=== PATIENT | female | born 1945 | race American Indian/Alaskan Native ===

== ENCOUNTER 2017-01-13 08:23 | Day surgery (SDC) | payer MEDICARE ==
[2017-01-05 13:49] VITALS: BMI 22.6
[2017-01-13] MEDS ORDERED: Propofol 10 mg/ml Inj (20 ML) ONE (10:46)
[2017-01-13] MEDS ORDERED: Lactated Ringer's 1,000 ML IV SCH (11:09)
[2017-01-13 14:12] VITALS: BP 129/57; PULSE 62; RESP 16; TEMP 98; O2SAT 98
== END 2017-01-13 11:55 | disposition home or self-care (01) ==
LOC: ENDO 08:23
PROVIDERS: ATTEND Specialist
DX: K31.819 Angiodysplasia of stomach and duodenum without bleeding (principal); K29.70 Gastritis, unspecified, without bleeding; K21.0 Gastro-esophageal reflux disease with esophagitis; R63.0 Anorexia; Z68.22 Body mass index [BMI] 22.0-22.9, adult; R63.4 Abnormal weight loss
CPT/HCPCS: 43239; 82948; 88305; 88342; J2704; J7040; J7120

== ENCOUNTER 2018-02-18 10:07 | Day surgery (SDC) | payer MEDICARE ==
[2018-02-15 07:33] VITALS: BMI 23.4
[2018-02-18 10:43] LABS: BASO # 0.03 K/mm3 (0.0-2.0); BASO % 0.5 % (0.0-3.0); EOS # 0.2 (0.0-0.7); EOS % 3.5 % (1.5-5.0); GRAN % 63.4 % (50.0-68.0); HEMOGLOBIN 10.8 g/dL (12.0-16.0); LYMPH # 1.7 (1.2-3.4); LYMPH % 26.3 % (22.0-35.0); MEAN CELL VOLUME 85.7 fl (80.0-105.0); MEAN CORPUSCULAR HEMOGLOBIN 28.1 pg (25.0-35.0); MEAN CORPUSCULAR HGB CONC 32.8 g/dl (31.0-37.0); MEAN PLATELET VOLUME 10.4 fl (7.0-11.0); MONO # 0.4 (0.1-0.6); MONO % 6.3 % (1.0-6.0); RBC 3.84 10^6/uL (3.5-6.1); RED CELL DISTRIBUTION WIDTH 15.6 % (11.5-14.5); WHITE BLOOD COUNT 6.3 10^3/ul (4.5-11.0)
[2018-02-18 10:56] LABS: BLOOD UREA NITROGEN 15 mg/dL (7-21); CALCIUM 9.8 mg/dL (8.4-10.5); GFR AFRICAN-AMERICAN > 60; GFR NON-AFRICAN AMERICAN > 60
[2018-02-18 11:14] LABS: PROTHROMBIN TIME 9.6 SECONDS (9.4-12.5)
[2018-02-18 11:15] LABS: INR 0.84 (0.93-1.08); PARTIAL THROMBOPLASTIN TIME 29.9 Seconds (25.1-36.5)
[2018-02-18] MEDS ORDERED: Lidocaine 1% Inj (20ml) ONE (14:21)
[2018-02-18] MEDS ORDERED: Midazolam 2 MG/2 ML VIAL ONE (14:22)
[2018-02-18] MEDS ORDERED: Oxycodone/Acetaminophen 5/325 mg Tab PO PRN (15:23)
[2018-02-18] MEDS ORDERED: Sodium Chloride 0.45% 1,000 ML IV SCH (15:30)
[2018-02-18 16:12] VITALS: RESP 18; TEMP 98.1
[2018-02-18 17:37] VITALS: BP 156/76; PULSE 68; O2SAT 96
--- NOTE | 2018-02-18 18:40 | US ---
PROCEDURE: Ultrasound-guided left thyroid fine needle aspiration biopsy. CLINICAL HISTORY: Multiple bilateral nodules and cysts. Dominant 2.7 cm heterogeneous left nodule. Evaluate for malignancy. PHYSICIAN(S): Abdullahi Laura M.D. TECHNIQUE: The relative risks and indications for the procedure were explained to the patient and consent obtained. The patient was placed supine on the stretcher with the neck extended and preliminary sonography of the thyroid performed. This reveal dominant 2.7 cm left thyroid nodule.. Numerous smaller cysts and nodules are noted bilaterally The neck was prepped and draped in the usual sterile fashion. Conscious sedation and monitoring were provided throughout the procedure by a nurse. 1% Xylocaine was used to anesthetize the skin and soft tissues at the access site. Three passes with a 22-gauge needle were performed under ultrasound guidance for fine needle aspiration of the 2.7 cm heterogeneous nodule in the left thyroid. The slides were reviewed by pathology and deemed adequate. The patient tolerated the procedure well. IMPRESSION: 1. Ultrasound guided fine needle aspiration of a 2.7 cm dominant heterogeneous nodule in the left thyroid
== END 2018-02-18 17:50 | disposition home or self-care (01) ==
LOC: SDS 10:07
PROVIDERS: ATTEND Radiology Vascular & Interventional Radiology
DX: E04.1 Nontoxic single thyroid nodule (principal); I10 Essential (primary) hypertension; I25.10 Atherosclerotic heart disease of native coronary artery without angina pectoris; E11.9 Type 2 diabetes mellitus without complications
CPT/HCPCS: 10022; 36415; 76942; 80048; 85025; 85610; 85730; 88173; 88305; 99152; 99153; J2250; J2405; J3010; J7030

== ENCOUNTER 2018-09-22 05:34 | Inpatient (IN) | payer MEDICARE, OTHER ==
[2018-09-22] MEDS ORDERED: Sodium Chloride 0.9% 1,000 ML IV STA (05:52)
--- NOTE | 2018-09-22 06:17 | ED PDOC ---
Arrival/HPI - General Chief Complaint: Chest Pain Historian: Patient - History of Present Illness Narrative History of Present Illness (Text): 09/22/18 06:03 72 year old female, whose past medical history includes anemia, diabetes and Hypertension, presents to the emergency department with chest pain. Patient states the pain has been worsening all night, and has kept her from sleeping. Patient states pain radiated to her throat. Patient states she was given two sprays of nitroglycerin to help with the chest pain. Patient denies any dizziness, shortness of breath, headache, abdominal pain, nausea, vomiting, or any other complaints. Time/Duration: Prior to Arrival Symptom Course: Unchanged Quality: Tightness Context: Home Past Medical History - Provider Review Nursing Documentation Reviewed: Yes - Cardiac Hx Pacemaker: No - Pulmonary Hx Respiratory Disorders: No - Neurological Hx Neurological Disorder: Yes HX Cerebrovascular Accident: Yes (2010 left side weakness) - HEENT Hx HEENT Disorder: No - Renal Hx Renal Disorder: No Other/Comment: family history of renal disorder - Endocrine/Metabolic Hx Endocrine Disorders: Yes Hx Diabetes Mellitus Type 2: Yes - Hematological/Oncological Hx Blood Transfusions: Yes Hx Blood Transfusion Reaction: No - Integumentary Hx Dermatological Disorder: Yes Other/Comment: Fungus on the nails - Musculoskeletal/Rheumatological Hx Musculoskeletal Disorders: No - Gastrointestinal Hx Gastrointestinal Disorders: No - Genitourinary/Gynecological Hx Genitourinary Disorders: No - Psychiatric Hx Emotional Abuse: No Hx Physical Abuse: No Hx Substance Use: No - Surgical History Hx Cardiac Catheterization: Yes (11/2013 / left heart cath) Hx Hysterectomy: Yes - Anesthesia Hx Anesthesia: Yes Hx Anesthesia Reactions: No Hx Malignant Hyperthermia: No - Suicidal Assessment Feels Threatened In Home Enviroment: No Family/Social History - Physician Review Nursing Documentation Reviewed: Yes Family/Social History: No Known Family HX Smoking Status: Light Smoker < 10 Cigarettes Daily Hx Alcohol Use: No Hx Substance Use: No Hx Substance Use Treatment: No Allergies/Home Meds Allergies/Adverse Reactions: Allergies No Known Allergies Allergy (Verified 01/05/17 13:49) Home Medications: Home Meds Medication Instructions Recorded Confirmed Metformin HCl 1,000 mg PO ACBD 12/04/13 09/22/18 Cholecalciferol [Vitamin D] 1,000 iu PO BID 01/05/17 09/22/18 Folic Acid 1 mg PO DAILY 11/23/17 09/22/18 Gabapentin [Neurontin] 300 mg PO BID 11/23/17 09/22/18 Rosuvastatin Calcium [Crestor] 40 mg PO DAILY 11/23/17 09/22/18 hydrALAZINE [Apresoline] 10 mg PO BID 11/23/17 09/22/18 metFORMIN [glucOPHAGE] 500 mg PO ACL 11/23/17 09/22/18 Colesevelam HCl [Welchol] 3 tab PO BID 02/15/18 09/22/18 Carvedilol [Coreg] 3.125 mg PO BID 09/22/18 09/22/18 Ezetimibe [Zetia] 10 mg PO DAILY 09/22/18 09/22/18 Insulin Glargine,Hum.rec.anlog 50 unit SQ ACB 09/22/18 09/22/18 [Basaglar Kwikpen U-100] Lisinopril [Zestril] 20 mg PO DAILY 09/22/18 09/22/18 Review of Systems - Physician Review All systems were reviewed & negative as marked: Yes - Review of Systems Respiratory: absent: SOB Cardiovascular: Chest Pain Gastrointestinal: absent: Abdominal Pain, Nausea, Vomiting Neurological: absent: Headache, Dizziness Physical Exam - Systems Exam Head: Present: Atraumatic, Normocephalic Pupils: Present: PERRL Extroacular Muscles: Present: EOMI Conjunctiva: Present: Normal Mouth: Present: Moist Mucous Membranes Neck: Present: Normal Range of Motion Respiratory/Chest: Present: Clear to Auscultation, Good Air Exchange. No: Respiratory Distress, Accessory Muscle Use Cardiovascular: Present: Regular Rate and Rhythm, Normal S1, S2. No: Murmurs Abdomen: No: Tenderness, Distention, Peritoneal Signs Back: Present: Normal Inspection Upper Extremity: Present: Normal Inspection. No: Cyanosis, Edema Lower Extremity: Present: Normal Inspection. No: Edema Neurological: Present: GCS=15, CN II-XII Intact, Speech Normal Skin: Present: Warm, Dry, Normal Color. No: Rashes Psychiatric: Present: Alert, Oriented x 3, Normal Insight, Normal Concentration Medical Decision Making ED Course and Treatment: 09/22/18 06:20 Impression: 72 year old female presents with chest pain. Differential Diagnoses Include But Are Not Limited to: --ACS --PE --PNA Plan: -- EKG -- CMP, Mg, BNP, Trop -- CBC -- Chest x-ray -- Urinalysis -- Reassess and disposition Prior Visits: Notes and results from previous visits were reviewed. Progress Notes: Spoke to Dr. Reddy(PCP) who accepts patient onto his service. Patient updated on plan for admission and is in agreement. - Lab Interpretations Lab Results: 09/23/18 16:17 09/23/18 16:17 09/23/18 16:17 09/23/18 16:17 Lab Results 09/23/18 16:17: Sodium 135, Potassium 4.6, Chloride 114 H, Carbon Dioxide 21, Anion Gap 5 L, BUN 21, Creatinine 0.8, Est GFR ( Amer) > 60, Est GFR (Non-Af Amer) > 60, Random Glucose 217 H, Calcium 7.6 L, Phosphorus 3.0, Magnesium 1.5 L, Total Bilirubin 0.3, AST 11 L D, ALT 25, Alkaline Phosphatase 37 L D, Total Protein 4.2 L, Albumin 2.2 L, Globulin 1.9, Albumin/Globulin Ratio 1.1 09/23/18 16:17: PT 13.2 H, INR 1.15, APTT 27.7 09/23/18 16:17: WBC 12.4 H D, RBC 2.30 L, Hgb 6.4 L* D, Hct 20.0 L*, MCV 87.0, MCH 27.8, MCHC 32.0, RDW 14.9 H, Plt Count 169, MPV 10.5 09/23/18 15:58: POC Glucose (mg/dL) 245 H 09/23/18 14:34: POC Glucose (mg/dL) 203 H 09/23/18 12:39: POC Glucose (mg/dL) 184 H 09/23/18 11:59: POC Glucose (mg/dL) 168 H 09/23/18 07:27: POC Glucose (mg/dL) 214 H 09/23/18 06:00: Sodium 136, Potassium 4.5, Chloride 109 H, Carbon Dioxide 22, Anion Gap 9 L, BUN 15, Creatinine 0.8, Est GFR ( Amer) > 60, Est GFR (Non-Af Amer) > 60, Random Glucose 198 H, Calcium 9.0, Phosphorus 2.8, Magnesium 1.8, Total Bilirubin 0.5, AST 19, ALT 23, Alkaline Phosphatase 54, Total Protein 6.1, Albumin 3.5, Globulin 2.6, Albumin/Globulin Ratio 1.3 09/23/18 06:00: WBC 6.7 D, RBC 3.56, Hgb 9.7 L, Hct 30.3 L, MCV 85.1, MCH 27.2, MCHC 32.0, RDW 14.5, Plt Count 213, MPV 11.0, Gran % 61.0, Lymph % (Auto) 28.4, [place] % (Auto) 6.6 H, Eos % (Auto) 3.7, Baso % (Auto) 0.3, Gran # 4.07, Lymph # (Auto) 1.9, [place] # (Auto) 0.4, Eos # (Auto) 0.3, Baso # (Auto) 0.02 09/22/18 21:05: POC Glucose (mg/dL) 224 H 09/22/18 18:10: Blood Type O POSITIVE, Antibody Screen Negative, Crossmatch See Detail, BBK History Checked Patient has bt 09/22/18 18:10: Troponin I 0.13 H* D 09/22/18 17:23: POC Glucose (mg/dL) 225 H 09/22/18 15:04: POC Glucose (mg/dL) 229 H 09/22/18 14:00: Troponin I 0.09 D 09/22/18 13:10: Free T4 1.20, Total T3 1.16 09/22/18 12:30: Fructosamine 319 H 09/22/18 11:25: WBC 9.9 D, RBC 3.19 L, Hgb 8.7 L, Hct 27.1 L, MCV 85.0, MCH 27.3, MCHC 32.1, RDW 14.5, Plt Count 206, MPV 11.2 H, Gran % 76.3 H, Lymph % (Auto) 19.0 L, [place] % (Auto) 3.9, Eos % (Auto) 0.6 L, Baso % (Auto) 0.2, Gran # 7.56 H, Lymph # (Auto) 1.9, [place] # (Auto) 0.4, Eos # (Auto) 0.1, Baso # (Auto) 0.02 09/22/18 11:25: Troponin I 0.07 D, Triglycerides 40, Cholesterol 127 L, LDL Cholesterol Direct 60, HDL Cholesterol 65 H 09/22/18 11:25: C-React Prot High Sens 0.36 L, TSH 3rd Generation 0.16 L 09/22/18 11:25: Hemoglobin A1c 8.4 H D 09/22/18 10:26: POC Glucose (mg/dL) 183 H 09/22/18 09:50: Urine Color Yellow, Urine Appearance Sl cloudy, Urine pH 6.0, Ur Specific [place] 1.010, Urine Protein Negative, Urine Glucose (UA) 250 H, Urine Ketones Negative, Urine Blood Trace-intact H, Urine Nitrate Negative, Urine Bilirubin Negative, Urine Urobilinogen 0.2, Ur Leukocyte Esterase Trace H, Urine RBC Negative, Urine WBC Negative 09/22/18 05:55: Sodium 137, Potassium 4.8, Chloride 106, Carbon Dioxide 24, Anion Gap 12, BUN 16, Creatinine 0.8, Est GFR ( Amer) > 60, Est GFR (Non- Af Amer) > 60, Random Glucose 253 H, Calcium 9.3, Magnesium 1.7, Total Bilirubin 0.3, AST 16, ALT 20, Alkaline Phosphatase 76, Troponin I < 0.01 D, NT-Pro-B Natriuret Pep 246, Total Protein 6.9, Albumin 4.2, Globulin 2.8, Albumin/Globulin Ratio 1.5 09/22/18 05:55: PT 9.7, INR 0.85, APTT 27.6 09/22/18 05:55: WBC 13.2 H, RBC 3.56, Hgb 9.7 L, Hct 30.8 L, MCV 86.5, MCH 27.2, MCHC 31.5, RDW 14.3, Plt Count 264, MPV 11.1 H, Gran % 81.7 H, Lymph % (Auto) 11.3 L, [place] % (Auto) 5.2, Eos % (Auto) 1.6, Baso % (Auto) 0.2, Gran # 10.78 H, Lymph # (Auto) 1.5, [place] # (Auto) 0.7 H, Eos # (Auto) 0.2, Baso # (Auto) 0.03 - RAD Interpretation Radiology Orders: 09/22/18 05:50 CHEST PORTABLE [RAD] Stat - Medication Orders Current Medication Orders: Sodium Chloride (Sodium Chloride 0.9%) 1,000 mls @ 999 mls/hr IV .Q1H1M STA Stop: 09/22/18 06:52 Last Admin: 09/22/18 06:01 Dose: 999 mls/hr eMAR Start Stop Document 09/22/18 06:01 AD (Rec: 09/22/18 06:01 AD [id number]) Intravenous Solution Start Date 09/22/18 Start Time 06:01 - Scribe Statement The provider has reviewed the documentation as recorded by the Scot Tanner Provider Scribe Attestation: All medical record entries made by the Scribe were at my direction and personally dictated by me. I have reviewed the chart and agree that the record accurately reflects my personal performance of the history, physical exam, medical decision making, and the department course for this patient. I have also personally directed, reviewed, and agree with the discharge instructions and disposition. Disposition/Present on Arrival - Present on Arrival Any Indicators Present on Arrival: No History of DVT/PE: No History of Uncontrolled Diabetes: No Urinary Catheter: No History of Decub. Ulcer: No History Surgical Site Infection Following: None - Disposition Have Diagnosis and Disposition been Completed?: Yes Diagnosis: Chest pain Disposition: HOSPITALIZED Disposition Time: 07:00 Patient Plan: Admission Condition: GUARDED
[2018-09-22 06:21] LABS: BASO # 0.03 K/mm3 (0.0-2.0); BASO % 0.2 % (0.0-3.0); EOS # 0.2 (0.0-0.7); EOS % 1.6 % (1.5-5.0); GRAN # 10.78 (1.4-6.5); GRAN % 81.7 % (50.0-68.0); HEMOGLOBIN 9.7 g/dL (12.0-16.0); LYMPH # 1.5 (1.2-3.4); LYMPH % 11.3 % (22.0-35.0); MEAN CELL VOLUME 86.5 fl (80.0-105.0); MEAN CORPUSCULAR HEMOGLOBIN 27.2 pg (25.0-35.0); MEAN CORPUSCULAR HGB CONC 31.5 g/dl (31.0-37.0); MEAN PLATELET VOLUME 11.1 fl (7.0-11.0); MONO # 0.7 (0.1-0.6); MONO % 5.2 % (1.0-6.0); RBC 3.56 10^6/uL (3.5-6.1); RED CELL DISTRIBUTION WIDTH 14.3 % (11.5-14.5); WHITE BLOOD COUNT 13.2 10^3/uL (4.5-11.0)
[2018-09-22 06:29] LABS: ALB/GLOB RATIO 1.5 (1.1-1.8); ALBUMIN 4.2 g/dL (3.0-4.8); ALT/SGPT 20 U/L (7-56); AST/SGOT 16 U/L (14-36); BLOOD UREA NITROGEN 16 mg/dL (7-21); CALCIUM 9.3 mg/dL (8.4-10.5); GFR NON-AFRICAN AMERICAN > 60
[2018-09-22 06:31] LABS: INR 0.85; PARTIAL THROMBOPLASTIN TIME 27.6 Seconds (25.1-36.5)
[2018-09-22 06:40] LABS: B-TYPE NATRIURETIC PEPTIDE 246 pg/mL (0-450); TROPONIN I < 0.01 ng/mL
[2018-09-22 06:50] LABS: PROTHROMBIN TIME 9.7 SECONDS (9.4-12.5)
--- NOTE | 2018-09-22 08:54 | RAD ---
Date of service: 09/22/2018 HISTORY: Chest pain COMPARISON: 09/25/2016 6. FINDINGS: LUNGS: The lungs are well inflated and clear. PLEURA: No pleural effusions or pneumothorax. CARDIOVASCULAR: The heart is normal in size. No aortic atherosclerotic calcification present. OSSEOUS STRUCTURES: Within normal limits for the patient's age. VISUALIZED UPPER ABDOMEN: Normal. OTHER FINDINGS: None. IMPRESSION: No active pulmonary disease.
--- NOTE | 2018-09-22 09:14 | CARD ---
APPROVED REPORT Date of service: 09/22/2018 EKG Measurement Heart [id number] <Conclusion> Normal sinus rhythm Left bundle branch block Abnormal ECG
[2018-09-22] MEDS ORDERED: Dextrose 50% SYRINGE Inj (50 ml) IV PRN (09:23)
--- NOTE | 2018-09-22 09:49 | CP.PCM.HP ---
History of Present Illness - History of Present Illness History of Present Illness: CC: Chest Pain HPI: Patient is a 72 yo F with PMH of HTN, HLD, DM, and CVA (5 yrs ago) presents to [facility] due to chest pain. Patient states that she was sleeping last night when she was awoken with diffuse chest pain that was worst midsternal around 1:30 am. Patient states that the pain 10 out of 10, constant, and that it felt like the pain started in the lower part of her chest and radiated upwards to her neck. Patient states that the pain worsened with exertion. Patient denied any dyspnea, cough, n/v/d, abdominal pain, fever, chills, DEL REAL, dizziness, dysuria, hematuria, recent sick contacts, or travel. In the ED, patient was given sublingual Nitroglycerin, which resulted in cessation of her chest pain. Patient has been asymptomatic since. PMH: as above Surg: Hysterectomy All: NKDA SH: 10 cigarettes/day for 50 yrs, social EtOH use, no illicit drug use FHx: Mother- DM, Father- Alzeimher's Meds: As per MAR Present on Admission - Present on Admission Any Indicators Present on Admission: No Review of Systems - Review of Systems All systems: reviewed and no additional remarkable complaints except (12 point ROS reviewed and is negative other than what is stated in HPI) Past Patient History - Past Social History Smoking Status: Light Smoker < 10 Cigarettes Daily - CARDIAC Hx Pacemaker: No - PULMONARY Hx Respiratory Disorders: No - NEUROLOGICAL Hx Neurological Disorder: Yes HX Cerebrovascular Accident: Yes (2010 left side weakness) - HEENT Hx HEENT Problems: No - RENAL Hx Chronic Kidney Disease: No Other/Comment: family history of renal disorder - ENDOCRINE/METABOLIC Hx Endocrine Disorders: Yes Hx Diabetes Mellitus Type 2: Yes - HEMATOLOGICAL/ONCOLOGICAL Hx Blood Transfusions: Yes Hx Blood Transfusion Reaction: No - INTEGUMENTARY Hx Dermatological Problems: Yes Other/Comment: Fungus on the nails - MUSCULOSKELETAL/RHEUMATOLOGICAL Hx Musculoskeletal Disorders: No - GASTROINTESTINAL Hx Gastrointestinal Disorders: No - GENITOURINARY/GYNECOLOGICAL Hx Genitourinary Disorders: No - PSYCHIATRIC Hx Emotional Abuse: No Hx Physical Abuse: No Hx Substance Use: No - SURGICAL HISTORY Hx Cardiac Catheterization: Yes (11/2013 / left heart cath) Hx Hysterectomy: Yes - ANESTHESIA Hx Anesthesia: Yes Hx Anesthesia Reactions: No Hx Malignant Hyperthermia: No Meds Allergies/Adverse Reactions: Allergies Allergy/AdvReac Type Severity Reaction Status Date / Time No Known Allergies Allergy Verified 01/05/17 13:49 Physical Exam - Constitutional Appears: No Acute Distress - Head Exam Head Exam: NORMAL INSPECTION - Eye Exam Eye Exam: EOMI, Normal appearance, PERRL - ENT Exam ENT Exam: Mucous Membranes Moist, Normal Exam - Neck Exam Neck exam: Positive for: Normal Inspection - Respiratory Exam Respiratory Exam: Clear to Auscultation Bilateral. absent: Rales, Rhonchi, Wheezes - Cardiovascular Exam Cardiovascular Exam: RRR, +S1, +S2. absent: Diastolic murmur, Gallop, Rubs, Sy stolic Murmur - GI/Abdominal Exam GI & Abdominal Exam: Soft. absent: Distended, Guarding, Rebound, Tenderness - Extremities Exam Extremities exam: Positive for: normal inspection. Negative for: pedal edema - Back Exam Back exam: NORMAL INSPECTION - Neurological Exam Neurological exam: Alert, CN II-XII Intact, Oriented x3 - Psychiatric Exam Psychiatric exam: Normal Affect, Normal Mood - Skin Skin Exam: Dry, Intact, Normal Color, Warm Results - Vital Signs Recent Vital Signs: Last Vital Signs Temp 98.2 F 09/22/18 05:51 Pulse 65 09/22/18 05:51 Resp 18 09/22/18 05:51 BP 123/72 09/22/18 05:51 Pulse Ox 98 09/22/18 05:51 - Labs Result Diagrams: 09/22/18 05:55 09/22/18 05:55 Labs: Laboratory Results - last 24 hr 09/22/18 09/22/18 09/22/18 05:55 05:55 05:55 WBC 13.2 H RBC 3.56 Hgb 9.7 L Hct 30.8 L MCV 86.5 MCH 27.2 MCHC 31.5 RDW 14.3 Plt Count 264 MPV 11.1 H Gran % 81.7 H Lymph % (Auto) 11.3 L [place] % (Auto) 5.2 Eos % (Auto) 1.6 Baso % (Auto) 0.2 Gran # 10.78 H Lymph # (Auto) 1.5 [place] # (Auto) 0.7 H Eos # (Auto) 0.2 Baso # (Auto) 0.03 PT 9.7 INR 0.85 APTT 27.6 Sodium 137 Potassium 4.8 Chloride 106 Carbon Dioxide 24 Anion Gap 12 BUN 16 Creatinine 0.8 Est GFR ( Amer) > 60 Est GFR (Non-Af Amer) > 60 Random Glucose 253 H Calcium 9.3 Magnesium 1.7 Total Bilirubin 0.3 AST 16 ALT 20 Alkaline Phosphatase 76 Troponin I < 0.01 D NT-Pro-B Natriuret Pep 246 Total Protein 6.9 Albumin 4.2 Globulin 2.8 Albumin/Globulin Ratio 1.5 Assessment & Plan - Assessment and Plan (Free Text) Assessment: 72 yo F with PMH of DM, HTN, HLD, and CVA presents to [facility] for chest pain. Patient to be placed on observation to rule out acute coronary syndrome. Plan: 1. Chest pain r/o ACS - EKG showed NSR, LBBB (chronic, seen on EKG in 2013) at rate 65 - F/u daily EKG x2 - CXR negative - Troponin negative x1, f/u trend x3 - HgbA1c, TSH, lipid panel, and hsCRP ordered - Echo ordered - Cardiology consulted 2. Leukocytosis - WBC 13.2, will recheck cbc - CXR negative - UA ordered - Blood cultures ordered 3. DM - ISS - Accuchecks ACHS - Home metformin held 4. HTN - Hydralazine 5. HLD - Cont home statin and welchol 6. H/o Anemia - Hgb 9.7 appears to be at baseline - Cont folic acid GI/DVT PPx - Protonix - SCDs Patient seen and discussed in detail with Dr. Reddy. Boby Blackburn, DO PGY2
[2018-09-22 09:57] LABS: URINE BILIRUBIN NEGATIVE (NEGATIVE); URINE BLOOD TRACE-INTACT (NEGATIVE); URINE GLUCOSE (UA) 250 mg/dL (NEGATIVE); URINE LEUKOCYTE ESTERASE TRACE Leu/uL (NEGATIVE); URINE PROTEIN NEGATIVE mg/dL (<30 mg/dL); URINE UROBILINOGEN 0.2 E.U./dL (<1 E.U./dL)
[2018-09-22 10:05] LABS: URINE APPEARANCE SL CLOUDY (CLEAR); URINE COLOR YELLOW (YELLOW)
[2018-09-22 10:11] LABS: URINE RBC NEGATIVE /hpf (0-2); URINE WBC NEGATIVE /hpf (0-6)
[2018-09-22] MEDS ORDERED: Enoxaparin 40 mg Syringe SC SCH (11:00)
[2018-09-22 11:51] LABS: BASO # 0.02 K/mm3 (0.0-2.0); BASO % 0.2 % (0.0-3.0); EOS # 0.1 (0.0-0.7); EOS % 0.6 % (1.5-5.0); GRAN # 7.56 (1.4-6.5); GRAN % 76.3 % (50.0-68.0); HEMOGLOBIN 8.7 g/dL (12.0-16.0); LYMPH # 1.9 (1.2-3.4); MEAN CORPUSCULAR HEMOGLOBIN 27.3 pg (25.0-35.0); MEAN CORPUSCULAR HGB CONC 32.1 g/dl (31.0-37.0); MEAN PLATELET VOLUME 11.2 fl (7.0-11.0); MONO # 0.4 (0.1-0.6); MONO % 3.9 % (1.0-6.0); RBC 3.19 10^6/uL (3.5-6.1); RED CELL DISTRIBUTION WIDTH 14.5 % (11.5-14.5); WHITE BLOOD COUNT 9.9 10^3/uL (4.5-11.0)
[2018-09-22 12:03] LABS: TROPONIN I 0.07 ng/mL
--- NOTE | 2018-09-22 12:27 | HP ---
DATE OF EXAM: 09/22/2018 HISTORY OF PRESENT ILLNESS: The patient is a 72-year-old female who was an active smoker and very noncompliant with diabetes, very noncompliant with medication and diet was brought into the [facility] emergency room by ambulance complaining of precordial retrosternal chest pain radiating to neck and jaw. The patient was given nitroglycerin and aspirin in the field which resolved and relieved the chest pain. REVIEW OF SYSTEMS: A 14-system review was done, pertinent positive negative dictated above. CODE STATUS: Full code. LIVING WILL ADVANCE DIRECTIVE: None. ALLERGIES: NONE. Height is 5 feet. Weight is 119. BMI is 23. HOME MEDICATIONS: Which are listed may not be correct which are Glucophage 500 mg with lunch and Glucophage 1000 mg twice a day and hydralazine 10 mg daily, Crestor 20 mg daily, metformin 1000 mg twice a day breakfast, dinner, Neurontin 300 mg twice a day, folic acid 1 mg daily, WelChol 3 tablets daily, vitamin D 1000 units twice a day. The patient is also on insulin, Basaglar. Patient is also on Zestril which is not listed. SOCIAL HISTORY: Positive for smoking half a pack per day. OCCUPATIONAL HISTORY: Disabled. Denies communicable transmissible disease. MENSTRUAL HISTORY: Postmenopausal. PAST MEDICAL AND SURGICAL HISTORY: History of cerebrovascular accident, history of hypertension, history of hyperlipidemia, history of iron-deficiency anemia, history of vitamin B12 deficiency, history of hypertension, diabetic neuropathy, cervical and lumbar spine degenerative disc disease, history of hypovitaminosis D, history of poor compliance, history of uncontrolled diabetes mellitus, history of severe dietary noncompliance, history of glycosuria, microscopic hematuria, history of proteinuria, history of packed red blood cell transfusion, history of thyroid nodule biopsy, history of endoscopy, colonoscopy, history of benign adenomatoid left thyroid nodule, history of nicotine dependence, history of emphysema, history of chronic obstructive pulmonary disease, history of active nicotine addiction, history of multiple thyroid nodules status post biopsy, history of questionable rectal thickening, history of osteoporosis, history of degenerative joint disease of the cervical and lumbar spine, history of basal ganglia thalamic lacunar infarct in the left side, history of chronic gastritis, history of cardiac catheterization done in 2013, history of 50% stenosis of the left anterior descending artery, history of 40-50% stenosis of the ramus intermedius and history of hypertensive cardiovascular disease, history of type 2 diabetes, history of left bundle branch block, history of cervical spine disc disease, history of [place] grade A esophagitis, history of gastric antral gastritis, history of gastric fundus angioectasia and duodenal bulb angioectasia. PHYSICAL EXAMINATION: GENERAL: The patient is seen in stretcher #20 in the emergency room. The patient is pain free after receiving nitroglycerin and aspirin. VITAL SIGNS: T-max 98.2, heart rate 65, blood pressure 123/72, respirations 18, O2 sat 98%. HEENT: Head: Normocephalic, atraumatic. HEENT examination shows pinkish pale conjunctivae. Anicteric sclerae, dry oral mucosa. No neck rigidity. CHEST: Kyphosis. LUNGS: Shows very occasional rhonchi noted in the upper lung renee. CARDIOVASCULAR: S1, S2, regular rhythm. Questionable soft systolic murmur left sternal border, left second intercostal space, right second intercostal space. ABDOMEN: Soft. Positive bowel sounds. No palpable hepatosplenomegaly. GENITALIA: Female. RECTAL: Deferred. EXTREMITIES: Shows no pitting edema, no calf tenderness, no Homans' sign. NEUROLOGIC: The patient is alert, awake, oriented. No gross deficit. Motor strength is 5/5 in upper and lower extremity. VASCULAR: Palpable pulses. Plantars are downward. DTRs are 2+. Gait examination is not tested. PSYCHIATRIC: Negative. MUSCULOSKELETAL: Shows a body mass index of 23. DIAGNOSTICS: WBC 13.2, hemoglobin/hematocrit 9.7, 31, platelet 264. Granulocytes 82. PT/PTT 9.7, 27.6. Chemistry is significant for glucose of 253. Troponin is negative. BNP is 246. Urinalysis 250 glucose, trace intact blood, trace leukocyte esterase. EKG shows sinus rhythm, left anterior hemiblock, left bundle branch block. Chest x-ray negative. IMPRESSION AND PLAN: 1. Precordial chest pain with radiation to neck and jaw 2. Questionable unstable angina. 3. History of coronary artery disease with a cardiac catheterization done in 2013. 4. Leukocytosis with granulocytosis. 5. Normocytic iron-deficiency anemia. 6. Hyperglycemia. 7 Insulin-requiring diabetes mellitus. 8. Glycosuria. 9. Microscopic hematuria and pyuria. 10. Left anterior hemiblock and left bundle-branch block. 11. Hypertension. 12. History of hypertensive cardiovascular disease. 13. Nicotine addiction and dependence. 14. Chronic obstructive pulmonary disease. PLAN: At this time, the patient will be placed on telemetry observation. Repeat labs ordered for the morning. Serial cardiac enzymes, lipid panel, hemoglobin A1c, TSH ordered. Repeat CBC ordered for the morning. Blood and urine cultures ordered. Cardiology consultation ordered. Diabetic education ordered. TCU evaluation ordered. CURRENT MEDICATIONS: Hydralazine 10 mg daily, aspirin 81 mg daily, WelChol 3 tablets daily, folic acid 1 mg daily Humalog medium dose sliding scale coverage, Lipitor 80 mg daily Lovenox 40 mg subcu daily, Neurontin 300 mg twice a day, Protonix 40 mg daily, Tylenol p.r.n., vitamin D 1000 units twice a day, Xopenex nebulizer 0.63 mg every 6 hours, Zofran 4 mg IV every four hours. The patient is also on Coreg at home, I believe, which will be resumed 3.125 every 12 hours. At present, the patient was seen and evaluated in the emergency room. Patient is awaiting for a telemetry bed. Repeat EKG has been ordered. Echo with Doppler ordered. Heart healthy diabetic diet ordered. LONG schofield, DENNISs, physical therapy, occupational therapy ordered. Cardiology consultation ordered. Dictated and electronically signed, not read. Edilson Reddy MD
[2018-09-22 13:48] LABS: FREE T4 1.2 ng/dL (0.78-2.19)
[2018-09-22 14:03] LABS: T3 1.16 ng/mL (0.97-1.69)
--- NOTE | 2018-09-22 14:34 | CON ---
DATE: 09/22/2018 CARDIOLOGY CONSULTATION HISTORY OF PRESENT ILLNESS: The patient is a 72-year-old woman, who presents with classic substernal angina. The symptoms occurred as of last night. Her symptoms are much improved. PAST MEDICAL HISTORY: The patient's past medical history includes a history of a catheterization several years ago where she had multiple 50% lesions in the RCA as well as in the LAD. She suffers from diabetes mellitus, hypertension and hypercholesterolemia. SOCIAL HISTORY: She denies smoking. REVIEW OF SYSTEMS: Fourteen-point review of systems is reviewed in detail. No history of peptic ulcer disease. No bleeding history. No previous myocardial infarction. No edema. No dyspnea noted. ALLERGIES: NO ALLERGIES NOTED. PHYSICAL EXAMINATION: VITAL SIGNS: Blood pressure 123/72, the heart rate is in the 60s. NECK: Negative JVD. LUNGS: Without rales. CARDIAC: Heart rate S1, S2. EXTREMITIES: Without edema. LABORATORY DATA: Laboratories include an EKG that shows a left bundle-branch block. Hemoglobin is 9.7. Chemistries, BUN and creatinine, unremarkable. The glucose is 253. First troponin is negative. IMPRESSION: 1. Unstable angina. 2. Documented coronary artery disease. 3. Diabetes mellitus. 4. Hypercholesterolemia. 5. Abnormal electrocardiogram. 6. Hypertension. 7. Anemia. PLAN: Given these findings, we will add Plavix to the patient's regimen. Aspirin and statin therapy has been ordered. We have discussed cardiac catheterization with the patient in detail. The patient is agreeable. We will arrange for catheterization in the morning. Abdullahi Vanessa MD
[2018-09-22] MEDS: Insulin Lispro (humaLOG) MEDIUM Coverage SC SCH ×2 (15:16→17:32)
[2018-09-22] MEDS: Levalbuterol 0.63 MG/3 ML Inhal Soln UD IH SCH ×2 (15:29→19:58)
[2018-09-22] MEDS: Cholecalciferol 1,000 INTLU TAB PO SCH ×2 (15:44→17:32)
[2018-09-22] MEDS: COLESEVELAM HCL PO SCH (17:32)
[2018-09-22 18:38] VITALS: BMI 23.0
[2018-09-22] MEDS ORDERED: Influenza Vaccine 60 mcg/0.5 mL SYR (4YR UP) IM ONE (18:38)
[2018-09-22] MEDS ORDERED: Pneumococcal 23-Valent Vaccine IM ONE (18:38)
[2018-09-22] MEDS ORDERED: Enoxaparin 60 mg Syringe SC STA (19:06)
[2018-09-23] MEDS: Insulin Lispro (humaLOG) MEDIUM Coverage SC SCH ×4 (00:30→22:20)
[2018-09-23] MEDS: Levalbuterol 0.63 MG/3 ML Inhal Soln UD IH SCH ×3 (01:34→19:48)
[2018-09-23] MEDS ORDERED: Pantoprazole 40 mg EC Tab PO SCH ×2 (06:00)
[2018-09-23 06:33] LABS: BASO # 0.02 K/mm3 (0.0-2.0); BASO % 0.3 % (0.0-3.0); EOS # 0.3 (0.0-0.7); EOS % 3.7 % (1.5-5.0); GRAN # 4.07 (1.4-6.5); HEMOGLOBIN 9.7 g/dL (12.0-16.0); LYMPH # 1.9 (1.2-3.4); LYMPH % 28.4 % (22.0-35.0); MEAN CELL VOLUME 85.1 fl (80.0-105.0); MEAN CORPUSCULAR HEMOGLOBIN 27.2 pg (25.0-35.0); MONO # 0.4 (0.1-0.6); MONO % 6.6 % (1.0-6.0); RBC 3.56 10^6/uL (3.5-6.1); RED CELL DISTRIBUTION WIDTH 14.5 % (11.5-14.5); WHITE BLOOD COUNT 6.7 10^3/uL (4.5-11.0)
[2018-09-23 07:18] LABS: ALB/GLOB RATIO 1.3 (1.1-1.8); ALBUMIN 3.5 g/dL (3.0-4.8); ALT/SGPT 23 U/L (7-56); AST/SGOT 19 U/L (14-36); BLOOD UREA NITROGEN 15 mg/dL (7-21); GFR NON-AFRICAN AMERICAN > 60
[2018-09-23] MEDS ORDERED: Lidocaine 2% Inj (20ml) ONE (08:36)
[2018-09-23] MEDS ORDERED: Iohexol 350 MG/100 ML VIAL ONE (08:37)
[2018-09-23] MEDS ORDERED: Iohexol 350mgl/ml 50 ML ONE (08:37)
[2018-09-23] MEDS ORDERED: Midazolam 2 MG/2 ML VIAL ONE ×2 (09:06→09:09)
[2018-09-23] MEDS ORDERED: Eptifibatide 20 mg/10mL Inj IVP ONE (09:12)
[2018-09-23] MEDS ORDERED: Eptifibatide 0.75 mg/ml 0 MG/0 ML BOTTLE IV ONE (09:12)
[2018-09-23] MEDS ORDERED: Iodixanol 320 MG/ML 100 ML BOTTLE IV ONE (09:35)
--- NOTE | 2018-09-23 09:49 | CARD ---
APPROVED REPORT Date of service: 09/23/2018 EKG Measurement Heart [id number] 130P73 [id number] <Conclusion> Sinus bradycardia Left axis deviation Left bundle branch block Abnormal ECG
[2018-09-23] MEDS ORDERED: Sodium Chloride 0.9% 1,000 ML IV SCH (10:00)
[2018-09-23] MEDS: Cholecalciferol 1,000 INTLU TAB PO SCH (11:00)
[2018-09-23] MEDS: COLESEVELAM HCL PO SCH (11:00)
--- NOTE | 2018-09-23 13:09 | PN ---
DATE: 09/23/2018 SUBJECTIVE: The patient is seen in room 264, bed 2 and also the patient was seen on her way to the cardiac labeling strategist. The patient was examined. The patient's chest pain has resolved since the treatment started. OBJECTIVE: VITAL SIGNS: Telemetry monitoring shows sinus rhythm, heart rate 60, 64, 58, 57, T-max 98.9, blood pressure 147/72, respirations 20, O2 sat 99%. HEENT: Head: Normocephalic, atraumatic. HEENT examination shows pinkish pale conjunctivae. Anicteric sclerae. No oropharyngeal lesion. NECK: No neck rigidity. CHEST: Kyphosis. LUNGS: Shows occasional rhonchi upper lung field anteriorly. CARDIOVASCULAR: S1, S2, regular rhythm. Questionable soft systolic murmur left sternal border, right second intercostal space, left second intercostal space. ABDOMEN: Soft. Positive bowel sounds. No palpable hepatosplenomegaly. GENITALIA: Female. RECTAL: Deferred. EXTREMITIES: No pitting edema, no calf tenderness. No Homans' sign. NEUROLOGIC: The patient is alert, awake, oriented x3, is able to move upper and lower extremity without assistance. Gait examination is not tested. MUSCULOSKELETAL: Shows a body mass index of 23. DIAGNOSTICS: 09/23, WBC 6.7, hemoglobin/hematocrit 9.7, 30.3, platelets 213. Sodium 136, potassium 4.5, chloride 109, CO2 22, anion gap 9, BUN 15, creatinine 0.8, GFR greater than 60, glucose 198, hemoglobin A1c 8.4, fructosamine 319. Troponin peaked up to 0.13, calcium 9.0, phosphorus 2.8, magnesium 1.8. LFTs are normal. Cholesterol 127, LDL 60, HDL 65, TSH 0.16. The patient received 1 unit of PRBC yesterday. IMPRESSION AND PLAN: 1. Acute non-ST elevation myocardial infarction with elevated troponin. 2. Multivessel coronary artery disease. 3. Status post cardiac catheterization and angioplasty and stent placement of the left circumflex artery. 4. Left bundle-branch block with left anterior hemiblock and sinus bradycardia. 5. History of 50% stenosis of the mid left anterior descending artery that after the takeoff of the first diagonal branch and first septal bone crusher. 6. History of 40-50% stenosis of the mid ramus intermedius. 7. History of diffuse disease of the left circumflex. 8. History of complex 60% eccentric plaque stenosis of the proximal right coronary artery. 9. History of 30% stenosis of the mid right posterior descending artery. 10. Unstable angina. 11. History of iron-deficiency anemia and vitamin B12 deficiency. 12. Status post leukocytosis, granulocytosis. 13. Uncontrolled insulin-requiring diabetes mellitus with hyperglycemia and hemoglobin A1c of 8.4 and fructosamine of 319. 14. Acute non-ST elevation myocardial infarction with elevated troponin. 15. Glycosuria, microscopic hematuria, pyuria. 16. Status post packed red blood cell transfusion x1. 17. Active nicotine addiction and dependence. 18. Unstable angina. 19. Normocytic iron-deficiency anemia. 20. Hypertensive cardiovascular disease. PLAN: At this time, the patient will be transferred back to telemetry today after angioplasty and cardiac catheterization. The patient has been ordered repeat labs for the morning including CMP, magnesium, phosphorus, CBC and LFTs. The patient has been ordered current consultation Cardiology. Patient's current medication hydralazine 10 mg daily, WelChol three times daily, Coreg 3.125 twice a day, aspirin 81 mg daily, folic acid 1 mg daily, Humalog medium dose sliding scale coverage a.c. and at bedtime, Lipitor 40 mg daily, Neurontin 300 mg twice a day, Plavix 75 mg daily. The patient is on post angioplasty, post cardiac catheterization, IV fluid hydration, Tylenol p.r.n., vitamin D 2000 units daily, Xopenex nebulizer 0.63 every 6 hours, Xopenex nebulizer, Zofran 4 IV every 4 hours. The patient has been ordered repeat EKGs. The patient is on heart-healthy diet. The patient is also placed on nicotine patch. The patient is on GI and DVT prophylaxis. The patient will be ordered arterial Doppler lower extremity bilaterally for evaluation of peripheral vascular disease as during the cardiac catheterization, the patient was noted by Dr. Abdullahi Vanessa about significant peripheral arterial disease. The patient will be ordered arterial Doppler. In addition, ankle-brachial indices also. The patient has been also consulted with Interventional Radiology, Dr. Abdullahi Laura. At present, the patient will be placed back on telemetry with bedrest post angioplasty, post cardiac catheterization. At present, the patient has been updated about her condition, diagnosis, treatment plan, treatment option in detail. All questions concerned answered to the patient's satisfaction. Dictated and electronically signed, not read. Edilson Reddy MD
--- NOTE | 2018-09-23 13:17 | CARDCATH ---
PROCEDURE DATE: 09/23/2018 HISTORY: The patient is a 72-year-old woman who presents with a non-STEMI. Her cardiac risk factors include heavy smoking, documented coronary artery disease as well as diabetes mellitus. Because of her non-STEMI, she was brought to the clinical laboratory aides teacher. PROCEDURE: Left heart catheterization with coronary aortography, left ventriculogram, PTCA and stent of the circumflex artery, and peripheral angiogram. The left femoral artery was cannulated with a 6-Maltese sheath. There were no complications. The findings on catheterization revealed a left ventricle that contracted normally. Estimated ejection fraction of 60%. The RCA which was a dominant vessel was occluded in its proximal portion. Collaterals were seen going to the distal RCA. The left main artery was calcified but without critical lesions. The LAD revealed a 80% stenoses after the bifurcation of a high diagonal and at the septal restaurant manager. The circumflex artery revealed a heavy calcification with an 99% stenoses in the proximal portion of the obtuse marginal branch. The patient was started on intravenous Angiomax and given 2 boluses of Integrilin. The guiding catheter was placed in the ostium of the of the left main artery and 0.014 ATW wire was used to cross the critical lesion in the obtuse marginal branch of the circumflex artery. A 2.5 balloon was utilized to predilate the lesion. A 12 x 3.0 drug-eluting stent was placed and deployed at 14 atmospheres of pressure in the circumflex lesion. Repeat coronary aortography revealed an excellent result. However, proximal to the stent, there was a edge dissection noted. A second 9-mm 3.0 stent was placed just proximal to the first stent. Repeat coronary aortography revealed an excellent result with no residual stenosis and TAWANNA III flow. This was then followed by digital subtraction angiogram of the distal aorta with a angiographic run past the popliteal arteries. The patient had an occlusion, the separate report will be dictated for the peripheral angiogram. Manual compression was used to close the femoral artery site. The patient tolerated the procedure well. In summary, the procedure revealed triple-vessel CAD, normal LV function, successful PTCA and stent of the circumflex artery, and peripheral angiogram revealed severe peripheral vascular disease of the lower extremities. Given these findings, the patient will remain on aspirin and definitely on Plavix. We will aggressively hydrate the patient. In one week, we will bring the patient back for PTCA and stent of the LAD which will be then followed by referral to the interventional radiologist for possible YARD CONDUCTOR of the lower extremity vessels. Abdullahi Vanessa MD
--- NOTE | 2018-09-23 15:43 | PCM.RRT ---
<Mono Erazo - Last Filed: 09/23/18 16:43> SUBWAY TRAIN OPERATOR Nurse Assessment - Situation Date: 09/23/18 Time SUBWAY TRAIN OPERATOR was called: 15:12 SUBWAY TRAIN OPERATOR Responder Arrival Time: 15:13 SUBWAY TRAIN OPERATOR Location:: [address] [place] [address] Room Number: 273-2 SUBWAY TRAIN OPERATOR Reason for Call: Hypotension SUBWAY TRAIN OPERATOR Called By: RN - IV IV Inserted during SUBWAY TRAIN OPERATOR?: No - Respiratory Oxygen Delivery Method: Nasal Cannula @L/min Oxygen Flow Rate: 2 Received Nebulizer Treatments:: No Was the Patient Ventilated with Bag/Mask 100% O2?: No Secretions Suctioned?: No Was the Patient Intubated?: No Was the Patient Placed on a Ventilator?: No - Medication Medications Administered During SUBWAY TRAIN OPERATOR: 0.9 NS fluid bolus 1000cc - Diagnostic Test Ordered EKG: Yes CPR started during SUBWAY TRAIN OPERATOR?: No - Vital Signs Vital Sign: Rapid Response Vital Sign Blood Pressure 90/46 Pulse Rate 63 Respiratory Rate 20 Temperature 97.8 F Oxygen Saturation 97 - Finger Stick Blood Glucose Finger Stick Blood Glucose: 235 - Sepsis Screen Part 1 Sepsis Screen Part 1: Hypotensive - Time SUBWAY TRAIN OPERATOR Ended Time SUBWAY TRAIN OPERATOR Ended: 15:27 - Vital Signs at end of SUBWAY TRAIN OPERATOR Vital Signs at end of SUBWAY TRAIN OPERATOR: Rapid Response End Vital Sign Blood Pressure 98/47 Pulse Rate 63 Respiratory Rate 18 - Recommendations Notifications: Attending Physician I.Reason for SUBWAY TRAIN OPERATOR - A) Acute Change in Patient: Subjective: Reason: hypotension Pt is a 72yo female with a PMH of CVA who received a cardiac stent earlier today. Pt was found to be hypotensive by a nurse. Pt was placed in trendelenburg and given a 750ml NS bolus. An EKG was obtained. - Respiratory Oxygen Delivery Method: Nasal Cannula @L/min Oxygen Flow Rate: 2 - Head Head Exam: ATRAUMATIC, NORMOCEPHALIC - Eyes Eye Exam: EOMI - Respiratory Exam Respiratory Exam: Clear to Ausculation Bilateral, NORMAL BREATHING PATTERN - Cardiovascular Exam Cardiovascular Exam: RRR, +S1, +S2 - GI/Abdominal Exam GI & Abdominal Exam: Soft, Normal Bowel Sounds. absent: Tenderness - Neurological Exam Neurological Exam: Alert, Normal Gait, Oriented x3 - Extremities Exam Extremities Exam: Full ROM Plan - Assessment of Findings&Treatment Plan Pt was given a 750cc bolus of NS, blood pressure corrected to 111/58. Pt has no signs of bleeding at this time. Left femoral catheter site does not show signs of bleeding. EKG was obtained and does not show signs of arrhythmia. Will continue to monitor at this time. <Milli Browning R - Last Filed: 09/26/18 17:07> SUBWAY TRAIN OPERATOR Nurse Assessment - Vital Signs Vital Sign: Rapid Response Vital Sign Blood Pressure 74/40 Pulse Rate 68 Respiratory Rate 18 Temperature 97.4 F Oxygen Saturation 94 - Vital Signs at end of SUBWAY TRAIN OPERATOR Vital Signs at end of SUBWAY TRAIN OPERATOR: Rapid Response End Vital Sign Blood Pressure 133/63 Pulse Rate 71 Respiratory Rate 18 Temperature 97.8 F O2 Sat by Pulse Oximetry 96 Attending/Attestation - Attestation I have personally seen and examined this patient.: Yes I have fully participated in the care of the patient.: Yes I have reviewed all pertinent clinical information, including history, physical exam and plan: Yes Notes (Text): Patient seen and examined by me with resident at 3:13PM on 09/23/18. Case discussed with resident. Agree with above with following additions/corrections. Rapid response called for hypotension. Patient s/p cardiac catheterization. Patient states she is feeling ok. Denies any dizziness or lightheadedness. States that her back is hurting from lying flat. Denies any nausea or vomiting. Patient is afebrile. No abdominal pain. No pain at cardiac cath site. Vitals reviewed. Blood pressure in 80s. Given fluid bolus, BP improved into the 90s and then was 111/58. Patient continued on IV fluids. EKG reviewed. Certified Orthotic Fitter and primary care doctor notified. Physical exam: General: Awake and alert lying in bed in no acute distress HEENT: Normocephalic, atraumatic. Extraocular muscles intact, pupils equal and reactive, no scleral icterus. Oropharynx is pink and moist. Neck is supple. Cardiovascular: Regular rhythm. Normal S1 and S2. No murmurs, rubs, or gallops appreciated Pulmonary: Normal respiratory effort. No rhonchi, rales, or wheezing appreciated. Gastrointestinal: Soft, nondistended. Nontender. Positive bowel sounds all 4 quadrants. No guarding. Central nervous system: AAOx 3.CN 2-12 grossly intact Dermatologic: Skin warm and dry.Dressing at cardiac site clean, dry, and intact.
[2018-09-23] MEDS ORDERED: DOPamine 400mg/250ml D5W 400 MG/250 ML BAG IV PRN ×2 (16:04→16:27)
[2018-09-23 16:20] LABS: MEAN CORPUSCULAR HEMOGLOBIN 27.8 pg (25.0-35.0); MEAN PLATELET VOLUME 10.5 fl (7.0-11.0); RBC 2.3 10^6/uL (3.5-6.1); RED CELL DISTRIBUTION WIDTH 14.9 % (11.5-14.5); WHITE BLOOD COUNT 12.4 10^3/uL (4.5-11.0)
[2018-09-23 16:27] LABS: HEMOGLOBIN 6.4 g/dL (12.0-16.0)
[2018-09-23 16:31] LABS: INR 1.15; PARTIAL THROMBOPLASTIN TIME 27.7 Seconds (25.1-36.5); PROTHROMBIN TIME 13.2 SECONDS (9.4-12.5)
[2018-09-23 16:48] LABS: ALB/GLOB RATIO 1.1 (1.1-1.8); ALBUMIN 2.2 g/dL (3.0-4.8); ALT/SGPT 25 U/L (7-56); AST/SGOT 11 U/L (14-36); BLOOD UREA NITROGEN 21 mg/dL (7-21); CALCIUM 7.6 mg/dL (8.4-10.5); GFR NON-AFRICAN AMERICAN > 60
--- NOTE | 2018-09-23 16:49 | CARD ---
APPROVED REPORT Date of service: 09/23/2018 EKG Measurement Heart [id number] 120P80 [id number] <Conclusion> Normal sinus rhythm Left axis deviation Left bundle branch block Abnormal ECG
--- NOTE | 2018-09-23 16:49 | CARD ---
APPROVED REPORT Date of service: 09/23/2018 EKG Measurement Heart [id number] [id number] <Conclusion> Normal sinus rhythm Left axis deviation Anterior infarct, age undetermined Abnormal ECG
[2018-09-23] MEDS: Sodium Chloride 0.9% 1,000 ML IV SCH ×2 (16:53→17:10)
[2018-09-23] MEDS ORDERED: Sodium Chloride 0.9% 1,000 ML IV STA (17:03)
--- NOTE | 2018-09-23 18:12 | CT ---
Date of service: 09/23/2018 PROCEDURE: CT Abdomen and Pelvis without intravenous contrast HISTORY: dropped hemoglobin, retroperitoneal bleed COMPARISON: None. TECHNIQUE: Unenhanced. Neither IV nor oral contrast administered Radiation dose: Total exam DLP = 513.54 mGy-cm. This CT exam was performed using one or more of the following dose reduction techniques: Automated exposure control, adjustment of the mA and/or kV according to patient size, and/or use of iterative reconstruction technique. FINDINGS: LOWER THORAX: Unremarkable. LIVER: Unremarkable. No gross lesion or ductal dilatation. GALLBLADDER AND BILE DUCTS: Vicarious excretion of contrast identified in the gallbladder. PANCREAS: Atrophic pancreas without focal or diffuse or acute abnormality. SPLEEN: Unremarkable. ADRENALS: Unremarkable. No mass. KIDNEYS AND URETERS: Retained contrast in the kidneys. Contrast in the collecting systems. At least 2 simple cysts left kidney. VASCULATURE: No evidence of dissection. No aortic aneurysm. Atherosclerotic calcification and mural plaque present. Findings are seen throughout the aorta and iliac arteries. BOWEL: Fecal impaction. Constipation. No mechanical obstructing lesions. Marked distention of the stomach without outflow/obstructing lesion. APPENDIX: Unremarkable. Normal appendix. PERITONEUM: Unremarkable. No free fluid. No free air. LYMPH NODES: Unremarkable. No enlarged lymph nodes. BLADDER: Unremarkable. REPRODUCTIVE: Unremarkable. BONES: No acute fracture. OTHER FINDINGS: Postprocedural changes in the left inguinal region with small, contained hematoma. No visible retroperitoneal hematoma. IMPRESSION: No evidence of intraperitoneal, retroperitoneal or pelvic hemorrhage or hematoma. Findings in left inguinal region related to recent cardiac catheter is L neri with self limited hematoma at the site. Additional benign and/or incidental findings described above.
[2018-09-23 18:59] LABS: VENOUS BLOOD GAS BASE EXCESS -4.4 mmol/L (0.0-2.0); VENOUS BLOOD GAS PO2 50 mm/Hg (30-55); VENOUS BLOOD PH 7.34 (7.32-7.43)
--- NOTE | 2018-09-23 19:39 | PCM.RRT ---
<Serafin Kent - Last Filed: 09/23/18 19:10> PERCUSSION TEACHER Nurse Assessment - Situation Date: 09/23/18 Time PERCUSSION TEACHER was called: 15:12 PERCUSSION TEACHER Responder Arrival Time: 15:13 PERCUSSION TEACHER Location:: [address] [place] [address] Room Number: 273-2 PERCUSSION TEACHER Reason for Call: Hypotension PERCUSSION TEACHER Called By: RN - IV IV Inserted during PERCUSSION TEACHER?: No - Respiratory Oxygen Delivery Method: Nasal Cannula @L/min Oxygen Flow Rate: 2 Received Nebulizer Treatments:: No Was the Patient Ventilated with Bag/Mask 100% O2?: No Secretions Suctioned?: No Was the Patient Intubated?: No Was the Patient Placed on a Ventilator?: No - Medication Medications Administered During PERCUSSION TEACHER: 0.9 NS fluid bolus 1000cc - Diagnostic Test Ordered EKG: Yes - Stat Labs Ordered PERCUSSION TEACHER Stat Labs Ordered: CBC, BMP, PT/PTT CPR started during PERCUSSION TEACHER?: No - Vital Signs Vital Sign: Rapid Response Vital Sign Blood Pressure 74/40 Pulse Rate 68 Respiratory Rate 18 Temperature 97.4 F Oxygen Saturation 94 - Finger Stick Blood Glucose Finger Stick Blood Glucose: 235 - Sepsis Screen Part 1 Sepsis Screen Part 1: Hypotensive - Time PERCUSSION TEACHER Ended Time PERCUSSION TEACHER Ended: 15:27 - Vital Signs at end of PERCUSSION TEACHER Vital Signs at end of PERCUSSION TEACHER: Rapid Response End Vital Sign Blood Pressure 133/63 Pulse Rate 71 Respiratory Rate 18 Temperature 97.8 F O2 Sat by Pulse Oximetry 96 - Recommendations Notifications: Attending Physician I.Reason for PERCUSSION TEACHER - A) Acute Change in Patient: Subjective: PERCUSSION TEACHER was called for patient with hypotension. RN reported that patient was dizzy and diaphoretic. Patient had stent placement earlier today, and was doing fine, but then her blood pressure dropped significantly and she began having symptoms. Patient also had an PERCUSSION TEACHER called on her earlier for hypotension as well, and she was given a 750 bolus, an EKG was obtained which was unchanged from previous, and PERCUSSION TEACHER was ended at that time. - Respiratory Oxygen Delivery Method: Nasal Cannula @L/min Oxygen Flow Rate: 2 - Constitutional Appears: Non-toxic, Chronically Ill - Head Head Exam: ATRAUMATIC, NORMAL INSPECTION, NORMOCEPHALIC - Eyes Eye Exam: EOMI, Normal appearance, PERRL - Respiratory Exam Respiratory Exam: Clear to Ausculation Bilateral, NORMAL BREATHING PATTERN - Cardiovascular Exam Cardiovascular Exam: REGULAR RHYTHM, RRR. absent: Diastolic murmur, Murmur - GI/Abdominal Exam GI & Abdominal Exam: Normal Bowel Sounds - Neurological Exam Neurological Exam: Alert, Awake, CN II-XII Intact, Oriented x3 - Extremities Exam Extremities Exam: Full ROM, Normal Capillary Refill, Normal Inspection Plan - Assessment of Findings&Treatment Plan 72 year old female with hypotension s/p stent placement. - Give 2 L boluses - Start dopamine at 2mics/kg; hold parameters of SBP > 140 - Pain management - EKG obtained - unchanged from admission and from previous PERCUSSION TEACHER It should be noted that after the conclusion of the PERCUSSION TEACHER, patient was found to have had hgb of 6.4, down from previous of 9.2. ICU consultation was obtained, 3 U Type/Crossmatch was ordered, fluids were restarted at 100/hr, and CT Abdomen/Pelvis was obtained. <Milli Browning - Last Filed: 09/26/18 17:14> PERCUSSION TEACHER Nurse Assessment - Vital Signs Vital Sign: Rapid Response Vital Sign Blood Pressure 74/40 Pulse Rate 68 Respiratory Rate 18 Temperature 97.4 F Oxygen Saturation 94 - Vital Signs at end of PERCUSSION TEACHER Vital Signs at end of PERCUSSION TEACHER: Rapid Response End Vital Sign Blood Pressure 133/63 Pulse Rate 71 Respiratory Rate 18 Temperature 97.8 F O2 Sat by Pulse Oximetry 96 Attending/Attestation - Attestation I have personally seen and examined this patient.: Yes I have fully participated in the care of the patient.: Yes I have reviewed all pertinent clinical information, including history, physical exam and plan: Yes Notes (Text): Patient seen and examined by me with resident at 4:29 PM on 09/23/18. Case discussed with resident. Agree with above with following additions/corrections. Rapid response called for hypotension. Patient s/p cardiac catheterization. Patient now feeling nauseous. Complains of intermittent diaphoresis. Also with back pain. Denies any dizziness or lightheadedness. Patient is afebrile. No abdominal pain. No pain at cardiac cath site. Vitals reviewed. Blood pressure in the 70s. Patient with symptomatic hypotension, anemia, s/p cardiac cath and CAD. Given fluid bolus. BP fluctuating. Discussed with vice president process Dr. Vanessa, Patient placed on dobutamine per cardiology. EKG reviewed and sent to vice president process. Blood work orders and patient found to have Hgb 6.4. ICU consulted. Blood transfusion ordered. STAT CT abd/pelvis ordered. Patient transferred to ICU. BP improved to 133/63 post dobutamine. Case discussed with patients family at bedside, Dr. Vanessa, and primary care doctor. Physical exam: General: Awake and alert lying in bed in no acute distress HEENT: Normocephalic, atraumatic. Extraocular muscles intact, pupils equal and reactive, no scleral icterus. Oropharynx is pink and moist. Neck is supple. Cardiovascular: Regular rhythm. Normal S1 and S2. No murmurs, rubs, or gallops appreciated Pulmonary: Normal respiratory effort. No rhonchi, rales, or wheezing appreciated. Gastrointestinal: Soft, nondistended. Nontender. Positive bowel sounds all 4 quadrants. No guarding. Central nervous system: AAOx 3.CN 2-12 grossly intact Dermatologic: Skin warm and diaphoretic.Dressing at cardiac site clean, dry, and intact.
[2018-09-23] MEDS: POLYETHYLENE GLYCOL 3350 17 GM/Dose PACKET PO SCH (20:25)
--- NOTE | 2018-09-23 20:43 | CON ---
DATE OF CONSULTATION: 09/23/2018 HISTORY OF PRESENT ILLNESS: This is a 72-year-old lady with past medical history of hypertension, hyperlipidemia, diabetes and CVA 5 years ago, who presented to [facility] with chest pain. Pain was found to be cardiac in origin and coincidentally was found to have elevated troponin. The patient was treated for non-ST elevated DE and was taken to cardiac cath today. One stent in circumflex was placed. The patient received Angiomax and was transferred to telemetry for further management and monitoring. In telemetry, the patient was found to have transient episode of hypotension and subsequent labs showed substantial drop in hemoglobin from 9.7 to 6.4. The patient was given a liter of normal saline wide open and was started on dopamine for a short period of time while type and cross in preparation for blood transfusion, was ordered and initiated. Rapid Response was called as well and ICU was consulted for further management and monitoring. PAST MEDICAL HISTORY: Diabetes, CVA 5 years ago, hyperlipidemia, hypertension. FAMILY HISTORY: Noncontributory. SOCIAL HISTORY: No alcohol or illicit drug abuse. No tobacco smoking. CURRENT MEDICATIONS: Tylenol p.r.n. and every 6 hours, aspirin, Lipitor, Coreg, vitamin D, Plavix, Welchol, folic acid, Neurontin, regular insulin sliding scale medium protocol, Xopenex every 6 hours, nicotine patch, Zofran p.r.n., normal saline 100 mL/h. ALLERGIES: NKDA. REVIEW OF SYSTEMS: Review of 12-organ systems other than mentioned in the history of present illness is negative. PHYSICAL EXAMINATION: VITAL SIGNS: Heart rate 69, oxygen saturation 100% on 2 liters nasal cannula, respiratory rate 19, blood pressure 127/54. ENT: Head and neck atraumatic. LUNGS: Clear to auscultation bilaterally. HEART: Regular rate and rhythm. S1 and S2 normal. ABDOMEN: Soft, nontender, nondistended. MUSCULOSKELETAL: Trace bilateral pedal and ankle edema. There is no expanding hematoma in either groin area. NEURO: The patient moves all extremities spontaneously. SKIN: Moist. PSYCH: The patient is alert, awake and oriented x3. LABORATORY DATA: WBC 12.4, hemoglobin 6.4, platelet count 169,000. Sodium 135, potassium 4.6, chloride 114, carbon dioxide 21, BUN 21, creatinine 0.8, glucose 217. AST 11, ALT 25, total bilirubin 0.3. INR 1.15. Urine is negative for nitrites and leukocyte esterase (trace leukocyte esterase). CAT scan of the abdomen and pelvis was done on the way to ICU and discussed with Dr. Abdullahi Laura while official report is pending. There is a very small left groin hematoma, which however would not be able to explain/account for drop in hemoglobin of 3 g. ASSESSMENT/PLAN: This is a 72-year-old lady who presented with non-ST elevated myocardial infarction to [facility] and treated accordingly including PCI with one stent at circumflex coronary artery. It is unclear the potential origin for transient hypotension--> bleeding appears to be reasonable to suspect after the invasive procedure even though retroperitoneal hematoma based on CAT scan of the abdomen and pelvis could not account for such a significant drop in hemoglobin. Of note, the patient did not have any melena, hematemesis or hematochezia. We will proceed with n.p.o., IV fluids, transfuse 3 units of blood to maintain hemoglobin level between 9 and 10. I will not reverse any antiplatelet or anticoagulant effect at present time as the patient has fresh stent and reversing that would pose more risk than benefits in present situation, especially provided that the patient currently is hemodynamically and respiratory swann stable. We will continue with CBC every 4 hours and I will trend lactic acid as well. I will get a surgical consult as well to be on a standby. Will continue with GI prophylaxis. Will continue with DVT prophylaxis. Will continue to maintain euvolemia, euglycemia, normothermia and oxygen saturation more than 90%. We will continue with DVT/GI prophylaxis. Addendum: patient was re-evaluated in ICU: alert, awake oriented x 3, not in respiratory or otherwise distress, BP 120/50, HR 70, RR 18, no expanding hematoma in the groin ccm time 40 min Shaun Arredondo MD JAUN
[2018-09-24] MEDS: Levalbuterol 0.63 MG/3 ML Inhal Soln UD IH SCH ×4 (01:51→21:45)
[2018-09-24 04:37] LABS: BASO # 0.01 K/mm3 (0.0-2.0); BASO % 0.1 % (0.0-3.0); EOS # 0.1 (0.0-0.7); EOS % 0.5 % (1.5-5.0); GRAN # 6.7 (1.4-6.5); GRAN % 73.4 % (50.0-68.0); HEMOGLOBIN 10.1 g/dL (12.0-16.0); LYMPH # 1.6 (1.2-3.4); LYMPH % 17.9 % (22.0-35.0); MEAN CELL VOLUME 85.7 fl (80.0-105.0); MEAN CORPUSCULAR HEMOGLOBIN 28.3 pg (25.0-35.0); MEAN PLATELET VOLUME 10.8 fl (7.0-11.0); MONO # 0.7 (0.1-0.6); MONO % 8.1 % (1.0-6.0); RBC 3.57 10^6/uL (3.5-6.1); RED CELL DISTRIBUTION WIDTH 14.3 % (11.5-14.5); WHITE BLOOD COUNT 9.1 10^3/uL (4.5-11.0)
[2018-09-24 04:54] LABS: ALB/GLOB RATIO 1.2 (1.1-1.8); ALBUMIN 2.8 g/dL (3.0-4.8); ALT/SGPT 21 U/L (7-56); AST/SGOT 18 U/L (14-36); BILIRUBIN,DIRECT 0.1 mg/dL (0.0-0.4); BLOOD UREA NITROGEN 45 mg/dL (7-21); GFR NON-AFRICAN AMERICAN > 60
[2018-09-24] MEDS ORDERED: Magnesium Sulfate 2 gm/50 ml 2 GM/50 ML BAG IVPB ONE (06:54)
[2018-09-24] MEDS ORDERED: Sodium Chloride 0.9% 1,000 ML IV SCH (07:00)
--- NOTE | 2018-09-24 07:15 | CP.PCM.CON ---
History of Present Illness - History of Present Illness History of Present Illness: Surgery Consult Note- Dr. Ro Reason for Consult: Retroperitoneal Hematoma 72 yo F with PMH of HTN, HLD, DM, and CVA (5 yrs ago) [place] [facility] pain. During her work up patient underwent Cardiac catherization. Post operatively patient developed chest pain, tachycardia and hypotension. Hgb was < 7. Subsequently patient was transferred to the unit and was transfused 4uPRBC. Surgery was consulted for evaluation of bleed. During encounter patient is AAOx3 moves all 4 extremities, and hemodynamically normal. Patient admits to feeling signficinatly better than yesterday after blood and fluids. PMH: as above PSH: Hysterectomy ALL: NKDA SocialHx: 10 cigarettes/day for 50 yrs, social EtOH use, no illicit drug use FHx: Mother- DM, Father- Alzeianitha's Review of Systems - Review of Systems All systems: reviewed and no additional remarkable complaints except - Constitutional Constitutional: As Per HPI Past Patient History - Past Social History Smoking Status: Light Smoker < 10 Cigarettes Daily - CARDIAC Hx Cardiac Disorders: Yes Hx Angina: Yes Hx Hypercholesterolemia: Yes Hx Hypertension: Yes Hx Pacemaker: No - PULMONARY Hx Respiratory Disorders: No - NEUROLOGICAL Hx Neurological Disorder: Yes HX Cerebrovascular Accident: Yes (2010 left side weakness) - HEENT Hx HEENT Problems: No - RENAL Hx Chronic Kidney Disease: No Other/Comment: family history of renal disorder - ENDOCRINE/METABOLIC Hx Endocrine Disorders: Yes Hx Diabetes Mellitus Type 2: Yes - HEMATOLOGICAL/ONCOLOGICAL Hx Blood Transfusions: Yes Hx Blood Transfusion Reaction: No - INTEGUMENTARY Hx Dermatological Problems: Yes Other/Comment: Fungus on the nails,, bunyons both feet, dry discolored skin ble, thick toenails - MUSCULOSKELETAL/RHEUMATOLOGICAL Hx Falls: Yes (past) - GASTROINTESTINAL Hx Gastrointestinal Disorders: No Other/Comment: endoscopy 01/13/17 dx gastritix w/bx, reflux esophagitis, one non bleeding angioctasis in stomach and a few in duodenum - GENITOURINARY/GYNECOLOGICAL Hx Genitourinary Disorders: No Other/Comment: mammo 12/17/17 - PSYCHIATRIC Hx Emotional Abuse: No Hx Physical Abuse: No - SURGICAL HISTORY Hx Surgeries: Yes - ANESTHESIA Hx Anesthesia Reactions: No Hx Malignant Hyperthermia: No Meds Allergies/Adverse Reactions: Allergies Allergy/AdvReac Type Severity Reaction Status Date / Time No Known Allergies Allergy Verified 01/05/17 13:49 - Medications Medications: Current Medications Acetaminophen (Tylenol 325mg Tab) 650 mg PO Q6 PRN PRN Reason: TEMP>=99.5F Acetaminophen (Tylenol 650 Mg Supp) 650 mg RC Q6H PRN PRN Reason: TEMP>=99.5F Aspirin (Ecotrin) 81 mg PO DAILY [facility] Last Admin: 09/23/18 11:00 Dose: Not Given Atorvastatin Calcium (Lipitor) 40 mg PO DAILY [facility] Last Admin: 09/23/18 16:57 Dose: Not Given Carvedilol (Coreg) 3.125 mg PO Q12H [facility] Last Admin: 09/23/18 22:00 Dose: Not Given Cholecalciferol (Vitamin D) 1,000 intlu PO BID [facility] Last Admin: 09/23/18 11:00 Dose: Not Given Clopidogrel Bisulfate (Plavix) 75 mg PO DAILY [facility] Last Admin: 09/23/18 11:00 Dose: Not Given Dextrose (Dextrose 50% Inj) 0 ml IV STAT PRN; Protocol PRN Reason: Hypoglycemia Protocol Folic Acid (Folic Acid) 1 mg PO DAILY [facility] Last Admin: 09/23/18 10:10 Dose: Not Given Gabapentin (Neurontin) 300 mg PO BID PRN; Protocol PRN Reason: Pain, moderate (4-7) Magnesium Sulfate (Magnesium Sulfate 2 Gm/50 Ml Water) 2 gm in 50 mls @ 50 mls/hr IVPB ONCE ONE Stop: 09/24/18 07:53 Sodium Chloride (Sodium Chloride 0.9%) 1,000 mls @ 80 mls/hr IV .[id number] [facility] Stop: 09/26/18 21:29 Insulin Human Lispro (Humalog Med) 0 units SC ACHS [facility]; Protocol Last Admin: 09/23/18 22:20 Dose: Not Given Levalbuterol HCl (Xopenex) 0.63 mg IH [id number] [facility] Last Admin: 09/24/18 01:51 Dose: 0.63 mg Nicotine (Nicoderm Cq) 1 patch TD DAILY [facility] Last Admin: 09/23/18 10:00 Dose: Not Given Ondansetron HCl (Zofran Inj) 4 mg IVP Q4H PRN PRN Reason: Nausea/Vomiting Pantoprazole Sodium (Protonix Inj) 40 mg IVP Q12 [facility] Last Admin: 09/23/18 22:25 Dose: 40 mg Polyethylene Glycol (Miralax) 17 gm PO BID [facility] Last Admin: 09/23/18 20:25 Dose: Not Given Physical Exam - Constitutional Appears: Non-toxic, No Acute Distress - Head Exam Head Exam: ATRAUMATIC - Eye Exam Eye Exam: EOMI. absent: Scleral icterus - ENT Exam ENT Exam: Mucous Membranes Moist - Respiratory Exam Respiratory Exam: NORMAL BREATHING PATTERN. absent: Accessory Muscle Use, Respiratory Distress - Cardiovascular Exam Cardiovascular Exam: REGULAR RHYTHM, +S1, +S2. absent: Bradycardia, Tachycardia - GI/Abdominal Exam GI & Abdominal Exam: Soft. absent: Distended, Firm, Guarding, Hernia, Tenderness - Extremities Exam Extremities exam: Negative for: calf tenderness Additional comments: Left groin site, no obvious sign of hematoma. Palpable femoral and popliteal pulses. No ecchymosis - Neurological Exam Neurological exam: Alert, Oriented x3 - Skin Skin Exam: Intact, Warm Results - Vital Signs Recent Vital Signs: Last Vital Signs Temp 97.6 F 09/24/18 02:23 Pulse 66 09/24/18 02:23 Resp 21 09/24/18 02:23 BP 163/66 H 09/24/18 02:23 Pulse Ox 100 09/24/18 00:00 - Labs Result Diagrams: 09/24/18 13:53 09/24/18 04:20 Labs: Laboratory Results - last 24 hr 09/22/18 09/23/18 09/23/18 18:10 06:00 07:27 WBC RBC Hgb Hct MCV MCH MCHC RDW Plt Count MPV Gran % Lymph % (Auto) Dukes % (Auto) Eos % (Auto) Baso % (Auto) Gran # Lymph # (Auto) Dukes # (Auto) Eos # (Auto) Baso # (Auto) PT INR APTT pO2 VBG pH VBG pCO2 VBG HCO3 VBG Total CO2 VBG O2 Sat (Calc) VBG Base Excess VBG Potassium Glucose Lactate FiO2 Sodium 136 Potassium 4.5 Chloride 109 H Carbon Dioxide 22 Anion Gap 9 L BUN 15 Creatinine 0.8 Est GFR ( Amer) > 60 Est GFR (Non-Af Amer) > 60 POC Glucose (mg/dL) 214 H Random Glucose 198 H Calcium 9.0 Phosphorus 2.8 Magnesium 1.8 Total Bilirubin 0.5 Direct Bilirubin AST 19 ALT 23 Alkaline Phosphatase 54 Troponin I Total Protein 6.1 Albumin 3.5 Globulin 2.6 Albumin/Globulin Ratio 1.3 Venous Blood Potassium Blood Type O POSITIVE Antibody Screen Negative Crossmatch See Detail BBK History Checked Patient has bt 09/23/18 09/23/18 09/23/18 11:59 12:39 14:34 WBC RBC Hgb Hct MCV MCH MCHC RDW Plt Count MPV Gran % Lymph % (Auto) Dukes % (Auto) Eos % (Auto) Baso % (Auto) Gran # Lymph # (Auto) Dukes # (Auto) Eos # (Auto) Baso # (Auto) PT INR APTT pO2 VBG pH VBG pCO2 VBG HCO3 VBG Total CO2 VBG O2 Sat (Calc) VBG Base Excess VBG Potassium Glucose Lactate FiO2 Sodium Potassium Chloride Carbon Dioxide Anion Gap BUN Creatinine Est GFR ( Amer) Est GFR (Non-Af Amer) POC Glucose (mg/dL) 168 H 184 H 203 H Random Glucose Calcium Phosphorus Magnesium Total Bilirubin Direct Bilirubin AST ALT Alkaline Phosphatase Troponin I Total Protein Albumin Globulin Albumin/Globulin Ratio Venous Blood Potassium Blood Type Antibody Screen Crossmatch BBK History Checked 09/23/18 09/23/18 09/23/18 15:58 16:17 16:17 WBC 12.4 H D RBC 2.30 L Hgb 6.4 L* D Hct 20.0 L* MCV 87.0 MCH 27.8 MCHC 32.0 RDW 14.9 H Plt Count 169 MPV 10.5 Gran % Lymph % (Auto) Dukes % (Auto) Eos % (Auto) Baso % (Auto) Gran # Lymph # (Auto) Dukes # (Auto) Eos # (Auto) Baso # (Auto) PT 13.2 H INR 1.15 APTT 27.7 pO2 VBG pH VBG pCO2 VBG HCO3 VBG Total CO2 VBG O2 Sat (Calc) VBG Base Excess VBG Potassium Glucose Lactate FiO2 Sodium Potassium Chloride Carbon Dioxide Anion Gap BUN Creatinine Est GFR ( Amer) Est GFR (Non-Af Amer) POC Glucose (mg/dL) 245 H Random Glucose Calcium Phosphorus Magnesium Total Bilirubin Direct Bilirubin AST ALT Alkaline Phosphatase Troponin I Total Protein Albumin Globulin Albumin/Globulin Ratio Venous Blood Potassium Blood Type Antibody Screen Crossmatch BBK History Checked 09/23/18 09/23/18 09/23/18 16:17 18:46 18:46 WBC RBC Hgb Hct MCV MCH MCHC RDW Plt Count MPV Gran % Lymph % (Auto) Dukes % (Auto) Eos % (Auto) Baso % (Auto) Gran # Lymph # (Auto) Dukes # (Auto) Eos # (Auto) Baso # (Auto) PT INR APTT pO2 50 VBG pH 7.34 VBG pCO2 39.0 L VBG HCO3 21.0 VBG Total CO2 22.2 VBG O2 Sat (Calc) 90.8 H VBG Base Excess -4.4 L VBG Potassium 5.0 Glucose 248 H Lactate 1.5 FiO2 21.0 Sodium 135 138.0 Potassium 4.6 Chloride 114 H 112.0 H Carbon Dioxide 21 Anion Gap 5 L BUN 21 Creatinine 0.8 Est GFR ( Amer) > 60 Est GFR (Non-Af Amer) > 60 POC Glucose (mg/dL) Random Glucose 217 H Calcium 7.6 L Phosphorus 3.0 Magnesium 1.5 L Total Bilirubin 0.3 Direct Bilirubin AST 11 L D ALT 25 Alkaline Phosphatase 37 L D Troponin I 0.10 D Total Protein 4.2 L Albumin 2.2 L Globulin 1.9 Albumin/Globulin Ratio 1.1 Venous Blood Potassium 5.0 Blood Type Antibody Screen Crossmatch BBK History Checked 09/23/18 09/24/18 09/24/18 22:02 04:20 04:20 WBC 9.1 D RBC 3.57 Hgb 10.1 L D Hct 30.6 L MCV 85.7 MCH 28.3 MCHC 33.0 RDW 14.3 Plt Count 130 MPV 10.8 Gran % 73.4 H Lymph % (Auto) 17.9 L Dukes % (Auto) 8.1 H Eos % (Auto) 0.5 L Baso % (Auto) 0.1 Gran # 6.70 H Lymph # (Auto) 1.6 Dukes # (Auto) 0.7 H Eos # (Auto) 0.1 Baso # (Auto) 0.01 PT INR APTT pO2 VBG pH VBG pCO2 VBG HCO3 VBG Total CO2 VBG O2 Sat (Calc) VBG Base Excess VBG Potassium Glucose Lactate FiO2 Sodium 140 Potassium 4.6 Chloride 115 H Carbon Dioxide 21 Anion Gap 8 L BUN 45 H Creatinine 0.8 Est GFR ( Amer) > 60 Est GFR (Non-Af Amer) > 60 POC Glucose (mg/dL) 240 H Random Glucose 196 H Calcium 8.0 L Phosphorus 2.9 Magnesium 1.7 Total Bilirubin 0.8 Direct Bilirubin 0.1 AST 18 ALT 21 Alkaline Phosphatase 39 Troponin I Total Protein 5.1 L Albumin 2.8 L Globulin 2.3 Albumin/Globulin Ratio 1.2 Venous Blood Potassium Blood Type Antibody Screen Crossmatch BBK History Checked Assessment & Plan - Assessment and Plan (Free Text) Assessment: 72F w/ Acute bleed s/p Cardiac stent placement access via L groin Plan: - f/u H/H - transfuse PRN - apply pressure dressing - continued management per critical care team - no acute surgical intervention at this time - discussed w/ Dr. Ro surgical attending PGY2
[2018-09-24] MEDS: Sodium Chloride 0.9% 1,000 ML IV SCH (08:15)
[2018-09-24] MEDS: Insulin Lispro (humaLOG) MEDIUM Coverage SC SCH ×4 (08:24→21:47)
[2018-09-24 08:36] LABS: BASO # 0.01 K/mm3 (0.0-2.0); BASO % 0.1 % (0.0-3.0); EOS # 0.1 (0.0-0.7); EOS % 1.1 % (1.5-5.0); GRAN # 7.3 (1.4-6.5); GRAN % 73.4 % (50.0-68.0); HEMOGLOBIN 10.2 g/dL (12.0-16.0); LYMPH # 1.9 (1.2-3.4); LYMPH % 19.2 % (22.0-35.0); MEAN CELL VOLUME 85.2 fl (80.0-105.0); MEAN PLATELET VOLUME 10.4 fl (7.0-11.0); MONO # 0.6 (0.1-0.6); MONO % 6.2 % (1.0-6.0); RBC 3.52 10^6/uL (3.5-6.1); RED CELL DISTRIBUTION WIDTH 14.5 % (11.5-14.5)
--- NOTE | 2018-09-24 09:58 | CARD ---
APPROVED REPORT Date of service: 09/24/2018 EKG Measurement Heart [id number] <Conclusion> Normal sinus rhythm Left axis deviation Left bundle branch block Abnormal ECG
[2018-09-24] MEDS: POLYETHYLENE GLYCOL 3350 17 GM/Dose PACKET PO SCH ×2 (10:00→17:30)
[2018-09-24] MEDS: Cholecalciferol 1,000 INTLU TAB PO SCH ×2 (10:01→17:29)
--- NOTE | 2018-09-24 10:29 | PN ---
DATE: 09/24/2018 MICRO PHOTOGRAPHER NOTE SUBJECTIVE: The patient is resting in bed, awake and alert with O2 via nasal cannula. No complaints of shortness of breath, cough, wheezing, chest congestion. No chest pain. No fever, chills, nausea, or vomiting. No abdominal pain. The patient's last hemoglobin was 10.1, and is hemodynamically stable. PHYSICAL EXAMINATION: VITALS: Her temperature is 97.6, her pulse is 69, respirations are 21, and BP is 163/66. SKIN: Warm and dry. HEENT: Head, atraumatic and normocephalic. Eyes, reactive to light. Ear, nose, and throat seemed to be within normal limits. NECK: Supple. No JVD. No thyroid enlargement or lymph nodes. HEART: Has a regular rate and rhythm. Normal S1, S2. LUNGS: Reveal good breath sounds bilaterally. ABDOMEN: Soft. Decreased bowel sounds. No organomegaly noted. GENITALIA: Deferred. RECTAL: Deferred. MUSCULOSKELETAL: No joint deformities. EXTREMITIES: Reveal no edema. NEUROLOGIC: She seemed to be grossly intact. LABORATORY DATA: As far as her laboratories are concerned, her white count is 10, hemoglobin is 10.2, her hematocrit is 30 with the platelets of 125,000. Her sodium is 140, potassium 4.6, chloride 115, CO2 of 21, BUN of 45, creatinine of 0.8, and a glucose of 196. IMPRESSION: This patient initially presented with chest pain, found to have acute myocardial infarction at that time. Code heart was called, and catheterization was performed. The patient had a stent placed in her circumflex. Post catheterization is noted that she had a drop in hemoglobin. Anemia was assessed. CT scan of the abdomen and pelvis revealed no retroperitoneal hematoma. The patient has been transfused, and hemoglobin is 10.1. Has a history of coronary artery disease with stent, hypertension, hyperlipidemia, and diabetes, history of cerebrovascular in the past. The patient is noted to have anemia. PLAN: We will continue to monitor her hemoglobin closely and follow recommendations from Cardiology, and surgical consult and evaluation has been done. The patient is on Coreg as well as Ecotrin, Lipitor, Neurontin, nicotine patch, Plavix, Xopenex, and Zofran p.r.n. We will continue to treat aggressively and follow closely along with the other consultants and the primary care doctor. Linwood Chao MD [facility] # [id number]
[2018-09-24] MEDS ORDERED: POLYETHYLENE GLYCOL 3350 17 GM/Dose PACKET PO SCH (11:30)
--- NOTE | 2018-09-24 12:03 | PN ---
DATE: 09/24/2018 SUBJECTIVE: The patient is awake, alert. PHYSICAL EXAMINATION: VITAL SIGNS: Blood pressure varies from 143 to 163 systolic off pressors. NECK: Negative JVD. LUNGS: Without rales. HEART: S1, S2. EXTREMITIES: Without edema. LABORATORY DATA: Hemoglobin is 10.2 after blood transfusions. Chemistries 45 and 0.8, glucose is 196. CT scan of the left groin shows no retroperitoneal bleed. IMPRESSION: 1. Non-ST elevation myocardial infarction. 2. Triple-vessel coronary artery disease. 3. Severe peripheral vascular disease. 4. Recurrent anemia. 5. Status post percutaneous transluminal coronary angioplasty and stent of 99% circumflex artery with a drug-eluting stent. 6. Severe chronic obstructive pulmonary disease. 7. Hypertension. 8. Hypercholesterolemia. PLAN: Given these findings, GI consult was called to rule out a GI bleed as a cause of her lower hemoglobin. I had an extensive discussion with the patient and family and family from [place] as well as from the [place] area about the patient's condition including her multiple vascular issues in her lower extremities and her heart. The patient is hemodynamically stable, can be transferred to telemetry. Abdullahi Vanessa MD
[2018-09-24 13:56] LABS: BASO # 0.01 K/mm3 (0.0-2.0); BASO % 0.1 % (0.0-3.0); EOS # 0.2 (0.0-0.7); EOS % 1.9 % (1.5-5.0); GRAN # 6.32 (1.4-6.5); HEMOGLOBIN 9.5 g/dL (12.0-16.0); LYMPH # 2.1 (1.2-3.4); MEAN CORPUSCULAR HEMOGLOBIN 28.4 pg (25.0-35.0); MEAN CORPUSCULAR HGB CONC 33.5 g/dl (31.0-37.0); MEAN PLATELET VOLUME 10.4 fl (7.0-11.0); MONO # 0.7 (0.1-0.6); RBC 3.34 10^6/uL (3.5-6.1); RED CELL DISTRIBUTION WIDTH 14.7 % (11.5-14.5); WHITE BLOOD COUNT 9.3 10^3/uL (4.5-11.0)
--- NOTE | 2018-09-24 19:24 | CON ---
DATE: 09/24/2018 GASTROENTEROLOGY CONSULTATION REQUESTING PHYSICIAN: Edilson Reddy MD REASON FOR CONSULTATION: I have been asked to see this 72-year-old female with history of coronary artery disease, CVA five years ago, diabetes mellitus, hypertension, hyperlipidemia, chronic recurrent anemia, gastric and duodenal AVMs, who comes to the hospital after being awakened in the middle of the night with severe chest pain. The patient was brought to the hospital and underwent a cardiac catheterization yesterday. Cardiac catheterization revealed triple-vessel coronary artery disease. She underwent stent placement with a drug-eluting stent in her left circumflex artery. Shortly after the cardiac catheterization, the patient became hypotensive. Routine blood work revealed the patient to have a 3 g drop in her hemoglobin from 9.[address] scan of the abdomen and pelvis showed a small hematoma in the left inguinal area at the site of her cardiac catheterization. There is no large abdominal or retroperitoneal hematoma. The patient denies any overt GI bleeding such as melena, hematemesis, or rectal bleeding. The patient apparently had a colonoscopy several years ago. She also had an upper endoscopy in 12/2016, which revealed esophagitis, gastritis, a medium-sized gastric AVM and duodenal AVMs in the bulb, which were not apparently bleeding. She is currently sitting up in a chair in ICU, comfortable and without any complaints. PAST MEDICAL HISTORY: As above. Again, she has a history of coronary artery disease, CVA, diabetes mellitus, hypertension, chronic anemia, GERD, duodenal and gastric AVMs, history of CVA in the past. She is currently on aspirin and Plavix after her drug-eluting stent placement. PAST SURGICAL HISTORY: Notable for hysterectomy. SOCIAL HISTORY: The patient has smoked between half a pack and a pack of cigarettes for over 30 years. She consumes alcohol on a social basis. FAMILY HISTORY: Noncontributory. REVIEW OF SYSTEM: A 14-point review of systems is notable for severe chest pain. HOME MEDICATIONS: Include metformin, hydralazine, Crestor, lisinopril, insulin, gabapentin, folic acid, Zetia, Welchol, and vitamin D. PHYSICAL EXAMINATION: GENERAL: Well-developed female, awake, alert, sitting in a chair, in no acute distress. VITAL SIGNS: Reveal blood pressure 148/55, heart rate of 60. She is afebrile. HEENT: Reveals sclerae to be white, conjunctivae pink. NECK: Supple. CHEST: Lungs are clear. HEART: Exam reveals regular rate and rhythm. ABDOMEN: Soft, nontender. EXTREMITIES: Show no edema. LABORATORY DATA: Reveal white blood cell count of 6, hemoglobin of 10. Chemistries reveal BUN 45, creatinine 0.8. AST, ALT, alk phos were all normal. The patient did receive 3 units of packed red blood cells. IMPRESSION: A 72-year-old female admitted with acute [id number] myocardial infarction, status post cardiac catheterization showing triple-vessel coronary artery disease, status post drug-eluting stent placement in her left circumflex artery with a sudden drop in her blood count. There is no evidence of an active gastrointestinal hemorrhage at this time. CT scan of the abdomen and pelvis was negative for a retroperitoneal bleed. She does have a history of chronic anemia with known duodenal and gastric arteriovenous malformations. She will need to be on aspirin and Plavix. She will need to have a second catheterization with stenting of her left anterior descending in one more week. In view of her recent [id number] myocardial infarction and current triple-vessel coronary artery disease and high risk for any endoscopic intervention at this time in the setting of no evidence of active gastrointestinal hemorrhage, we will defer endoscopy at this time. RECOMMENDATIONS: 1. Continue to follow serial hematocrits. 2. Continue high dose IV PPI. 3. Start MiraLax 17 g b.i.d. for constipation seen on CAT scan. Max Beltrán MD
--- NOTE | 2018-09-24 20:04 | PN ---
DATE: 09/24/2018 SUBJECTIVE: The patient is seen in CCU, bed 1. The patient is in the process of being transferred because the patient was cleared by Cardiology for transfer out of the CCU. Overnight last 12 hours, nurse's notes and events were reviewed. Rapid response was called twice yesterday in the late afternoon and evening after the patient became hypotensive x2. The patient needed IV fluid boluses and dopamine drip to be started on the telemetry. The patient developed the symptoms after post cardiac catheterization and angioplasty. The patient's lab work done yesterday after the rapid response shows a hemoglobin dropping to 6.4. The patient at that point was transferred to ICU for further management. At present, the patient is seen lying in the bed. The patient is alert, awake, and the patient is responsive. The patient does not offer any complaint of chest pain or shortness of breath. Denies nausea, vomiting, diarrhea, or constipation. Denies hemoptysis, hematemesis, or melena. OBJECTIVE: VITAL SIGNS: T-max 98.4. Telemetry shows sinus rhythm, heart rate 64, 75, 76, 66, 65, and 68, blood pressure in the last 12 hours has gone up from systolic, but has been in the systolic 140s, 150s, and 130s and diastolic has been in 60s, 70s, and 80s, yesterday blood pressure dropped to 79/49, 84/32 in the late evening and afternoon hours for which the patient required IV fluid boluses, dopamine drip was initiated with stabilization and improvement of the blood pressure, blood pressure today in the morning is averaging 150 systolic, 140 systolic, diastolic in 60s, 70s and 50s. Respirations 15 and O2 sat 98-99%. HEENT: Head; normocephalic and atraumatic. HEENT examination shows pinkish pale conjunctivae. Anicteric sclerae. No oropharyngeal lesion. NECK: No neck rigidity. CHEST: Kyphosis. LUNGS: Shows no audible crackle, rales or wheezing. CARDIOVASCULAR: S1 and S2, regular rhythm. Questionable soft systolic murmur left sternal border, right second intercostal space, left second intercostal space. ABDOMEN: Soft. Positive bowel sounds. No palpable hepatosplenomegaly. Positive left groin swelling noted which is tender to touch. Positive ecchymosis and discoloration of the left groin noted. GENITALIA: Female. RECTAL: Deferred. EXTREMITIES: Shows no pitting edema. No calf tenderness. No Homans' sign. Both feet and legs extremities are warm to touch. MUSCULOSKELETAL: Shows a body mass index of 23. NEUROLOGIC: The patient is alert, awake, and responsive. DIAGNOSTIC DATA: From this morning two CBCs from this morning; WBC 9.1 and 10, hemoglobin and hematocrit 10.1 and 30.6 and 10.2 and 30 and platelets 130, 159, and 125. PT/PTT was done yesterday which was within normal limit. Sodium 140, potassium 4.6, chloride 115, CO2 of 21, anion gap 8, BUN is up to 45, creatinine 0.8, GFR greater than 60, glucose 196, calcium 8, phosphorus 2.9, magnesium 1.7, total protein 5.1, and albumin 2.8. The patient's cholesterol was 127, HDL 65, and LDL 60. Blood cultures, urine cultures negative. The patient received 4 units of PRBC . IMPRESSION AND PLAN: 1. Status post rapid response and severe symptomatic hypotension. requiring IV fluid boluses and IV dopamine treatment. 2. Acute blood loss anemia, etiology undetermined. 3. Non-ST elevation myocardial infarction with elevated troponin. 4. Triple-vessel coronary artery disease. 5. Severe bilateral peripheral vascular disease. 6. Status post packed red blood cell transfusion x4. 7. Status post angioplasty and stent placement of the 99% stenosis of the left circumflex. 8. Status post hypotension. 9. History of hypertension. 10. Questionable left inguinal and left groin hematoma. 11. Left axis deviation, left anterior hemiblock and left bundle-branch block. 12. Leukocytosis. 13. Relative thrombocytopenia. 14. Granulocytosis. 15. Uncontrolled insulin-requiring diabetes mellitus with hemoglobin A1c of 8.4 and hyperglycemia and elevated fructosamine of 319. 16. History of hyperlipidemia. 17. History of multinodular thyroid nodule. 18. Acute non-ST elevation myocardial infarction with elevated troponin. 19. Prerenal kidney injury. 20. Hypomagnesemia. 21. Protein malnutrition and mild hypoalbuminemia. 22. Glycosuria, microscopic hematuria, and pyuria. 23. Pancreatic atrophy. 24. Left renal cyst. 25. Aortic and iliac arteries atherosclerotic calcification and mural plaques. 26. Constipation and fecal impaction. 27. Gastric distention, etiology undetermined. 28. Left inguinal groin area hematoma. 29. Status post cardiac catheterization and angioplasty and stent placement of the circumflex artery and peripheral angiogram. 30. Left ventricular ejection fraction of 60%. 31. Proximal occlusion of the right coronary artery with distal right coronary artery collateral. 32. An 80% stenosis of the left anterior descending artery after the bifurcation of the high diagonal at the septal dry yard worker. 33. A 99% stenosis of the heavily calcified left circumflex artery in the portion of the obtuse marginal branch. 34. Triple-vessel coronary artery disease with normal left ventricular ejection fraction. 35. Status post successful angioplasty and stent placement of the left circumflex artery. 36. Severe peripheral vascular disease of the lower extremity. Plan at this time, the patient has been evaluated by Cardiology, [facility], and Surgery. The patient has been ordered transfer out of the ICU by Dr. Abdullahi Vanessa. The patient has been ordered repeat daily labs.. The patient has been ordered repeat CBC. Repeat morning labs. Current consultation; Cardiology, Gastroenterology, Surgery, and Interventional Radiology. The patient's case referred to inclusion special educatorSAIMA. CURRENT MEDICATIONS: Coreg 3.125 twice a day, aspirin 81 mg daily, folic acid 1 mg daily, Humalog medium dose sliding scale coverage a.c. and at bedtime, Lipitor 40 mg daily, magnesium sulfate rider ordered, MiraLax 17 g twice a day, Neurontin 300 mg twice a day p.r.n., nicotine patch 21 mg daily, Plavix 75 mg daily, Protonix 40 mg IV every 12 hours, IV fluid 0.9 normal saline at 50 mL an hour, Tylenol 650 mg p.o. suppository every 6 hours p.r.n., vitamin D3 1000 units twice a day, Xopenex nebulizer 0.63 mg every 6 hours, and Zofran 4 mg IV every 4 hours p.r.n. EKG ordered. Heart-healthy diet. The patient will be ordered out of bed, physical therapy, occupational therapy, ambulation therapy, SCDs, and LONG stocking. The patient's physical therapy, ambulation therapy, and gait training will be ordered once the patient is on telemetry. Dictated and electronically signed, not read. Edilson MD [facility] # [id number]
[2018-09-25] MEDS: Levalbuterol 0.63 MG/3 ML Inhal Soln UD IH SCH ×4 (02:40→21:55)
[2018-09-25] MEDS: Sodium Chloride 0.9% 1,000 ML IV SCH (05:22)
--- NOTE | 2018-09-25 05:59 | CP.PCM.PN ---
Subjective - Date & Time of Evaluation Date of Evaluation: 09/25/18 Time of Evaluation: 05:55 - Subjective Subjective: Surgery Progress note- Dr. Ro Patient seen and examined at bedside. Transferred from ICU to the floor. Patient continues to remain in good spirits. repeat Hgb is stable x2. No signs of active bleeding. Objective - Vital Signs/Intake and Output Vital Signs (last 24 hours): Temp Pulse Resp BP Pulse Ox 98.2 F 49 L 18 130/55 L 99 09/25/18 00:00 09/25/18 05:49 09/25/18 00:00 09/25/18 00:00 09/24/18 12:00 Intake and Output: 09/24/18 09/25/18 18:59 06:59 Intake Total 910 Output Total 200 Balance 710 - Medications Medications: Current Medications Acetaminophen (Tylenol 325mg Tab) 650 mg PO Q6 PRN PRN Reason: TEMP>=99.5F Acetaminophen (Tylenol 650 Mg Supp) 650 mg RC Q6H PRN PRN Reason: TEMP>=99.5F Aspirin (Ecotrin) 81 mg PO DAILY [facility] Last Admin: 09/24/18 10:01 Dose: 81 mg Atorvastatin Calcium (Lipitor) 40 mg PO DIN [facility] Last Admin: 09/24/18 17:29 Dose: 40 mg Carvedilol (Coreg) 3.125 mg PO Q12H [facility] Last Admin: 09/24/18 22:22 Dose: 3.125 mg Cholecalciferol (Vitamin D) 1,000 intlu PO BID [facility] Last Admin: 09/24/18 17:29 Dose: 1,000 intlu Clopidogrel Bisulfate (Plavix) 75 mg PO DAILY [facility] Last Admin: 09/24/18 10:00 Dose: 75 mg Dextrose (Dextrose 50% Inj) 0 ml IV STAT PRN; Protocol PRN Reason: Hypoglycemia Protocol Folic Acid (Folic Acid) 1 mg PO DAILY [facility] Last Admin: 09/24/18 10:01 Dose: 1 mg Gabapentin (Neurontin) 300 mg PO BID PRN; Protocol PRN Reason: Pain, moderate (4-7) Last Admin: 09/24/18 10:00 Dose: 300 mg Sodium Chloride (Sodium Chloride 0.9%) 1,000 mls @ 50 mls/hr IV .Q20H [facility] Stop: 09/28/18 10:59 Last Admin: 09/25/18 05:22 Dose: 50 mls/hr Insulin Human Lispro (Humalog Med) 0 units SC ACHS [facility]; Protocol Last Admin: 09/24/18 21:47 Dose: Not Given Levalbuterol HCl (Xopenex) 0.63 mg IH [id number] [facility] Last Admin: 09/25/18 02:40 Dose: 0.63 mg Nicotine (Nicoderm Cq) 1 patch TD DAILY [facility] Last Admin: 09/24/18 10:01 Dose: 1 patch Ondansetron HCl (Zofran Inj) 4 mg IVP Q4H PRN PRN Reason: Nausea/Vomiting Pantoprazole Sodium (Protonix Inj) 40 mg IVP Q12 [facility] Last Admin: 09/24/18 22:05 Dose: 40 mg Polyethylene Glycol (Miralax) 17 gm PO BID [facility] Last Admin: 09/24/18 17:30 Dose: Not Given - Labs Labs: 09/24/18 13:53 09/24/18 04:20 PT 13.2 SECONDS (9.4-12.5) H 09/23/18 16:17 INR 1.15 09/23/18 16:17 APTT 27.7 Seconds (25.1-36.5) 09/23/18 16:17 - Constitutional Appears: Non-toxic, No Acute Distress - Head Exam Head Exam: ATRAUMATIC - Eye Exam Eye Exam: EOMI. absent: Scleral icterus - ENT Exam ENT Exam: Mucous Membranes Moist - Respiratory Exam Respiratory Exam: NORMAL BREATHING PATTERN. absent: Accessory Muscle Use, Respiratory Distress - GI/Abdominal Exam GI & Abdominal Exam: Soft. absent: Distended, Firm, Guarding, Rigid, Tenderness - Extremities Exam Extremities Exam: absent: Calf Tenderness - Neurological Exam Neurological Exam: Alert, Awake - Psychiatric Exam Psychiatric exam: Normal Affect - Skin Skin Exam: Intact, Warm Assessment and Plan - Assessment and Plan (Free Text) Assessment: 72F s/p Cardiac Cath, and blood transfusion responded appropriately Plan: - continues to remained HD normal - Hgb stable - no acute surgical intervention - reconsult as needed - PGY2
[2018-09-25 06:25] LABS: BASO # 0.02 K/mm3 (0.0-2.0); BASO % 0.2 % (0.0-3.0); EOS # 0.4 (0.0-0.7); EOS % 4.4 % (1.5-5.0); GRAN # 5.53 (1.4-6.5); GRAN % 68.5 % (50.0-68.0); HEMOGLOBIN 9.7 g/dL (12.0-16.0); LYMPH # 1.6 (1.2-3.4); LYMPH % 20.1 % (22.0-35.0); MEAN CELL VOLUME 85.7 fl (80.0-105.0); MEAN CORPUSCULAR HEMOGLOBIN 28.4 pg (25.0-35.0); MEAN CORPUSCULAR HGB CONC 33.1 g/dl (31.0-37.0); MEAN PLATELET VOLUME 11.1 fl (7.0-11.0); MONO # 0.6 (0.1-0.6); MONO % 6.8 % (1.0-6.0); RBC 3.42 10^6/uL (3.5-6.1); RED CELL DISTRIBUTION WIDTH 14.8 % (11.5-14.5); WHITE BLOOD COUNT 8.1 10^3/uL (4.5-11.0)
[2018-09-25 06:39] LABS: ALB/GLOB RATIO 1.2 (1.1-1.8); ALBUMIN 2.8 g/dL (3.0-4.8); ALT/SGPT 25 U/L (7-56); AST/SGOT 19 U/L (14-36); BILIRUBIN,DIRECT 0.1 mg/dL (0.0-0.4); BLOOD UREA NITROGEN 25 mg/dL (7-21); CALCIUM 8.3 mg/dL (8.4-10.5); GFR NON-AFRICAN AMERICAN > 60
[2018-09-25] MEDS: Insulin Lispro (humaLOG) MEDIUM Coverage SC SCH ×5 (08:30→22:42)
[2018-09-25] MEDS: POLYETHYLENE GLYCOL 3350 17 GM/Dose PACKET PO SCH ×2 (10:11→17:42)
[2018-09-25] MEDS: Cholecalciferol 1,000 INTLU TAB PO SCH ×2 (12:28→17:41)
--- NOTE | 2018-09-25 15:10 | US ---
PROCEDURE: Duplex arterial ultrasound of the left groin. HISTORY: Recent cardiac catheterization. Pain and pulsatile mass in the left groin. Evaluate for pseudoaneurysm or fistula. PHYSICIAN(S): Abdullahi Laura MD. FINDINGS: There is moderate atherosclerotic change involving the left common femoral artery. No evidence of pseudoaneurysm or AV fistula is seen There is a 3 cm hypoechoic area in the left groin, presumably hematoma IMPRESSION: 1. No sonographic evidence for pseudoaneurysm or AV fistula in the left groin.
[2018-09-25] MEDS: Potassium & Sodium Phosphate PO SCH ×3 (15:46→21:53)
--- NOTE | 2018-09-25 16:08 | PN ---
DATE: 09/25/2018 SUBJECTIVE: The patient is comfortable. No shortness of breath. No chest pain. PHYSICAL EXAMINATION: VITAL SIGNS: Blood pressure 142/58, heart rate in the 50s. NECK: Negative JVD. LUNGS: Without rales. HEART: S1, S2. EXTREMITIES: Without edema. LABORATORY: BUN and creatinine unremarkable. Glucose is 180, magnesium is 2.1, hemoglobin is 9.7 after transfusions. IMPRESSION: 1. Status post percutaneous transluminal coronary angioplasty and stent of a 99% circumflex artery. 2. Triple vessel coronary artery disease. 3. Anemia. 4. Transient hypotension. 5. Chronic obstructive pulmonary disease. 6. Hypercholesterolemia. PLAN: Given these findings, the patient's hemoglobin is stable at this time, we will begin ambulation today. The patient can be either sent to TCU, she cannot walk or can be discharged to home. The patient is scheduled for PTCA and stent on next Wednesday if her hemoglobin remains stable. Abdullahi Vanessa MD
--- NOTE | 2018-09-25 16:15 | PN ---
DATE: 09/25/2018 SUBJECTIVE: The patient is sitting in a chair, comfortable. She had several bowel movements yesterday. There was no melena or rectal bleeding. She denies any chest pain, abdominal pain, nausea, or vomiting. PHYSICAL EXAMINATION: VITAL SIGNS: Reveal temperature of 98.1, blood pressure 142/58, heart rate of 57. HEENT: Reveal sclerae to be white. Conjunctivae pale. NECK: Supple. CHEST: Lungs are clear. HEART: Regular rate and rhythm. ABDOMEN: Soft, nontender. EXTREMITIES: Show no edema. LABORATORY DATA: Reveals hemoglobin of 9.7; this has remained stable over the last 24 hours. Chemistries reveal BUN 25 and creatinine 0.7. AST, ALT, and alkaline phosphatase are all normal. IMPRESSION: A 72-year-old female admitted to the hospital with an acute non-ST elevation myocardial infarction with a drop in her blood count of approximately 4 g after cardiac catheterization. 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 CT scan of the abdomen and pelvis did not show a retroperitoneal bleed. RECOMMENDATIONS: 1. Continue aspirin and Plavix in view of recent MACIEL placement. 2. Follow serial hematocrits. 3. Continue PPI. 4. No plans for endoscopy or colonoscopy given her recent NSTEMI at this time. 5. The patient is to have a second cardiac catheterization to stent the LAD in the next week. Max Beltrán MD
--- NOTE | 2018-09-25 17:16 | PN ---
DATE: 09/25/2018 The patient is seen in room 277, bed 2. SUBJECTIVE: The patient is out of bed to chair, having lunch. The patient denies any rectal bleeding. Denies any nausea, denies any vomiting. Denies any chest pain. Denies any hemoptysis, hematemesis, melena. PHYSICAL EXAMINATION: VITAL SIGNS: T-max 98.1-98.2. Telemetry shows sinus rhythm, sinus bradycardia and heart rate in 50s. Blood pressure 146/58, respirations 17, O2 sat 99%. HEENT: Head examination, normocephalic, atraumatic. HEENT examination shows pinkish pale conjunctivae. Anicteric sclerae. No oropharyngeal lesion. NECK: No neck rigidity. CHEST: Kyphosis. LUNGS: Examination shows no audible crackle, rales or wheezing. CARDIOVASCULAR: Shows S1, S2, regular rhythm. Questionable soft systolic murmur left sternal border, right second intercostal space, left second intercostal space. ABDOMEN: Soft. Positive bowel sounds. GENITALIA: Female. RECTAL: Examination is deferred. Positive left groin swelling and lump noted. EXTREMITIES: Shows no pitting edema, no Mahesh's signs. NEUROLOGIC: The patient is alert, awake, responsive, is able to move upper and lower extremity without assistance. DIAGNOSTICS: 09/25/2018, WBC 8.1, hemoglobin/hematocrit 9.7/29.3, platelet 137 and 150. Granulocytes 68. Sodium 137, potassium 4, chloride 117, CO2 20, anion gap 4, BUN 25, creatinine 0.7, GFR greater than 60, glucose 329, 164, 182, 52, calcium 8.3, phosphorus 2.1. LFTs shows total protein 5.2, albumin 2.8. MRSA undetected. Urine and blood cultures negative. The patient received 4 units of PRBC. IMPRESSION AND PLAN: 1. Status post rapid response, severe symptomatic hypotension requiring intravenous fluid bolus and intravenous dopamine drip with treatment. 2. Acute blood loss anemia, etiology undetermined. 3. Non-ST elevation myocardial infarction with elevated troponin. 4. Triple-vessel coronary artery disease. 5. Unstable angina. 6. Sinus bradycardia. 7. History of hypertension. 8. Granulocytosis. 9. Severe symptomatic anemia with decreasing hemoglobin to 6.4. 10. Relative thrombocytopenia. 11. Prerenal kidney injury. 12. Uncontrolled diabetes, insulin-requiring diabetes mellitus with hemoglobin A1c of 8.4 and fructosamine of 319. 13. Hypocalcemia. 14. Hypomagnesemia. 15. Hypophosphatemia. 16. Mild protein malnutrition and mild hypoalbuminemia. 17. History of hyperlipidemia. 18. Glycosuria, microscopic hematuria, pyuria. 19. Status post packed red blood cell transfusion x4. 20. Pancreatic atrophy. 21. Left renal cyst. 22. Aortic calcification and mural plaque. 23. Fecal impaction, constipation. 24. Gastric distention, etiology undetermined. 25. Left axis deviation and left bundle-branch block. 26. Left ventricle ejection fraction of 60%. 27. Status post cardiac catheterization and successful percutaneous transluminal coronary angioplasty and stent placement of the left circumflex artery. 28. Proximal occluded right coronary artery with collaterals to the distal right coronary artery. 29. 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 30. 99% stenosis of the proximal portion of the obtuse marginal branch of the left circumflex artery. 31. Bilateral lower extremity peripheral vascular disease, 32. Deconditioning. 33. Gait dysfunction. PLAN: At this time, the patient has been ordered repeat labs. Current consultation, Cardiology, Gastroenterology, Interventional Radiology, Surgery. The patient is referred for diabetic education, TCU eval. CURRENT MEDICATIONS: The patient's Coreg was decreased to 3.125 mg once a day due to bradycardia, Ecotrin 81 mg daily, folic acid 1 mg daily, Humalog medium dose sliding scale coverage a.c. and h.s., Lipitor 40 mg daily, MiraLax 17 g twice a day, Neurontin 300 mg twice a day. The patient is started on Neutra-Phos 1 packet four times a day for four doses, nicotine patch 21 mg daily, Plavix 75 mg daily, Protonix 40 mg, Tylenol 650 mg p.o. suppository every 6 hours p.r.n., vitamin D3 2000 international unit once a day, Xopenex nebulizer 0.63 mg every 6 hours, Zofran 4 mg IV every 4 hours p.r.n., heart-healthy diet, out of bed LONG stockings, SCDs, physical therapy, occupational therapy ordered. At present, we are waiting for the patient's acceptance to TCU and physical therapy evaluation. The patient updated about her condition, diagnosis, treatment plan, treatment options. All details discussed and explained to the patient at length and all questions concerned answered. Edilson Reddy MD
[2018-09-25 19:16] LABS: GLYCOMARK(R) 4.6 mcg/mL (7.5-28.4)
[2018-09-26] MEDS: Levalbuterol 0.63 MG/3 ML Inhal Soln UD IH SCH ×4 (04:02→20:45)
[2018-09-26 06:30] LABS: BASO # 0.02 K/mm3 (0.0-2.0); BASO % 0.3 % (0.0-3.0); EOS # 0.4 (0.0-0.7); EOS % 5.2 % (1.5-5.0); GRAN # 4.53 (1.4-6.5); GRAN % 65.6 % (50.0-68.0); HEMOGLOBIN 9.4 g/dL (12.0-16.0); LYMPH # 1.5 (1.2-3.4); LYMPH % 21.2 % (22.0-35.0); MEAN CELL VOLUME 86.5 fl (80.0-105.0); MEAN CORPUSCULAR HEMOGLOBIN 28.7 pg (25.0-35.0); MEAN CORPUSCULAR HGB CONC 33.2 g/dl (31.0-37.0); MEAN PLATELET VOLUME 10.9 fl (7.0-11.0); MONO # 0.5 (0.1-0.6); MONO % 7.7 % (1.0-6.0); RBC 3.27 10^6/uL (3.5-6.1); RED CELL DISTRIBUTION WIDTH 14.7 % (11.5-14.5); WHITE BLOOD COUNT 6.9 10^3/uL (4.5-11.0)
[2018-09-26] MEDS: Insulin Lispro (humaLOG) MEDIUM Coverage SC SCH ×4 (08:04→22:22)
[2018-09-26 08:10] LABS: ALB/GLOB RATIO 1.1 (1.1-1.8); ALBUMIN 2.8 g/dL (3.0-4.8); ALT/SGPT 33 U/L (7-56); AST/SGOT 23 U/L (14-36); BILIRUBIN,DIRECT 0.2 mg/dL (0.0-0.4); BLOOD UREA NITROGEN 17 mg/dL (7-21); CALCIUM 8.3 mg/dL (8.4-10.5); GFR NON-AFRICAN AMERICAN > 60
--- NOTE | 2018-09-26 08:59 | CARD ---
APPROVED REPORT Date of service: 09/23/2018 EKG Measurement Heart [id number] <Conclusion> Sinus bradycardia Left bundle branch block Abnormal ECG
[2018-09-26] MEDS: Cholecalciferol 1,000 INTLU TAB PO SCH ×2 (09:20→17:33)
[2018-09-26] MEDS: Potassium & Sodium Phosphate PO SCH (09:20)
[2018-09-26] MEDS: POLYETHYLENE GLYCOL 3350 17 GM/Dose PACKET PO SCH ×2 (09:20→17:33)
--- NOTE | 2018-09-26 12:25 | CP.PCM.PN ---
Subjective - Date & Time of Evaluation Date of Evaluation: 09/26/18 Time of Evaluation: 12:21 - Subjective Subjective: Medicine Progress Note for Dr. Reddy Patient seen and examined at bedside. No acute overnight events. Patient denies CP, SOB, n/v/d, abdominal pain, fever, chills, DEL REAL, or dizziness. Objective - Vital Signs/Intake and Output Vital Signs (last 24 hours): Temp Pulse Resp BP Pulse Ox 98.2 F 52 L 20 134/59 L 98 09/26/18 05:57 09/26/18 09:21 09/26/18 05:57 09/26/18 09:21 09/26/18 05:57 Intake and Output: 09/26/18 09/26/18 06:59 18:59 Intake Total 1320 Balance 1320 - Medications Medications: Current Medications Acetaminophen (Tylenol 325mg Tab) 650 mg PO Q6 PRN PRN Reason: TEMP>=99.5F Acetaminophen (Tylenol 650 Mg Supp) 650 mg RC Q6H PRN PRN Reason: TEMP>=99.5F Aspirin (Ecotrin) 81 mg PO DAILY [facility] Last Admin: 09/26/18 09:20 Dose: 81 mg Atorvastatin Calcium (Lipitor) 40 mg PO DIN [facility] Last Admin: 09/25/18 17:41 Dose: 40 mg Carvedilol (Coreg) 3.125 mg PO DAILY [facility] Last Admin: 09/26/18 09:21 Dose: 3.125 mg Cholecalciferol (Vitamin D) 1,000 intlu PO BID [facility] Last Admin: 09/26/18 09:20 Dose: 1,000 intlu Clopidogrel Bisulfate (Plavix) 75 mg PO DAILY [facility] Last Admin: 09/26/18 09:20 Dose: 75 mg Ferrous Sulfate (Feosol) 324 mg PO TID [facility] Folic Acid (Folic Acid) 1 mg PO DAILY [facility] Last Admin: 09/26/18 09:20 Dose: 1 mg Gabapentin (Neurontin) 300 mg PO BID [facility]; Protocol Insulin Human Lispro (Humalog Med) 0 units SC ACHS [facility]; Protocol Last Admin: 09/26/18 08:04 Dose: 3 u Levalbuterol HCl (Xopenex) 0.63 mg IH [id number] [facility] Last Admin: 09/26/18 07:26 Dose: 0.63 mg Nicotine (Nicoderm Cq) 1 patch TD DAILY [facility] Last Admin: 09/26/18 09:20 Dose: 1 patch Ondansetron HCl (Zofran Inj) 4 mg IVP Q4H PRN PRN Reason: Nausea/Vomiting Pantoprazole Sodium (Protonix Inj) 40 mg IVP Q12 [facility] Last Admin: 09/26/18 09:21 Dose: 40 mg Polyethylene Glycol (Miralax) 17 gm PO BID [facility] Last Admin: 09/26/18 09:20 Dose: 17 gm - Labs Labs: 09/26/18 05:30 09/26/18 05:30 PT 13.2 SECONDS (9.4-12.5) H 09/23/18 16:17 INR 1.15 09/23/18 16:17 APTT 27.7 Seconds (25.1-36.5) 09/23/18 16:17 - Constitutional Appears: No Acute Distress - Head Exam Head Exam: NORMAL INSPECTION - Eye Exam Eye Exam: Normal appearance - ENT Exam ENT Exam: Mucous Membranes Moist - Neck Exam Neck Exam: Normal Inspection - Respiratory Exam Respiratory Exam: Clear to Ausculation Bilateral. absent: Rales, Rhonchi, Wheezes - Cardiovascular Exam Cardiovascular Exam: RRR, +S1, +S2. absent: Gallop, Rubs - GI/Abdominal Exam GI & Abdominal Exam: Soft. absent: Distended, Rigid, Tenderness, Rebound - Extremities Exam Additional comments: no signs of discharge, bleeding, hematoma at cath site - Back Exam Back Exam: NORMAL INSPECTION - Neurological Exam Neurological Exam: Alert, Awake, Oriented x3 - Psychiatric Exam Psychiatric exam: Normal Affect, Normal Mood - Skin Skin Exam: Dry, Intact, Normal Color, Warm Assessment and Plan - Assessment and Plan (Free Text) Assessment: 72 yo F with PMH of DM, HTN, HLD, and CVA presents to [facility] for chest pain. Jasen lemus underwent catherization and was found to have triple vessel disease with PTCA of circumflex and will have PTCA of LAD later this week. Hospital course was complicated by hypotension and anemia after catherization. patient was transferred to ICU and was responsive to IVF and dopamine. RP bleed, GI bleed, and pseudoaneurysm was ruled out. Plan: 1. Triple vessel CAD - PTCA of circumflex; will get PTCA of LAD this week - DAPT - Coreg - Cardiology following 2. DM - ISS - Accuchecks ACHS - Home metformin held 3. HTN - Coreg 4. HLD - Cont home statin and welchol 5. H/o Anemia - Cont folic acid GI/DVT PPx - Protonix - SCDs Patient seen and discussed in detail with Dr. Reddy. Boby Blackburn DO PGY2
--- NOTE | 2018-09-26 12:59 | CARD ---
APPROVED REPORT Date of service: 09/26/2018 EKG Measurement Heart [id number] <Conclusion> Sinus bradycardia Left axis deviation Left bundle branch block Abnormal ECG
--- NOTE | 2018-09-26 13:31 | PN ---
DATE: 09/26/2018 HISTORY OF PRESENT ILLNESS: The patient is seen out of bed to chair in room 277. The patient is alert, awake, responsive. Overnight nurse's notes were reviewed. No adverse events were documented. PHYSICAL EXAMINATION: VITAL SIGNS: T-max 98.2. Telemetry shows sinus rhythm, sinus bradycardia, heart rate 57, 54, 52, blood pressure 134/59, respirations 20, O2 sat 98%. HEENT: Head examination normocephalic, atraumatic. HEENT examination shows pinkish pale conjunctivae. Anicteric sclerae. No oropharyngeal lesion. No neck rigidity. CHEST: Kyphosis. LUNGS: Shows no audible crackle, rales or wheezing. CARDIOVASCULAR: Shows S1, S2, regular rhythm. Questionable soft systolic murmur left sternal border, right second intercostal space, left second intercostal space. ABDOMEN: Soft. Positive bowel sound. No palpable hepatosplenomegaly. GENITALIA: Female. RECTAL: Deferred. Decreasing swelling of the left groin area noted. EXTREMITIES: Lower extremity shows no pitting edema, no calf tenderness, no Homans' sign. NEUROLOGIC: The patient is alert, awake, oriented x3. Cranial nerves II-XII limited. Gait examination is not tested. DIAGNOSTICS: 09/26/2018, WBC 6.9, hemoglobin/hematocrit 9.4, 28.3, platelet 141. Sodium 137, potassium 4.4, chloride 112, CO2 21, anion gap 9, BUN 17, creatinine 0.7, GFR greater than 60, glucose 178. Fingerstick blood sugar 207, calcium 8.3, phosphorus 2.9, magnesium 1.9. LFTs are normal. Total protein 5.3, albumin 2.8, MRSA undetected. Urine blood cultures negative. The patient received 4 units of PRBC. IMPRESSION AND PLAN: 1. Acute non-ST elevation myocardial infarction with unstable angina and elevated troponin. 2. Triple-vessel coronary artery disease. 3. Status post angioplasty and drug-eluting stent placement of the left circumflex artery. 3. Acute blood loss anemia, etiology undetermined status post packed red blood cell transfusion x4. 4. Status post hypotension. 5. Nicotine dependence and addiction. 6. Deconditioning. 7. History of duodenal and gastric arteriovenous malformation. 8. Sinus bradycardia. 9. Leukocytosis with granulocytosis (resolved). 10. Relative thrombocytopenia. 11. Prerenal kidney injury (resolved). 12. Uncontrolled insulin-requiring diabetes mellitus with hemoglobin A1c of 8.4 and fructosamine of 319. 13. Mild protein malnutrition and hypoalbuminemia. 14. Glycosuria, microscopic hematuria, pyuria. 15. Status post packed red blood cell transfusion x4. 16. Left bundle-branch block with left anterior hemiblock. 17. 18. Pulmonary hypertension with right ventricular systolic pressure of 45 mmHg. 19. Left bundle-branch block. 20. Left anterior hemiblock. 21. Iron-deficiency anemia and vitamin B12 deficiency. 22. Hyperlipidemia. 23. Constipation with fecal stasis and fecal retention. 24. Diabetic neuropathy. PLAN: At this time, the patient is awaiting for TCU evaluation and discharge. Repeat labs have been ordered. Current consultation Cardiology, Gastroenterology, Interventional Radiology, diabetic education referral. TCU evaluation ordered. CURRENT MEDICATIONS: Coreg 3.125 daily, aspirin 81 mg p.o. daily, ferrous sulfate 324 three times a day, folic acid 1 mg daily, Humalog medium dose sliding scale coverage a.c. and at bedtime, Lipitor 40 mg daily, MiraLax 17 g twice a day, Neurontin 300 mg twice a day p.r.n., nicotine 21 mg daily, Plavix 75 mg daily, Protonix 40 mg IV every 12 hours, Tylenol p.r.n., vitamin D3 2000 units daily, Xopenex 0.63 mg every 6 hours, Zofran 4 mg IV every 4 hours p.r.n. The patient at present will be continued on the above therapeutic intervention. The patient will be transferred to TCU when bed available and if the patient is accepted to TCU, the patient is awaiting physical therapy and TCU evaluation. The patient is awaiting TCU eval and physical therapy. The patient was evaluated by physical therapist yesterday. Their recommendation was Transitional Care Unit. We are awaiting for evaluation and acceptance by TCU. The patient updated about her condition, diagnosis, treatment plan. Patient's case discussed with Cardiology recommending angioplasty and stent placement of the other coronary arteries in very near future. The patient updated about her condition and diagnosis, treatment plan, and options, which she has acknowledged and understand. Dictated and electronically signed, not read. Edilson Reddy MD [facility] # [id number]
--- NOTE | 2018-09-26 15:26 | PN ---
DATE: 09/26/2018 CARDIOLOGY FOLLOWUP SUBJECTIVE: The patient is chest pain free. She has ambulated with physical therapy. PHYSICAL EXAMINATION: VITAL SIGNS: Blood pressure 134/59, heart rates in the 50s. NECK: Negative JVD. LUNGS: Without rales. HEART: S1, S2. EXTREMITIES: Without edema. LABORATORY DATA: BUN and creatinine are unremarkable. Hemoglobin is 9.4. IMPRESSION: 1. Status post percutaneous transluminal coronary angioplasty and stent of the circumflex artery. 2. Status post non-ST elevation myocardial infarction. 3. Multivessel coronary artery disease. 4. Severe peripheral vascular disease. 5. Anemia which is stable for the past 3 days. 6. Chronic obstructive pulmonary disease. 7. Hypercholesterolemia. Given these findings, the patient is doing well. We will transfer her to TCU for ambulation. The patient is scheduled for PTCA and stent of the LAD later this week. Abdullahi Vanessa MD
--- NOTE | 2018-09-26 16:22 | PN ---
DATE: 09/26/2018 SUBJECTIVE: The patient is lying in bed, comfortable. She denies any chest pain. She has had several bowel movements. She denies any rectal bleeding or melena. She denies any shortness of breath or palpitations. PHYSICAL EXAMINATION: VITAL SIGNS: Reveal temperature of 98.2, blood pressure 134/59, heart rate of 52. HEENT: Reveal sclerae to be white. Conjunctivae pink. NECK: Supple. CHEST: Lungs clear. HEART: Exam reveals regular rate and rhythm. ABDOMEN: Soft, nontender. EXTREMITIES: Show no edema. LABORATORY DATA: Reveal hemoglobin 9.4, this has been stable over the last 48 hours, white blood cell count 6.9. Chemistries reveal BUN 17, creatinine 0.7. IMPRESSION: 1. A 72-year-old female with acute non-ST elevation myocardial infarction with triple-vessel disease on cardiac catheterization status post coronary artery stent of the left circumflex artery. 2. Chronic anemia. 3. History of duodenal and gastric arteriovenous malformations. RECOMMENDATIONS: 1. The patient is to have a second cardiac catheterization tentatively planned for Wednesday for stenting of her left anterior descending coronary artery. 2. Continue PPI. 3. Follow CBC. Max Beltrán MD
[2018-09-27] MEDS: Levalbuterol 0.63 MG/3 ML Inhal Soln UD IH SCH ×4 (01:37→20:16)
[2018-09-27 07:32] LABS: BASO # 0.03 K/mm3 (0.0-2.0); BASO % 0.4 % (0.0-3.0); EOS # 0.3 (0.0-0.7); EOS % 3.5 % (1.5-5.0); GRAN # 5.34 (1.4-6.5); GRAN % 70.2 % (50.0-68.0); HEMOGLOBIN 9.3 g/dL (12.0-16.0); LYMPH # 1.4 (1.2-3.4); LYMPH % 18.1 % (22.0-35.0); MEAN CORPUSCULAR HGB CONC 32.2 g/dl (31.0-37.0); MEAN PLATELET VOLUME 10.9 fl (7.0-11.0); MONO # 0.6 (0.1-0.6); MONO % 7.8 % (1.0-6.0); RBC 3.32 10^6/uL (3.5-6.1); RED CELL DISTRIBUTION WIDTH 14.4 % (11.5-14.5); WHITE BLOOD COUNT 7.6 10^3/uL (4.5-11.0)
[2018-09-27 07:41] LABS: ALB/GLOB RATIO 1.2 (1.1-1.8); ALT/SGPT 31 U/L (7-56); AST/SGOT 19 U/L (14-36); BILIRUBIN,DIRECT 0.2 mg/dL (0.0-0.4); BLOOD UREA NITROGEN 15 mg/dL (7-21); CALCIUM 8.6 mg/dL (8.4-10.5); GFR NON-AFRICAN AMERICAN > 60
[2018-09-27] MEDS: Insulin Lispro (humaLOG) MEDIUM Coverage SC SCH ×4 (08:29→22:40)
[2018-09-27 09:22] LABS: IRON 79 ug/dL (45-180)
[2018-09-27 09:32] LABS: % IRON SATURATION 25 % (20-55); TOTAL IRON BINDING CAPACITY 321 ug/dL (265-497)
[2018-09-27] MEDS: POLYETHYLENE GLYCOL 3350 17 GM/Dose PACKET PO SCH ×2 (10:24→17:29)
[2018-09-27] MEDS: Cholecalciferol 1,000 INTLU TAB PO SCH ×2 (10:28→17:29)
--- NOTE | 2018-09-27 10:44 | PN ---
DATE: 09/27/2018 SUBJECTIVE: The patient is in room 277, bed 2. Overnight nurse's notes were reviewed. No adverse events documented. The patient's 14-system review was done, pertinent positive and negative dictated above. PHYSICAL EXAMINATION: VITAL SIGNS: T-max 98. Telemetry shows sinus rhythm, sinus bradycardia, heart rate in 50s and high 40s per minute, blood pressure 158/83, respiration 20, O2 sat 98%. HEENT: Head: Normocephalic, atraumatic. HEENT examination shows pinkish pale conjunctivae. Anicteric sclerae. No oropharyngeal lesion. No neck rigidity. CHEST: Kyphosis. LUNGS: No audible crackle, rales or wheezing. CARDIOVASCULAR: S1, S2, regular rhythm. ABDOMEN: Soft. Positive bowel sound. Questionable systolic murmur left sternal border, right second intercostal space, left second intercostal space. ABDOMEN: Soft. Positive bowel sound, no palpable hepatosplenomegaly. GENITALIA: Female. RECTAL: Deferred. EXTREMITY: No pitting edema, no calf tenderness, no Homans sign. MUSCULOSKELETAL: As per body mass index. NEUROLOGIC: The patient is alert, awake, oriented x3, is able to move upper and lower extremity without assistance. Gait examination is not tested. DIAGNOSTICS: Fingerstick blood sugar 276, 161, 280. WBC 7.6, hemoglobin and hematocrit 9.3 and 29, platelets 160. Granulocytes 70% segs. Sodium 136, potassium 4.7, chloride 108, CO2 of 23, BUN 15, creatinine 0.8, glucose 254, calcium 8.6, phosphorus 2.8, magnesium 1.9. LFTs are within normal limit. IMPRESSION: 1. Multivessel coronary artery disease and triple-vessel coronary artery disease. 2. Acute non-ST elevation myocardial infarction with elevated troponin. 3. Status post angioplasty and drug-eluting stent placement. 4. Multivessel coronary artery disease. 5. Left bundle-branch block. 6. Left anterior hemiblock. 7. Normocytic iron-deficiency anemia. 8. Granulocytosis. 9. History of vitamin B12 deficiency. 10. Insulin-requiring uncontrolled diabetes mellitus with hyperglycemia and elevated hemoglobin A1c of greater than 8. 11. Severe dietary noncompliance. 12. Active nicotine dependence. 13. Probable chronic obstructive pulmonary disease. 14. Hypertension. 15. Bradycardia. 16. Questionable pulmonary hypertension. 17. Unstable angina and acute coronary syndrome with acute non-ST elevation myocardial infarction with triple-vessel coronary artery disease. 18. Severe peripheral vascular disease. 19. Insulin-requiring diabetes mellitus. 20. Hyperlipidemia. PLAN: At this time, the patient will be continued on medications as per the MAR. The patient is also started on hydralazine 10 mg every 12 hours. The patient is scheduled for another angioplasty and stent placement for tomorrow. The patient has been ordered iron studies, B12, folate. Stool occult blood ordered. The patient will be continued on insulin sliding scale, Coreg 3.125 once a day, hydralazine 10 mg every 12 hours. GI and DVT prophylaxis ordered. The patient is on statins, aspirin, Plavix. The patient will be continued on medications as per the MAR of today. The patient has been scheduled for another angioplasty for tomorrow. Depending upon the results of the angioplasty and the patient's hemodynamic status and subjective and objective status, the patient will be considered for possible transfer to TCU after tomorrow's angioplasty and cardiac catheterization. Dictated and electronically signed, not read. Edilson Reddy MD
--- NOTE | 2018-09-27 11:18 | CP.PCM.APN ---
Subjective - Date & Time of Evaluation Date of Evaluation: 09/27/18 Time of Evaluation: 10:00 - Subjective Subjective: pt seen and examiend at bedside pt report she feels well. no complaints at this time Review of Systems - Constitutional Constitutional: absent: As Per HPI, Anorexia, Chills, Daytime Sleepiness, Excessive Sweating, Fatigue, Fever, Frequent Falls, Headache, Increased Ap petite, Lethargy, Malaise, Night Sweats, Snoring, Sleep Apnea, Weight Gain, Weight Loss, Weakness, Other - Cardiovascular Cardiovascular: absent: As Per HPI, Acrocyanosis, Chest Pain, Chest Pain at Rest, Chest Pain with Activity, Claudication, Diaphoresis, Dyspnea, Dyspnea on Exertion, Edema, Irregular Heart Rhythm, Pain Radiating to Arm/Neck/Jaw, Leg Edema, Leg Ulcers, Lightheadedness, Orthopnea, Palpitations, Paroxysmal Nocturnal Dyspnea, Pedal Edema, Radiating Pain, Rapid Heart Rate, Slow Heart Rate, Syncope, Other - Respiratory Respiratory: absent: As Per HPI, Cough, Dyspnea, Hemoptysis, Dyspnea on Exertion, Wheezing, Snoring, Stridor, Pain on Inspiration, Chest Congestion, Excessive Mucous Production, Change in Mucous Color, Pain with Coughing, Other Objective - Vital Signs/Intake and Output Vital Signs (last 24 hours): Temp Pulse Resp BP Pulse Ox 98 F 75 20 98/60 L 98 09/27/18 06:00 09/27/18 10:28 09/27/18 06:00 09/27/18 10:28 09/27/18 06:00 Intake and Output: 09/27/18 09/27/18 06:59 18:59 Intake Total 180 Output Total 200 Balance -20 - Medications Medications: Current Medications Acetaminophen (Tylenol 325mg Tab) 650 mg PO Q6 PRN PRN Reason: TEMP>=99.5F Acetaminophen (Tylenol 650 Mg Supp) 650 mg RC Q6H PRN PRN Reason: TEMP>=99.5F Aspirin (Ecotrin) 81 mg PO DAILY COUNTS INCLUDE 234 BEDS AT THE [facility] Last Admin: 09/27/18 10:27 Dose: 81 mg Atorvastatin Calcium (Lipitor) 40 mg PO DIN COUNTS INCLUDE 234 BEDS AT THE [facility] Last Admin: 09/26/18 17:33 Dose: 40 mg Carvedilol (Coreg) 3.125 mg PO DAILY COUNTS INCLUDE 234 BEDS AT THE [facility] Last Admin: 09/27/18 10:28 Dose: Not Given Cholecalciferol (Vitamin D) 1,000 intlu PO BID COUNTS INCLUDE 234 BEDS AT THE [facility] Last Admin: 09/27/18 10:28 Dose: 1,000 intlu Clopidogrel Bisulfate (Plavix) 75 mg PO DAILY COUNTS INCLUDE 234 BEDS AT THE [facility] Last Admin: 09/27/18 10:27 Dose: 75 mg Docusate Sodium (Colace) 100 mg PO TID COUNTS INCLUDE 234 BEDS AT THE [facility] Last Admin: 09/27/18 10:25 Dose: 100 mg Ferrous Sulfate (Feosol) 324 mg PO TID COUNTS INCLUDE 234 BEDS AT THE [facility] Last Admin: 09/27/18 10:27 Dose: 324 mg Folic Acid (Folic Acid) 1 mg PO DAILY COUNTS INCLUDE 234 BEDS AT THE [facility] Last Admin: 09/27/18 10:26 Dose: 1 mg Gabapentin (Neurontin) 300 mg PO BID COUNTS INCLUDE 234 BEDS AT THE [facility]; Protocol Last Admin: 09/27/18 10:26 Dose: 300 mg Hydralazine HCl (Apresoline) 10 mg PO Q12H COUNTS INCLUDE 234 BEDS AT THE [facility] Last Admin: 09/27/18 08:29 Dose: 10 mg Insulin Human Lispro (Humalog Med) 0 units SC ACHS COUNTS INCLUDE 234 BEDS AT THE [facility]; Protocol Last Admin: 09/27/18 08:29 Dose: 3 u Levalbuterol HCl (Xopenex) 0.63 mg IH [id number] COUNTS INCLUDE 234 BEDS AT THE [facility] Last Admin: 09/27/18 07:43 Dose: 0.63 mg Nicotine (Nicoderm Cq) 1 patch TD DAILY COUNTS INCLUDE 234 BEDS AT THE [facility] Last Admin: 09/27/18 10:25 Dose: 1 patch Ondansetron HCl (Zofran Inj) 4 mg IVP Q4H PRN PRN Reason: Nausea/Vomiting Pantoprazole Sodium (Protonix Inj) 40 mg IVP Q12 COUNTS INCLUDE 234 BEDS AT THE [facility] Last Admin: 09/27/18 10:24 Dose: 40 mg Polyethylene Glycol (Miralax) 17 gm PO BID COUNTS INCLUDE 234 BEDS AT THE [facility] Last Admin: 09/27/18 10:24 Dose: 17 gm - Labs Labs: 09/27/18 07:00 09/27/18 07:00 PT 13.2 SECONDS (9.4-12.5) H 09/23/18 16:17 INR 1.15 09/23/18 16:17 APTT 27.7 Seconds (25.1-36.5) 09/23/18 16:17 - Constitutional Appears: Well, Non-toxic - Eye Exam Eye Exam: Normal appearance Pupil Exam: NORMAL ACCOMODATION - Respiratory Exam Respiratory Exam: Clear to Ausculation Bilateral, NORMAL BREATHING PATTERN - Cardiovascular Exam Cardiovascular Exam: REGULAR RHYTHM, +S1, +S2 - Extremities Exam Extremities Exam: Full ROM, Normal Capillary Refill - Back Exam Back Exam: NORMAL INSPECTION - Neurological Exam Neurological Exam: Alert, Awake - Skin Skin Exam: Dry, Intact, Normal Color, Warm Assessment and Plan - Assessment and Plan (Free Text) Plan: ITS Impressions Chest X-Ray 09/22/18 05:50 IMPRESSION: No active pulmonary disease. Abdomen/Pelvis CT 09/23/18 16:29 IMPRESSION: No evidence of intraperitoneal, retroperitoneal or pelvic hemorrhage or hematoma. Findings in left inguinal region related to recent cardiac catheter is L neri with self limited hematoma at the site. Additional benign and/or incidental findings described above. Duplex Scan Lower Extremity Artery 09/25/18 13:18 IMPRESSION: 1. No sonographic evidence for pseudoaneurysm or AV fistula in the left groin. All Active Problems Chest pain (Acute) 72 yr old AA female with pmh sif for HTN, HLD, smoker, IDDM, cad admit with e levated trop found to have acute NSTEMI and severe pvd now undergoing mgmt with cardiology and vasc consultations fo rsevere pvd and GI consultation for iron def anemia Acute NSTEMI pt is s/p cardiac cath with MACIEL to CIRC plan for additional stenting of LAD tomorrow Hypotension continue to monitor on tele bp meds reviewed will discuss adjustment with cardiology Normocytic anemia stable GI recs noted continue PPI regimen Severe PVD S/p LE art US Vasc rec's noted Gabapentin regimen Bradycardia asymptomatic monitor on tele adjust BB dose ? - discuss with cardiology if persistent DC plan or TCU post cardiac intervention. Pily Blair, DNP, PRACTICING UROLOGIST
--- NOTE | 2018-09-27 11:28 | CP.PCM.PN ---
Subjective - Date & Time of Evaluation Date of Evaluation: 09/27/18 Time of Evaluation: 11:26 - Subjective Subjective: Medicine Progress Note for Dr. Reddy Patient seen and examined at bedside. No acute overnight events. Patient denied CP, SOB, n/v/d, abdominal pain, fever, chills, DEL REAL, or dizziness. Objective - Vital Signs/Intake and Output Vital Signs (last 24 hours): Temp Pulse Resp BP Pulse Ox 98 F 75 20 98/60 L 98 09/27/18 06:00 09/27/18 10:28 09/27/18 06:00 09/27/18 10:28 09/27/18 06:00 Intake and Output: 09/27/18 09/27/18 06:59 18:59 Intake Total 180 Output Total 200 Balance -20 - Medications Medications: Current Medications Acetaminophen (Tylenol 325mg Tab) 650 mg PO Q6 PRN PRN Reason: TEMP>=99.5F Acetaminophen (Tylenol 650 Mg Supp) 650 mg RC Q6H PRN PRN Reason: TEMP>=99.5F Aspirin (Ecotrin) 81 mg PO DAILY [facility] Last Admin: 09/27/18 10:27 Dose: 81 mg Atorvastatin Calcium (Lipitor) 40 mg PO DIN [facility] Last Admin: 09/26/18 17:33 Dose: 40 mg Carvedilol (Coreg) 3.125 mg PO DAILY [facility] Last Admin: 09/27/18 10:28 Dose: Not Given Cholecalciferol (Vitamin D) 1,000 intlu PO BID [facility] Last Admin: 09/27/18 10:28 Dose: 1,000 intlu Clopidogrel Bisulfate (Plavix) 75 mg PO DAILY [facility] Last Admin: 09/27/18 10:27 Dose: 75 mg Docusate Sodium (Colace) 100 mg PO TID [facility] Last Admin: 09/27/18 10:25 Dose: 100 mg Ferrous Sulfate (Feosol) 324 mg PO TID [facility] Last Admin: 09/27/18 10:27 Dose: 324 mg Folic Acid (Folic Acid) 1 mg PO DAILY [facility] Last Admin: 09/27/18 10:26 Dose: 1 mg Gabapentin (Neurontin) 300 mg PO BID [facility]; Protocol Last Admin: 09/27/18 10:26 Dose: 300 mg Hydralazine HCl (Apresoline) 10 mg PO Q12H [facility] Last Admin: 09/27/18 08:29 Dose: 10 mg Insulin Human Lispro (Humalog Med) 0 units SC ACHS [facility]; Protocol Last Admin: 09/27/18 08:29 Dose: 3 u Levalbuterol HCl (Xopenex) 0.63 mg IH [id number] [facility] Last Admin: 09/27/18 07:43 Dose: 0.63 mg Nicotine (Nicoderm Cq) 1 patch TD DAILY [facility] Last Admin: 09/27/18 10:25 Dose: 1 patch Ondansetron HCl (Zofran Inj) 4 mg IVP Q4H PRN PRN Reason: Nausea/Vomiting Pantoprazole Sodium (Protonix Inj) 40 mg IVP Q12 [facility] Last Admin: 09/27/18 10:24 Dose: 40 mg Polyethylene Glycol (Miralax) 17 gm PO BID [facility] Last Admin: 09/27/18 10:24 Dose: 17 gm - Labs Labs: 09/27/18 07:00 09/27/18 07:00 PT 13.2 SECONDS (9.4-12.5) H 09/23/18 16:17 INR 1.15 09/23/18 16:17 APTT 27.7 Seconds (25.1-36.5) 09/23/18 16:17 - Constitutional Appears: No Acute Distress - Head Exam Head Exam: NORMAL INSPECTION - Eye Exam Eye Exam: Normal appearance, PERRL - ENT Exam ENT Exam: Mucous Membranes Moist, Normal Exam - Neck Exam Neck Exam: Normal Inspection - Respiratory Exam Respiratory Exam: Clear to Ausculation Bilateral. absent: Rales, Rhonchi, Wheezes - Cardiovascular Exam Cardiovascular Exam: RRR, +S1, +S2. absent: Gallop, Rubs, Murmur - GI/Abdominal Exam GI & Abdominal Exam: Soft. absent: Distended, Guarding, Tenderness, Rebound - Extremities Exam Extremities Exam: Normal Inspection - Back Exam Back Exam: NORMAL INSPECTION - Neurological Exam Neurological Exam: Alert, Awake, Oriented x3 - Psychiatric Exam Psychiatric exam: Normal Affect, Normal Mood - Skin Skin Exam: Normal Color, Warm Assessment and Plan - Assessment and Plan (Free Text) Assessment: 72 yo F with PMH of DM, HTN, HLD, and CVA presents to [facility] for chest pain. Patient underwent catherization and was found to have triple vessel disease with PTCA of circumflex and will have PTCA of LAD tomorrow. Hospital course was complicated by hypotension and anemia after catherization. patient was transferred to ICU and was responsive to IVF and dopamine. RP bleed, GI bleed, and pseudoaneurysm was ruled out. Plan: 1. Triple vessel CAD - PTCA of circumflex - Plan for cath tomorrow - DAPT - Coreg - Cardiology following 2. DM - ISS - Accuchecks ACHS - Home metformin held 3. HTN - Coreg 4. HLD - Cont home statin and welchol 5. H/o Anemia - Cont folic acid GI/DVT PPx - Protonix - SCDs Patient seen and discussed in detail with Dr. Reddy. Boby Blackburn, DO PGY2
--- NOTE | 2018-09-27 15:12 | CARD ---
APPROVED REPORT Date of service: 09/22/2018 EXAM: Two-dimensional and M-mode echocardiogram with Doppler and color Doppler. INDICATION Chest Pain 2D DIMENSIONS Left Atrium (2D)4.2 (1.6-4.0cm)IVSd1.0 (0.7-1.1cm) LVDd4.6 (3.9-5.9cm)PWd1.1 (0.7-1.1cm) LVDs3.3 (2.5-4.0cm)FS (%) 28.1 % LVEF (%)54.4 (>50%) M-Mode DIMENSIONS Aortic Root3.40 (2.2-3.7cm)Aortic Cusp Exc.1.70 (1.5-2.0cm) Aortic Valve AoV Peak Mntdffth741.0cm/sAoV VTI33.6cmAO Peak GR.9mmHg LVOT Peak Svsvpocs379.0cm/sLVOT VTI25.60cmAO Mean GR.4mmHg Mitral Valve MV E Rrcmbnaw78.4cm/sMV A Udrxtypp509.0cm/sE/A ratio0.8 TDI Lateral E' Peak V6.92cm/sMedial E' Peak V4.29cm/sE/Lateral E'14.4 E/Medial E'23.2 Pulmonary Valve PV Peak Mfmtmbcl567.0cm/sPV Peak Grad.6mmHg Tricuspid Valve TR Peak Ybdnvdqr879tk/sRAP [id number] Peak Gr.35mmHg NPTP96xmGj LEFT VENTRICLE The left ventricular function is normal. The left ventricular ejection fraction is within the normal range. RIGHT VENTRICLE The right ventricle is normal size. ATRIA The left atrium is mildly dilated. The right atrium size is normal. AORTIC VALVE The aortic valve is calcified but opens well. MITRAL VALVE The mitral valve is thickened but opens well. Mitral annular calcification is mild. Mitral regurgitation is mild. TRICUSPID VALVE The tricuspid valve leaflets are thickened , but open well. There is mild tricuspid regurgitation. There is mild to moderate pulmonary hypertension. PERICARDIAL EFFUSION There is no pericardial effusion. <Conclusion> Good LV function Mild MR and TR Mild to moderate pulmonary hypertension
[2018-09-27 16:54] LABS: FERRITIN 45.3 ng/mL
[2018-09-27 17:24] LABS: FOLATE > 20.0 ng/mL
--- NOTE | 2018-09-27 19:13 | PN ---
DATE: 09/27/2018 SUBJECTIVE: The patient is without chest pain. PHYSICAL EXAMINATION: VITAL SIGNS: Blood pressure is 150/83, heart rates in the 60s. NECK: Negative JVD. LUNGS: Without rales. HEART: S1, S2. EXTREMITIES: Without edema. LABORATORY: BUN and creatinine 9 and 0.8. Hemoglobin remained stable at 9.3. IMPRESSION: 1. Status post non-ST elevation myocardial infarction. 2. Status post hypotension post percutaneous transluminal coronary angioplasty and stent. 3. Multivessel coronary artery disease. 4. Anemia. 5. Diabetes mellitus. 6. Hypertension. 7. Hypercholesterolemia. PLAN: Given these findings, the patient's hemoglobin remained stable. The patient is for cardiac catheterization and PTCA and stent of the LAD in the morning. Abdullahi Vanessa MD
--- NOTE | 2018-09-27 19:21 | PN ---
DATE: 09/27/2018 TIME: 05:10 p.m. SUBJECTIVE: I reviewed the lower extremity images performed at the time of the patient's PCI. This revealed heavily calcified SFA popliteal and tibial disease. No peripheral intervention is planned at this time. The patient is scheduled for an LAD intervention in the near future. She can be evaluated as an outpatient for possible lower extremity intervention. She has numerous risk factors. Her BUN and creatinine are normal. Abdullahi Laura MD MTDD
[2018-09-28] MEDS: Levalbuterol 0.63 MG/3 ML Inhal Soln UD IH SCH ×4 (01:30→20:00)
[2018-09-28 06:27] LABS: BASO # 0.02 K/mm3 (0.0-2.0); BASO % 0.2 % (0.0-3.0); EOS # 0.3 (0.0-0.7); EOS % 3.7 % (1.5-5.0); GRAN # 5.98 (1.4-6.5); GRAN % 74.4 % (50.0-68.0); HEMOGLOBIN 9.6 g/dL (12.0-16.0); LYMPH # 1.3 (1.2-3.4); LYMPH % 16.5 % (22.0-35.0); MEAN CELL VOLUME 87.3 fl (80.0-105.0); MEAN CORPUSCULAR HEMOGLOBIN 28.3 pg (25.0-35.0); MEAN CORPUSCULAR HGB CONC 32.4 g/dl (31.0-37.0); MEAN PLATELET VOLUME 11.6 fl (7.0-11.0); MONO # 0.4 (0.1-0.6); MONO % 5.2 % (1.0-6.0); RBC 3.39 10^6/uL (3.5-6.1); RED CELL DISTRIBUTION WIDTH 14.6 % (11.5-14.5); WHITE BLOOD COUNT 8.1 10^3/uL (4.5-11.0)
[2018-09-28] MEDS ORDERED: Phenylephrine 10 mg/ml Inj ONE (06:46)
[2018-09-28] MEDS ORDERED: Lidocaine 2% Inj (20ml) ONE (06:46)
[2018-09-28] MEDS ORDERED: Iohexol 350mgl/ml 50 ML ONE (06:47)
[2018-09-28] MEDS ORDERED: Iodixanol 320 MG/ML 100 ML BOTTLE IV ONE (06:47)
[2018-09-28] MEDS ORDERED: Nitroglycerin 50mg in D5W 0 MG/0 ML BOTTLE IV ONE (06:47)
[2018-09-28] MEDS ORDERED: Iodixanol 320 MG/ML 200 ML BOTTLE IV ONE (06:47)
[2018-09-28 07:22] LABS: ALB/GLOB RATIO 1.3 (1.1-1.8); ALBUMIN 3.3 g/dL (3.0-4.8); ALT/SGPT 29 U/L (7-56); AST/SGOT 23 U/L (14-36); BILIRUBIN,DIRECT 0.2 mg/dL (0.0-0.4); BLOOD UREA NITROGEN 18 mg/dL (7-21); CALCIUM 8.9 mg/dL (8.4-10.5); GFR NON-AFRICAN AMERICAN > 60
[2018-09-28] MEDS ORDERED: Midazolam 2 MG/2 ML VIAL ONE ×2 (07:51→08:01)
[2018-09-28] MEDS ORDERED: Sodium Chloride 0.9% 1,000 ML IV SCH (08:30)
--- NOTE | 2018-09-28 09:34 | CARDCATH ---
PROCEDURE DATE: 09/28/2018 PROCEDURES: PTCA and stent of an LAD. HISTORY: The patient is a 72-year-old woman who presented with a non-STEMI. She was found to have multivessel CAD as well as severe peripheral vascular disease. Her vessels were heavily calcified. The patient underwent successful PTCA and stent of the circumflex artery 1 week ago. She returns for PTCA and stent of her LAD. PROCEDURE: Left heart catheterization with coronary arteriography, followed by PTCA and stent of an LAD. The left femoral artery was cannulated with a 6-Romanian sheath. There were no complications. Findings on catheterization revealed a diffusely calcified coronary arteries. The stent in the circumflex artery that was placed last week was found to be patent with no stenoses and good TAWANNA-III flow. The LAD was diffusely calcified and tortuous. There was a 80%-90% stenoses in the proximal/midportion of the LAD at the takeoff of the septal spa supervisor. The RCA was noted to be occluded in the past. The patient was started on intravenous Angiomax. I performed moderate sedation which included the presence of an independent trained observer that assisted in monitoring the patient's level of consciousness and physiologic status. After administration of Versed and fentanyl, my intra service time was 30 minutes. The findings on catheterization revealed 80%-90% mid/proximal LAD at the septal spa supervisor with a patent stent in the circumflex artery. The patient was started on intravenous Angiomax. The fluoroscopic guide, the guider was placed in the ostium of the left main artery and 0.014 ATW wire was used to cross the critical lesion in the LAD. A 2.0 balloon was utilized to predilate the lesion. This was followed by implantation of a of a 2.25 x 15 mm drug-eluting stent which was placed and deployed at 14 ounces of pressure. Postdilatation was performed with a 2.5 x 12 noncompliant balloon at 14 ounces of pressure. Repeat coronary arteriography revealed an excellent result with no residual stenosis and TAWANNA-III flow. Angio-Seal was used to close the femoral artery site. The patient tolerated the procedure well. In summary, the procedure was successful PTCA and stent of a 80%-90% stenoses of the proximal/mid LAD with a drug-eluting stent. Cardiac catheterization revealed a patent stent in the circumflex artery. The RCA was noted to be occluded in the past. Her coronary arteries are diffusely calcified. In addition, the aorta was noted to be tortuous with atherosclerosis diffusely. As an aside, the PRU was 24. Given these findings, we will keep the patient on aspirin and Plavix for a year and undergo a strict cardiac risk reduction program. I have discussed with the patient again and again about her need to stop smoking. Depending on her response, we may cut back on her Plavix given her super response to daily doses of Plavix. Abdullahi Vanessa MD
[2018-09-28] MEDS: Cholecalciferol 1,000 INTLU TAB PO SCH ×2 (10:38→18:29)
[2018-09-28] MEDS: Insulin Lispro (humaLOG) MEDIUM Coverage SC SCH ×4 (10:43→22:00)
[2018-09-28] MEDS: POLYETHYLENE GLYCOL 3350 17 GM/Dose PACKET PO SCH ×2 (10:44→18:29)
--- NOTE | 2018-09-28 12:46 | CP.PCM.PN ---
Subjective - Date & Time of Evaluation Date of Evaluation: 09/28/18 Time of Evaluation: 12:41 - Subjective Subjective: Medicine Progress Note for Dr. Reddy Patient seen and examined at bedside. No acute overnight events. Patient is s/p cardiac cath with PTCA of LAD. Patient denies CP, SOB, n/v/d, abdominal pain, fever, chills, DEL REAL, or dizziness. Objective - Vital Signs/Intake and Output Vital Signs (last 24 hours): Temp Pulse Resp BP Pulse Ox 98 F 57 L 20 142/63 100 09/28/18 06:00 09/28/18 06:35 09/28/18 06:00 09/28/18 06:35 09/28/18 06:00 Intake and Output: 09/28/18 09/28/18 06:59 18:59 Intake Total 0 Output Total 1750 Balance -1750 - Medications Medications: Current Medications Acetaminophen (Tylenol 325mg Tab) 650 mg PO Q6 PRN PRN Reason: TEMP>=99.5F Acetaminophen (Tylenol 650 Mg Supp) 650 mg RC Q6H PRN PRN Reason: TEMP>=99.5F Aspirin (Ecotrin) 81 mg PO DAILY [facility] Last Admin: 09/28/18 06:34 Dose: 81 mg Atorvastatin Calcium (Lipitor) 40 mg PO DIN [facility] Last Admin: 09/27/18 17:29 Dose: 40 mg Carvedilol (Coreg) 3.125 mg PO DAILY [facility] Last Admin: 09/28/18 06:35 Dose: 3.125 mg Cholecalciferol (Vitamin D) 1,000 intlu PO BID [facility] Last Admin: 09/28/18 10:38 Dose: 1,000 intlu Clopidogrel Bisulfate (Plavix) 75 mg PO DAILY [facility] Last Admin: 09/28/18 06:34 Dose: 75 mg Docusate Sodium (Colace) 100 mg PO TID [facility] Last Admin: 09/28/18 10:42 Dose: 100 mg Ferrous Sulfate (Feosol) 324 mg PO TID [facility] Last Admin: 09/28/18 10:38 Dose: 324 mg Folic Acid (Folic Acid) 1 mg PO DAILY [facility] Last Admin: 09/28/18 10:39 Dose: 1 mg Gabapentin (Neurontin) 300 mg PO BID [facility]; Protocol Last Admin: 09/28/18 10:38 Dose: 300 mg Hydralazine HCl (Apresoline) 10 mg PO Q12H [facility] Last Admin: 09/28/18 06:35 Dose: 10 mg Sodium Chloride (Sodium Chloride 0.9%) 1,000 mls @ 100 mls/hr IV .Q10H [facility] Stop: 09/28/18 15:00 Last Admin: 09/28/18 09:08 Dose: 100 mls/hr Insulin Human Lispro (Humalog Med) 0 units SC ACHS [facility]; Protocol Last Admin: 09/28/18 12:34 Dose: 3 u Levalbuterol HCl (Xopenex) 0.63 mg IH [id number] [facility] Last Admin: 09/28/18 08:40 Dose: Not Given Nicotine (Nicoderm Cq) 1 patch TD DAILY [facility] Last Admin: 09/28/18 10:39 Dose: 1 patch Ondansetron HCl (Zofran Inj) 4 mg IVP Q4H PRN PRN Reason: Nausea/Vomiting Pantoprazole Sodium (Protonix Inj) 40 mg IVP Q12 [facility] Last Admin: 09/28/18 10:39 Dose: 40 mg Polyethylene Glycol (Miralax) 17 gm PO BID [facility] Last Admin: 09/28/18 10:44 Dose: 17 gm - Labs Labs: 09/28/18 06:00 09/28/18 06:00 PT 13.2 SECONDS (9.4-12.5) H 09/23/18 16:17 INR 1.15 09/23/18 16:17 APTT 27.7 Seconds (25.1-36.5) 09/23/18 16:17 - Constitutional Appears: No Acute Distress - Head Exam Head Exam: NORMAL INSPECTION - Eye Exam Eye Exam: Normal appearance Pupil Exam: NORMAL ACCOMODATION - ENT Exam ENT Exam: Mucous Membranes Moist, Normal Exam - Respiratory Exam Respiratory Exam: Clear to Ausculation Bilateral. absent: Rales, Rhonchi, Wheezes - Cardiovascular Exam Cardiovascular Exam: RRR, +S1, +S2. absent: Diastolic murmur, Gallop, Rubs, Murmur - GI/Abdominal Exam GI & Abdominal Exam: Soft. absent: Distended, Guarding, Tenderness, Rebound - Extremities Exam Extremities Exam: Normal Inspection Additional comments: dressing left groin c/d/i - Neurological Exam Neurological Exam: Alert, Awake, CN II-XII Intact, Oriented x3 - Psychiatric Exam Psychiatric exam: Normal Affect, Normal Mood - Skin Skin Exam: Dry, Intact, Normal Color, Warm Assessment and Plan - Assessment and Plan (Free Text) Assessment: 72 yo F with PMH of DM, HTN, HLD, and CVA presents to [facility] for unstable angina. Patient underwent cardiac catherization and found to have triple vessel disease with MACIEL placed in the circumflex. Hospital course complicated by hypotension and anemia requiring blood transfusion. Patient was stabilized. Patient under went PTCA of LAD today with MACIEL placed. If patient remains stable, will consider d/c to TCU tomorrow. Plan: 1. Triple vessel CAD - PTCA of circumflex and LAD with MACIEL - DAPT - Coreg - Cardiology following 2. DM - ISS - Accuchecks ACHS - Home metformin held 3. HTN - Coreg 4. HLD - Cont home statin and welchol 5. H/o Anemia - Cont folic acid GI/DVT PPx - Protonix - SCDs Patient seen and discussed in detail with Dr. Reddy. Boby Blackburn DO PGY2
--- NOTE | 2018-09-28 15:08 | PN ---
DATE: 09/28/2018 SUBJECTIVE: The patient is now moved to room 274 bed 2, post angioplasty of the left LAD. The patient is seen lying in the bed. The patient is on bedrest post angioplasty protocol. Overnight nurse's notes were reviewed. No adverse events documented. The patient was chest pain free. DIAGNOSTICS: VITAL SIGNS: T-max 97.7. Telemetry shows sinus bradycardia, sinus rhythm, heart rate 55 per minute, blood pressure 121/58 and 142/63, respirations 20, and O2 sat is 98%. HEENT: Head examination normocephalic and atraumatic. HEENT examination shows pinkish pale conjunctivae. Anicteric sclerae. No oropharyngeal lesion. No neck rigidity. CHEST: Kyphosis. LUNGS: Shows no audible crackle, rales or wheezing. CARDIOVASCULAR: S1, S2, regular rhythm, questionable soft systolic murmur left sternal border, right second intercostal space, left second intercostal space. ABDOMEN: Soft. Positive bowel sounds. No palpable hepatosplenomegaly. GENITALIA: Female. RECTAL: Deferred. Positive groin dressing noted. Positive Angio-Seal noted. VASCULAR: Shows palpable pulses of the femoral and popliteal. Both legs and feet are warm to touch. MUSCULOSKELETAL: Examination is as per the body mass index. NEUROLOGIC: The patient is alert, awake, responsive. Cranial nerves II-XII limited. As the patient is lying in the bed, gait examination not tested. The patient's cardiac catheterization today shows patent stent, drug-eluting stent of the left circumflex 80% to 90% stenosis of the mid to proximal LAD at the septal rate clerk takeoff and occluded RCA. Fingerstick blood sugar 258, 262, 248 and 234. Iron studies appear to be within normal limit. Retic count is 3.08. Homocysteine level 13.2. The patient was seen by Dr. Abdullahi Laura, Interventional Radiology. His recommendations was no intervention at this time. Lab data from September 28, 2018; WBC 8.1, hemoglobin/hematocrit 9.6/29.6 and platelets 187. Granulocytes 74% segs. Sodium 135, potassium 5.0, chloride 108, CO2 of 22, BUN 18, creatinine 0.7, glucose 287, calcium 8.9, phosphorus 3.2 and magnesium 2.1. IMPRESSION: 1. Acute non-ST elevation myocardial infarction with elevated troponin. 2. Triple-vessel coronary artery disease. 3. Status post successful angioplasty of the left anterior descending artery with drug-eluting stent. 4. An 80% to 90% stenosis of the mid to proximal left anterior descending artery at the septal rate clerk takeoff status post successful angioplasty and drug-eluting stent placement of the mid to proximal left anterior descending 80% to 90% stenosis. 5. Patent stent of the left circumflex artery. 6. Occluded right coronary artery. 7. Bradycardia. 8. Uncontrolled insulin-requiring diabetes mellitus with hyperglycemia. 9. Anemia with decreasing hemoglobin/hematocrit. 10. Status post packed red blood cell transfusion x4. 11. Granulocytosis. 12. Elevated reticulocyte count of 3. 13. Hyperhomocysteinemia. 14. Hyperglycemia. 15. Peripheral arterial disease of the lower extremity including superficial femoral artery popliteal and tibial artery peripheral artery disease with heavily calcified peripheral vascular disease. 16. Active nicotine addiction and dependence. 17. Pulmonary hypertension with tricuspid regurgitation. 18. Left ventricle ejection fraction of 50% to 55%. 19. Multivessel coronary artery disease. 20. Hypertension. 21. Hyperlipidemia and hypercholesterolemia. 22. History of iron deficiency and vitamin B12 deficiency. PLAN: At this time, the patient is on bedrest post angioplasty protocol. The patient will be monitored on telemetry post angioplasty till stability. If the patient is stable tomorrow with regards to subjective, objective data, the patient will be considered for possible transfer to TCU. The patient's medications will be continued as per the MAR of today which was reviewed. Dictated and electronically signed, not read. Edilson Reddy MD
--- NOTE | 2018-09-28 18:48 | CARD ---
APPROVED REPORT Date of service: 09/28/2018 EKG Measurement Heart [id number] <Conclusion> Sinus bradycardia Left axis deviation Left bundle branch block Abnormal ECG
[2018-09-28] MEDS: Pantoprazole 40 mg EC Tab PO SCH (21:45)
[2018-09-29] MEDS: Levalbuterol 0.63 MG/3 ML Inhal Soln UD IH SCH ×4 (02:23→19:41)
[2018-09-29 05:36] VITALS: O2SAT 99
[2018-09-29 06:42] LABS: BASO # 0.03 K/mm3 (0.0-2.0); BASO % 0.4 % (0.0-3.0); EOS # 0.3 (0.0-0.7); EOS % 4.1 % (1.5-5.0); GRAN # 5.29 (1.4-6.5); GRAN % 69.4 % (50.0-68.0); HEMOGLOBIN 8.9 g/dL (12.0-16.0); LYMPH # 1.5 (1.2-3.4); LYMPH % 19.4 % (22.0-35.0); MEAN CELL VOLUME 88.1 fl (80.0-105.0); MEAN CORPUSCULAR HEMOGLOBIN 28.7 pg (25.0-35.0); MEAN CORPUSCULAR HGB CONC 32.6 g/dl (31.0-37.0); MEAN PLATELET VOLUME 11.5 fl (7.0-11.0); MONO # 0.5 (0.1-0.6); MONO % 6.7 % (1.0-6.0); RBC 3.1 10^6/uL (3.5-6.1); RED CELL DISTRIBUTION WIDTH 14.7 % (11.5-14.5); WHITE BLOOD COUNT 7.6 10^3/uL (4.5-11.0)
[2018-09-29 06:57] LABS: ALB/GLOB RATIO 1.2 (1.1-1.8); ALT/SGPT 25 U/L (7-56); AST/SGOT 19 U/L (14-36); BILIRUBIN,DIRECT 0.1 mg/dL (0.0-0.4); BLOOD UREA NITROGEN 16 mg/dL (7-21); CALCIUM 8.8 mg/dL (8.4-10.5); GFR NON-AFRICAN AMERICAN > 60
[2018-09-29] MEDS: Insulin Lispro (humaLOG) MEDIUM Coverage SC SCH ×4 (08:19→23:00)
--- NOTE | 2018-09-29 09:20 | US ---
PROCEDURE: Duplex arterial ultrasound of the left groin. HISTORY: Recent cardiac catheterization. Pain and pulsatile mass in the left groin. Evaluate for pseudoaneurysm or fistula. PHYSICIAN(S): Abdullahi Laura MD. FINDINGS: The left common femoral artery is patent with a normal triphasic waveform. No sonographic evidence of a pseudoaneurysm or AV fistula is seen. The left superficial femoral artery and profunda femoral artery are patent proximally. The visualized venous segments the left groin are patent and compressible. IMPRESSION: 1. No sonographic evidence for pseudoaneurysm or AV fistula in the left groin.
--- NOTE | 2018-09-29 10:17 | CP.PCM.APN ---
Subjective - Date & Time of Evaluation Date of Evaluation: 09/29/18 Time of Evaluation: 09:15 - Subjective Subjective: pt seen and examined sitting up in bed pt with no complaints states she feels fine ROS negative Review of Systems - Constitutional Constitutional: absent: As Per HPI, Anorexia, Chills, Daytime Sleepiness, Excessive Sweating, Fatigue, Fever, Frequent Falls, Headache, Increased Appetite, Lethargy, Malaise, Night Sweats, Snoring, Sleep Apnea, Weight Gain, Weight Loss, Weakness, Other - Cardiovascular Cardiovascular: absent: As Per HPI, Acrocyanosis, Chest Pain, Chest Pain at Rest, Chest Pain with Activity, Claudication, Diaphoresis, Dyspnea, Dyspnea on Exertion, Edema, Irregular Heart Rhythm, Pain Radiating to Arm/Neck/Jaw, Leg Edema, Leg Ulcers, Lightheadedness, Orthopnea, Palpitations, Paroxysmal Nocturnal Dyspnea, Pedal Edema, Radiating Pain, Rapid Heart Rate, Slow Heart Rate, Syncope, Other - Respiratory Respiratory: absent: As Per HPI, Cough, Dyspnea, Hemoptysis, Dyspnea on Exertion, Wheezing, Snoring, Stridor, Pain on Inspiration, Chest Congestion, Excessive Mucous Production, Change in Mucous Color, Pain with Coughing, Other Objective - Vital Signs/Intake and Output Vital Signs (last 24 hours): Temp Pulse Resp BP Pulse Ox 98.1 F 52 L 18 144/58 L 99 09/29/18 05:35 09/29/18 08:37 09/29/18 05:35 09/29/18 08:19 09/29/18 05:35 Intake and Output: 09/29/18 09/29/18 06:59 18:59 Output Total 1200 Balance -1200 - Medications Medications: Current Medications Acetaminophen (Tylenol 325mg Tab) 650 mg PO Q6 PRN PRN Reason: TEMP>=99.5F Acetaminophen (Tylenol 650 Mg Supp) 650 mg RC Q6H PRN PRN Reason: TEMP>=99.5F Aspirin (Ecotrin) 81 mg PO DAILY [facility] Last Admin: 09/28/18 18:19 Dose: Not Given Atorvastatin Calcium (Lipitor) 40 mg PO DIN [facility] Last Admin: 09/28/18 18:29 Dose: 40 mg Carvedilol (Coreg) 3.125 mg PO DAILY [facility] Last Admin: 09/28/18 18:18 Dose: Not Given Cholecalciferol (Vitamin D) 1,000 intlu PO BID [facility] Last Admin: 09/28/18 18:29 Dose: 1,000 intlu Clopidogrel Bisulfate (Plavix) 75 mg PO DAILY [facility] Last Admin: 09/28/18 06:34 Dose: 75 mg Docusate Sodium (Colace) 100 mg PO TID [facility] Last Admin: 09/28/18 18:27 Dose: 100 mg Ferrous Sulfate (Feosol) 324 mg PO TID [facility] Last Admin: 09/28/18 18:28 Dose: 324 mg Folic Acid (Folic Acid) 1 mg PO DAILY [facility] Last Admin: 09/28/18 10:39 Dose: 1 mg Furosemide (Lasix) 20 mg IVP Q6H [facility] Stop: 09/29/18 15:01 Last Admin: 09/29/18 08:19 Dose: 20 mg Gabapentin (Neurontin) 300 mg PO BID [facility]; Protocol Last Admin: 09/28/18 18:29 Dose: 300 mg Hydralazine HCl (Apresoline) 10 mg PO Q12H [facility] Last Admin: 09/29/18 08:19 Dose: 10 mg Insulin Human Lispro (Humalog Med) 0 units SC ACHS [facility]; Protocol Last Admin: 09/29/18 08:19 Dose: 3 units Levalbuterol HCl (Xopenex) 0.63 mg IH [id number] [facility] Last Admin: 09/29/18 08:35 Dose: 0.63 mg Nicotine (Nicoderm Cq) 1 patch TD DAILY [facility] Last Admin: 09/28/18 10:39 Dose: 1 patch Ondansetron HCl (Zofran Inj) 4 mg IVP Q4H PRN PRN Reason: Nausea/Vomiting Pantoprazole Sodium (Protonix Ec Tab) 40 mg PO Q12 [facility] Last Admin: 09/28/18 21:45 Dose: 40 mg Polyethylene Glycol (Miralax) 17 gm PO BID [facility] Last Admin: 09/28/18 18:29 Dose: 17 gm - Labs Labs: 09/29/18 06:00 09/29/18 06:00 PT 13.2 SECONDS (9.4-12.5) H 09/23/18 16:17 INR 1.15 09/23/18 16:17 APTT 27.7 Seconds (25.1-36.5) 09/23/18 16:17 - Constitutional Appears: Well, Non-toxic, No Acute Distress - Head Exam Head Exam: NORMAL INSPECTION, NORMOCEPHALIC - ENT Exam ENT Exam: Mucous Membranes Moist - Respiratory Exam Respiratory Exam: Clear to Ausculation Bilateral, NORMAL BREATHING PATTERN - GI/Abdominal Exam GI & Abdominal Exam: Normal Bowel Sounds - Extremities Exam Extremities Exam: Full ROM, Normal Capillary Refill, Normal Inspection Additional comments: groin stable s/p cath - Neurological Exam Neurological Exam: Alert, Awake, Oriented x3 - Skin Skin Exam: Dry, Intact, Warm Assessment and Plan - Assessment and Plan (Free Text) Plan: Impressions Temp Pulse Resp BP Pulse Ox 98.1 F 52 L 18 144/58 L 99 09/29/18 05:35 09/29/18 08:37 09/29/18 05:35 09/29/18 08:19 09/29/18 05:35 Duplex Scan Lower Extremity Artery 09/29/18 07:41 IMPRESSION: 1. No sonographic evidence for pseudoaneurysm or AV fistula in the left groin. 72 yr old AA female with pmh sif for HTN, HLD, smoker, IDDM, cad admit with elevated trop found to have acute NSTEMI and severe pvd now undergoing mgmt with cardiology and vasc consultations for severe pvd and GI consultation for iron def anemia #Acute NSTEMI pt is s/p cardiac cath with MACIEL to CIRC additional stenting of LAD completed yesterday 09/28 LE US negative for p.aneurysm- No sonographic evidence for pseudoaneurysm or AV fistula in the left groin. #Hypotension continue to monitor on tele bp meds reviewed will discuss adjustment with cardiology stable #Normocytic anemia GI recs noted continue PPI regimen for 2 units prbc today #Severe PVD S/p LE art US Vasc rec's noted Gabapentin regimen pp.t able to ambulae with p.T today, will review rec's #Bradycardia asymptomatic monitored on tele DC plan or TCU when bed available and auth received as discussed with maty Blair, DNP, [employer] BPCI/TIC - BPCIA/TIC Educated pt/family on BPCIA/CIR/Med to Bed Programs: N/A Flyers given, including [facility] Beneficiary letter: N/A Pt/family verbalized understanding & agreed to program: N/A
--- NOTE | 2018-09-29 10:46 | PN ---
DATE: 09/29/2018 CARDIOLOGY FOLLOWUP SUBJECTIVE: The patient is without complaints. PHYSICAL EXAMINATION: VITAL SIGNS: Blood pressure is 144/58, heart rate in the 50s. NECK: Negative JVD. LUNGS: Without rales. HEART: S1, S2. EXTREMITIES: Left groin site is stable. LABORATORY DATA: Hemoglobin is from 9.3 to 8.9. Chemistries, BUN and creatinine are unremarkable. Glucose is 220. Preliminary ultrasound of the left groin shows no pseudoaneurysm, no hematoma. IMPRESSION: 1. Stable post multivessel percutaneous transluminal coronary angioplasty and stent. 2. Severe peripheral vascular disease. 3. Diabetes mellitus. 4. Chronic obstructive pulmonary disease. 5. Anemia. Given these findings, the patient's drop in hemoglobin is not from a bleed from a cardiac procedure. Instead, we aggressively hydrated the patient pre and post procedure. In addition, the patient had a baseline anemia prior to any cardiac procedures. From a cardiac perspective, the patient is doing well. Packed red blood cells have been ordered. From a cardiac perspective, she can be discharged after her transfusions. Abdullahi Vanesas MD
--- NOTE | 2018-09-29 10:54 | PN ---
DATE: 09/29/2018 SUBJECTIVE: The patient is seen in room 274, bed 2. The patient's overnight nurse's notes were reviewed. The patient slept well. Post cardiac cath angioplasty notes were reviewed. The patient developed left groin lump with ecchymosis which was palpable and tender. There was no bleeding noted from the site. PHYSICAL EXAMINATION: VITAL SIGNS: T-max 98.2. Telemetry shows sinus rhythm, sinus bradycardia, heart rate 52, 54, 55, blood pressure 144/58, respirations 18, O2 sat 99%. HEAD: Normocephalic, atraumatic. HEENT: Pale conjunctivae. Anicteric sclerae. No oropharyngeal lesion. No neck rigidity. CHEST: Kyphosis. No audible crackle, rales or wheezing. CARDIOVASCULAR: S1, S2, regular rhythm. Questionable systolic murmur, left sternal border, right second intercostal space, left second intercostal space. ABDOMEN: Soft. Positive bowel sounds. No palpable hepatosplenomegaly. Positive left groin lump noted which is tender to touch with ecchymosis. EXTREMITIES: Lower extremity shows palpable pulses. No pitting edema noted. MUSCULOSKELETAL: As per the body mass index. Gait examination is not tested. NEUROLOGIC: The patient is alert, awake, oriented x3. Motor strength is 5/5. LABORATORY DATA: Fingerstick blood sugar 202, 287, 274, 212. Lab data from 09/29/2018, WBC 7.6, hemoglobin and hematocrit 8.9 and 27.3, platelets 190. Sodium 136, potassium 4.7, chloride 109, CO2 of 24, BUN 16, creatinine 0.8, glucose 220, calcium 8.8, phosphorus 3.5, magnesium 2. LFTs are within normal limit. IMPRESSION: 1. Status post angioplasty and drug-eluting stent placement of the left circumflex and left anterior descending artery. 2. Acute non-ST elevation myocardial infarction with elevated troponin. 3. Left groin questionable hematoma. 4. Normocytic anemia with decreasing hemoglobin and hematocrit. 5. Uncontrolled insulin-requiring diabetes mellitus with hyperglycemia and elevated hemoglobin A1c of greater than 8. 6. Active nicotine addiction and dependence. 7. Chronic obstructive pulmonary disease. 8. History of iron deficiency anemia and vitamin B12 deficiency. 9. Hypovitaminosis D. 10. Hypertension. 11. Bradycardia. 12. Status post post angioplasty hypotension and status post rapid response. 13. Constipation with fecal stasis and fecal retention. PLAN: At this time, the patient has been ordered duplex of the left groin for evaluation of a possible left groin pseudoaneurysm. The patient has also been ordered transfusion of PRBC. To keep a target hemoglobin above 10. The patient's baseline hemoglobin is around 11 to 12 g. Once the patient is stabilized today and post transfusion, the patient will be considered for transfer to transitional care unit depending upon the patient's subjective and objective data. The patient's medications will be continued as per the MAR of today which was reviewed. The patient is awaiting Cardiology evaluation and further recommendation. The patient's medications will be continued as per the MAR of today. Dictated and electronically signed, not read. Edilson Reddy MD
[2018-09-29] MEDS: Cholecalciferol 1,000 INTLU TAB PO SCH ×2 (10:56→17:04)
[2018-09-29] MEDS: Pantoprazole 40 mg EC Tab PO SCH ×2 (10:56→22:04)
[2018-09-29] MEDS: POLYETHYLENE GLYCOL 3350 17 GM/Dose PACKET PO SCH ×2 (10:57→17:04)
--- NOTE | 2018-09-29 20:24 | CARD ---
APPROVED REPORT Date of service: 09/29/2018 EKG Measurement Heart [id number] <Conclusion> Sinus bradycardia Left axis deviation Left bundle branch block Abnormal ECG
[2018-09-29 20:43] VITALS: RESP 20
[2018-09-30] MEDS: Levalbuterol 0.63 MG/3 ML Inhal Soln UD IH SCH ×3 (01:02→14:03)
[2018-09-30 07:05] LABS: BASO # 0.02 K/mm3 (0.0-2.0); BASO % 0.3 % (0.0-3.0); EOS # 0.3 (0.0-0.7); EOS % 4.2 % (1.5-5.0); GRAN # 5.61 (1.4-6.5); GRAN % 71.5 % (50.0-68.0); LYMPH # 1.2 (1.2-3.4); LYMPH % 15.2 % (22.0-35.0); MEAN CELL VOLUME 87.8 fl (80.0-105.0); MEAN CORPUSCULAR HEMOGLOBIN 28.9 pg (25.0-35.0); MEAN CORPUSCULAR HGB CONC 32.9 g/dl (31.0-37.0); MEAN PLATELET VOLUME 11.2 fl (7.0-11.0); MONO # 0.7 (0.1-0.6); MONO % 8.8 % (1.0-6.0); RBC 4.19 10^6/uL (3.5-6.1); RED CELL DISTRIBUTION WIDTH 14.2 % (11.5-14.5); WHITE BLOOD COUNT 7.8 10^3/uL (4.5-11.0)
[2018-09-30 07:17] LABS: HEMOGLOBIN 12.1 g/dL (12.0-16.0)
[2018-09-30 07:26] LABS: ALB/GLOB RATIO 1.3 (1.1-1.8); ALBUMIN 3.5 g/dL (3.0-4.8); ALT/SGPT 25 U/L (7-56); AST/SGOT 22 U/L (14-36); BILIRUBIN,DIRECT 0.1 mg/dL (0.0-0.4); BLOOD UREA NITROGEN 18 mg/dL (7-21); CALCIUM 9.5 mg/dL (8.4-10.5); GFR NON-AFRICAN AMERICAN > 60
[2018-09-30] MEDS: Insulin Lispro (humaLOG) MEDIUM Coverage SC SCH ×3 (09:00→17:20)
[2018-09-30] MEDS: Pantoprazole 40 mg EC Tab PO SCH (09:40)
[2018-09-30] MEDS: Cholecalciferol 1,000 INTLU TAB PO SCH ×2 (09:40→17:19)
[2018-09-30] MEDS: POLYETHYLENE GLYCOL 3350 17 GM/Dose PACKET PO SCH ×2 (09:41→17:19)
--- NOTE | 2018-09-30 11:24 | PN ---
DATE: 09/30/2018 SUBJECTIVE: The patient is chest pain free. OBJECTIVE: VITAL SIGNS: Blood pressure 144/64, heart rates in the 60s. NECK: Negative JVD. LUNGS: Without rales. HEART: S1, S2. EXTREMITIES: The left groin site is stable. LABORATORY DATA: Hemoglobin is 12.1 post transfusion. BUN and creatinine unremarkable. The glucose is 265. IMPRESSION: 1. Stable post percutaneous transluminal coronary angioplasty and stent of two of the left anterior descending and circumflex artery. 2. Multivessel coronary artery disease. 3. Chronic obstructive pulmonary disease. 4. Diabetes mellitus. 5. Hypercholesterolemia. Given these findings, the patient's treatment will need to be continued, a cardiac risk reduction program. I have advised the patient the need to stop smoking. A nicotine patch has been ordered for the patient from a cardiac perspective. She can go home on aspirin and Plavix and statin therapy. Abdullahi Vanessa MD
[2018-09-30 12:48] VITALS: BP 126/60; PULSE 56; TEMP 98.4
--- NOTE | 2018-09-30 22:31 | DS ---
HISTORY OF PRESENT ILLNESS: The patient is now being discharged to Transitional Care Unit. The patient is seen in room 262, bed 2. The patient is seen, sitting up in the bed. Overnight nurse's notes were reviewed. The patient tolerated 2 units of PRBC without any adverse reactions. PHYSICAL EXAMINATION: VITAL SIGNS: T-max 98.2, heart rate 53, 54, 51, 58, blood pressure 142/68, respiration 20, O2 sat is 98% to 99%. HEENT: Head is normocephalic, atraumatic. HEENT examination shows pinkish conjunctivae. Anicteric sclerae. No oropharyngeal lesion. NECK: No neck rigidity. CHEST: Kyphosis. LUNGS: Shows no audible crackle, rales or wheezing. CARDIOVASCULAR: S1, S2, regular rhythm. Questionable soft systolic murmur at left sternal border, right second intercostal space, left second intercostal space. ABDOMEN: Soft. Positive bowel sounds. Positive small swelling of the left groin noted. Positive pulses noted. GENITALIA: Female. RECTAL: Deferred. EXTREMITIES: Shows no pitting edema. No calf tenderness. No Homans sign. NEUROLOGIC: The patient is alert, awake, oriented. He is able to move upper and lower extremity without assistance. Gait examination is not tested. VASCULAR: Palpable pulses. DIAGNOSTICS: On 09/30/2018, WBC 7.8, hemoglobin and hematocrit 12.1 and 36.8, platelet 195, granulocytes 71. Sodium 135, potassium 4.6, chloride 104, CO2 26, anion gap 10, BUN 18, creatinine 0.9, GFR is greater than 60, glucose 265, calcium 9.5, phosphorus 4.2, magnesium 1.9. LFTs are normal. The patient received total of 6 units of PRBC transfusion. Doppler of the left groin was negative for pseudoaneurysm. Repeat EKG shows left bundle branch block, left axis deviation. IMPRESSION, PLAN, AND DISCHARGE DIAGNOSES: 1. Acute non-ST elevation myocardial infarction with elevated troponin. 2. Multivessel triple-vessel coronary artery disease. 3. Status post angioplasty and stent placement of the left anterior descending artery. 4. Status post angioplasty and stent placement of the left circumflex artery. 5. An 80%-90%stenosis of the proximal mid left anterior descending artery at the takeoff of the septal electrical appliance repairer. 6. Occluded right coronary artery. 7. Status post successful angioplasty and stent placement of 80% to 90% stenosis of the proximal to mid left anterior descending with drug-eluting stent placement. 8. Left ventricle ejection fraction of 60% on the cardiac catheterization. 9. Right coronary artery occlusion in the proximal portion. 10. An 80% stenosis of left anterior descending at the bifurcation of the high diagonal and septal electrical appliance repairer. 11. An 99% stenosis of the proximal portion of the left circumflex of the obtuse marginal branch. 12. Triple vessel coronary artery disease. 13. Status post successful angioplasty and stent placement of the left circumflex artery and left anterior descending artery. 14. Bradycardia. 15. Hypertension. 16. Status post rapid response with hypotension and decreasing hemoglobin and hematocrit to 6.4 and 20. 17. Granulocytosis. 18. Elevated reticulocyte count of greater than 3 19. Uncontrolled insulin-requiring diabetes mellitus with hyperglycemia and hemoglobin A1c of 8.4 and fructosamine of 319. 20. History of thyroid nodule. 21. Acute non-ST elevation myocardial infarction. 22. Hypomagnesemia. 23. History of iron-deficiency anemia and vitamin B12 deficiency. 24. Glycosuria, microscopic hematuria, pyuria. 25. Status post be packed red blood cell transfusion x6. 26. Pancreatic atrophy. 27. Left renal cyst. 28. Fecal impaction and constipation. 29. Gastric distention, etiology undetermined. 30. Left groin and inguinal area hematoma. 31. Left axis deviation, left anterior hemiblock and left bundle-branch block. 32. Left ventricular ejection fraction of 55% on echocardiogram with pulmonary hypertension. Right ventricular systolic pressure of 45 mmHg. 33. Mildly dilated left atrium. 34. Aortic valve calcification. 35. Mitral annular calcification, mild mitral regurgitation. 36. Mild tricuspid regurgitation. 37. [id number] pulmonary hypertension with right ventricular systolic pressure of 45 mmHg. PLAN: At this time, the patient will be discharged to TCU. The patient's current medications are hydralazine 10 mg p.o. every 12 hours, Colace 100 mg three times a day, Coreg 3.125 daily, Ecotrin 81 mg daily, ferrous sulfate 324 three times a day, folic acid 1 mg daily, Humalog medium dose sliding scale coverage a.c. and at bedtime, Lipitor 40 mg daily, MiraLax 17 g twice a day, Neurontin 300 mg twice a day, nicotine patch 21 mg daily, Plavix 75 mg daily, Protonix 40 mg daily, Tylenol p.o. suppository 650 mg every 6 hours p.r.n., vitamin D3 2000 units daily, Xopenex nebulizer 0.63 mg every 6 hours, Zofran 4 mg IV every 4 hours p.r.n., Zetia 10 mg daily, hydralazine 10 mg every 12. The patient is also Basaglar KwikPen units with breakfast and dinner, Xopenex nebulizer 0.63 mg every 6 hours. The patient is also on metformin 1000 mg twice a day with breakfast and dinner at home and metformin 500 mg with lunch, nicotine patch 21 mg daily, Zofran 4 mg IV every 4 p.r.n., Protonix 40 mg once or twice a day, MiraLax 17 g twice a day. The patient is on Lipitor 40 mg daily and Crestor 40 mg daily. At present, the patient is to be discharged to TCU under Dr. Reddy service and discharge medications as per dictated above. Time spent in the discharge process 45 minutes. Dictated and electronically signed, not read. Edilson Reddy MD
== END 2018-09-30 17:33 | DRG 247 ==
LOC: ED 05:34 → ERH 10:08 → 2RNO 16:39 → 2RSO 09-23 10:05 → OBSVTOIN 09-23 16:26 → CCU 09-23 17:33 → 2RSO 09-24 12:52 → 2RNO 09-29 09:04
PROVIDERS: ADMIT Internal Medicine; ATTEND Internal Medicine
PROC: 30233N1 Transfusion of Nonautologous Red Blood Cells into Peripheral Vein, Percutaneous Approach (ICD-10-PCS; 2018-09-22)
PROC: 027034Z Dilation of Coronary Artery, One Artery with Drug-eluting Intraluminal Device, Percutaneous Approach (ICD-10-PCS; principal; 2018-09-23)
PROC: 4A023N7 Measurement of Cardiac Sampling and Pressure, Left Heart, Percutaneous Approach (ICD-10-PCS; 2018-09-23)
PROC: B2151ZZ Fluoroscopy of Left Heart using Low Osmolar Contrast (ICD-10-PCS; 2018-09-23)
PROC: B2111ZZ Fluoroscopy of Multiple Coronary Arteries using Low Osmolar Contrast (ICD-10-PCS; 2018-09-23)
PROC: B3101ZZ Fluoroscopy of Thoracic Aorta using Low Osmolar Contrast (ICD-10-PCS; 2018-09-23)
PROC: B51D1ZZ Fluoroscopy of Bilateral Lower Extremity Veins using Low Osmolar Contrast (ICD-10-PCS; 2018-09-23)
PROC: 3E033PZ Introduction of Platelet Inhibitor into Peripheral Vein, Percutaneous Approach (ICD-10-PCS; 2018-09-23)
PROC: 30233N1 Transfusion of Nonautologous Red Blood Cells into Peripheral Vein, Percutaneous Approach (ICD-10-PCS; 2018-09-23)
PROC: 027034Z Dilation of Coronary Artery, One Artery with Drug-eluting Intraluminal Device, Percutaneous Approach (ICD-10-PCS; 2018-09-28)
PROC: 30233N1 Transfusion of Nonautologous Red Blood Cells into Peripheral Vein, Percutaneous Approach (ICD-10-PCS; 2018-09-29)
DX: I21.4 Non-ST elevation (NSTEMI) myocardial infarction (principal); D62 Acute posthemorrhagic anemia; E44.1 Mild protein-calorie malnutrition; N39.0 Urinary tract infection, site not specified; I97.630 Postprocedural hematoma of a circulatory system organ or structure following a cardiac catheterization; I25.110 Atherosclerotic heart disease of native coronary artery with unstable angina pectoris; I11.9 Hypertensive heart disease without heart failure; E11.65 Type 2 diabetes mellitus with hyperglycemia; I95.81 Postprocedural hypotension; E11.51 Type 2 diabetes mellitus with diabetic peripheral angiopathy without gangrene; E11.40 Type 2 diabetes mellitus with diabetic neuropathy, unspecified; E53.8 Deficiency of other specified B group vitamins; E55.9 Vitamin D deficiency, unspecified; D69.6 Thrombocytopenia, unspecified; F17.210 Nicotine dependence, cigarettes, uncomplicated; I07.1 Rheumatic tricuspid insufficiency; I27.22 Pulmonary hypertension due to left heart disease; E78.00 Pure hypercholesterolemia, unspecified; E83.42 Hypomagnesemia; E83.39 Other disorders of phosphorus metabolism; E83.51 Hypocalcemia; I44.4 Left anterior fascicular block; J44.9 Chronic obstructive pulmonary disease, unspecified; K21.0 Gastro-esophageal reflux disease with esophagitis; N28.1 Cyst of kidney, acquired; R31.29 Other microscopic hematuria; K56.41 Fecal impaction; K86.89 Other specified diseases of pancreas; E78.5 Hyperlipidemia, unspecified; K31.819 Angiodysplasia of stomach and duodenum without bleeding; Y83.8 Other surgical procedures as the cause of abnormal reaction of the patient, or of later complication, without mention of misadventure at the time of the procedure; Z68.23 Body mass index [BMI] 23.0-23.9, adult; Z79.4 Long term (current) use of insulin; Z79.02 Long term (current) use of antithrombotics/antiplatelets; Z79.82 Long term (current) use of aspirin; Z91.14 Patient's other noncompliance with medication regimen; Z86.73 Personal history of transient ischemic attack (TIA), and cerebral infarction without residual deficits; Z91.11 Patient's noncompliance with dietary regimen

== ENCOUNTER 2018-09-30 17:33 | Inpatient (IN) | payer MEDICARE, OTHER ==
[2018-09-30] MEDS ORDERED: Dextrose 50% SYRINGE Inj (50 ml) IV PRN (18:11)
[2018-09-30 18:18] VITALS: BMI 23.3
[2018-09-30] MEDS: Insulin Lispro (humaLOG) MEDIUM Coverage SC SCH (21:49)
[2018-10-01] MEDS: Pantoprazole 40 mg EC Tab PO SCH ×2 (06:26→18:05)
[2018-10-01] MEDS: Insulin Lispro (humaLOG) MEDIUM Coverage SC SCH ×4 (07:20→21:24)
[2018-10-01] MEDS: Levalbuterol 0.63 MG/3 ML Inhal Soln UD IH SCH ×3 (07:24→20:06)
[2018-10-01 07:27] LABS: BASO # 0.03 K/mm3 (0.0-2.0); BASO % 0.4 % (0.0-3.0); EOS # 0.4 (0.0-0.7); GRAN # 5.25 (1.4-6.5); GRAN % 67.5 % (50.0-68.0); HEMOGLOBIN 11.8 g/dL (12.0-16.0); LYMPH # 1.6 (1.2-3.4); LYMPH % 20.7 % (22.0-35.0); MEAN CELL VOLUME 88.4 fl (80.0-105.0); MEAN CORPUSCULAR HEMOGLOBIN 29.1 pg (25.0-35.0); MEAN PLATELET VOLUME 11.6 fl (7.0-11.0); MONO # 0.5 (0.1-0.6); MONO % 6.4 % (1.0-6.0); RBC 4.05 10^6/uL (3.5-6.1); RED CELL DISTRIBUTION WIDTH 14.3 % (11.5-14.5); WHITE BLOOD COUNT 7.8 10^3/uL (4.5-11.0)
[2018-10-01] MEDS: Insulin Human NPH 1 UNITS/0.01 ML SC SCH (08:01)
[2018-10-01 08:17] LABS: ALB/GLOB RATIO 1.3 (1.1-1.8); ALBUMIN 3.3 g/dL (3.0-4.8); ALT/SGPT 25 U/L (7-56); AST/SGOT 21 U/L (14-36); BLOOD UREA NITROGEN 26 mg/dL (7-21); CALCIUM 9.3 mg/dL (8.4-10.5); GFR NON-AFRICAN AMERICAN > 60
[2018-10-01] MEDS: POLYETHYLENE GLYCOL 3350 17 GM/Dose PACKET PO SCH ×2 (09:54→18:05)
[2018-10-01] MEDS: Cholecalciferol 1,000 INTLU TAB PO SCH (09:54)
[2018-10-01] MEDS ORDERED: Sod Polystyrene Sulf 15 gm/60 ml Susp PO ONE (16:05)
[2018-10-01] MEDS ORDERED: Insulin Human NPH 1 UNITS/0.01 ML SC SCH (17:45)
--- NOTE | 2018-10-01 21:13 | HP ---
DATE OF EXAM: 10/01/2018 LOCATION: The patient is seen in room 313, bed 1. SUBJECTIVE: The patient is seen sitting up in the chair. Overnight nurse's notes were reviewed. No adverse events were documented. Please refer to the detailed history and physical examination and discharge summary from the hospitalization from 09/22/2018 to 09/30/2018 admission for other details. Formerly [facility] [address] [place] [address] Health Information Management History and Physical Report : [id number] Draft Patient: ABBY ESPINOSA Unit: [id number] : 1945 Loc: [facility] Room/Bed: 600-07 Age/Sex: 72 / F ADM Status: ADM IN ADM Date: Copied To: Copied To Ngozier: Attending MD: Edilson Reddy MD DATE OF EXAM: 09/22/2018 HISTORY OF PRESENT ILLNESS: The patient is a 72-year-old female who was an active smoker and very noncompliant with diabetes, very noncompliant with medication and diet was brought into the [facility] emergency room by ambulance complaining of precordial retrosternal chest pain radiating to neck and jaw. The patient was given nitroglycerin and aspirin in the field which resolved and relieved the chest pain. REVIEW OF SYSTEMS: A 14-system review was done, pertinent positive negative dictated above. CODE STATUS: Full code. LIVING WILL ADVANCE DIRECTIVE: None. ALLERGIES: NONE. Height is 5 feet. Weight is 119. BMI is 23. HOME MEDICATIONS: Which are listed may not be correct which are Glucophage 500 mg with lunch and Glucophage 1000 mg twice a day and hydralazine 10 mg daily, Crestor 20 mg daily, metformin 1000 mg twice a day breakfast, dinner, Neurontin 300 mg twice a day, folic acid 1 mg daily, WelChol 3 tablets daily, vitamin D 1000 units twice a day. The patient is also on insulin, Basaglar. Patient is also on Zestril which is not listed. SOCIAL HISTORY: Positive for smoking half a pack per day. OCCUPATIONAL HISTORY: Disabled. Denies communicable transmissible disease. MENSTRUAL HISTORY: Postmenopausal. PAST MEDICAL AND SURGICAL HISTORY: History of cerebrovascular accident, history of hypertension, history of hyperlipidemia, history of iron-deficiency anemia, history of vitamin B12 deficiency, history of hypertension, diabetic neuropathy, cervical and lumbar spine degenerative disc disease, history of hypovitaminosis D, history of poor compliance, history of uncontrolled diabetes mellitus, history of severe dietary noncompliance, history of glycosuria, microscopic hematuria, history of proteinuria, history of packed red blood cell transfusion, history of thyroid nodule biopsy, history of endoscopy, colonoscopy, history of benign adenomatoid left thyroid nodule, history of nicotine dependence, history of emphysema, history of chronic obstructive pulmonary disease, history of active nicotine addiction, history of multiple thyroid nodules status post biopsy, history of questionable rectal thickening, history of osteoporosis, history of degenerative joint disease of the cervical and lumbar spine, history of basal ganglia thalamic lacunar infarct in the left side, history of chronic gastritis, history of cardiac catheterization done in 2013, history of 50% stenosis of the left anterior descending artery, history of 40-50% stenosis of the ramus intermedius and history of hypertensive cardiovascular disease, history of type 2 diabetes, history of left bundle branch block, history of cervical spine disc disease, history of LA grade A esophagitis, history of gastric antral gastritis, history of gastric fundus angioectasia and duodenal bulb angioectasia. PHYSICAL EXAMINATION: GENERAL: The patient is seen in stretcher #20 in the emergency room. The patient is pain free after receiving nitroglycerin and aspirin. VITAL SIGNS: T-max 98.2, heart rate 65, blood pressure 123/72, respirations 18, O2 sat 98%. HEENT: Head: Normocephalic, atraumatic. HEENT examination shows pinkish pale conjunctivae. Anicteric sclerae, dry oral mucosa. No neck rigidity. CHEST: Kyphosis. LUNGS: Shows very occasional rhonchi noted in the upper lung renee. CARDIOVASCULAR: S1, S2, regular rhythm. Questionable soft systolic murmur left sternal border, left second intercostal space, right second intercostal space. ABDOMEN: Soft. Positive bowel sounds. No palpable hepatosplenomegaly. GENITALIA: Female. RECTAL: Deferred. EXTREMITIES: Shows no pitting edema, no calf tenderness, no Homans' sign. NEUROLOGIC: The patient is alert, awake, oriented. No gross deficit. Motor strength is 5/5 in upper and lower extremity. VASCULAR: Palpable pulses. Plantars are downward. DTRs are 2+. Gait examination is not tested. PSYCHIATRIC: Negative. MUSCULOSKELETAL: Shows a body mass index of 23. DIAGNOSTICS: WBC 13.2, hemoglobin/hematocrit 9.7, 31, platelet 264. Granulocytes 82. PT/PTT 9.7, 27.6. Chemistry is significant for glucose of 253. Troponin is negative. BNP is 246. Urinalysis 250 glucose, trace intact blood, trace leukocyte esterase. EKG shows sinus rhythm, left anterior hemiblock, left bundle branch block. Chest x-ray negative. IMPRESSION AND PLAN: 1. Precordial chest pain with radiation to neck and jaw 2. Questionable unstable angina. 3. History of coronary artery disease with a cardiac catheterization done in 2013. 4. Leukocytosis with granulocytosis. 5. Normocytic iron-deficiency anemia. 6. Hyperglycemia. 7 Insulin-requiring diabetes mellitus. 8. Glycosuria. 9. Microscopic hematuria and pyuria. 10. Left anterior hemiblock and left bundle-branch block. 11. Hypertension. 12. History of hypertensive cardiovascular disease. 13. Nicotine addiction and dependence. 14. Chronic obstructive pulmonary disease. PLAN: At this time, the patient will be placed on telemetry observation. Repeat labs ordered for the morning. Serial cardiac enzymes, lipid panel, hemoglobin A1c, TSH ordered. Repeat CBC ordered for the morning. Blood and urine cultures ordered. Cardiology consultation ordered. Diabetic education ordered. TCU evaluation ordered. CURRENT MEDICATIONS: Hydralazine 10 mg daily, aspirin 81 mg daily, WelChol 3 tablets daily, folic acid 1 mg daily Humalog medium dose sliding scale coverage, Lipitor 80 mg daily Lovenox 40 mg subcu daily, Neurontin 300 mg twice a day, Protonix 40 mg daily, Tylenol p.r.n., vitamin D 1000 units twice a day, Xopenex nebulizer 0.63 mg every 6 hours, Zofran 4 mg IV every four hours. The patient is also on Coreg at home, I believe, which will be resumed 3.125 every 12 hours. At present, the patient was seen and evaluated in the emergency room. Patient is awaiting for a telemetry bed. Repeat EKG has been ordered. Echo with Doppler ordered. Heart healthy diabetic diet ordered. LONG stockings, SCDs, physical therapy, occupational therapy ordered. Cardiology consultation ordered. Dictated and electronically signed, not read. Edilson Reddy MD Dictated By: Edilson Reddy MD Transcribed Date and Time: 09/22/18 1120 Transcribed By: RONAK Signed By: Date & Time Signed: Co-Signed By: Date & Time Signed: [place] [id number] [place] [address] Health Information Management Discharge Summary : [id number] Draft Patient: ABBY ESPINOSA Unit: [id number] : 1945 Loc: [facility] Room/Bed : 262[facility] Age/Sex: 72 / F ADM Status: DIS IN ADM Date: DIS Date:09/30/18 Copied To: Copied To Cosigner: Attending MD: Barry BAKER,Edilson Luz HISTORY OF PRESENT ILLNESS: The patient is now being discharged to Transitional Care Unit. The patient is seen in room 262, bed 2. The patient is seen, sitting up in the bed. Overnight nurse's notes were reviewed. The patient tolerated 2 units of PRBC without any adverse reactions. PHYSICAL EXAMINATION: VITAL SIGNS: T-max 98.2, heart rate 53, 54, 51, 58, blood pressure 142/68, respiration 20, O2 sat is 98% to 99%. HEENT: Head is normocephalic, atraumatic. HEENT examination shows pinkish conjunctivae. Anicteric sclerae. No oropharyngeal lesion. NECK: No neck rigidity. CHEST: Kyphosis. LUNGS: Shows no audible crackle, rales or wheezing. CARDIOVASCULAR: S1, S2, regular rhythm. Questionable soft systolic murmur at left sternal border, right second intercostal space, left second intercostal space. ABDOMEN: Soft. Positive bowel sounds. Positive small swelling of the left groin noted. Positive pulses noted. GENITALIA: Female. RECTAL: Deferred. EXTREMITIES: Shows no pitting edema. No calf tenderness. No Homans sign. NEUROLOGIC: The patient is alert, awake, oriented. He is able to move upper and lower extremity without assistance. Gait examination is not tested. VASCULAR: Palpable pulses. DIAGNOSTICS: On 09/30/2018, WBC 7.8, hemoglobin and hematocrit 12.1 and 36.8, platelet 195, granulocytes 71. Sodium 135, potassium 4.6, chloride 104, CO2 26, anion gap 10, BUN 18, creatinine 0.9, GFR is greater than 60, glucose 265, calcium 9.5, phosphorus 4.2, magnesium 1.9. LFTs are normal. The patient received total of 6 units of PRBC transfusion. Doppler of the left groin was negative for pseudoaneurysm. Repeat EKG shows left bundle branch block, left axis deviation. IMPRESSION, PLAN, AND DISCHARGE DIAGNOSES: 1. Acute non-ST elevation myocardial infarction with elevated troponin. 2. Multivessel triple-vessel coronary artery disease. 3. Status post angioplasty and stent placement of the left anterior descending artery. 4. Status post angioplasty and stent placement of the left circumflex artery. 5. An 80%-90%stenosis of the proximal mid left anterior descending artery at the takeoff of the septal assistant professor of archaeology. 6. Occluded right coronary artery. 7. Status post successful angioplasty and stent placement of 80% to 90% stenosis of the proximal to mid left anterior descending with drug-eluting stent placement. 8. Left ventricle ejection fraction of 60% on the cardiac catheterization. 9. Right coronary artery occlusion in the proximal portion. 10. An 80% stenosis of left anterior descending at the bifurcation of the high diagonal and septal assistant professor of archaeology. 11. An 99% stenosis of the proximal portion of the left circumflex of the obtuse marginal branch. 12. Triple vessel coronary artery disease. 13. Status post successful angioplasty and stent placement of the left circumflex artery and left anterior descending artery. 14. Bradycardia. 15. Hypertension. 16. Status post rapid response with hypotension and decreasing hemoglobin and hematocrit to 6.4 and 20. 17. Granulocytosis. 18. Elevated reticulocyte count of greater than 3 19. Uncontrolled insulin-requiring diabetes mellitus with hyperglycemia and hemoglobin A1c of 8.4 and fructosamine of 319. 20. History of thyroid nodule. 21. Acute non-ST elevation myocardial infarction. 22. Hypomagnesemia. 23. History of iron-deficiency anemia and vitamin B12 deficiency. 24. Glycosuria, microscopic hematuria, pyuria. 25. Status post be packed red blood cell transfusion x6. 26. Pancreatic atrophy. 27. Left renal cyst. 28. Fecal impaction and constipation. 29. Gastric distention, etiology undetermined. 30. Left groin and inguinal area hematoma. 31. Left axis deviation, left anterior hemiblock and left bundle-branch block. 32. Left ventricular ejection fraction of 55% on echocardiogram with pulmonary hypertension. Right ventricular systolic pressure of 45 mmHg. 33. Mildly dilated left atrium. 34. Aortic valve calcification. 35. Mitral annular calcification, mild mitral regurgitation. 36. Mild tricuspid regurgitation. 37. [id number] pulmonary hypertension with right ventricular systolic pressure of 45 mmHg. 1. Status post angioplasty and drug-eluting stent placement of the left circumflex and left anterior descending artery. 2. Acute non-ST elevation myocardial infarction with elevated troponin. 3. Left groin questionable hematoma. 4. Normocytic anemia with decreasing hemoglobin and hematocrit. 5. Uncontrolled insulin-requiring diabetes mellitus with hyperglycemia and elevated hemoglobin A1c of greater than 8. 6. Active nicotine addiction and dependence. 7. Chronic obstructive pulmonary disease. 8. History of iron deficiency anemia and vitamin B12 deficiency. 9. Hypovitaminosis D. 10. Hypertension. 11. Bradycardia. 12. Status post post angioplasty hypotension and status post rapid response. 13. Constipation with fecal stasis and fecal retention. 1. Acute non-ST elevation myocardial infarction with elevated troponin. 2. Triple-vessel coronary artery disease. 3. Status post successful angioplasty of the left anterior descending artery with drug-eluting stent. 4. An 80% to 90% stenosis of the mid to proximal left anterior descending artery at the septal assistant professor of archaeology takeoff status post successful angioplasty and drug-eluting stent placement of the mid to proximal left anterior descending 80% to 90% stenosis. 5. Patent stent of the left circumflex artery. 6. Occluded right coronary artery. 7. Bradycardia. 8. Uncontrolled insulin-requiring diabetes mellitus with hyperglycemia. 9. Anemia with decreasing hemoglobin/hematocrit. 10. Status post packed red blood cell transfusion x4. 11. Granulocytosis. 12. Elevated reticulocyte count of 3. 13. Hyperhomocysteinemia. 14. Hyperglycemia. 15. Peripheral arterial disease of the lower extremity including superficial femoral artery popliteal and tibial artery peripheral artery disease with heavily calcified peripheral vascular disease. 16. Active nicotine addiction and dependence. 17. Pulmonary hypertension with tricuspid regurgitation. 18. Left ventricle ejection fraction of 50% to 55%. 19. Multivessel coronary artery disease. 20. Hypertension. 21. Hyperlipidemia and hypercholesterolemia. 22. History of iron deficiency and vitamin B12 deficiency. 1. Multivessel coronary artery disease and triple-vessel coronary artery disease. 2. Acute non-ST elevation myocardial infarction with elevated troponin. 3. Status post angioplasty and drug-eluting stent placement. 4. Multivessel coronary artery disease. 5. Left bundle-branch block. 6. Left anterior hemiblock. 7. Normocytic iron-deficiency anemia. 8. Granulocytosis. 9. History of vitamin B12 deficiency. 10. Insulin-requiring uncontrolled diabetes mellitus with hyperglycemia and elevated hemoglobin A1c of greater than 8. 11. Severe dietary noncompliance. 12. Active nicotine dependence. 13. Probable chronic obstructive pulmonary disease. 14. Hypertension. 15. Bradycardia. 16. Questionable pulmonary hypertension. 17. Unstable angina and acute coronary syndrome with acute non-ST elevation myocardial infarction with triple-vessel coronary artery disease. 18. Severe peripheral vascular disease. 19. Insulin-requiring diabetes mellitus. 20. Hyperlipidemia. 1. Acute non-ST elevation myocardial infarction with unstable angina and elevated troponin. 2. Triple-vessel coronary artery disease. 3. Status post angioplasty and drug-eluting stent placement of the left circumflex artery. 3. Acute blood loss anemia, etiology undetermined status post packed red blood cell transfusion x4. 4. Status post hypotension. 5. Nicotine dependence and addiction. 6. Deconditioning. 7. History of duodenal and gastric arteriovenous malformation. 8. Sinus bradycardia. 9. Leukocytosis with granulocytosis (resolved). 10. Relative thrombocytopenia. 11. Prerenal kidney injury (resolved). 12. Uncontrolled insulin-requiring diabetes mellitus with hemoglobin A1c of 8.4 and fructosamine of 319. 13. Mild protein malnutrition and hypoalbuminemia. 14. Glycosuria, microscopic hematuria, pyuria. 15. Status post packed red blood cell transfusion x4. 16. Left bundle-branch block with left anterior hemiblock. 17. 18. Pulmonary hypertension with right ventricular systolic pressure of 45 mmHg. 19. Left bundle-branch block. 20. Left anterior hemiblock. 21. Iron-deficiency anemia and vitamin B12 deficiency. 22. Hyperlipidemia. 23. Constipation with fecal stasis and fecal retention. 24. Diabetic neuropathy. 1. Status post rapid response, severe symptomatic hypotension requiring intravenous fluid bolus and intravenous dopamine drip with treatment. 2. Acute blood loss anemia, etiology undetermined. 3. Non-ST elevation myocardial infarction with elevated troponin. 4. Triple-vessel coronary artery disease. 5. Unstable angina. 6. Sinus bradycardia. 7. History of hypertension. 8. Granulocytosis. 9. Severe symptomatic anemia with decreasing hemoglobin to 6.4. 10. Relative thrombocytopenia. 11. Prerenal kidney injury. 12. Uncontrolled diabetes, insulin-requiring diabetes mellitus with hemoglobin A1c of 8.4 and fructosamine of 319. 13. Hypocalcemia. 14. Hypomagnesemia. 15. Hypophosphatemia. 16. Mild protein malnutrition and mild hypoalbuminemia. 17. History of hyperlipidemia. 18. Glycosuria, microscopic hematuria, pyuria. 19. Status post packed red blood cell transfusion x4. 20. Pancreatic atrophy. 21. Left renal cyst. 22. Aortic calcification and mural plaque. 23. Fecal impaction, constipation. 24. Gastric distention, etiology undetermined. 25. Left axis deviation and left bundle-branch block. 26. Left ventricle ejection fraction of 60%. 27. Status post cardiac catheterization and successful percutaneous transluminal coronary angioplasty and stent placement of the left circumflex artery. 28. Proximal occluded right coronary artery with collaterals to the distal right coronary artery. 29. 80% stenosis after the bifurcation of the high diagonal and at the septal assistant professor of archaeology of the left anterior descending artery 80% stenosis. 30. 99% stenosis of the proximal portion of the obtuse marginal branch of the left circumflex artery. 31. Bilateral lower extremity peripheral vascular disease, 32. Deconditioning. 33. Gait dysfunction. 1. Status post rapid response and severe symptomatic hypotension. requiring IV fluid boluses and IV dopamine treatment. 2. Acute blood loss anemia, etiology undetermined. 3. Non-ST elevation myocardial infarction with elevated troponin. 4. Triple-vessel coronary artery disease. 5. Severe bilateral peripheral vascular disease. 6. Status post packed red blood cell transfusion x4. 7. Status post angioplasty and stent placement of the 99% stenosis of the left circumflex. 8. Status post hypotension. 9. History of hypertension. 10. Questionable left inguinal and left groin hematoma. 11. Left axis deviation, left anterior hemiblock and left bundle-branch block. 12. Leukocytosis. 13. Relative thrombocytopenia. 14. Granulocytosis. 15. Uncontrolled insulin-requiring diabetes mellitus with hemoglobin A1c of 8.4 and hyperglycemia and elevated fructosamine of 319. 16. History of hyperlipidemia. 17. History of multinodular thyroid nodule. 18. Acute non-ST elevation myocardial infarction with elevated troponin. 19. Prerenal kidney injury. 20. Hypomagnesemia. 21. Protein malnutrition and mild hypoalbuminemia. 22. Glycosuria, microscopic hematuria, and pyuria. 23. Pancreatic atrophy. 24. Left renal cyst. 25. Aortic and iliac arteries atherosclerotic calcification and mural plaques. 26. Constipation and fecal impaction. 27. Gastric distention, etiology undetermined. 28. Left inguinal groin area hematoma. 29. Status post cardiac catheterization and angioplasty and stent placement of the circumflex artery and peripheral angiogram. 30. Left ventricular ejection fraction of 60%. 31. Proximal occlusion of the right coronary artery with distal right coronary artery collateral. 32. An 80% stenosis of the left anterior descending artery after the bifurcation of the high diagonal at the septal assistant professor of archaeology. 33. A 99% stenosis of the heavily calcified left circumflex artery in the portion of the obtuse marginal branch. 34. Triple-vessel coronary artery disease with normal left ventricular ejection fraction. 35. Status post successful angioplasty and stent placement of the left circumflex artery. 36. Severe peripheral vascular disease of the lower extremity. 1. Acute non-ST elevation myocardial infarction with elevated troponin. 2. Multivessel coronary artery disease. 3. Status post cardiac catheterization and angioplasty and stent placement of the left circumflex artery. 4. Left bundle-branch block with left anterior hemiblock and sinus bradycardia. 5. History of 50% stenosis of the mid left anterior descending artery that after the takeoff of the first diagonal branch and first septal assistant professor of archaeology. 6. History of 40-50% stenosis of the mid ramus intermedius. 7. History of diffuse disease of the left circumflex. 8. History of complex 60% eccentric plaque stenosis of the proximal right coronary artery. 9. History of 30% stenosis of the mid right posterior descending artery. 10. Unstable angina. 11. History of iron-deficiency anemia and vitamin B12 deficiency. 12. Status post leukocytosis, granulocytosis. 13. Uncontrolled insulin-requiring diabetes mellitus with hyperglycemia and hemoglobin A1c of 8.4 and fructosamine of 319. 14. Acute non-ST elevation myocardial infarction with elevated troponin. 15. Glycosuria, microscopic hematuria, pyuria. 16. Status post packed red blood cell transfusion x1. 17. Active nicotine addiction and dependence. 18. Unstable angina. 19. Normocytic iron-deficiency anemia. 20. Hypertensive cardiovascular disease. . Precordial chest pain with radiation to neck and jaw 2. Questionable unstable angina. 3. History of coronary artery disease with a cardiac catheterization done in 2013. 4. Leukocytosis with granulocytosis. 5. Normocytic iron-deficiency anemia. 6. Hyperglycemia. 7 Insulin-requiring diabetes mellitus. 8. Glycosuria. 9. Microscopic hematuria and pyuria. 10. Left anterior hemiblock and left bundle-branch block. 11. Hypertension. 12. History of hypertensive cardiovascular disease. 13. Nicotine addiction and dependence. 14. Chronic obstructive pulmonary disease. PLAN: At this time, the patient will be discharged to TCU. The patient's current medications are hydralazine 10 mg p.o. every 12 hours, Colace 100 mg three times a day, Coreg 3.125 daily, Ecotrin 81 mg daily, ferrous sulfate 324 three times a day, folic acid 1 mg daily, Humalog medium dose sliding scale coverage a.c. and at bedtime, Lipitor 40 mg daily, MiraLax 17 g twice a day, Neurontin 300 mg twice a day, nicotine patch 21 mg daily, Plavix 75 mg daily, Protonix 40 mg daily, Tylenol p.o. suppository 650 mg every 6 hours p.r.n., vitamin D3 2000 units daily, Xopenex nebulizer 0.63 mg every 6 hours, Zofran 4 mg IV every 4 hours p.r.n., Zetia 10 mg daily, hydralazine 10 mg every 12. The patient is also Basaglar KwikPen units with breakfast and dinner, Xopenex nebulizer 0.63 mg every 6 hours. The patient is also on metformin 1000 mg twice a day with breakfast and dinner at home and metformin 500 mg with lunch, nicotine patch 21 mg daily, Zofran 4 mg IV every 4 p.r.n., Protonix 40 mg once or twice a day, MiraLax 17 g twice a day. The patient is on Lipitor 40 mg daily and Crestor 40 mg daily. At present, the patient is to be discharged to TCU under Dr. Reddy service and discharge medications as per dictated above. Time spent in the discharge process 45 minutes. Dictated and electronically signed, not read. Edilson Reddy MD Transcribed Date and Time: 09/30/18 0853 Transcribed By: RONAK Signed By: Date & Time Signed: Co-Signed By: Date & Time Signed: PHYSICAL EXAMINATION: VITAL SIGNS: T-max 98.2, pulse 75, blood pressure 151/67, respirations 18, O2 sat is 98%. HEENT: Head: Normocephalic, atraumatic. HEENT examination shows pink conjunctivae. Anicteric sclerae. No oropharyngeal lesion. NECK: No neck rigidity. CHEST: Kyphosis. LUNGS: Show no audible crackles, rales, or wheezing. CARDIOVASCULAR: S1 and S2, positive regular rhythm. Positive systolic murmur, left sternal border, right second intercostal space, left second intercostal space. ABDOMEN: Soft. Positive bowel sounds. No palpable hepatosplenomegaly. GENITALIA: Female. RECTAL: Examination is deferred. EXTREMITIES: Show no pitting edema, no calf tenderness, no Homans sign. MUSCULOSKELETAL: Examination shows body mass index of 23.3. NEUROLOGIC: Cranial nerves II-XII limited. Gait examination, not tested. Vascular examination, palpable pulses. Plantars are downgoing. DTRs are 2+. DIAGNOSTICS: On 10/01/2018 show WBC of 7.8, hemoglobin/hematocrit 11.8/35.8, platelets 232. Sodium 133, potassium 5.3, chloride 103, CO2 of 26, anion gap 9, BUN 26, creatinine 0.9, GFR greater than 60, glucose 311. Fingerstick blood sugar 176, 289, 272, 319. Calcium 9.3. LFTs are normal. IMPRESSION: 1. Acute non-ST elevation myocardial infarction with elevated troponin. 2. Multivessel, triple-vessel coronary artery disease. 3. Status post angioplasty and stent placement of the left anterior descending artery and left circumflex artery. 4. Hypertension. 5. Bradycardia. 6. Normocytic iron-deficiency anemia, status post packed red blood cell transfusion x6. 7. Uncontrolled insulin-requiring diabetes mellitus with hyperglycemia. 8. Non-hemolyzed hyperkalemia. 9. Prerenal kidney injury. 10. Gait dysfunction. 11. Deconditioning. 12. Constipation. 13. Hyperlipidemia. 14. Diabetic neuropathy. 15. Nicotine dependence and addiction. 16. Peripheral vascular disease. 17. Hypovitaminosis D. 1. Acute non-ST elevation myocardial infarction with elevated troponin. 2. Multivessel triple-vessel coronary artery disease. 3. Status post angioplasty and stent placement of the left anterior descending artery. 4. Status post angioplasty and stent placement of the left circumflex artery. 5. An 80%-90%stenosis of the proximal mid left anterior descending artery at the takeoff of the septal assistant professor of archaeology. 6. Occluded right coronary artery. 7. Status post successful angioplasty and stent placement of 80% to 90% stenosis of the proximal to mid left anterior descending with drug-eluting stent placement. 8. Left ventricle ejection fraction of 60% on the cardiac catheterization. 9. Right coronary artery occlusion in the proximal portion. 10. An 80% stenosis of left anterior descending at the bifurcation of the high diagonal and septal assistant professor of archaeology. 11. An 99% stenosis of the proximal portion of the left circumflex of the obtuse marginal branch. 12. Triple vessel coronary artery disease. 13. Status post successful angioplasty and stent placement of the left circumflex artery and left anterior descending artery. 14. Bradycardia. 15. Hypertension. 16. Status post rapid response with hypotension and decreasing hemoglobin and hematocrit to 6.4 and 20. 17. Granulocytosis. 18. Elevated reticulocyte count of greater than 3 19. Uncontrolled insulin-requiring diabetes mellitus with hyperglycemia and hemoglobin A1c of 8.4 and fructosamine of 319. 20. History of thyroid nodule. 21. Acute non-ST elevation myocardial infarction. 22. Hypomagnesemia. 23. History of iron-deficiency anemia and vitamin B12 deficiency. 24. Glycosuria, microscopic hematuria, pyuria. 25. Status post be packed red blood cell transfusion x6. 26. Pancreatic atrophy. 27. Left renal cyst. 28. Fecal impaction and constipation. 29. Gastric distention, etiology undetermined. 30. Left groin and inguinal area hematoma. 31. Left axis deviation, left anterior hemiblock and left bundle-branch block. 32. Left ventricular ejection fraction of 55% on echocardiogram with pulmonary hypertension. Right ventricular systolic pressure of 45 mmHg. 33. Mildly dilated left atrium. 34. Aortic valve calcification. 35. Mitral annular calcification, mild mitral regurgitation. 36. Mild tricuspid regurgitation. 37. [id number]-[id number] pulmonary hypertension with right ventricular systolic pressure of 45 mmHg. 1. Status post angioplasty and drug-eluting stent placement of the left circumflex and left anterior descending artery. 2. Acute non-ST elevation myocardial infarction with elevated troponin. 3. Left groin questionable hematoma. 4. Normocytic anemia with decreasing hemoglobin and hematocrit. 5. Uncontrolled insulin-requiring diabetes mellitus with hyperglycemia and elevated hemoglobin A1c of greater than 8. 6. Active nicotine addiction and dependence. 7. Chronic obstructive pulmonary disease. 8. History of iron deficiency anemia and vitamin B12 deficiency. 9. Hypovitaminosis D. 10. Hypertension. 11. Bradycardia. 12. Status post post angioplasty hypotension and status post rapid response. 13. Constipation with fecal stasis and fecal retention. 1. Acute non-ST elevation myocardial infarction with elevated troponin. 2. Triple-vessel coronary artery disease. 3. Status post successful angioplasty of the left anterior descending artery with drug-eluting stent. 4. An 80% to 90% stenosis of the mid to proximal left anterior descending artery at the septal assistant professor of archaeology takeoff status post successful angioplasty and drug-eluting stent placement of the mid to proximal left anterior descending 80% to 90% stenosis. 5. Patent stent of the left circumflex artery. 6. Occluded right coronary artery. 7. Bradycardia. 8. Uncontrolled insulin-requiring diabetes mellitus with hyperglycemia. 9. Anemia with decreasing hemoglobin/hematocrit. 10. Status post packed red blood cell transfusion x4. 11. Granulocytosis. 12. Elevated reticulocyte count of 3. 13. Hyperhomocysteinemia. 14. Hyperglycemia. 15. Peripheral arterial disease of the lower extremity including superficial femoral artery popliteal and tibial artery peripheral artery disease with heavily calcified peripheral vascular disease. 16. Active nicotine addiction and dependence. 17. Pulmonary hypertension with tricuspid regurgitation. 18. Left ventricle ejection fraction of 50% to 55%. 19. Multivessel coronary artery disease. 20. Hypertension. 21. Hyperlipidemia and hypercholesterolemia. 22. History of iron deficiency and vitamin B12 deficiency. 1. Multivessel coronary artery disease and triple-vessel coronary artery disease. 2. Acute non-ST elevation myocardial infarction with elevated troponin. 3. Status post angioplasty and drug-eluting stent placement. 4. Multivessel coronary artery disease. 5. Left bundle-branch block. 6. Left anterior hemiblock. 7. Normocytic iron-deficiency anemia. 8. Granulocytosis. 9. History of vitamin B12 deficiency. 10. Insulin-requiring uncontrolled diabetes mellitus with hyperglycemia and elevated hemoglobin A1c of greater than 8. 11. Severe dietary noncompliance. 12. Active nicotine dependence. 13. Probable chronic obstructive pulmonary disease. 14. Hypertension. 15. Bradycardia. 16. Questionable pulmonary hypertension. 17. Unstable angina and acute coronary syndrome with acute non-ST elevation myocardial infarction with triple-vessel coronary artery disease. 18. Severe peripheral vascular disease. 19. Insulin-requiring diabetes mellitus. 20. Hyperlipidemia. 1. Acute non-ST elevation myocardial infarction with unstable angina and elevated troponin. 2. Triple-vessel coronary artery disease. 3. Status post angioplasty and drug-eluting stent placement of the left circumflex artery. 3. Acute blood loss anemia, etiology undetermined status post packed red blood cell transfusion x4. 4. Status post hypotension. 5. Nicotine dependence and addiction. 6. Deconditioning. 7. History of duodenal and gastric arteriovenous malformation. 8. Sinus bradycardia. 9. Leukocytosis with granulocytosis (resolved). 10. Relative thrombocytopenia. 11. Prerenal kidney injury (resolved). 12. Uncontrolled insulin-requiring diabetes mellitus with hemoglobin A1c of 8.4 and fructosamine of 319. 13. Mild protein malnutrition and hypoalbuminemia. 14. Glycosuria, microscopic hematuria, pyuria. 15. Status post packed red blood cell transfusion x4. 16. Left bundle-branch block with left anterior hemiblock. 17. 18. Pulmonary hypertension with right ventricular systolic pressure of 45 mmHg. 19. Left bundle-branch block. 20. Left anterior hemiblock. 21. Iron-deficiency anemia and vitamin B12 deficiency. 22. Hyperlipidemia. 23. Constipation with fecal stasis and fecal retention. 24. Diabetic neuropathy. 1. Status post rapid response, severe symptomatic hypotension requiring intravenous fluid bolus and intravenous dopamine drip with treatment. 2. Acute blood loss anemia, etiology undetermined. 3. Non-ST elevation myocardial infarction with elevated troponin. 4. Triple-vessel coronary artery disease. 5. Unstable angina. 6. Sinus bradycardia. 7. History of hypertension. 8. Granulocytosis. 9. Severe symptomatic anemia with decreasing hemoglobin to 6.4. 10. Relative thrombocytopenia. 11. Prerenal kidney injury. 12. Uncontrolled diabetes, insulin-requiring diabetes mellitus with hemoglobin A1c of 8.4 and fructosamine of 319. 13. Hypocalcemia. 14. Hypomagnesemia. 15. Hypophosphatemia. 16. Mild protein malnutrition and mild hypoalbuminemia. 17. History of hyperlipidemia. 18. Glycosuria, microscopic hematuria, pyuria. 19. Status post packed red blood cell transfusion x4. 20. Pancreatic atrophy. 21. Left renal cyst. 22. Aortic calcification and mural plaque. 23. Fecal impaction, constipation. 24. Gastric distention, etiology undetermined. 25. Left axis deviation and left bundle-branch block. 26. Left ventricle ejection fraction of 60%. 27. Status post cardiac catheterization and successful percutaneous transluminal coronary angioplasty and stent placement of the left circumflex artery. 28. Proximal occluded right coronary artery with collaterals to the distal right coronary artery. 29. 80% stenosis after the bifurcation of the high diagonal and at the septal assistant professor of archaeology of the left anterior descending artery 80% stenosis. 30. 99% stenosis of the proximal portion of the obtuse marginal branch of the left circumflex artery. 31. Bilateral lower extremity peripheral vascular disease, 32. Deconditioning. 33. Gait dysfunction. 1. Status post rapid response and severe symptomatic hypotension. requiring IV fluid boluses and IV dopamine treatment. 2. Acute blood loss anemia, etiology undetermined. 3. Non-ST elevation myocardial infarction with elevated troponin. 4. Triple-vessel coronary artery disease. 5. Severe bilateral peripheral vascular disease. 6. Status post packed red blood cell transfusion x4. 7. Status post angioplasty and stent placement of the 99% stenosis of the left circumflex. 8. Status post hypotension. 9. History of hypertension. 10. Questionable left inguinal and left groin hematoma. 11. Left axis deviation, left anterior hemiblock and left bundle-branch block. 12. Leukocytosis. 13. Relative thrombocytopenia. 14. Granulocytosis. 15. Uncontrolled insulin-requiring diabetes mellitus with hemoglobin A1c of 8.4 and hyperglycemia and elevated fructosamine of 319. 16. History of hyperlipidemia. 17. History of multinodular thyroid nodule. 18. Acute non-ST elevation myocardial infarction with elevated troponin. 19. Prerenal kidney injury. 20. Hypomagnesemia. 21. Protein malnutrition and mild hypoalbuminemia. 22. Glycosuria, microscopic hematuria, and pyuria. 23. Pancreatic atrophy. 24. Left renal cyst. 25. Aortic and iliac arteries atherosclerotic calcification and mural plaques. 26. Constipation and fecal impaction. 27. Gastric distention, etiology undetermined. 28. Left inguinal groin area hematoma. 29. Status post cardiac catheterization and angioplasty and stent placement of the circumflex artery and peripheral angiogram. 30. Left ventricular ejection fraction of 60%. 31. Proximal occlusion of the right coronary artery with distal right coronary artery collateral. 32. An 80% stenosis of the left anterior descending artery after the bifurcation of the high diagonal at the septal assistant professor of archaeology. 33. A 99% stenosis of the heavily calcified left circumflex artery in the portion of the obtuse marginal branch. 34. Triple-vessel coronary artery disease with normal left ventricular ejection fraction. 35. Status post successful angioplasty and stent placement of the left circumflex artery. 36. Severe peripheral vascular disease of the lower extremity. 1. Acute non-ST elevation myocardial infarction with elevated troponin. 2. Multivessel coronary artery disease. 3. Status post cardiac catheterization and angioplasty and stent placement of the left circumflex artery. 4. Left bundle-branch block with left anterior hemiblock and sinus bradycardia. 5. History of 50% stenosis of the mid left anterior descending artery that after the takeoff of the first diagonal branch and first septal assistant professor of archaeology. 6. History of 40-50% stenosis of the mid ramus intermedius. 7. History of diffuse disease of the left circumflex. 8. History of complex 60% eccentric plaque stenosis of the proximal right coronary artery. 9. History of 30% stenosis of the mid right posterior descending artery. 10. Unstable angina. 11. History of iron-deficiency anemia and vitamin B12 deficiency. 12. Status post leukocytosis, granulocytosis. 13. Uncontrolled insulin-requiring diabetes mellitus with hyperglycemia and hemoglobin A1c of 8.4 and fructosamine of 319. 14. Acute non-ST elevation myocardial infarction with elevated troponin. 15. Glycosuria, microscopic hematuria, pyuria. 16. Status post packed red blood cell transfusion x1. 17. Active nicotine addiction and dependence. 18. Unstable angina. 19. Normocytic iron-deficiency anemia. 20. Hypertensive cardiovascular disease. . Precordial chest pain with radiation to neck and jaw 2. Questionable unstable angina. 3. History of coronary artery disease with a cardiac catheterization done in 2013. 4. Leukocytosis with granulocytosis. 5. Normocytic iron-deficiency anemia. 6. Hyperglycemia. 7 Insulin-requiring diabetes mellitus. 8. Glycosuria. 9. Microscopic hematuria and pyuria. 10. Left anterior hemiblock and left bundle-branch block. 11. Hypertension. 12. History of hypertensive cardiovascular disease. 13. Nicotine addiction and dependence. 14. Chronic obstructive pulmonary disease. PLAN: At this time, the patient has been ordered a dose of Kayexalate 30 g for elevated potassium. The patient has been ordered repeat labs for the morning. Current consultation: Podiatry and Cardiology. Current medications: Hydralazine 10 mg twice a day, Coreg 3.125 daily, aspirin 81 mg daily, ferrous sulfate 324 three times a day, folic acid 1 mg daily, Humalog medium dose sliding scale coverage before meals and at bedtime, NPH 15 units with breakfast and 15 units with supper, Kayexalate 30 g x1, Lipitor 40 mg daily, MiraLAX 17 g twice a day, Neurontin 300 mg twice a day, nicotine patch 21 mg daily, Plavix 75 mg daily, Protonix 40 mg daily, Tylenol 650 mg p.o. suppository every 6 hours p.r.n., vitamin D3 2000 International Units daily, Xopenex nebulizer 0.63 mg every 6 hours, Zofran 4 mg IV every 4 hours p.r.n. The patient has been ordered LONG stockings, SCDs, VTE, occupational therapy, physical therapy, ambulation therapy, out of bed to chair, gait training. Diabetic education referral has been ordered. Incentive spirometry, oxygen 2 L continuous. Head of the bed at 30 degrees. Fingerstick blood sugar before meals and at bedtime. At present, the patient is to be continued on transitional care unit until approved number of days, regarding which I have advised the patient to contact Community Service Coordinator regarding the approved number of TCU days. Edilson Reddy MD MTDD
[2018-10-02] MEDS: Levalbuterol 0.63 MG/3 ML Inhal Soln UD IH SCH ×4 (01:41→21:01)
[2018-10-02] MEDS: Pantoprazole 40 mg EC Tab PO SCH ×2 (05:19→17:56)
[2018-10-02 06:49] LABS: ALB/GLOB RATIO 1.2 (1.1-1.8); ALBUMIN 3.3 g/dL (3.0-4.8); ALT/SGPT 31 U/L (7-56); AST/SGOT 23 U/L (14-36); BLOOD UREA NITROGEN 25 mg/dL (7-21); CALCIUM 9.1 mg/dL (8.4-10.5); GFR NON-AFRICAN AMERICAN 55
[2018-10-02] MEDS: Insulin Lispro (humaLOG) MEDIUM Coverage SC SCH ×4 (07:13→21:34)
[2018-10-02] MEDS: Insulin Human NPH 1 UNITS/0.01 ML SC SCH ×2 (07:13→17:55)
[2018-10-02] MEDS: POLYETHYLENE GLYCOL 3350 17 GM/Dose PACKET PO SCH ×2 (09:05→17:56)
[2018-10-02] MEDS: Cholecalciferol 1,000 INTLU TAB PO SCH (09:06)
--- NOTE | 2018-10-02 21:21 | PN ---
DATE: 10/02/2018 SUBJECTIVE: The patient was seen out of bed to chair in room 313, bed 1. The patient denies any chest pain or shortness of breath. Denies nausea, vomiting, diarrhea or constipation. Denies hemoptysis, hematemesis or melena. PHYSICAL EXAMINATION: VITAL SIGNS: T-max 97.9, pulse 50 to 55, blood pressure 133/80 and 105/57, respiration 16, and O2 sat is 96%. HEAD: Normocephalic and atraumatic. HEENT: Shows pinkish pale conjunctivae. Anicteric sclerae. No oropharyngeal lesion. No neck rigidity. CHEST: Kyphosis. LUNGS: No audible crackle, rales or wheezing. CARDIOVASCULAR: S1 and S2, regular rhythm. Positive systolic murmur in left sternal border, right second intercostal space, left second intercostal space. ABDOMEN: Soft. Positive bowel sounds. No palpable hepatosplenomegaly. GENITALIA: Female. RECTAL: Deferred. EXTREMITIES: Shows no pitting edema. No calf tenderness. No Homans' sign. NEUROLOGIC: The patient is alert, awake, responsive. She is able to move upper and lower extremities without assistance. Gait examination is not tested. VASCULAR: Palpable pulses. MUSCULOSKELETAL: Body mass index of 23.3. DIAGNOSTICS : Sodium 137, potassium 4.6, chloride 104, CO2 of 27, anion gap 10, BUN 25, creatinine 1, GFR greater than 60, glucose 196, calcium 9.1, phosphorus 4.1, magnesium 2.1. LFTs are normal. Fingerstick blood sugar is down to 176, 299, 240 and 245, but fingerstick blood sugar still is high and above the acceptable range. IMPRESSION AND PLAN: 1. Deconditioning. 2. Gait dysfunction. 3. Acute non-ST elevation myocardial infarction with elevated troponin. 4. Multivessel coronary artery disease. 5. Status post successful angioplasty and drug-eluting stent placement of the left anterior descending and left circumflex. 6. Triple-vessel coronary artery disease. 7. Bradycardia. 8. History of hypertension with episodic hypotension. 9. Normocytic iron-deficiency anemia. 10. Status post packed red blood cell transfusion x6. 11. Status post [employer]PRESENTATIVE and status post hypotension. 12. Hyperkalemia. 13. Hyperglycemia. 14. Prerenal kidney injury. 15. Status post hyperkalemia. 16. Nicotine dependence. 17. Peripheral vascular disease of bilateral lower extremities. 18. Active nicotine addiction. 19. Diabetic foot disease. 20. Iron-deficiency anemia. 21. History of vitamin B12 deficiency. 22. Uncontrolled insulin-requiring diabetes mellitus with hyperglycemia and elevated hemoglobin A1c of greater than 8.3. 23. Hyperlipidemia. 24. Constipation. 25. Diabetic neuropathy. 26. Hypovitaminosis D. 1. Acute non-ST elevation myocardial infarction with elevated troponin. 2. Multivessel, triple-vessel coronary artery disease. 3. Status post angioplasty and stent placement of the left anterior descending artery and left circumflex artery. 4. Hypertension. 5. Bradycardia. 6. Normocytic iron-deficiency anemia, status post packed red blood cell transfusion x6. 7. Uncontrolled insulin-requiring diabetes mellitus with hyperglycemia. 8. Non-hemolyzed hyperkalemia. 9. Prerenal kidney injury. 10. Gait dysfunction. 11. Deconditioning. 12. Constipation. 13. Hyperlipidemia. 14. Diabetic neuropathy. 15. Nicotine dependence and addiction. 16. Peripheral vascular disease. 17. Hypovitaminosis D. 1. Acute non-ST elevation myocardial infarction with elevated troponin. 2. Multivessel triple-vessel coronary artery disease. 3. Status post angioplasty and stent placement of the left anterior descending artery. 4. Status post angioplasty and stent placement of the left circumflex artery. 5. An 80%-90%stenosis of the proximal mid left anterior descending artery at the takeoff of the septal helper electrical. 6. Occluded right coronary artery. 7. Status post successful angioplasty and stent placement of 80% to 90% stenosis of the proximal to mid left anterior descending with drug-eluting stent placement. 8. Left ventricle ejection fraction of 60% on the cardiac catheterization. 9. Right coronary artery occlusion in the proximal portion. 10. An 80% stenosis of left anterior descending at the bifurcation of the high diagonal and septal helper electrical. 11. An 99% stenosis of the proximal portion of the left circumflex of the obtuse marginal branch. 12. Triple vessel coronary artery disease. 13. Status post successful angioplasty and stent placement of the left circumflex artery and left anterior descending artery. 14. Bradycardia. 15. Hypertension. 16. Status post rapid response with hypotension and decreasing hemoglobin and hematocrit to 6.4 and 20. 17. Granulocytosis. 18. Elevated reticulocyte count of greater than 3 19. Uncontrolled insulin-requiring diabetes mellitus with hyperglycemia and hemoglobin A1c of 8.4 and fructosamine of 319. 20. History of thyroid nodule. 21. Acute non-ST elevation myocardial infarction. 22. Hypomagnesemia. 23. History of iron-deficiency anemia and vitamin B12 deficiency. 24. Glycosuria, microscopic hematuria, pyuria. 25. Status post be packed red blood cell transfusion x6. 26. Pancreatic atrophy. 27. Left renal cyst. 28. Fecal impaction and constipation. 29. Gastric distention, etiology undetermined. 30. Left groin and inguinal area hematoma. 31. Left axis deviation, left anterior hemiblock and left bundle-branch block. 32. Left ventricular ejection fraction of 55% on echocardiogram with pulmonary hypertension. Right ventricular systolic pressure of 45 mmHg. 33. Mildly dilated left atrium. 34. Aortic valve calcification. 35. Mitral annular calcification, mild mitral regurgitation. 36. Mild tricuspid regurgitation. 37. [id number] pulmonary hypertension with right ventricular systolic pressure of 45 mmHg. 1. Status post angioplasty and drug-eluting stent placement of the left circumflex and left anterior descending artery. 2. Acute non-ST elevation myocardial infarction with elevated troponin. 3. Left groin questionable hematoma. 4. Normocytic anemia with decreasing hemoglobin and hematocrit. 5. Uncontrolled insulin-requiring diabetes mellitus with hyperglycemia and elevated hemoglobin A1c of greater than 8. 6. Active nicotine addiction and dependence. 7. Chronic obstructive pulmonary disease. 8. History of iron deficiency anemia and vitamin B12 deficiency. 9. Hypovitaminosis D. 10. Hypertension. 11. Bradycardia. 12. Status post post angioplasty hypotension and status post rapid response. 13. Constipation with fecal stasis and fecal retention. 1. Acute non-ST elevation myocardial infarction with elevated troponin. 2. Triple-vessel coronary artery disease. 3. Status post successful angioplasty of the left anterior descending artery with drug-eluting stent. 4. An 80% to 90% stenosis of the mid to proximal left anterior descending artery at the septal helper electrical takeoff status post successful angioplasty and drug-eluting stent placement of the mid to proximal left anterior descending 80% to 90% stenosis. 5. Patent stent of the left circumflex artery. 6. Occluded right coronary artery. 7. Bradycardia. 8. Uncontrolled insulin-requiring diabetes mellitus with hyperglycemia. 9. Anemia with decreasing hemoglobin/hematocrit. 10. Status post packed red blood cell transfusion x4. 11. Granulocytosis. 12. Elevated reticulocyte count of 3. 13. Hyperhomocysteinemia. 14. Hyperglycemia. 15. Peripheral arterial disease of the lower extremity including superficial femoral artery popliteal and tibial artery peripheral artery disease with heavily calcified peripheral vascular disease. 16. Active nicotine addiction and dependence. 17. Pulmonary hypertension with tricuspid regurgitation. 18. Left ventricle ejection fraction of 50% to 55%. 19. Multivessel coronary artery disease. 20. Hypertension. 21. Hyperlipidemia and hypercholesterolemia. 22. History of iron deficiency and vitamin B12 deficiency. 1. Multivessel coronary artery disease and triple-vessel coronary artery disease. 2. Acute non-ST elevation myocardial infarction with elevated troponin. 3. Status post angioplasty and drug-eluting stent placement. 4. Multivessel coronary artery disease. 5. Left bundle-branch block. 6. Left anterior hemiblock. 7. Normocytic iron-deficiency anemia. 8. Granulocytosis. 9. History of vitamin B12 deficiency. 10. Insulin-requiring uncontrolled diabetes mellitus with hyperglycemia and elevated hemoglobin A1c of greater than 8. 11. Severe dietary noncompliance. 12. Active nicotine dependence. 13. Probable chronic obstructive pulmonary disease. 14. Hypertension. 15. Bradycardia. 16. Questionable pulmonary hypertension. 17. Unstable angina and acute coronary syndrome with acute non-ST elevation myocardial infarction with triple-vessel coronary artery disease. 18. Severe peripheral vascular disease. 19. Insulin-requiring diabetes mellitus. 20. Hyperlipidemia. 1. Acute non-ST elevation myocardial infarction with unstable angina and elevated troponin. 2. Triple-vessel coronary artery disease. 3. Status post angioplasty and drug-eluting stent placement of the left circumflex artery. 3. Acute blood loss anemia, etiology undetermined status post packed red blood cell transfusion x4. 4. Status post hypotension. 5. Nicotine dependence and addiction. 6. Deconditioning. 7. History of duodenal and gastric arteriovenous malformation. 8. Sinus bradycardia. 9. Leukocytosis with granulocytosis (resolved). 10. Relative thrombocytopenia. 11. Prerenal kidney injury (resolved). 12. Uncontrolled insulin-requiring diabetes mellitus with hemoglobin A1c of 8.4 and fructosamine of 319. 13. Mild protein malnutrition and hypoalbuminemia. 14. Glycosuria, microscopic hematuria, pyuria. 15. Status post packed red blood cell transfusion x4. 16. Left bundle-branch block with left anterior hemiblock. 17. 18. Pulmonary hypertension with right ventricular systolic pressure of 45 mmHg. 19. Left bundle-branch block. 20. Left anterior hemiblock. 21. Iron-deficiency anemia and vitamin B12 deficiency. 22. Hyperlipidemia. 23. Constipation with fecal stasis and fecal retention. 24. Diabetic neuropathy. 1. Status post rapid response, severe symptomatic hypotension requiring intravenous fluid bolus and intravenous dopamine drip with treatment. 2. Acute blood loss anemia, etiology undetermined. 3. Non-ST elevation myocardial infarction with elevated troponin. 4. Triple-vessel coronary artery disease. 5. Unstable angina. 6. Sinus bradycardia. 7. History of hypertension. 8. Granulocytosis. 9. Severe symptomatic anemia with decreasing hemoglobin to 6.4. 10. Relative thrombocytopenia. 11. Prerenal kidney injury. 12. Uncontrolled diabetes, insulin-requiring diabetes mellitus with hemoglobin A1c of 8.4 and fructosamine of 319. 13. Hypocalcemia. 14. Hypomagnesemia. 15. Hypophosphatemia. 16. Mild protein malnutrition and mild hypoalbuminemia. 17. History of hyperlipidemia. 18. Glycosuria, microscopic hematuria, pyuria. 19. Status post packed red blood cell transfusion x4. 20. Pancreatic atrophy. 21. Left renal cyst. 22. Aortic calcification and mural plaque. 23. Fecal impaction, constipation. 24. Gastric distention, etiology undetermined. 25. Left axis deviation and left bundle-branch block. 26. Left ventricle ejection fraction of 60%. 27. Status post cardiac catheterization and successful percutaneous transluminal coronary angioplasty and stent placement of the left circumflex artery. 28. Proximal occluded right coronary artery with collaterals to the distal right coronary artery. 29. 80% stenosis after the bifurcation of the high diagonal and at the septal helper electrical of the left anterior descending artery 80% stenosis. 30. 99% stenosis of the proximal portion of the obtuse marginal branch of the left circumflex artery. 31. Bilateral lower extremity peripheral vascular disease, 32. Deconditioning. 33. Gait dysfunction. 1. Status post rapid response and severe symptomatic hypotension. requiring IV fluid boluses and IV dopamine treatment. 2. Acute blood loss anemia, etiology undetermined. 3. Non-ST elevation myocardial infarction with elevated troponin. 4. Triple-vessel coronary artery disease. 5. Severe bilateral peripheral vascular disease. 6. Status post packed red blood cell transfusion x4. 7. Status post angioplasty and stent placement of the 99% stenosis of the left circumflex. 8. Status post hypotension. 9. History of hypertension. 10. Questionable left inguinal and left groin hematoma. 11. Left axis deviation, left anterior hemiblock and left bundle-branch block. 12. Leukocytosis. 13. Relative thrombocytopenia. 14. Granulocytosis. 15. Uncontrolled insulin-requiring diabetes mellitus with hemoglobin A1c of 8.4 and hyperglycemia and elevated fructosamine of 319. 16. History of hyperlipidemia. 17. History of multinodular thyroid nodule. 18. Acute non-ST elevation myocardial infarction with elevated troponin. 19. Prerenal kidney injury. 20. Hypomagnesemia. 21. Protein malnutrition and mild hypoalbuminemia. 22. Glycosuria, microscopic hematuria, and pyuria. 23. Pancreatic atrophy. 24. Left renal cyst. 25. Aortic and iliac arteries atherosclerotic calcification and mural plaques. 26. Constipation and fecal impaction. 27. Gastric distention, etiology undetermined. 28. Left inguinal groin area hematoma. 29. Status post cardiac catheterization and angioplasty and stent placement of the circumflex artery and peripheral angiogram. 30. Left ventricular ejection fraction of 60%. 31. Proximal occlusion of the right coronary artery with distal right coronary artery collateral. 32. An 80% stenosis of the left anterior descending artery after the bifurcation of the high diagonal at the septal helper electrical. 33. A 99% stenosis of the heavily calcified left circumflex artery in the portion of the obtuse marginal branch. 34. Triple-vessel coronary artery disease with normal left ventricular ejection fraction. 35. Status post successful angioplasty and stent placement of the left circumflex artery. 36. Severe peripheral vascular disease of the lower extremity. 1. Acute non-ST elevation myocardial infarction with elevated troponin. 2. Multivessel coronary artery disease. 3. Status post cardiac catheterization and angioplasty and stent placement of the left circumflex artery. 4. Left bundle-branch block with left anterior hemiblock and sinus bradycardia. 5. History of 50% stenosis of the mid left anterior descending artery that after the takeoff of the first diagonal branch and first septal helper electrical. 6. History of 40-50% stenosis of the mid ramus intermedius. 7. History of diffuse disease of the left circumflex. 8. History of complex 60% eccentric plaque stenosis of the proximal right coronary artery. 9. History of 30% stenosis of the mid right posterior descending artery. 10. Unstable angina. 11. History of iron-deficiency anemia and vitamin B12 deficiency. 12. Status post leukocytosis, granulocytosis. 13. Uncontrolled insulin-requiring diabetes mellitus with hyperglycemia and hemoglobin A1c of 8.4 and fructosamine of 319. 14. Acute non-ST elevation myocardial infarction with elevated troponin. 15. Glycosuria, microscopic hematuria, pyuria. 16. Status post packed red blood cell transfusion x1. 17. Active nicotine addiction and dependence. 18. Unstable angina. 19. Normocytic iron-deficiency anemia. 20. Hypertensive cardiovascular disease. . Precordial chest pain with radiation to neck and jaw 2. Questionable unstable angina. 3. History of coronary artery disease with a cardiac catheterization done in 2013. 4. Leukocytosis with granulocytosis. 5. Normocytic iron-deficiency anemia. 6. Hyperglycemia. 7 Insulin-requiring diabetes mellitus. 8. Glycosuria. 9. Microscopic hematuria and pyuria. 10. Left anterior hemiblock and left bundle-branch block. 11. Hypertension. 12. History of hypertensive cardiovascular disease. 13. Nicotine addiction and dependence. 14. Chronic obstructive pulmonary disease. Plan at this time, the patient's NPH insulin at breakfast and dinner has been increased to 20 units with breakfast and dinner. The patient will be continued on Humalog medium dose sliding scale coverage before meals and at bedtime. Repeat CMP, magnesium, phosphorus for the morning ordered. Consultations: Cardiology and Podiatry. Current medications: Hydralazine 10 mg twice a day, Coreg 3.125 mg daily, Ecotrin 81 mg daily, ferrous sulfate 324 mg three times a day, folic acid 1 mg daily, Humalog medium dose sliding scale coverage before meals and at bedtime, NPH 20 units with breakfast and 20 units with supper, Lipitor 40 mg daily, MiraLax 17 g twice a day, Neurontin 300 mg twice a day, nicotine patch 21 mg daily, Plavix 75 mg daily, Protonix 40 mg twice a day, Tylenol p.o. or suppository every 6 hours p.r.n., vitamin D3 2000 international units daily, Xopenex nebulizer 0.63 mg every 6 hours, Zofran 4 mg IV every 4 hours p.r.n. LONG schofield, SCDs, out of bed, physical therapy, occupational therapy ordered. The patient will be continued on physical therapy, occupational therapy and ambulation therapy while the patient is on transitional care unit. Dictated and electronically signed, not read. Edilson Reddy MD [email or web address]
[2018-10-03] MEDS: Levalbuterol 0.63 MG/3 ML Inhal Soln UD IH SCH ×4 (01:55→20:40)
[2018-10-03] MEDS: Pantoprazole 40 mg EC Tab PO SCH (06:07)
[2018-10-03 07:09] LABS: ALB/GLOB RATIO 1.2 (1.1-1.8); ALBUMIN 3.3 g/dL (3.0-4.8); ALT/SGPT 27 U/L (7-56); AST/SGOT 23 U/L (14-36); BLOOD UREA NITROGEN 20 mg/dL (7-21); GFR NON-AFRICAN AMERICAN > 60
[2018-10-03] MEDS: Insulin Lispro (humaLOG) MEDIUM Coverage SC SCH ×4 (07:09→22:27)
[2018-10-03] MEDS: Insulin Human NPH 1 UNITS/0.01 ML SC SCH ×2 (07:10→17:50)
[2018-10-03] MEDS: Cholecalciferol 1,000 INTLU TAB PO SCH (11:03)
[2018-10-03] MEDS: POLYETHYLENE GLYCOL 3350 17 GM/Dose PACKET PO SCH ×2 (11:03→17:32)
--- NOTE | 2018-10-03 11:56 | PN ---
DATE: 10/03/2018 LOCATION: The patient is seen in room 315. SUBJECTIVE: The patient is still on Transitional Care Unit. The patient is alert, awake, responsive. Overnight nurse's notes were reviewed. No adverse events were documented. The patient stayed comfortable. OBJECTIVE: VITAL SIGNS: T-max 97.3, heart rate 55, blood pressure 125/77 respirations 16, O2 sat 100%. HEENT: Head: Normocephalic, atraumatic. HEENT examination shows pinkish conjunctivae. Anicteric sclerae. No oropharyngeal lesion. NECK: No neck rigidity. CHEST: Kyphosis. LUNGS: Shows no audible crackle, rales or wheezing. CARDIOVASCULAR: Shows S1, S2, regular rhythm. Positive systolic murmur left sternal border, right second intercostal space, left second intercostal space. ABDOMEN: Soft. Positive bowel sound. No palpable hepatosplenomegaly. GENITALIA: Female. RECTAL: Deferred. EXTREMITIES: Shows no pitting edema, no calf tenderness, no Homans' sign. NEUROLOGIC: The patient is alert, awake, oriented x3, is able to move upper and lower extremity without assistance. Gait examination is not tested. MUSCULOSKELETAL: As per the body mass index. GAIT: Not tested but as per the physical therapy. DIAGNOSTICS: Sodium 138, potassium 4.5, chloride 109, CO2 26, BUN 20, creatinine 0.9, glucose 112, calcium 9.0, phosphorus 3.7, magnesium 2.3. IMPRESSION AND PLAN: 1. Deconditioning. 2. Gait dysfunction. 3. Bradycardia. 4. Status post non-hemolyzed hyperkalemia. 5. Hypertension. 6. Multivessel coronary artery disease. 7. Non-ST elevation myocardial infarction with elevated troponin. 8. Status post successful angioplasty and stent placement with drug-eluting stent placement of the left anterior descending artery and left circumflex artery. 9. Triple-vessel coronary artery disease. 10. Anemia with decreasing hemoglobin/hematocrit. 11. Status post packed red blood cell transfusion x6. 12. Iron-deficiency anemia. 13. Vitamin B12 deficiency. 14. Chronic obstructive pulmonary disease with history of active nicotine addiction and dependence. 15. Unstable angina. 16. Anemia. 17. Uncontrolled insulin-requiring diabetes mellitus with hyperglycemia and elevated hemoglobin A1c of greater than 8.4. 18. Bilateral lower extremity peripheral arterial disease. 19. Hyperlipidemia. 20. Status post non-hemolyzed hyperkalemia. 1. Deconditioning. 2. Gait dysfunction. 3. Acute non-ST elevation myocardial infarction with elevated troponin. 4. Multivessel coronary artery disease. 5. Status post successful angioplasty and drug-eluting stent placement of the left anterior descending and left circumflex. 6. Triple-vessel coronary artery disease. 7. Bradycardia. 8. History of hypertension with episodic hypotension. 9. Normocytic iron-deficiency anemia. 10. Status post packed red blood cell transfusion x6. 11. Status post PHARMACY OPERATIONS SPECIALIST and status post hypotension. 12. Hyperkalemia. 13. Hyperglycemia. 14. Prerenal kidney injury. 15. Status post hyperkalemia. 16. Nicotine dependence. 17. Peripheral vascular disease of bilateral lower extremities. 18. Active nicotine addiction. 19. Diabetic foot disease. 20. Iron-deficiency anemia. 21. History of vitamin B12 deficiency. 22. Uncontrolled insulin-requiring diabetes mellitus with hyperglycemia and elevated hemoglobin A1c of greater than 8.3. 23. Hyperlipidemia. 24. Constipation. 25. Diabetic neuropathy. 26. Hypovitaminosis D. 1. Acute non-ST elevation myocardial infarction with elevated troponin. 2. Multivessel, triple-vessel coronary artery disease. 3. Status post angioplasty and stent placement of the left anterior descending artery and left circumflex artery. 4. Hypertension. 5. Bradycardia. 6. Normocytic iron-deficiency anemia, status post packed red blood cell transfusion x6. 7. Uncontrolled insulin-requiring diabetes mellitus with hyperglycemia. 8. Non-hemolyzed hyperkalemia. 9. Prerenal kidney injury. 10. Gait dysfunction. 11. Deconditioning. 12. Constipation. 13. Hyperlipidemia. 14. Diabetic neuropathy. 15. Nicotine dependence and addiction. 16. Peripheral vascular disease. 17. Hypovitaminosis D. 1. Acute non-ST elevation myocardial infarction with elevated troponin. 2. Multivessel triple-vessel coronary artery disease. 3. Status post angioplasty and stent placement of the left anterior descending artery. 4. Status post angioplasty and stent placement of the left circumflex artery. 5. An 80%-90%stenosis of the proximal mid left anterior descending artery at the takeoff of the septal hand sprayer. 6. Occluded right coronary artery. 7. Status post successful angioplasty and stent placement of 80% to 90% stenosis of the proximal to mid left anterior descending with drug-eluting stent placement. 8. Left ventricle ejection fraction of 60% on the cardiac catheterization. 9. Right coronary artery occlusion in the proximal portion. 10. An 80% stenosis of left anterior descending at the bifurcation of the high diagonal and septal hand sprayer. 11. An 99% stenosis of the proximal portion of the left circumflex of the obtuse marginal branch. 12. Triple vessel coronary artery disease. 13. Status post successful angioplasty and stent placement of the left circumflex artery and left anterior descending artery. 14. Bradycardia. 15. Hypertension. 16. Status post rapid response with hypotension and decreasing hemoglobin and hematocrit to 6.4 and 20. 17. Granulocytosis. 18. Elevated reticulocyte count of greater than 3 19. Uncontrolled insulin-requiring diabetes mellitus with hyperglycemia and hemoglobin A1c of 8.4 and fructosamine of 319. 20. History of thyroid nodule. 21. Acute non-ST elevation myocardial infarction. 22. Hypomagnesemia. 23. History of iron-deficiency anemia and vitamin B12 deficiency. 24. Glycosuria, microscopic hematuria, pyuria. 25. Status post be packed red blood cell transfusion x6. 26. Pancreatic atrophy. 27. Left renal cyst. 28. Fecal impaction and constipation. 29. Gastric distention, etiology undetermined. 30. Left groin and inguinal area hematoma. 31. Left axis deviation, left anterior hemiblock and left bundle-branch block. 32. Left ventricular ejection fraction of 55% on echocardiogram with pulmonary hypertension. Right ventricular systolic pressure of 45 mmHg. 33. Mildly dilated left atrium. 34. Aortic valve calcification. 35. Mitral annular calcification, mild mitral regurgitation. 36. Mild tricuspid regurgitation. 37. [id number] pulmonary hypertension with right ventricular systolic pressure of 45 mmHg. 1. Status post angioplasty and drug-eluting stent placement of the left circumflex and left anterior descending artery. 2. Acute non-ST elevation myocardial infarction with elevated troponin. 3. Left groin questionable hematoma. 4. Normocytic anemia with decreasing hemoglobin and hematocrit. 5. Uncontrolled insulin-requiring diabetes mellitus with hyperglycemia and elevated hemoglobin A1c of greater than 8. 6. Active nicotine addiction and dependence. 7. Chronic obstructive pulmonary disease. 8. History of iron deficiency anemia and vitamin B12 deficiency. 9. Hypovitaminosis D. 10. Hypertension. 11. Bradycardia. 12. Status post post angioplasty hypotension and status post rapid response. 13. Constipation with fecal stasis and fecal retention. 1. Acute non-ST elevation myocardial infarction with elevated troponin. 2. Triple-vessel coronary artery disease. 3. Status post successful angioplasty of the left anterior descending artery with drug-eluting stent. 4. An 80% to 90% stenosis of the mid to proximal left anterior descending artery at the septal hand sprayer takeoff status post successful angioplasty and drug-eluting stent placement of the mid to proximal left anterior descending 80% to 90% stenosis. 5. Patent stent of the left circumflex artery. 6. Occluded right coronary artery. 7. Bradycardia. 8. Uncontrolled insulin-requiring diabetes mellitus with hyperglycemia. 9. Anemia with decreasing hemoglobin/hematocrit. 10. Status post packed red blood cell transfusion x4. 11. Granulocytosis. 12. Elevated reticulocyte count of 3. 13. Hyperhomocysteinemia. 14. Hyperglycemia. 15. Peripheral arterial disease of the lower extremity including superficial femoral artery popliteal and tibial artery peripheral artery disease with heavily calcified peripheral vascular disease. 16. Active nicotine addiction and dependence. 17. Pulmonary hypertension with tricuspid regurgitation. 18. Left ventricle ejection fraction of 50% to 55%. 19. Multivessel coronary artery disease. 20. Hypertension. 21. Hyperlipidemia and hypercholesterolemia. 22. History of iron deficiency and vitamin B12 deficiency. 1. Multivessel coronary artery disease and triple-vessel coronary artery disease. 2. Acute non-ST elevation myocardial infarction with elevated troponin. 3. Status post angioplasty and drug-eluting stent placement. 4. Multivessel coronary artery disease. 5. Left bundle-branch block. 6. Left anterior hemiblock. 7. Normocytic iron-deficiency anemia. 8. Granulocytosis. 9. History of vitamin B12 deficiency. 10. Insulin-requiring uncontrolled diabetes mellitus with hyperglycemia and elevated hemoglobin A1c of greater than 8. 11. Severe dietary noncompliance. 12. Active nicotine dependence. 13. Probable chronic obstructive pulmonary disease. 14. Hypertension. 15. Bradycardia. 16. Questionable pulmonary hypertension. 17. Unstable angina and acute coronary syndrome with acute non-ST elevation myocardial infarction with triple-vessel coronary artery disease. 18. Severe peripheral vascular disease. 19. Insulin-requiring diabetes mellitus. 20. Hyperlipidemia. 1. Acute non-ST elevation myocardial infarction with unstable angina and elevated troponin. 2. Triple-vessel coronary artery disease. 3. Status post angioplasty and drug-eluting stent placement of the left circumflex artery. 3. Acute blood loss anemia, etiology undetermined status post packed red blood cell transfusion x4. 4. Status post hypotension. 5. Nicotine dependence and addiction. 6. Deconditioning. 7. History of duodenal and gastric arteriovenous malformation. 8. Sinus bradycardia. 9. Leukocytosis with granulocytosis (resolved). 10. Relative thrombocytopenia. 11. Prerenal kidney injury (resolved). 12. Uncontrolled insulin-requiring diabetes mellitus with hemoglobin A1c of 8.4 and fructosamine of 319. 13. Mild protein malnutrition and hypoalbuminemia. 14. Glycosuria, microscopic hematuria, pyuria. 15. Status post packed red blood cell transfusion x4. 16. Left bundle-branch block with left anterior hemiblock. 17. 18. Pulmonary hypertension with right ventricular systolic pressure of 45 mmHg. 19. Left bundle-branch block. 20. Left anterior hemiblock. 21. Iron-deficiency anemia and vitamin B12 deficiency. 22. Hyperlipidemia. 23. Constipation with fecal stasis and fecal retention. 24. Diabetic neuropathy. 1. Status post rapid response, severe symptomatic hypotension requiring intravenous fluid bolus and intravenous dopamine drip with treatment. 2. Acute blood loss anemia, etiology undetermined. 3. Non-ST elevation myocardial infarction with elevated troponin. 4. Triple-vessel coronary artery disease. 5. Unstable angina. 6. Sinus bradycardia. 7. History of hypertension. 8. Granulocytosis. 9. Severe symptomatic anemia with decreasing hemoglobin to 6.4. 10. Relative thrombocytopenia. 11. Prerenal kidney injury. 12. Uncontrolled diabetes, insulin-requiring diabetes mellitus with hemoglobin A1c of 8.4 and fructosamine of 319. 13. Hypocalcemia. 14. Hypomagnesemia. 15. Hypophosphatemia. 16. Mild protein malnutrition and mild hypoalbuminemia. 17. History of hyperlipidemia. 18. Glycosuria, microscopic hematuria, pyuria. 19. Status post packed red blood cell transfusion x4. 20. Pancreatic atrophy. 21. Left renal cyst. 22. Aortic calcification and mural plaque. 23. Fecal impaction, constipation. 24. Gastric distention, etiology undetermined. 25. Left axis deviation and left bundle-branch block. 26. Left ventricle ejection fraction of 60%. 27. Status post cardiac catheterization and successful percutaneous transluminal coronary angioplasty and stent placement of the left circumflex artery. 28. Proximal occluded right coronary artery with collaterals to the distal right coronary artery. 29. 80% stenosis after the bifurcation of the high diagonal and at the septal hand sprayer of the left anterior descending artery 80% stenosis. 30. 99% stenosis of the proximal portion of the obtuse marginal branch of the left circumflex artery. 31. Bilateral lower extremity peripheral vascular disease, 32. Deconditioning. 33. Gait dysfunction. 1. Status post rapid response and severe symptomatic hypotension. requiring IV fluid boluses and IV dopamine treatment. 2. Acute blood loss anemia, etiology undetermined. 3. Non-ST elevation myocardial infarction with elevated troponin. 4. Triple-vessel coronary artery disease. 5. Severe bilateral peripheral vascular disease. 6. Status post packed red blood cell transfusion x4. 7. Status post angioplasty and stent placement of the 99% stenosis of the left circumflex. 8. Status post hypotension. 9. History of hypertension. 10. Questionable left inguinal and left groin hematoma. 11. Left axis deviation, left anterior hemiblock and left bundle-branch block. 12. Leukocytosis. 13. Relative thrombocytopenia. 14. Granulocytosis. 15. Uncontrolled insulin-requiring diabetes mellitus with hemoglobin A1c of 8.4 and hyperglycemia and elevated fructosamine of 319. 16. History of hyperlipidemia. 17. History of multinodular thyroid nodule. 18. Acute non-ST elevation myocardial infarction with elevated troponin. 19. Prerenal kidney injury. 20. Hypomagnesemia. 21. Protein malnutrition and mild hypoalbuminemia. 22. Glycosuria, microscopic hematuria, and pyuria. 23. Pancreatic atrophy. 24. Left renal cyst. 25. Aortic and iliac arteries atherosclerotic calcification and mural plaques. 26. Constipation and fecal impaction. 27. Gastric distention, etiology undetermined. 28. Left inguinal groin area hematoma. 29. Status post cardiac catheterization and angioplasty and stent placement of the circumflex artery and peripheral angiogram. 30. Left ventricular ejection fraction of 60%. 31. Proximal occlusion of the right coronary artery with distal right coronary artery collateral. 32. An 80% stenosis of the left anterior descending artery after the bifurcation of the high diagonal at the septal hand sprayer. 33. A 99% stenosis of the heavily calcified left circumflex artery in the portion of the obtuse marginal branch. 34. Triple-vessel coronary artery disease with normal left ventricular ejection fraction. 35. Status post successful angioplasty and stent placement of the left circumflex artery. 36. Severe peripheral vascular disease of the lower extremity. 1. Acute non-ST elevation myocardial infarction with elevated troponin. 2. Multivessel coronary artery disease. 3. Status post cardiac catheterization and angioplasty and stent placement of the left circumflex artery. 4. Left bundle-branch block with left anterior hemiblock and sinus bradycardia. 5. History of 50% stenosis of the mid left anterior descending artery that after the takeoff of the first diagonal branch and first septal hand sprayer. 6. History of 40-50% stenosis of the mid ramus intermedius. 7. History of diffuse disease of the left circumflex. 8. History of complex 60% eccentric plaque stenosis of the proximal right coronary artery. 9. History of 30% stenosis of the mid right posterior descending artery. 10. Unstable angina. 11. History of iron-deficiency anemia and vitamin B12 deficiency. 12. Status post leukocytosis, granulocytosis. 13. Uncontrolled insulin-requiring diabetes mellitus with hyperglycemia and hemoglobin A1c of 8.4 and fructosamine of 319. 14. Acute non-ST elevation myocardial infarction with elevated troponin. 15. Glycosuria, microscopic hematuria, pyuria. 16. Status post packed red blood cell transfusion x1. 17. Active nicotine addiction and dependence. 18. Unstable angina. 19. Normocytic iron-deficiency anemia. 20. Hypertensive cardiovascular disease. . Precordial chest pain with radiation to neck and jaw 2. Questionable unstable angina. 3. History of coronary artery disease with a cardiac catheterization done in 2013. 4. Leukocytosis with granulocytosis. 5. Normocytic iron-deficiency anemia. 6. Hyperglycemia. 7 Insulin-requiring diabetes mellitus. 8. Glycosuria. 9. Microscopic hematuria and pyuria. 10. Left anterior hemiblock and left bundle-branch block. 11. Hypertension. 12. History of hypertensive cardiovascular disease. 13. Nicotine addiction and dependence. 14. Chronic obstructive pulmonary disease. PLAN: At this time, the patient is to be continued on Transitional Care Unit with daily physical therapy, occupational therapy, ambulation therapy, gait training. The patient will be continued on TCU till approved number of days. The patient will be continued on the medications as per the MAR of today which was reviewed. The patient has been updated about her condition, diagnosis, treatment plan, treatment details at length. All questions concerned answered. Dictated and electronically signed, not read. Edilson Reddy MD JAUN
--- NOTE | 2018-10-03 13:57 | PN ---
DATE: 10/03/2018 SUBJECTIVE: The patient is ambulating with physical therapy in the TCU. PHYSICAL EXAMINATION: VITAL SIGNS: Blood pressure 137/84, the heart rate in the 50s. NECK: Negative JVD. LUNGS: Without rales. HEART: S1, S2. EXTREMITIES: Without edema. LABORATORY DATA: Hemoglobin is 11.8. Chemistries are unremarkable. Glucose is 112. IMPRESSION: 1. Stable angina. 2. Status post multivessel percutaneous transluminal coronary angioplasty and stent. 3. Remote non-ST elevation myocardial infarction. 4. Diabetes mellitus. 5. Hypertension. 6. Chronic obstructive pulmonary disease. 7. Anemia. PLAN: Given these findings, the patient is doing well. We will continue her aspirin and Plavix. We will discontinue her Protonix given its cross reactivity with Plavix. Abdullahi Vanessa MD
--- NOTE | 2018-10-03 15:37 | CP.PCM.CON ---
History of Present Illness - History of Present Illness History of Present Illness: Podiatry consult note for Dr. Marroquin, 72 year old female, whose past medical history includes anemia, diabetes and Hypertension, seen at bedside with no complains of the foot and nakle. Patient states she is at the hospital for chest pain. Patient states she has a right leg wound that had a scab that she had picked 2 weeks ago. ever since then, its been a wound that she is using a bandage for. patient denies seeing any purulent drainage from the wound. Denies seeing a animal sitter before. Denies f/n/v/sob. Past Patient History - Past Social History Smoking Status: Light Smoker < 10 Cigarettes Daily - CARDIAC Hx Cardiac Disorders: Yes Hx Hypertension: Yes - PULMONARY Hx Respiratory Disorders: No - NEUROLOGICAL HX Cerebrovascular Accident: Yes (2010) - HEENT Hx HEENT Problems: No - RENAL Hx Chronic Kidney Disease: No Other/Comment: family history of renal disorder - ENDOCRINE/METABOLIC Hx Diabetes Mellitus Type 2: Yes - HEMATOLOGICAL/ONCOLOGICAL Hx Blood Transfusions: Yes Hx Blood Transfusion Reaction: No - INTEGUMENTARY Other/Comment: Fungus on the nails - MUSCULOSKELETAL/RHEUMATOLOGICAL Hx Falls: Yes - GASTROINTESTINAL Hx Gastrointestinal Disorders: No - GENITOURINARY/GYNECOLOGICAL Hx Reproductive Disorders: No - PSYCHIATRIC Hx Emotional Abuse: No Hx Physical Abuse: No Hx Substance Use: No - SURGICAL HISTORY Hx Surgeries: Yes - ANESTHESIA Hx Anesthesia Reactions: No Hx Malignant Hyperthermia: No Meds Allergies/Adverse Reactions: Allergies Allergy/AdvReac Type Severity Reaction Status Date / Time No Known Allergies Allergy Verified 01/05/17 13:49 - Medications Medications: Current Medications Acetaminophen (Tylenol 325mg Tab) 650 mg PO Q6 PRN PRN Reason: TEMP>=99.5F Acetaminophen (Tylenol 650 Mg Supp) 650 mg RC Q6H PRN PRN Reason: TEMP>=99.5F Aspirin (Ecotrin) 81 mg PO 0800 [facility]; Protocol Last Admin: 10/03/18 08:23 Dose: 81 mg Atorvastatin Calcium (Lipitor) 40 mg PO DIN [facility]; Protocol Last Admin: 10/02/18 17:56 Dose: 40 mg Carvedilol (Coreg) 3.125 mg PO 0800 [facility]ULIO; Protocol Last Admin: 10/03/18 08:22 Dose: Not Given Cholecalciferol (Vitamin D) 1,000 intlu PO DAILY [facility]; Protocol Last Admin: 10/03/18 11:03 Dose: 1,000 intlu Clopidogrel Bisulfate (Plavix) 75 mg PO DAILY [facility]; Protocol Last Admin: 10/03/18 11:03 Dose: 75 mg Dextrose (Dextrose 50% Inj) 0 ml IV STAT PRN; Protocol PRN Reason: Hypoglycemia Protocol Ferrous Sulfate (Feosol) 324 mg PO 0800,1200,1600 [facility]; Protocol Last Admin: 10/03/18 12:21 Dose: 324 mg Folic Acid (Folic Acid) 1 mg PO DAILY [facility]; Protocol Last Admin: 10/03/18 11:00 Dose: 1 mg Gabapentin (Neurontin) 300 mg PO BID [facility]; Protocol Last Admin: 10/03/18 11:03 Dose: 300 mg Hydralazine HCl (Apresoline) 10 mg PO 1000,1800 [facility]; Protocol Last Admin: 10/03/18 11:00 Dose: Not Given Dextrose (Dextrose 5% In Water 1000 Ml) 1,000 mls @ 0 mls/hr IV .Q0M PRN; Protocol PRN Reason: Hypoglycemia Protocol Insulin Human Lispro (Humalog Med) 0 units SC ACHS [facility]; Protocol Last Admin: 10/03/18 12:30 Dose: 7 units Insulin Human NPH (Humulin N) 20 units SC ACB [facility] Last Admin: 10/03/18 07:10 Dose: 20 u Insulin Human NPH (Humulin N) 20 units SC DAILY@1745 [facility] Last Admin: 10/02/18 17:55 Dose: 20 units Levalbuterol HCl (Xopenex) 0.63 mg IH [id number] [facility]; Protocol Last Admin: 10/03/18 13:03 Dose: 0.63 mg Nicotine (Nicoderm Cq) 1 patch TD DAILY [facility]; Protocol Last Admin: 10/03/18 11:03 Dose: 1 patch Ondansetron HCl (Zofran Inj) 4 mg IVP Q4H PRN PRN Reason: Nausea/Vomiting Polyethylene Glycol (Miralax) 17 gm PO BID [facility]; Protocol Last Admin: 10/03/18 11:03 Dose: Not Given Physical Exam - Constitutional Appears: Well, Non-toxic, No Acute Distress - Head Exam Head Exam: ATRAUMATIC, NORMOCEPHALIC - Eye Exam Eye Exam: Normal appearance Pupil Exam: NORMAL ACCOMODATION - ENT Exam ENT Exam: Mucous Membranes Moist - Extremities Exam Additional comments: Vascular: DP/PT pulses faintly palpable, CFt <3 secs x5, TG warm to cool (WNL), no edema or erythema noted derm: circular wound noted at the posterior mid leg, sanguinous drainage noted, no malodor, fibrogranular base, no signs of infection, no edema or erythema, no tracking or tunneling. ortho: no pain on palpation of the wound neuro: protective sensation intact via ipswich 12/22 Results - Vital Signs Recent Vital Signs: Last Vital Signs Temp 97.3 F L 10/02/18 16:00 Pulse 54 L 10/03/18 13:19 Resp 16 10/02/18 16:00 BP 137/84 10/03/18 11:00 Pulse Ox 98 10/03/18 13:19 - Labs Result Diagrams: 10/01/18 07:00 10/03/18 06:20 Labs: Laboratory Results - last 24 hr 10/03/18 10/03/18 10/03/18 06:20 06:56 11:11 Sodium 138 Potassium 4.5 Chloride 109 H Carbon Dioxide 26 Anion Gap 8 L BUN 20 Creatinine 0.9 Est GFR ( Amer) > 60 Est GFR (Non-Af Amer) > 60 POC Glucose (mg/dL) 112 H 321 H Random Glucose 105 Calcium 9.0 Phosphorus 3.7 Magnesium 2.3 H Total Bilirubin 0.5 AST 23 ALT 27 Alkaline Phosphatase 63 Total Protein 6.0 Albumin 3.3 Globulin 2.7 Albumin/Globulin Ratio 1.2 Assessment & Plan - Assessment and Plan (Free Text) Assessment: 72 yo female seen and evaluated for right leg ulcer; noninfected. Plan: Patient seen and evaluated Chart, labs and vitals reviewed Afebrile, absent leukocytosis Optifoam with maxorb used for the ulcer Patient advised to keep the ulcer covered at all times Podiatry will continue to follow while in house thank you for the consult.
[2018-10-03 17:09] VITALS: RESP 18
[2018-10-04] MEDS: Levalbuterol 0.63 MG/3 ML Inhal Soln UD IH SCH ×4 (01:35→20:56)
--- NOTE | 2018-10-04 02:29 | PN ---
DATE: 10/03/2018 LOCATION: The patient is seen in room 313, bed 1. SUBJECTIVE: The patient was also examined while the patient was doing physical therapy. The patient was seen and evaluated in room 313, bed 1. Overnight nurse's notes were reviewed. No adverse events were documented by the nurses. The patient's appetite was good. PHYSICAL EXAMINATION VITAL SIGNS: T-max 98.1; heart rate 56, 54 and 53; blood pressure is 137/84, 134/65 and 137/84; respirations 18; O2 sat 98%. HEENT: Head is normocephalic and atraumatic. Pinkish conjunctivae. Anicteric sclerae. No oropharyngeal lesion. NECK: No neck rigidity. CHEST: Symmetrical. Kyphosis. LUNGS: Show no audible crackle, rales or wheezing. Occasional rhonchi anteriorly in the upper lung renee. CARDIOVASCULAR: S1 and S2, regular rhythm. Positive systolic murmur at the left sternal border, right second intercostal space and left second intercostal space. ABDOMEN: Soft. Positive bowel sounds. No palpable hepatosplenomegaly. GENITALIA: Female. RECTAL: Deferred. EXTREMITIES: Show no pitting edema, no calf tenderness, no Homans sign. NEUROLOGICAL: The patient is alert, awake and responsive. She is able to move upper and lower extremities without assistance. Gait examination is assisted with walker. Cranial nerves II through XII limited and intact. PSYCHIATRIC: Negative. DIAGNOSTIC DATA: On 10/03/2018, sodium 138, potassium 4.5, chloride 109, CO2 of 26, anion gap 8, BUN 20, creatinine 0.9, GFR greater than 60, glucose 105, calcium 9, phosphorus 3.7, magnesium 2.3. LFTs are normal. Fingerstick blood sugars are 240, 245, 112, 321 and 102. IMPRESSION: 1. Deconditioning. 2. Gait dysfunction. 3. Right leg noninfected ulcer. 4. Right leg diabetic noninfected ulcer. 5. Acute non-ST elevation myocardial infarction with elevated troponin. 6. Multivessel, triple-vessel coronary artery disease. 7. Status post angioplasty of the left circumflex and left anterior descending artery. 8. Hypertension. 9. Active nicotine addiction and dependence. 10. Normocytic anemia. 11. Status post packed red blood cell transfusion x6. 12. Uncontrolled diabetes mellitus with hyperglycemia and elevated hemoglobin A1c of greater than 8.4. 13. Non-hemolyzed hyperkalemia. 14. Prerenal kidney injury (resolved). 15. History of vitamin B12 deficiency. 16. History of iron deficiency. 17. Bradycardia. 18. Iron deficiency anemia. 19. Hyperlipidemia. 20. Constipation. 21. Diabetic neuropathy. 22. Hypovitaminosis D. 1. Deconditioning. 2. Gait dysfunction. 3. Bradycardia. 4. Status post non-hemolyzed hyperkalemia. 5. Hypertension. 6. Multivessel coronary artery disease. 7. Non-ST elevation myocardial infarction with elevated troponin. 8. Status post successful angioplasty and stent placement with drug-eluting stent placement of the left anterior descending artery and left circumflex artery. 9. Triple-vessel coronary artery disease. 10. Anemia with decreasing hemoglobin/hematocrit. 11. Status post packed red blood cell transfusion x6. 12. Iron-deficiency anemia. 13. Vitamin B12 deficiency. 14. Chronic obstructive pulmonary disease with history of active nicotine addiction and dependence. 15. Unstable angina. 16. Anemia. 17. Uncontrolled insulin-requiring diabetes mellitus with hyperglycemia and elevated hemoglobin A1c of greater than 8.4. 18. Bilateral lower extremity peripheral arterial disease. 19. Hyperlipidemia. 20. Status post non-hemolyzed hyperkalemia. 1. Deconditioning. 2. Gait dysfunction. 3. Acute non-ST elevation myocardial infarction with elevated troponin. 4. Multivessel coronary artery disease. 5. Status post successful angioplasty and drug-eluting stent placement of the left anterior descending and left circumflex. 6. Triple-vessel coronary artery disease. 7. Bradycardia. 8. History of hypertension with episodic hypotension. 9. Normocytic iron-deficiency anemia. 10. Status post packed red blood cell transfusion x6. 11. Status post [employer] and status post hypotension. 12. Hyperkalemia. 13. Hyperglycemia. 14. Prerenal kidney injury. 15. Status post hyperkalemia. 16. Nicotine dependence. 17. Peripheral vascular disease of bilateral lower extremities. 18. Active nicotine addiction. 19. Diabetic foot disease. 20. Iron-deficiency anemia. 21. History of vitamin B12 deficiency. 22. Uncontrolled insulin-requiring diabetes mellitus with hyperglycemia and elevated hemoglobin A1c of greater than 8.3. 23. Hyperlipidemia. 24. Constipation. 25. Diabetic neuropathy. 26. Hypovitaminosis D. 1. Acute non-ST elevation myocardial infarction with elevated troponin. 2. Multivessel, triple-vessel coronary artery disease. 3. Status post angioplasty and stent placement of the left anterior descending artery and left circumflex artery. 4. Hypertension. 5. Bradycardia. 6. Normocytic iron-deficiency anemia, status post packed red blood cell transfusion x6. 7. Uncontrolled insulin-requiring diabetes mellitus with hyperglycemia. 8. Non-hemolyzed hyperkalemia. 9. Prerenal kidney injury. 10. Gait dysfunction. 11. Deconditioning. 12. Constipation. 13. Hyperlipidemia. 14. Diabetic neuropathy. 15. Nicotine dependence and addiction. 16. Peripheral vascular disease. 17. Hypovitaminosis D. 1. Acute non-ST elevation myocardial infarction with elevated troponin. 2. Multivessel triple-vessel coronary artery disease. 3. Status post angioplasty and stent placement of the left anterior descending artery. 4. Status post angioplasty and stent placement of the left circumflex artery. 5. An 80%-90%stenosis of the proximal mid left anterior descending artery at the takeoff of the septal pearler. 6. Occluded right coronary artery. 7. Status post successful angioplasty and stent placement of 80% to 90% stenosis of the proximal to mid left anterior descending with drug-eluting stent placement. 8. Left ventricle ejection fraction of 60% on the cardiac catheterization. 9. Right coronary artery occlusion in the proximal portion. 10. An 80% stenosis of left anterior descending at the bifurcation of the high diagonal and septal pearler. 11. An 99% stenosis of the proximal portion of the left circumflex of the obtuse marginal branch. 12. Triple vessel coronary artery disease. 13. Status post successful angioplasty and stent placement of the left circumflex artery and left anterior descending artery. 14. Bradycardia. 15. Hypertension. 16. Status post rapid response with hypotension and decreasing hemoglobin and hematocrit to 6.4 and 20. 17. Granulocytosis. 18. Elevated reticulocyte count of greater than 3 19. Uncontrolled insulin-requiring diabetes mellitus with hyperglycemia and hemoglobin A1c of 8.4 and fructosamine of 319. 20. History of thyroid nodule. 21. Acute non-ST elevation myocardial infarction. 22. Hypomagnesemia. 23. History of iron-deficiency anemia and vitamin B12 deficiency. 24. Glycosuria, microscopic hematuria, pyuria. 25. Status post be packed red blood cell transfusion x6. 26. Pancreatic atrophy. 27. Left renal cyst. 28. Fecal impaction and constipation. 29. Gastric distention, etiology undetermined. 30. Left groin and inguinal area hematoma. 31. Left axis deviation, left anterior hemiblock and left bundle-branch block. 32. Left ventricular ejection fraction of 55% on echocardiogram with pulmonary hypertension. Right ventricular systolic pressure of 45 mmHg. 33. Mildly dilated left atrium. 34. Aortic valve calcification. 35. Mitral annular calcification, mild mitral regurgitation. 36. Mild tricuspid regurgitation. 37. Cafa-as-tppouvpm pulmonary hypertension with right ventricular systolic pressure of 45 mmHg. 1. Status post angioplasty and drug-eluting stent placement of the left circumflex and left anterior descending artery. 2. Acute non-ST elevation myocardial infarction with elevated troponin. 3. Left groin questionable hematoma. 4. Normocytic anemia with decreasing hemoglobin and hematocrit. 5. Uncontrolled insulin-requiring diabetes mellitus with hyperglycemia and elevated hemoglobin A1c of greater than 8. 6. Active nicotine addiction and dependence. 7. Chronic obstructive pulmonary disease. 8. History of iron deficiency anemia and vitamin B12 deficiency. 9. Hypovitaminosis D. 10. Hypertension. 11. Bradycardia. 12. Status post post angioplasty hypotension and status post rapid response. 13. Constipation with fecal stasis and fecal retention. 1. Acute non-ST elevation myocardial infarction with elevated troponin. 2. Triple-vessel coronary artery disease. 3. Status post successful angioplasty of the left anterior descending artery with drug-eluting stent. 4. An 80% to 90% stenosis of the mid to proximal left anterior descending artery at the septal pearler takeoff status post successful angioplasty and drug-eluting stent placement of the mid to proximal left anterior descending 80% to 90% stenosis. 5. Patent stent of the left circumflex artery. 6. Occluded right coronary artery. 7. Bradycardia. 8. Uncontrolled insulin-requiring diabetes mellitus with hyperglycemia. 9. Anemia with decreasing hemoglobin/hematocrit. 10. Status post packed red blood cell transfusion x4. 11. Granulocytosis. 12. Elevated reticulocyte count of 3. 13. Hyperhomocysteinemia. 14. Hyperglycemia. 15. Peripheral arterial disease of the lower extremity including superficial femoral artery popliteal and tibial artery peripheral artery disease with heavily calcified peripheral vascular disease. 16. Active nicotine addiction and dependence. 17. Pulmonary hypertension with tricuspid regurgitation. 18. Left ventricle ejection fraction of 50% to 55%. 19. Multivessel coronary artery disease. 20. Hypertension. 21. Hyperlipidemia and hypercholesterolemia. 22. History of iron deficiency and vitamin B12 deficiency. 1. Multivessel coronary artery disease and triple-vessel coronary artery disease. 2. Acute non-ST elevation myocardial infarction with elevated troponin. 3. Status post angioplasty and drug-eluting stent placement. 4. Multivessel coronary artery disease. 5. Left bundle-branch block. 6. Left anterior hemiblock. 7. Normocytic iron-deficiency anemia. 8. Granulocytosis. 9. History of vitamin B12 deficiency. 10. Insulin-requiring uncontrolled diabetes mellitus with hyperglycemia and elevated hemoglobin A1c of greater than 8. 11. Severe dietary noncompliance. 12. Active nicotine dependence. 13. Probable chronic obstructive pulmonary disease. 14. Hypertension. 15. Bradycardia. 16. Questionable pulmonary hypertension. 17. Unstable angina and acute coronary syndrome with acute non-ST elevation myocardial infarction with triple-vessel coronary artery disease. 18. Severe peripheral vascular disease. 19. Insulin-requiring diabetes mellitus. 20. Hyperlipidemia. 1. Acute non-ST elevation myocardial infarction with unstable angina and elevated troponin. 2. Triple-vessel coronary artery disease. 3. Status post angioplasty and drug-eluting stent placement of the left circumflex artery. 3. Acute blood loss anemia, etiology undetermined status post packed red blood cell transfusion x4. 4. Status post hypotension. 5. Nicotine dependence and addiction. 6. Deconditioning. 7. History of duodenal and gastric arteriovenous malformation. 8. Sinus bradycardia. 9. Leukocytosis with granulocytosis (resolved). 10. Relative thrombocytopenia. 11. Prerenal kidney injury (resolved). 12. Uncontrolled insulin-requiring diabetes mellitus with hemoglobin A1c of 8.4 and fructosamine of 319. 13. Mild protein malnutrition and hypoalbuminemia. 14. Glycosuria, microscopic hematuria, pyuria. 15. Status post packed red blood cell transfusion x4. 16. Left bundle-branch block with left anterior hemiblock. 17. 18. Pulmonary hypertension with right ventricular systolic pressure of 45 mmHg. 19. Left bundle-branch block. 20. Left anterior hemiblock. 21. Iron-deficiency anemia and vitamin B12 deficiency. 22. Hyperlipidemia. 23. Constipation with fecal stasis and fecal retention. 24. Diabetic neuropathy. 1. Status post rapid response, severe symptomatic hypotension requiring intravenous fluid bolus and intravenous dopamine drip with treatment. 2. Acute blood loss anemia, etiology undetermined. 3. Non-ST elevation myocardial infarction with elevated troponin. 4. Triple-vessel coronary artery disease. 5. Unstable angina. 6. Sinus bradycardia. 7. History of hypertension. 8. Granulocytosis. 9. Severe symptomatic anemia with decreasing hemoglobin to 6.4. 10. Relative thrombocytopenia. 11. Prerenal kidney injury. 12. Uncontrolled diabetes, insulin-requiring diabetes mellitus with hemoglobin A1c of 8.4 and fructosamine of 319. 13. Hypocalcemia. 14. Hypomagnesemia. 15. Hypophosphatemia. 16. Mild protein malnutrition and mild hypoalbuminemia. 17. History of hyperlipidemia. 18. Glycosuria, microscopic hematuria, pyuria. 19. Status post packed red blood cell transfusion x4. 20. Pancreatic atrophy. 21. Left renal cyst. 22. Aortic calcification and mural plaque. 23. Fecal impaction, constipation. 24. Gastric distention, etiology undetermined. 25. Left axis deviation and left bundle-branch block. 26. Left ventricle ejection fraction of 60%. 27. Status post cardiac catheterization and successful percutaneous transluminal coronary angioplasty and stent placement of the left circumflex artery. 28. Proximal occluded right coronary artery with collaterals to the distal right coronary artery. 29. 80% stenosis after the bifurcation of the high diagonal and at the septal pearler of the left anterior descending artery 80% stenosis. 30. 99% stenosis of the proximal portion of the obtuse marginal branch of the left circumflex artery. 31. Bilateral lower extremity peripheral vascular disease, 32. Deconditioning. 33. Gait dysfunction. 1. Status post rapid response and severe symptomatic hypotension. requiring IV fluid boluses and IV dopamine treatment. 2. Acute blood loss anemia, etiology undetermined. 3. Non-ST elevation myocardial infarction with elevated troponin. 4. Triple-vessel coronary artery disease. 5. Severe bilateral peripheral vascular disease. 6. Status post packed red blood cell transfusion x4. 7. Status post angioplasty and stent placement of the 99% stenosis of the left circumflex. 8. Status post hypotension. 9. History of hypertension. 10. Questionable left inguinal and left groin hematoma. 11. Left axis deviation, left anterior hemiblock and left bundle-branch block. 12. Leukocytosis. 13. Relative thrombocytopenia. 14. Granulocytosis. 15. Uncontrolled insulin-requiring diabetes mellitus with hemoglobin A1c of 8.4 and hyperglycemia and elevated fructosamine of 319. 16. History of hyperlipidemia. 17. History of multinodular thyroid nodule. 18. Acute non-ST elevation myocardial infarction with elevated troponin. 19. Prerenal kidney injury. 20. Hypomagnesemia. 21. Protein malnutrition and mild hypoalbuminemia. 22. Glycosuria, microscopic hematuria, and pyuria. 23. Pancreatic atrophy. 24. Left renal cyst. 25. Aortic and iliac arteries atherosclerotic calcification and mural plaques. 26. Constipation and fecal impaction. 27. Gastric distention, etiology undetermined. 28. Left inguinal groin area hematoma. 29. Status post cardiac catheterization and angioplasty and stent placement of the circumflex artery and peripheral angiogram. 30. Left ventricular ejection fraction of 60%. 31. Proximal occlusion of the right coronary artery with distal right coronary artery collateral. 32. An 80% stenosis of the left anterior descending artery after the bifurcation of the high diagonal at the septal pearler. 33. A 99% stenosis of the heavily calcified left circumflex artery in the portion of the obtuse marginal branch. 34. Triple-vessel coronary artery disease with normal left ventricular ejection fraction. 35. Status post successful angioplasty and stent placement of the left circumflex artery. 36. Severe peripheral vascular disease of the lower extremity. 1. Acute non-ST elevation myocardial infarction with elevated troponin. 2. Multivessel coronary artery disease. 3. Status post cardiac catheterization and angioplasty and stent placement of the left circumflex artery. 4. Left bundle-branch block with left anterior hemiblock and sinus bradycardia. 5. History of 50% stenosis of the mid left anterior descending artery that after the takeoff of the first diagonal branch and first septal pearler. 6. History of 40-50% stenosis of the mid ramus intermedius. 7. History of diffuse disease of the left circumflex. 8. History of complex 60% eccentric plaque stenosis of the proximal right coronary artery. 9. History of 30% stenosis of the mid right posterior descending artery. 10. Unstable angina. 11. History of iron-deficiency anemia and vitamin B12 deficiency. 12. Status post leukocytosis, granulocytosis. 13. Uncontrolled insulin-requiring diabetes mellitus with hyperglycemia and hemoglobin A1c of 8.4 and fructosamine of 319. 14. Acute non-ST elevation myocardial infarction with elevated troponin. 15. Glycosuria, microscopic hematuria, pyuria. 16. Status post packed red blood cell transfusion x1. 17. Active nicotine addiction and dependence. 18. Unstable angina. 19. Normocytic iron-deficiency anemia. 20. Hypertensive cardiovascular disease. . Precordial chest pain with radiation to neck and jaw 2. Questionable unstable angina. 3. History of coronary artery disease with a cardiac catheterization done in 2013. 4. Leukocytosis with granulocytosis. 5. Normocytic iron-deficiency anemia. 6. Hyperglycemia. 7 Insulin-requiring diabetes mellitus. 8. Glycosuria. 9. Microscopic hematuria and pyuria. 10. Left anterior hemiblock and left bundle-branch block. 11. Hypertension. 12. History of hypertensive cardiovascular disease. 13. Nicotine addiction and dependence. 14. Chronic obstructive pulmonary disease. PLAN: At this time, the patient is to continue in transitional care unit with daily physical therapy, occupational therapy, ambulation therapy and gait training. CURRENT MEDICATIONS: Hydralazine 10 mg twice a day, Coreg 3.125 daily, aspirin 81 mg daily, ferrous sulfate 324 mg three times a day, folic acid 1 mg daily, Humalog medium dose sliding scale coverage before meals and at bedtime, NPH 20 units with breakfast, NPH 20 units with supper, Lipitor 40 mg daily, MiraLax 17 g twice a day, Neurontin 300 mg twice a day, nicotine patch 21 mg daily, Plavix 75 mg daily, Tylenol 650 mg suppository every 6 hours p.r.n., vitamin D3 1000 units daily, Xopenex nebulizer 0.63 mg every 6 hours and Zofran 4 mg IV every 4 hours p.r.n. The patient is to be continued in the transitional care unit the patient is seen by Cardiology and Podiatry. Dictated and electronically signed, not read. Edilson Reddy MD MTDD
[2018-10-04] MEDS: Mupirocin 2% Ointment 15 GM TUBE TOP SCH ×2 (10:09→17:07)
[2018-10-04] MEDS: Cholecalciferol 1,000 INTLU TAB PO SCH (10:10)
[2018-10-04] MEDS: POLYETHYLENE GLYCOL 3350 17 GM/Dose PACKET PO SCH ×2 (10:10→17:07)
[2018-10-04] MEDS: Insulin Lispro (humaLOG) MEDIUM Coverage SC SCH ×2 (12:06→17:14)
--- NOTE | 2018-10-04 13:27 | PN ---
DATE: 10/04/2018 TIME: 0700. LOCATION: [facility], room 313, bed 1. SUBJECTIVE: This is a geriatric female, in no acute distress, alert and oriented x3, sleeping in bed, and responsive. She reports in transitional care, status post a week-plus admission for cardiac care and intervention. She reports a history of diabetes and history of anticoagulation. She has a chief complaint of her right calf where there is a sore on the mid portion, posterior aspect. She reports a history of irritation at home prior to her admission that she treated by scratching and picking at and developed an eschar and reports during the admission, the eschar fell off or was removed resulting in the open wound. She reports diabetic control not good, A1c approximately 9 per patient history. REVIEW OF SYSTEMS: Noncontributory. MEDICATIONS: As per the chart. ALLERGIES: NO KNOWN ALLERGIES. SOCIAL HISTORY: Positive tobacco history. PHYSICAL EXAMINATION GENERAL: The patient is alert and oriented x3, lying in bed comfortably, in no acute distress. EXTREMITIES: She complains of tenderness on the posterior calf. It is currently bandaged with an Optifoam dressing by the resident yesterday which is removed. There is approximately a 2-cm diameter full-thickness ulceration with an 80% granular bed. There is no surrounding erythema. There is no active discharge. There is no tenderness. She has negative Homans' sign on the right leg. Her pulses are weakly palpable. The temperature of the leg and the foot is normal and there is no indication of lymphangitis or proximally-oriented cellulitis on the right calf. ASSESSMENT AND PLAN: This is a moderately poorly-controlled diabetic patient, recovering from cardiac interventions with a diabetic ulcer on the posterior aspect of the right calf which is not acutely infected. We discussed the findings with the patient. We advised her that this will need several weeks to several months of local wound care. We cleaned the wound and reapplied Hydrogel and Optifoam dressing. We advised the patient that we will prescribe a mupirocin ointment to be used as the topical dressing with an Optifoam chimney construction supervisor or a bordered-gauze bandage to be changed on a daily basis. It should be kept clean and dry. Otherwise, we advised the patient that the current diabetic leg ulcer is not a reason to maintain a prolonged hospitalization and she may be rehabbed and discharged on schedule per Dr. Reddy. We will follow up with the patient in our offices in the week following her discharge and we will stay connected with the patient through the completion of wound healing and then afterwards for diabetic foot care. Abdullahi Marroquin DPM
--- NOTE | 2018-10-04 14:14 | PN ---
DATE: 10/04/2018 SUBJECTIVE: The patient is without chest pain. PHYSICAL EXAMINATION: VITAL SIGNS: Blood pressure 152/57, heart rates in the 50s. NECK: Negative JVD. LUNGS: Without rales. HEART: S1, S2. EXTREMITIES: Without edema. LABORATORY DATA: Glucose 312. IMPRESSION: 1. Stable angina. 2. Status post percutaneous transluminal coronary angioplasty and stent of multiple vessels. 3. History of non-ST elevation myocardial infarction. 4. Diabetes mellitus. 5. Hypertension. PLAN: Given these findings, the patient is doing well, participating in physical therapy. We will continue her aspirin, Plavix and statin therapy. We will obtain a serum creatinine in the morning. Abdullahi Vanessa MD
--- NOTE | 2018-10-04 15:20 | PN ---
DATE: 10/04/2018 SUBJECTIVE: The patient is in room 313, bed 1. The patient's overnight nurse's notes were reviewed. Fingerstick blood sugar 261, 242, 102. No adverse events were documented. OBJECTIVE: VITAL SIGNS: T-max 98.1, heart rate 53-58, blood pressure 134/65, respiration 18, O2 sat 98%. HEENT: Head is normocephalic, atraumatic. Eyes; examination shows pinkish pale conjunctivae. Anicteric sclerae. No oropharyngeal lesion. NECK: No neck rigidity. CHEST: Kyphosis. LUNGS: Shows no audible crackle, rales, or wheezing. CARDIOVASCULAR: S1, S2, regular rhythm. Questionable soft systolic murmur left sternal border, right second intercostal space, left second intercostal space. ABDOMEN: Soft. Positive bowel sound. No palpable hepatosplenomegaly. GENITALIA: Female. RECTAL: Deferred. EXTREMITIES: Shows no pitting edema, no calf tenderness, no Homans' sign. NEUROLOGIC: The patient is alert, awake, oriented x3. She is able to move upper and lower extremity without assistance. Gait examination is not tested. VASCULAR: Palpable pulses. Motor strength is 5/5 in upper and lower extremities. PSYCHIATRIC: Negative. DIAGNOSTICS: None from today. Fingerstick blood sugar 261, 242, 102. IMPRESSION: 1. Acute [id number] myocardial infarction with elevated troponin. 2. Multivessel triple-vessel coronary artery disease. 3. Status post successful angioplasty and drug-eluting stent placement of the left circumflex and left anterior descending artery. 4. Unstable angina. 5. Uncontrolled insulin-requiring diabetes mellitus with hemoglobin A1c of greater than 8.4 and elevated fructosamine. 6. Asymptomatic bradycardia. 7. Hypertension. 8. Hyperlipidemia. 9. Active nicotine addiction and dependence. 10. Status post packed red blood cell transfusion x6. 11. Status post post cardiac catheterization and post angioplasty and rapid response and hypotension with decreasing hemoglobin/hematocrit to 6.4. 12. Status post packed red blood cell transfusion x6. 13. Iron-deficiency anemia. 14. Vitamin B12 deficiency. 15. Gait dysfunction. 16. Deconditioning. 1. Deconditioning. 2. Gait dysfunction. 3. Right leg noninfected ulcer. 4. Right leg diabetic noninfected ulcer. 5. Acute non-ST elevation myocardial infarction with elevated troponin. 6. Multivessel, triple-vessel coronary artery disease. 7. Status post angioplasty of the left circumflex and left anterior descending artery. 8. Hypertension. 9. Active nicotine addiction and dependence. 10. Normocytic anemia. 11. Status post packed red blood cell transfusion x6. 12. Uncontrolled diabetes mellitus with hyperglycemia and elevated hemoglobin A1c of greater than 8.4. 13. Non-hemolyzed hyperkalemia. 14. Prerenal kidney injury (resolved). 15. History of vitamin B12 deficiency. 16. History of iron deficiency. 17. Bradycardia. 18. Iron deficiency anemia. 19. Hyperlipidemia. 20. Constipation. 21. Diabetic neuropathy. 22. Hypovitaminosis D. 1. Deconditioning. 2. Gait dysfunction. 3. Bradycardia. 4. Status post non-hemolyzed hyperkalemia. 5. Hypertension. 6. Multivessel coronary artery disease. 7. Non-ST elevation myocardial infarction with elevated troponin. 8. Status post successful angioplasty and stent placement with drug-eluting stent placement of the left anterior descending artery and left circumflex artery. 9. Triple-vessel coronary artery disease. 10. Anemia with decreasing hemoglobin/hematocrit. 11. Status post packed red blood cell transfusion x6. 12. Iron-deficiency anemia. 13. Vitamin B12 deficiency. 14. Chronic obstructive pulmonary disease with history of active nicotine addiction and dependence. 15. Unstable angina. 16. Anemia. 17. Uncontrolled insulin-requiring diabetes mellitus with hyperglycemia and elevated hemoglobin A1c of greater than 8.4. 18. Bilateral lower extremity peripheral arterial disease. 19. Hyperlipidemia. 20. Status post non-hemolyzed hyperkalemia. 1. Deconditioning. 2. Gait dysfunction. 3. Acute non-ST elevation myocardial infarction with elevated troponin. 4. Multivessel coronary artery disease. 5. Status post successful angioplasty and drug-eluting stent placement of the left anterior descending and left circumflex. 6. Triple-vessel coronary artery disease. 7. Bradycardia. 8. History of hypertension with episodic hypotension. 9. Normocytic iron-deficiency anemia. 10. Status post packed red blood cell transfusion x6. 11. 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 12. Hyperkalemia. 13. Hyperglycemia. 14. Prerenal kidney injury. 15. Status post hyperkalemia. 16. Nicotine dependence. 17. Peripheral vascular disease of bilateral lower extremities. 18. Active nicotine addiction. 19. Diabetic foot disease. 20. Iron-deficiency anemia. 21. History of vitamin B12 deficiency. 22. Uncontrolled insulin-requiring diabetes mellitus with hyperglycemia and elevated hemoglobin A1c of greater than 8.3. 23. Hyperlipidemia. 24. Constipation. 25. Diabetic neuropathy. 26. Hypovitaminosis D. 1. Acute non-ST elevation myocardial infarction with elevated troponin. 2. Multivessel, triple-vessel coronary artery disease. 3. Status post angioplasty and stent placement of the left anterior descending artery and left circumflex artery. 4. Hypertension. 5. Bradycardia. 6. Normocytic iron-deficiency anemia, status post packed red blood cell transfusion x6. 7. Uncontrolled insulin-requiring diabetes mellitus with hyperglycemia. 8. Non-hemolyzed hyperkalemia. 9. Prerenal kidney injury. 10. Gait dysfunction. 11. Deconditioning. 12. Constipation. 13. Hyperlipidemia. 14. Diabetic neuropathy. 15. Nicotine dependence and addiction. 16. Peripheral vascular disease. 17. Hypovitaminosis D. 1. Acute non-ST elevation myocardial infarction with elevated troponin. 2. Multivessel triple-vessel coronary artery disease. 3. Status post angioplasty and stent placement of the left anterior descending artery. 4. Status post angioplasty and stent placement of the left circumflex artery. 5. An 80%-90%stenosis of the proximal mid left anterior descending artery at the takeoff of the septal machine candle molder. 6. Occluded right coronary artery. 7. Status post successful angioplasty and stent placement of 80% to 90% stenosis of the proximal to mid left anterior descending with drug-eluting stent placement. 8. Left ventricle ejection fraction of 60% on the cardiac catheterization. 9. Right coronary artery occlusion in the proximal portion. 10. An 80% stenosis of left anterior descending at the bifurcation of the high diagonal and septal machine candle molder. 11. An 99% stenosis of the proximal portion of the left circumflex of the obtuse marginal branch. 12. Triple vessel coronary artery disease. 13. Status post successful angioplasty and stent placement of the left circumflex artery and left anterior descending artery. 14. Bradycardia. 15. Hypertension. 16. Status post rapid response with hypotension and decreasing hemoglobin and hematocrit to 6.4 and 20. 17. Granulocytosis. 18. Elevated reticulocyte count of greater than 3 19. Uncontrolled insulin-requiring diabetes mellitus with hyperglycemia and hemoglobin A1c of 8.4 and fructosamine of 319. 20. History of thyroid nodule. 21. Acute non-ST elevation myocardial infarction. 22. Hypomagnesemia. 23. History of iron-deficiency anemia and vitamin B12 deficiency. 24. Glycosuria, microscopic hematuria, pyuria. 25. Status post be packed red blood cell transfusion x6. 26. Pancreatic atrophy. 27. Left renal cyst. 28. Fecal impaction and constipation. 29. Gastric distention, etiology undetermined. 30. Left groin and inguinal area hematoma. 31. Left axis deviation, left anterior hemiblock and left bundle-branch block. 32. Left ventricular ejection fraction of 55% on echocardiogram with pulmonary hypertension. Right ventricular systolic pressure of 45 mmHg. 33. Mildly dilated left atrium. 34. Aortic valve calcification. 35. Mitral annular calcification, mild mitral regurgitation. 36. Mild tricuspid regurgitation. 37. [id number] pulmonary hypertension with right ventricular systolic pressure of 45 mmHg. 1. Status post angioplasty and drug-eluting stent placement of the left circumflex and left anterior descending artery. 2. Acute non-ST elevation myocardial infarction with elevated troponin. 3. Left groin questionable hematoma. 4. Normocytic anemia with decreasing hemoglobin and hematocrit. 5. Uncontrolled insulin-requiring diabetes mellitus with hyperglycemia and elevated hemoglobin A1c of greater than 8. 6. Active nicotine addiction and dependence. 7. Chronic obstructive pulmonary disease. 8. History of iron deficiency anemia and vitamin B12 deficiency. 9. Hypovitaminosis D. 10. Hypertension. 11. Bradycardia. 12. Status post post angioplasty hypotension and status post rapid response. 13. Constipation with fecal stasis and fecal retention. 1. Acute non-ST elevation myocardial infarction with elevated troponin. 2. Triple-vessel coronary artery disease. 3. Status post successful angioplasty of the left anterior descending artery with drug-eluting stent. 4. An 80% to 90% stenosis of the mid to proximal left anterior descending artery at the septal machine candle molder takeoff status post successful angioplasty and drug-eluting stent placement of the mid to proximal left anterior descending 80% to 90% stenosis. 5. Patent stent of the left circumflex artery. 6. Occluded right coronary artery. 7. Bradycardia. 8. Uncontrolled insulin-requiring diabetes mellitus with hyperglycemia. 9. Anemia with decreasing hemoglobin/hematocrit. 10. Status post packed red blood cell transfusion x4. 11. Granulocytosis. 12. Elevated reticulocyte count of 3. 13. Hyperhomocysteinemia. 14. Hyperglycemia. 15. Peripheral arterial disease of the lower extremity including superficial femoral artery popliteal and tibial artery peripheral artery disease with heavily calcified peripheral vascular disease. 16. Active nicotine addiction and dependence. 17. Pulmonary hypertension with tricuspid regurgitation. 18. Left ventricle ejection fraction of 50% to 55%. 19. Multivessel coronary artery disease. 20. Hypertension. 21. Hyperlipidemia and hypercholesterolemia. 22. History of iron deficiency and vitamin B12 deficiency. 1. Multivessel coronary artery disease and triple-vessel coronary artery disease. 2. Acute non-ST elevation myocardial infarction with elevated troponin. 3. Status post angioplasty and drug-eluting stent placement. 4. Multivessel coronary artery disease. 5. Left bundle-branch block. 6. Left anterior hemiblock. 7. Normocytic iron-deficiency anemia. 8. Granulocytosis. 9. History of vitamin B12 deficiency. 10. Insulin-requiring uncontrolled diabetes mellitus with hyperglycemia and elevated hemoglobin A1c of greater than 8. 11. Severe dietary noncompliance. 12. Active nicotine dependence. 13. Probable chronic obstructive pulmonary disease. 14. Hypertension. 15. Bradycardia. 16. Questionable pulmonary hypertension. 17. Unstable angina and acute coronary syndrome with acute non-ST elevation myocardial infarction with triple-vessel coronary artery disease. 18. Severe peripheral vascular disease. 19. Insulin-requiring diabetes mellitus. 20. Hyperlipidemia. 1. Acute non-ST elevation myocardial infarction with unstable angina and elevated troponin. 2. Triple-vessel coronary artery disease. 3. Status post angioplasty and drug-eluting stent placement of the left circumflex artery. 3. Acute blood loss anemia, etiology undetermined status post packed red blood cell transfusion x4. 4. Status post hypotension. 5. Nicotine dependence and addiction. 6. Deconditioning. 7. History of duodenal and gastric arteriovenous malformation. 8. Sinus bradycardia. 9. Leukocytosis with granulocytosis (resolved). 10. Relative thrombocytopenia. 11. Prerenal kidney injury (resolved). 12. Uncontrolled insulin-requiring diabetes mellitus with hemoglobin A1c of 8.4 and fructosamine of 319. 13. Mild protein malnutrition and hypoalbuminemia. 14. Glycosuria, microscopic hematuria, pyuria. 15. Status post packed red blood cell transfusion x4. 16. Left bundle-branch block with left anterior hemiblock. 17. 18. Pulmonary hypertension with right ventricular systolic pressure of 45 mmHg. 19. Left bundle-branch block. 20. Left anterior hemiblock. 21. Iron-deficiency anemia and vitamin B12 deficiency. 22. Hyperlipidemia. 23. Constipation with fecal stasis and fecal retention. 24. Diabetic neuropathy. 1. Status post rapid response, severe symptomatic hypotension requiring intravenous fluid bolus and intravenous dopamine drip with treatment. 2. Acute blood loss anemia, etiology undetermined. 3. Non-ST elevation myocardial infarction with elevated troponin. 4. Triple-vessel coronary artery disease. 5. Unstable angina. 6. Sinus bradycardia. 7. History of hypertension. 8. Granulocytosis. 9. Severe symptomatic anemia with decreasing hemoglobin to 6.4. 10. Relative thrombocytopenia. 11. Prerenal kidney injury. 12. Uncontrolled diabetes, insulin-requiring diabetes mellitus with hemoglobin A1c of 8.4 and fructosamine of 319. 13. Hypocalcemia. 14. Hypomagnesemia. 15. Hypophosphatemia. 16. Mild protein malnutrition and mild hypoalbuminemia. 17. History of hyperlipidemia. 18. Glycosuria, microscopic hematuria, pyuria. 19. Status post packed red blood cell transfusion x4. 20. Pancreatic atrophy. 21. Left renal cyst. 22. Aortic calcification and mural plaque. 23. Fecal impaction, constipation. 24. Gastric distention, etiology undetermined. 25. Left axis deviation and left bundle-branch block. 26. Left ventricle ejection fraction of 60%. 27. Status post cardiac catheterization and successful percutaneous transluminal coronary angioplasty and stent placement of the left circumflex artery. 28. Proximal occluded right coronary artery with collaterals to the distal right coronary artery. 29. 80% stenosis after the bifurcation of the high diagonal and at the septal machine candle molder of the left anterior descending artery 80% stenosis. 30. 99% stenosis of the proximal portion of the obtuse marginal branch of the left circumflex artery. 31. Bilateral lower extremity peripheral vascular disease, 32. Deconditioning. 33. Gait dysfunction. 1. Status post rapid response and severe symptomatic hypotension. requiring IV fluid boluses and IV dopamine treatment. 2. Acute blood loss anemia, etiology undetermined. 3. Non-ST elevation myocardial infarction with elevated troponin. 4. Triple-vessel coronary artery disease. 5. Severe bilateral peripheral vascular disease. 6. Status post packed red blood cell transfusion x4. 7. Status post angioplasty and stent placement of the 99% stenosis of the left circumflex. 8. Status post hypotension. 9. History of hypertension. 10. Questionable left inguinal and left groin hematoma. 11. Left axis deviation, left anterior hemiblock and left bundle-branch block. 12. Leukocytosis. 13. Relative thrombocytopenia. 14. Granulocytosis. 15. Uncontrolled insulin-requiring diabetes mellitus with hemoglobin A1c of 8.4 and hyperglycemia and elevated fructosamine of 319. 16. History of hyperlipidemia. 17. History of multinodular thyroid nodule. 18. Acute non-ST elevation myocardial infarction with elevated troponin. 19. Prerenal kidney injury. 20. Hypomagnesemia. 21. Protein malnutrition and mild hypoalbuminemia. 22. Glycosuria, microscopic hematuria, and pyuria. 23. Pancreatic atrophy. 24. Left renal cyst. 25. Aortic and iliac arteries atherosclerotic calcification and mural plaques. 26. Constipation and fecal impaction. 27. Gastric distention, etiology undetermined. 28. Left inguinal groin area hematoma. 29. Status post cardiac catheterization and angioplasty and stent placement of the circumflex artery and peripheral angiogram. 30. Left ventricular ejection fraction of 60%. 31. Proximal occlusion of the right coronary artery with distal right coronary artery collateral. 32. An 80% stenosis of the left anterior descending artery after the bifurcation of the high diagonal at the septal machine candle molder. 33. A 99% stenosis of the heavily calcified left circumflex artery in the portion of the obtuse marginal branch. 34. Triple-vessel coronary artery disease with normal left ventricular ejection fraction. 35. Status post successful angioplasty and stent placement of the left circumflex artery. 36. Severe peripheral vascular disease of the lower extremity. 1. Acute non-ST elevation myocardial infarction with elevated troponin. 2. Multivessel coronary artery disease. 3. Status post cardiac catheterization and angioplasty and stent placement of the left circumflex artery. 4. Left bundle-branch block with left anterior hemiblock and sinus bradycardia. 5. History of 50% stenosis of the mid left anterior descending artery that after the takeoff of the first diagonal branch and first septal machine candle molder. 6. History of 40-50% stenosis of the mid ramus intermedius. 7. History of diffuse disease of the left circumflex. 8. History of complex 60% eccentric plaque stenosis of the proximal right coronary artery. 9. History of 30% stenosis of the mid right posterior descending artery. 10. Unstable angina. 11. History of iron-deficiency anemia and vitamin B12 deficiency. 12. Status post leukocytosis, granulocytosis. 13. Uncontrolled insulin-requiring diabetes mellitus with hyperglycemia and hemoglobin A1c of 8.4 and fructosamine of 319. 14. Acute non-ST elevation myocardial infarction with elevated troponin. 15. Glycosuria, microscopic hematuria, pyuria. 16. Status post packed red blood cell transfusion x1. 17. Active nicotine addiction and dependence. 18. Unstable angina. 19. Normocytic iron-deficiency anemia. 20. Hypertensive cardiovascular disease. . Precordial chest pain with radiation to neck and jaw 2. Questionable unstable angina. 3. History of coronary artery disease with a cardiac catheterization done in 2013. 4. Leukocytosis with granulocytosis. 5. Normocytic iron-deficiency anemia. 6. Hyperglycemia. 7 Insulin-requiring diabetes mellitus. 8. Glycosuria. 9. Microscopic hematuria and pyuria. 10. Left anterior hemiblock and left bundle-branch block. 11. Hypertension. 12. History of hypertensive cardiovascular disease. 13. Nicotine addiction and dependence. 14. Chronic obstructive pulmonary disease. PLAN: At this time, the patient is to be continued on medications as per the MAR of today which was reviewed. The patient is to be continued on both GI, DVT prophylaxis. The patient will be continued on antiplatelet therapy post angioplasty. The patient will be continued on basal and bolus insulin. The patient will be continued on Transitional Care Unit with daily physical therapy, occupational therapy, ambulation therapy, gait training. The patient has met with the Photoengraving Printer yesterday regarding the patient's approved duration of the Transitional Care Unit which the patient has spoken and discussed with the Photoengraving Printer. Dictated and electronically signed, not read. Edilson Reddy MD JAUN
[2018-10-04 16:19] VITALS: TEMP 97.8
[2018-10-04] MEDS: Insulin Human NPH 1 UNITS/0.01 ML SC SCH (17:12)
[2018-10-05] MEDS: Levalbuterol 0.63 MG/3 ML Inhal Soln UD IH SCH ×3 (01:42→13:49)
[2018-10-05] MEDS: Insulin Lispro (humaLOG) MEDIUM Coverage SC SCH ×2 (06:51→12:05)
[2018-10-05] MEDS: Insulin Human NPH 1 UNITS/0.01 ML SC SCH (06:53)
[2018-10-05 08:12] LABS: ALB/GLOB RATIO 1.3 (1.1-1.8); ALBUMIN 3.8 g/dL (3.0-4.8); ALT/SGPT 25 U/L (7-56); AST/SGOT 22 U/L (14-36); BLOOD UREA NITROGEN 21 mg/dL (7-21); CALCIUM 9.4 mg/dL (8.4-10.5); GFR NON-AFRICAN AMERICAN > 60
[2018-10-05] MEDS: Cholecalciferol 1,000 INTLU TAB PO SCH (09:01)
[2018-10-05] MEDS: POLYETHYLENE GLYCOL 3350 17 GM/Dose PACKET PO SCH (09:02)
[2018-10-05] MEDS: Mupirocin 2% Ointment 15 GM TUBE TOP SCH (09:03)
[2018-10-05 09:09] VITALS: BP 156/70
--- NOTE | 2018-10-05 11:31 | CP.PCM.PN ---
Subjective - Date & Time of Evaluation Date of Evaluation: 10/05/18 Time of Evaluation: 11:28 - Subjective Subjective: Podiatry progress note for Dr. Marroquin, 72 year old female, whose past medical history includes anemia, diabetes and Hypertension, seen at bedside with no complains of the foot and ankle. PDenies acute overnight events. ADmits to minimal pain in legs. Denies seeing a associate account manager before. Denies f/n/v/sob. Objective - Vital Signs/Intake and Output Vital Signs (last 24 hours): Temp Pulse Resp BP Pulse Ox 97.8 F 55 L 18 156/70 H 95 10/04/18 16:00 10/05/18 09:03 10/04/18 16:00 10/05/18 09:03 10/04/18 16:32 - Medications Medications: Current Medications Acetaminophen (Tylenol 325mg Tab) 650 mg PO Q6 PRN PRN Reason: TEMP>=99.5F Acetaminophen (Tylenol 650 Mg Supp) 650 mg RC Q6H PRN PRN Reason: TEMP>=99.5F Aspirin (Ecotrin) 81 mg PO 0800 [facility]; Protocol Last Admin: 10/05/18 07:56 Dose: 81 mg Atorvastatin Calcium (Lipitor) 40 mg PO DIN [facility]; Protocol Last Admin: 10/04/18 17:06 Dose: 40 mg Carvedilol (Coreg) 3.125 mg PO 0800 [facility]; Protocol Last Admin: 10/05/18 07:56 Dose: 3.125 mg Cholecalciferol (Vitamin D) 1,000 intlu PO DAILY [facility]; Protocol Last Admin: 10/05/18 09:01 Dose: 1,000 intlu Clopidogrel Bisulfate (Plavix) 75 mg PO DAILY [facility]; Protocol Last Admin: 10/05/18 09:02 Dose: 75 mg Dextrose (Dextrose 50% Inj) 0 ml IV STAT PRN; Protocol PRN Reason: Hypoglycemia Protocol Ferrous Sulfate (Feosol) 324 mg PO 0800,1200,1600 [facility]; Protocol Last Admin: 10/05/18 07:55 Dose: 324 mg Folic Acid (Folic Acid) 1 mg PO DAILY [facility]; Protocol Last Admin: 10/05/18 09:01 Dose: 1 mg Gabapentin (Neurontin) 300 mg PO BID [facility]; Protocol Last Admin: 10/05/18 09:02 Dose: 300 mg Hydralazine HCl (Apresoline) 10 mg PO 1000,1800 [facility]; Protocol Last Admin: 10/05/18 09:03 Dose: 10 mg Dextrose (Dextrose 5% In Water 1000 Ml) 1,000 mls @ 0 mls/hr IV .Q0M PRN; Protocol PRN Reason: Hypoglycemia Protocol Insulin Human Lispro (Humalog Med) 0 units SC ACHS [facility]; Protocol Last Admin: 10/05/18 06:51 Dose: 3 units Insulin Human NPH (Humulin N) 20 units SC ACB [facility] Last Admin: 10/05/18 06:53 Dose: 20 u Insulin Human NPH (Humulin N) 20 units SC DAILY@1745 [facility] Last Admin: 10/04/18 17:12 Dose: 20 units Levalbuterol HCl (Xopenex) 0.63 mg IH [id number] [facility]; Protocol Last Admin: 10/05/18 08:38 Dose: 0.63 mg Mupirocin (Bactroban Ointment) 0 gm TOP BID [facility] Last Admin: 10/05/18 09:03 Dose: 1 applic Nicotine (Nicoderm Cq) 1 patch TD DAILY [facility]; Protocol Last Admin: 10/05/18 09:02 Dose: 1 patch Ondansetron HCl (Zofran Inj) 4 mg IVP Q4H PRN PRN Reason: Nausea/Vomiting Polyethylene Glycol (Miralax) 17 gm PO BID [facility]; Protocol Last Admin: 10/05/18 09:02 Dose: 17 gm - Labs Labs: 10/01/18 07:00 10/05/18 07:49 - Constitutional Appears: Well, Non-toxic, No Acute Distress - Head Exam Head Exam: ATRAUMATIC, NORMOCEPHALIC - Eye Exam Eye Exam: Normal appearance Pupil Exam: NORMAL ACCOMODATION - ENT Exam ENT Exam: Mucous Membranes Moist - Extremities Exam Additional comments: Vascular: DP/PT pulses faintly palpable, CFt <3 secs x5, TG warm to cool (WNL), no edema or erythema noted derm: circular wound noted at the posterior mid leg, sanguinous drainage noted, no malodor, fibrogranular base, no signs of infection, no edema or erythema, no tracking or tunneling. ortho: no pain on palpation of the wound neuro: [facility]4 - Neurological Exam Neurological Exam: Alert, Awake - Psychiatric Exam Psychiatric exam: Normal Affect Assessment and Plan - Assessment and Plan (Free Text) Assessment: 72 yo female seen and evaluated for right leg ulcer; noninfected. Plan: Patient seen and evaluated Chart, labs and vitals reviewed Afebrile, absent leukocytosis Optifoam with bactroban used for the ulcer Patient advised to keep the ulcer covered at all times Podiatry will continue to follow while in house Patient advised to follow up with Dr. Marroquin upon discharge.
[2018-10-05 12:29] VITALS: PULSE 46; O2SAT 97
--- NOTE | 2018-10-05 13:37 | DS ---
HISTORY OF PRESENT ILLNESS: The patient is being cleared by all subspecialty for discharge and the patient is requesting also to be discharged home. The patient is in room 313, bed 1. The patient does not offer any specific complaints. PHYSICAL EXAMINATION: VITAL SIGNS: T max is 97.8, pulse 57, blood pressure 143/63, respirations 18, O2 sat 95%. HEENT: The patient's head examination normocephalic, atraumatic. HEENT examination shows pinkish conjunctivae. Anicteric sclerae. No oropharyngeal lesion. NECK: No neck rigidity. CHEST: Kyphosis. LUNGS: Shows no audible crackle, rales or wheezing. CARDIOVASCULAR: S1, S2, regular rhythm. Positive systolic murmur left sternal border, right second intercostal space, left second intercostal space. ABDOMEN: Soft. Positive bowel sound. No palpable hepatosplenomegaly. GENITALIA: Female. RECTAL: Deferred. EXTREMITIES: Shows no pitting edema, no calf tenderness, no Homans' sign. MUSCULOSKELETAL: As per the body mass index. Motor strength is 5/5. Gait examination is assisted with rollator. Motor strength is 5/5. DIAGNOSTICS: Fingerstick blood sugar 221, 254, 305, 312, 261. CMP from today, sodium 137, potassium 4.7, chloride 108, CO2 24, BUN 21, creatinine 0.9, glucose 206, calcium 9.4. LFTs are within normal limits. FINAL IMPRESSION PLAN AND DISCHARGE DIAGNOSES: 1. Deconditioning. 2. Gait dysfunction. 3. Acute non-ST elevation myocardial infarction with elevated troponin. 4. Multivessel triple-vessel coronary artery disease. 5. Status post successful angioplasty with drug-eluting stent placement of the left anterior descending artery and left circumflex artery. 6. Unstable angina. 7. Active nicotine addiction and dependence. 8. Hypertension. 9. Asymptomatic bradycardia. 10. Uncontrolled insulin-requiring diabetes mellitus with elevated hemoglobin A1c of greater than 8.4. 11. Hyperlipidemia. 12. Hypovitaminosis D. 13. Constipation. 14. History of iron-deficiency anemia and history of vitamin B12 deficiency. 15. Gait dysfunction. 16. Constipation. 17. Diabetic neuropathy. PLAN: At this time, the patient has been cleared for discharge by all subspecialty and also the patient is requesting to go home. Plan at this time, the patient will be discharged home. Next discharge followup with Dr. Reddy within 1 week. DISCHARGE DIET: Will be a copy of the diabetic diet will be given to the patient upon discharge. Next discharge medications are as per updated ambulatory orders plus new scripts if any. During this hospitalization and the acute care hospitalization, the patient has been updated about her condition, diagnosis, all the test results, all the recommendation on a daily basis. All of the above was explained to the patient in layman's language which she acknowledged understand. The patient has been advised multiple times about cessation of smoking dietary and medication compliance which she acknowledged and understand. Time spent in the discharge process 45 minutes. Dictated and electronically signed, not read. Edilson Reddy MD
--- NOTE | 2018-10-05 19:21 | PN ---
DATE: 10/05/2018 CARDIOLOGY FOLLOWUP SUBJECTIVE: The patient is chest pain free, in the TCU. PHYSICAL EXAMINATION: VITAL SIGNS: Blood pressure is 156/70, heart rates in the 60s. NECK: Negative JVD. LUNGS: Without rales. HEART: S1, S2. EXTREMITIES: Without edema. LABORATORY DATA: No laboratories were drawn today other than a glucose of 222 with the BUN and creatinine unremarkable. IMPRESSION: 1. Stable angina. 2. Status post multivessel percutaneous transluminal coronary angioplasty and stent. 3. Anemia. 4. Diabetes mellitus. 5. Hypercholesterolemia. 6. Hypertension. PLAN: Given these findings, the patient is doing well. She is stable for discharge today. Followup instructions have been given to the patient in detail. Abdullahi Vanessa MD
== END 2018-10-05 15:30 | disposition home or self-care (01) | DRG 281 ==
LOC: TRCU 17:33
PROVIDERS: ADMIT Internal Medicine; ATTEND Internal Medicine
PROC: F07Z9FZ Gait Training/Functional Ambulation Treatment using Assistive, Adaptive, Supportive or Protective Equipment (ICD-10-PCS; principal; 2018-10-01)
PROC: F07M6ZZ Therapeutic Exercise Treatment of Musculoskeletal System - Whole Body (ICD-10-PCS; 2018-10-01)
PROC: F08Z1ZZ Dressing Techniques Treatment (ICD-10-PCS; 2018-10-01)
PROC: F08Z2ZZ Grooming/Personal Hygiene Treatment (ICD-10-PCS; 2018-10-01)
PROC: F08Z0ZZ Bathing/Showering Techniques Treatment (ICD-10-PCS; 2018-10-01)
PROC: F08Z4ZZ Home Management Treatment (ICD-10-PCS; 2018-10-01)
DX: I21.4 Non-ST elevation (NSTEMI) myocardial infarction (principal); D62 Acute posthemorrhagic anemia; E44.1 Mild protein-calorie malnutrition; L97.909 Non-pressure chronic ulcer of unspecified part of unspecified lower leg with unspecified severity; N39.0 Urinary tract infection, site not specified; I25.110 Atherosclerotic heart disease of native coronary artery with unstable angina pectoris; D50.9 Iron deficiency anemia, unspecified; D69.6 Thrombocytopenia, unspecified; E11.40 Type 2 diabetes mellitus with diabetic neuropathy, unspecified; E11.51 Type 2 diabetes mellitus with diabetic peripheral angiopathy without gangrene; E11.622 Type 2 diabetes mellitus with other skin ulcer; E11.65 Type 2 diabetes mellitus with hyperglycemia; E55.9 Vitamin D deficiency, unspecified; E78.00 Pure hypercholesterolemia, unspecified; E78.5 Hyperlipidemia, unspecified; E53.8 Deficiency of other specified B group vitamins; E83.39 Other disorders of phosphorus metabolism; E83.42 Hypomagnesemia; E83.51 Hypocalcemia; E87.5 Hyperkalemia; F17.210 Nicotine dependence, cigarettes, uncomplicated; I07.1 Rheumatic tricuspid insufficiency; I11.9 Hypertensive heart disease without heart failure; I25.2 Old myocardial infarction; I27.20 Pulmonary hypertension, unspecified; I44.7 Left bundle-branch block, unspecified; I70.0 Atherosclerosis of aorta; J43.9 Emphysema, unspecified; J44.9 Chronic obstructive pulmonary disease, unspecified; K31.89 Other diseases of stomach and duodenum; K56.41 Fecal impaction; K86.89 Other specified diseases of pancreas; N28.1 Cyst of kidney, acquired; R31.29 Other microscopic hematuria; Z79.02 Long term (current) use of antithrombotics/antiplatelets; Z79.4 Long term (current) use of insulin; Z79.899 Other long term (current) drug therapy; Z86.73 Personal history of transient ischemic attack (TIA), and cerebral infarction without residual deficits; Z91.11 Patient's noncompliance with dietary regimen; Z91.14 Patient's other noncompliance with medication regimen; Z95.5 Presence of coronary angioplasty implant and graft

== ENCOUNTER 2018-10-31 18:23 | Inpatient (IN) | payer MEDICARE, OTHER ==
[2018-10-31 18:39] VITALS: BMI 23.9
[2018-10-31 19:23] LABS: BASO # 0.02 K/mm3 (0.0-2.0); BASO % 0.3 % (0.0-3.0); EOS # 0.4 (0.0-0.7); EOS % 5.8 % (1.5-5.0); LYMPH # 1.9 (1.2-3.4); LYMPH % 31.4 % (22.0-35.0); MEAN CELL VOLUME 91.2 fl (80.0-105.0); MEAN CORPUSCULAR HEMOGLOBIN 28.6 pg (25.0-35.0); MEAN CORPUSCULAR HGB CONC 31.3 g/dl (31.0-37.0); MEAN PLATELET VOLUME 10.6 fl (7.0-11.0); MONO # 0.4 (0.1-0.6); MONO % 7.2 % (1.0-6.0); RBC 2.17 10^6/uL (3.5-6.1); RED CELL DISTRIBUTION WIDTH 15.5 % (11.5-14.5)
[2018-10-31 19:25] LABS: HEMOGLOBIN 6.2 g/dL (12.0-16.0)
[2018-10-31 19:29] LABS: INR 0.92; PARTIAL THROMBOPLASTIN TIME 28.7 Seconds (26.9-38.3); PROTHROMBIN TIME 10.2 SECONDS (9.4-12.5)
[2018-10-31 19:37] LABS: ALB/GLOB RATIO 1.5 (1.1-1.8); ALBUMIN 3.9 g/dL (3.0-4.8); ALT/SGPT 13 U/L (7-56); AST/SGOT 24 U/L (14-36); BLOOD UREA NITROGEN 15 mg/dL (7-21); CALCIUM 9.7 mg/dL (8.4-10.5); GFR NON-AFRICAN AMERICAN > 60
[2018-10-31 19:41] LABS: B-TYPE NATRIURETIC PEPTIDE 425 pg/mL (0-450); TROPONIN I < 0.01 ng/mL
[2018-10-31] MEDS ORDERED: Insulin Detemir 100 units/ml Vial (Levemir) SC SCH (19:45)
--- NOTE | 2018-10-31 19:57 | ED PDOC ---
Arrival/HPI - General Chief Complaint: Chest Pain Time Seen by Provider: 10/31/18 18:43 Historian: Patient - History of Present Illness Narrative History of Present Illness (Text): 10/31/18 18:43 Bianca Cha is a 72 year old female, with a past medical history of CAD s/p stents, presents to the emergency department with complaints of frequent chest pain radiating to the left arm. Patient forms that pain is improved upon resting and worsened upon exertion. Patient denies any palpitations, leg swelling, fevers, chills, headache, dizziness, shortness of breath, cough, abdominal pain, nausea, vomiting, diarrhea, back pain, neck pain, or any other complaint. Symptom Onset: Gradual Symptom Course: Worsening Activities at Onset: Light Context: Home Past Medical History - Provider Review Nursing Documentation Reviewed: Yes - Cardiac Hx Cardiac Disorders: Yes Hx Hypertension: Yes - Pulmonary Hx Respiratory Disorders: No - Neurological HX Cerebrovascular Accident: Yes - HEENT Hx HEENT Disorder: No - Renal Hx Renal Disorder: No Other/Comment: family history of renal disorder - Endocrine/Metabolic Hx Diabetes Mellitus Type 2: Yes - Hematological/Oncological Hx Blood Transfusions: Yes Hx Blood Transfusion Reaction: No - Integumentary Other/Comment: Fungus on the nails - Musculoskeletal/Rheumatological Hx Falls: Yes (past) - Gastrointestinal Hx Gastrointestinal Disorders: No - Genitourinary/Gynecological Hx Reproductive Disorders: Yes (GATO) - Psychiatric Hx Emotional Abuse: No Hx Physical Abuse: No Hx Substance Use: No - Surgical History Hx Hysterectomy: Yes - Anesthesia Hx Anesthesia Reactions: No Hx Malignant Hyperthermia: No - Suicidal Assessment Feels Threatened In Home Enviroment: No Family/Social History - Physician Review Nursing Documentation Reviewed: Yes Family/Social History: No Known Family HX Smoking Status: Light Smoker < 10 Cigarettes Daily Hx Alcohol Use: No Hx Substance Use: No Hx Substance Use Treatment: No Allergies/Home Meds Allergies/Adverse Reactions: Allergies No Known Allergies Allergy (Verified 01/05/17 13:49) Home Medications: Home Meds Medication Instructions Recorded Confirmed RX: Metformin HCl 1,000 mg PO ACBD 12/04/13 09/30/18 RX: metFORMIN [glucOPHAGE] 500 mg PO ACL 11/23/17 09/30/18 RX: Ezetimibe [Zetia] 10 mg PO DAILY 09/22/18 09/30/18 RX: Insulin Glargine,Hum.rec.anlog 50 unit SQ ACB 09/22/18 09/30/18 [Angeles Wilson U-100] Review of Systems - Physician Review All systems were reviewed & negative as marked: Yes - Review of Systems Constitutional: absent: Fevers, Night Sweats Respiratory: absent: SOB, Cough Cardiovascular: Chest Pain (pain radiates to left arm). absent: Palpitations, Edema Gastrointestinal: absent: Abdominal Pain, Diarrhea, Nausea, Vomiting Genitourinary Female: absent: Dysuria Musculoskeletal: absent: Back Pain, Neck Pain Neurological: absent: Headache Physical Exam Vital Signs Reviewed: Yes Vital Signs Temp Pulse Resp BP Pulse Ox 10/31/18 18:55 97.1 F L 68 20 132/61 100 10/31/18 18:32 97.9 F 82 18 132/61 100 Temperature: Afebrile Blood Pressure: Normal Pulse: Regular Respiratory Rate: Normal Appearance: Positive for: Well-Appearing, Non-Toxic, Comfortable Pain Distress: None Mental Status: Positive for: Alert and Oriented X 3 - Systems Exam Head: Present: Atraumatic, Normocephalic Pupils: Present: PERRL Extroacular Muscles: Present: EOMI Conjunctiva: Present: Normal Mouth: Present: Moist Mucous Membranes Neck: Present: Normal Range of Motion Respiratory/Chest: Present: Clear to Auscultation, Good Air Exchange. No: Respiratory Distress, Accessory Muscle Use Cardiovascular: Present: Regular Rate and Rhythm, Normal S1, S2. No: Murmurs Abdomen: No: Tenderness, Distention, Peritoneal Signs Back: Present: Normal Inspection Upper Extremity: Present: Normal Inspection. No: Cyanosis, Edema Lower Extremity: Present: Normal Inspection. No: Edema Neurological: Present: GCS=15, CN II-XII Intact, Speech Normal Skin: Present: Warm, Dry, Pale. No: Rashes Psychiatric: Present: Alert, Oriented x 3, Normal Insight, Normal Concentration Medical Decision Making ED Course and Treatment: 10/31/18 18:43 Impression: Patient is a 72 year old female who presents to the emergency department with chest pain. in er noted to be anemic Plan: -- Labs -- CT Abd. Pelvis -- EKG -- Chest X-Ray -- Xopenex -- Apresoline -- Brovana -- Colace -- Coreg -- Feosol -- Folic Acid -- Levemir -- Lipitor -- Magnesium Sulfate -- Miralax -- Neurontin -- Nicoderm -- Protonix EC Tab -- Protonix 40 mg IVPB -- Protonix Inj -- Tylenol -- Vit. D. -- Zetia -- Zofran -- Stool Occlusion -- Reassess and Disposition Progress: 10/31/18 20:11 Reviewed EKG, shows: NSR 67, LBBB, unchanged compared to previous 10/31/18 21:11 in er noted to be anemic. medicl resident zuleika blake pt, states melena, guiac (+). abd soft nottp . case discussed wtih cheng bustillos and pmd serene who saw pt bedside accepts case - Lab Interpretations Lab Results: PT 10.2 SECONDS (9.4-12.5) 10/31/18 19:15 INR 0.92 10/31/18 19:15 APTT 28.7 Seconds (26.9-38.3) 10/31/18 19:15 Troponin I < 0.01 ng/mL D 10/31/18 19:15 NT-Pro-B Natriuret Pep 425 pg/mL (0-450) 10/31/18 19:15 Total Bilirubin 0.3 mg/dL (0.2-1.3) 10/31/18 19:15 AST 24 U/L (14-36) 10/31/18 19:15 ALT 13 U/L (7-56) 10/31/18 19:15 Alkaline Phosphatase 71 U/L (38-126) 10/31/18 19:15 Total Protein 6.5 g/dL (5.8-8.3) 10/31/18 19:15 Albumin 3.9 g/dL (3.0-4.8) 10/31/18 19:15 Globulin 2.6 gm/dL 10/31/18 19:15 Albumin/Globulin Ratio 1.5 (1.1-1.8) 10/31/18 19:15 - RAD Interpretation Radiology Orders: 10/31/18 19:09 CHEST PORTABLE [RAD] Stat - EKG Interpretation Interpreted by ED Physician: Yes Type: 12 lead EKG - Medication Orders Current Medication Orders: Acetaminophen (Tylenol 325mg Tab) 650 mg PO Q6 PRN PRN Reason: TEMP>=99.5F Arformoterol Tartrate (Brovana) 15 mcg IH [id number] JULIO Atorvastatin Calcium (Lipitor) 40 mg PO DIN JULIO Carvedilol (Coreg) 3.125 mg PO 0800 JULIO Cholecalciferol (Vitamin D) 1,000 intlu PO DAILY COUNT INCLUDES THE [facility] Docusate Sodium (Colace) 100 mg PO TID JULIO Ezetimibe (Zetia) 10 mg PO DAILY JULIO Ferrous Sulfate (Feosol) 324 mg PO 0800,1200,1600 JULIO Folic Acid (Folic Acid) 1 mg PO DAILY JULIO Gabapentin (Neurontin) 300 mg PO BID JULIO; Protocol Hydralazine HCl (Apresoline) 10 mg PO 1000,1800 JULIO Pantoprazole Sodium (Protonix 40mg Ivpb) 40 mg in 100 mls @ 20 mls/hr IVPB .Q5H JULIO Insulin Detemir (Levemir) 25 unit SC ACBD JULIO Levalbuterol HCl (Xopenex) 0.63 mg IH [id number] COUNT INCLUDES THE [facility] Nicotine (Nicoderm Cq) 1 patch TD DAILY JULIO Ondansetron HCl (Zofran Inj) 4 mg IVP Q4H PRN PRN Reason: Nausea/Vomiting Pantoprazole Sodium (Protonix Ec Tab) 40 mg PO Q12 JULIO Polyethylene Glycol (Miralax) 17 gm PO BID JULIO Discontinued Medications Insulin Detemir (Levemir) 25 unit SC ACBHS JULIO Pantoprazole Sodium (Protonix Inj) 40 mg IVP STAT STA Stop: 10/31/18 19:46 - Scribe Statement The provider has reviewed the documentation as recorded by the [facility]rib[facility] All medical record entries made by the Scribe were at my direction and personally dictated by me. I have reviewed the chart and agree that the record accurately reflects my personal performance of the history, physical exam, medical decision making, and the department course for this patient. I have also personally directed, reviewed, and agree with the discharge instructions and disposition. Disposition/Present on Arrival - Present on Arrival Any Indicators Present on Arrival: No History of DVT/PE: No History of Uncontrolled Diabetes: No Urinary Catheter: No History of Decub. Ulcer: No History Surgical Site Infection Following: None - Disposition Have Diagnosis and Disposition been Completed?: Yes Diagnosis: GI bleed, Chest pain Disposition Time: 18:00 Condition: FAIR Discharge Instructions (ExitCare): Chest Pain (ED) Referrals: Edilson Reddy MD [Primary Care Provider] - Follow up with primary Forms: [employer] (Indonesian)
[2018-10-31] MEDS: Arformoterol 15 mcg/2 ml Inh Sol IH SCH (20:14)
[2018-10-31] MEDS: Pantoprazole 40mg/100mL NS 40 MG/100 ML BAG IVPB SCH (20:14)
[2018-10-31] MEDS: Levalbuterol 0.63 MG/3 ML Inhal Soln UD IH SCH (20:14)
[2018-10-31] MEDS: Magnesium Sulfate 2 gm/50 ml 2 GM/50 ML BAG IVPB SCH (21:33)
[2018-10-31 21:45] LABS: URINE BILIRUBIN NEGATIVE (NEGATIVE); URINE BLOOD TRACE-INTACT (NEGATIVE); URINE GLUCOSE (UA) >=1000 mg/dL (NEGATIVE); URINE LEUKOCYTE ESTERASE NEGATIVE Leu/uL (NEGATIVE); URINE PROTEIN NEGATIVE mg/dL (<30 mg/dL); URINE UROBILINOGEN 0.2 E.U./dL (<1 E.U./dL)
[2018-10-31 21:50] LABS: IRON 27 ug/dL (45-180)
[2018-10-31 21:51] LABS: URINE APPEARANCE CLEAR (CLEAR); URINE COLOR YELLOW (YELLOW)
[2018-10-31 21:59] LABS: % IRON SATURATION 8 % (20-55); TOTAL IRON BINDING CAPACITY 338 ug/dL (265-497)
[2018-10-31] MEDS ORDERED: Pantoprazole 40 mg EC Tab PO SCH (22:00)
--- NOTE | 2018-10-31 22:11 | CP.PCM.HP ---
<Chu Lee - Last Filed: 11/01/18 01:14> History of Present Illness - History of Present Illness History of Present Illness: Resident H&P for Dr. Reddy Patient is a 72 year old female with past medical history of CAD s/p stents, CVA, HTN, HLD, iron deficiency anemia, T2DM, COPD presenting with chief complaint of chest pain began this morning. Pain is described as a pressure like sensation localized to left anterior chest wall which began when she got up and started walking. She denies any associated dyspnea or diaphoresis. Patient states her symptoms are similar to what she had on previous admission one month ago when she received stent placement. She has been compliant with her aspirin, plavix, statin therapy. She also admits to fatigue and dark stools over the past two days. Denies fevers, chills, nausea, vomiting, shortness of breath, abdominal pain, diarrhea, dysuria. PMH: CAD, CVA, HTN, HLD, iron deficiency anemia, T2DM, COPD PSH: thyroid biopsy, stents in LAD and circumflex arteries SHx: previously smoked 1/2 PPD, last tobacco use was 1 month ago. denies alcohol, illicit drug use Allergies: NKDA PMD: Dr. Reddy Present on Admission - Present on Admission Any Indicators Present on Admission: No Review of Systems - Review of Systems All systems: reviewed and no additional remarkable complaints except (as stated in HPI) Past Patient History - Past Social History Smoking Status: Light Smoker < 10 Cigarettes Daily - CARDIAC Hx Cardiac Disorders: Yes Hx Hypertension: Yes - PULMONARY Hx Respiratory Disorders: No - NEUROLOGICAL HX Cerebrovascular Accident: Yes - HEENT Hx HEENT Problems: No - RENAL Hx Chronic Kidney Disease: No Other/Comment: family history of renal disorder - ENDOCRINE/METABOLIC Hx Diabetes Mellitus Type 2: Yes - HEMATOLOGICAL/ONCOLOGICAL Hx Blood Transfusions: Yes Hx Blood Transfusion Reaction: No - INTEGUMENTARY Other/Comment: Fungus on the nails - MUSCULOSKELETAL/RHEUMATOLOGICAL Hx Falls: Yes (past) - GASTROINTESTINAL Hx Gastrointestinal Disorders: No - GENITOURINARY/GYNECOLOGICAL Hx Reproductive Disorders: Yes (GATO) - PSYCHIATRIC Hx Emotional Abuse: No Hx Physical Abuse: No Hx Substance Use: No - SURGICAL HISTORY Hx Hysterectomy: Yes - ANESTHESIA Hx Anesthesia Reactions: No Hx Malignant Hyperthermia: No Meds Allergies/Adverse Reactions: Allergies Allergy/AdvReac Type Severity Reaction Status Date / Time No Known Allergies Allergy Verified 01/05/17 13:49 Physical Exam - Constitutional Appears: Non-toxic, No Acute Distress - Head Exam Head Exam: ATRAUMATIC, NORMOCEPHALIC - Eye Exam Eye Exam: EOMI, Normal appearance, PERRL - ENT Exam ENT Exam: Mucous Membranes Moist, Normal Exam, Normal External Ear Exam - Neck Exam Neck exam: Positive for: Full Rom. Negative for: Lymphadenopathy, Tenderness - Respiratory Exam Respiratory Exam: Clear to Auscultation Bilateral, NORMAL BREATHING PATTERN. absent: Rales, Rhonchi, Wheezes - Cardiovascular Exam Cardiovascular Exam: REGULAR RHYTHM, +S1, +S2 Additional comments: Grade 2 systolic murmur - GI/Abdominal Exam GI & Abdominal Exam: Normal Bowel Sounds, Soft. absent: Distended, Firm, Guarding, Rebound, Rigid, Tenderness - Rectal Exam Additional comments: external hemorrhoids no masses or сергей blood noted normal rectal tone - Extremities Exam Extremities exam: Positive for: normal capillary refill, normal inspection, pedal pulses present - Neurological Exam Neurological exam: Alert, CN II-XII Intact, Oriented x3 - Psychiatric Exam Psychiatric exam: Normal Affect, Normal Mood - Skin Skin Exam: Dry, Intact, Normal Color Results - Vital Signs Recent Vital Signs: Last Vital Signs Temp 97.1 F L 10/31/18 18:55 Pulse 68 10/31/18 18:55 Resp 20 10/31/18 18:55 BP 132/61 10/31/18 18:55 Pulse Ox 100 10/31/18 18:55 - Labs Result Diagrams: 10/31/18 19:15 10/31/18 19:15 Labs: Laboratory Results - last 24 hr 10/31/18 10/31/18 10/31/18 19:15 19:15 19:15 WBC 6.0 D RBC 2.17 L Hgb 6.2 L* D Hct 19.8 L* MCV 91.2 MCH 28.6 MCHC 31.3 RDW 15.5 H Plt Count 258 MPV 10.6 Neut % (Auto) 55.3 Lymph % (Auto) 31.4 [place] % (Auto) 7.2 H Eos % (Auto) 5.8 H Baso % (Auto) 0.3 Lymph # (Auto) 1.9 [place] # (Auto) 0.4 Eos # (Auto) 0.4 Baso # (Auto) 0.02 Absolute Neuts (auto) 3.32 PT 10.2 INR 0.92 APTT 28.7 Sodium 134 Potassium 4.2 Chloride 104 Carbon Dioxide 22 Anion Gap 13 BUN 15 Creatinine 0.8 Est GFR ( Amer) > 60 Est GFR (Non-Af Amer) > 60 Random Glucose 293 H Calcium 9.7 Magnesium 1.6 L Iron TIBC % Saturation Total Bilirubin 0.3 AST 24 ALT 13 Alkaline Phosphatase 71 Lactate Dehydrogenase 519 Total Creatine Kinase 61 Troponin I < 0.01 D NT-Pro-B Natriuret Pep 425 Total Protein 6.5 Albumin 3.9 Globulin 2.6 Albumin/Globulin Ratio 1.5 Lipase Urine Color Urine Appearance Urine pH Ur Specific [place] Urine Protein Urine Glucose (UA) Urine Ketones Urine Blood Urine Nitrate Urine Bilirubin Urine Urobilinogen Ur Leukocyte Esterase Urine RBC Urine WBC Ur Epithelial Cells Blood Type Antibody Screen Crossmatch BBK History Checked 10/31/18 10/31/18 10/31/18 20:09 21:00 21:35 WBC RBC Hgb Hct MCV MCH MCHC RDW Plt Count MPV Neut % (Auto) Lymph % (Auto) [place] % (Auto) Eos % (Auto) Baso % (Auto) Lymph # (Auto) [place] # (Auto) Eos # (Auto) Baso # (Auto) Absolute Neuts (auto) PT INR APTT Sodium Potassium Chloride Carbon Dioxide Anion Gap BUN Creatinine Est GFR ( Amer) Est GFR (Non-Af Amer) Random Glucose Calcium Magnesium Iron TIBC % Saturation Total Bilirubin AST ALT Alkaline Phosphatase Lactate Dehydrogenase Total Creatine Kinase Troponin I NT-Pro-B Natriuret Pep Total Protein Albumin Globulin Albumin/Globulin Ratio Lipase 76 Urine Color Yellow Urine Appearance Clear Urine pH 6.0 Ur Specific [place] 1.015 Urine Protein Negative Urine Glucose (UA) >=1000 Urine Ketones Negative Urine Blood Trace-intact H Urine Nitrate Negative Urine Bilirubin Negative Urine Urobilinogen 0.2 Ur Leukocyte Esterase Negative Urine RBC 5 - 10 H Urine WBC 2 - 5 Ur Epithelial Cells 6 - 8 H Blood Type O POSITIVE Antibody Screen Negative Crossmatch See Detail BBK History Checked Patient has bt 10/31/18 21:35 WBC RBC Hgb Hct MCV MCH MCHC RDW Plt Count MPV Neut % (Auto) Lymph % (Auto) [place] % (Auto) Eos % (Auto) Baso % (Auto) Lymph # (Auto) [place] # (Auto) Eos # (Auto) Baso # (Auto) Absolute Neuts (auto) PT INR APTT Sodium Potassium Chloride Carbon Dioxide Anion Gap BUN Creatinine Est GFR ( Amer) Est GFR (Non-Af Amer) Random Glucose Calcium Magnesium Iron 27 L TIBC 338 % Saturation 8 L Total Bilirubin AST ALT Alkaline Phosphatase Lactate Dehydrogenase Total Creatine Kinase Troponin I NT-Pro-B Natriuret Pep Total Protein Albumin Globulin Albumin/Globulin Ratio Lipase Urine Color Urine Appearance Urine pH Ur Specific [place] Urine Protein Urine Glucose (UA) Urine Ketones Urine Blood Urine Nitrate Urine Bilirubin Urine Urobilinogen Ur Leukocyte Esterase Urine RBC Urine WBC Ur Epithelial Cells Blood Type Antibody Screen Crossmatch BBK History Checked Assessment & Plan - Assessment and Plan (Free Text) Assessment: Patient is a 72 year old female with past medical history of CAD s/p stents, CVA, HTN, HLD, iron deficiency anemia, T2DM, COPD presenting with chief complaint of chest pain and dark stools found to have acute on chronic anemia. Plan: Chest pain - Troponins negx1 - EKG shows NSR, LBBB, unchanged compared to prior - Troponins Q4H - EKG in AM - continue home Coreg, Hydralazine, Lipitor, Zetia Symptomatic anemia - likely due to GI bleed - transfuse 2 units pRBCs - Protonix drip - LR @ 100 ccs/hr - IV Venofer - continue home Feosol, folic acid - Iron studies - FOBT - CT abd/pelvis without contrast - GI consulted. Appreciate recs - PT/OT eval - NPO Hypomagnesemia - monitor and replete T2DM - Accuchecks, ISS COPD - Xopenex Q6H - Brovana Q12H History of tobacco abuse - nicotine patch PRN PPX - SCDs, protonix drip - anticoagulation contraindicated Case discussed with Dr. Barry Lee PGY-1 - Date & Time Date: 11/01/18 Time: 22:11 <Edilson Reddy - Last Filed: 11/02/18 19:56> Results - Vital Signs Recent Vital Signs: Last Vital Signs Temp 97.1 F L 11/02/18 12:46 Pulse 55 L 11/02/18 18:06 Resp 18 11/02/18 12:46 BP 150/74 11/02/18 18:06 Pulse Ox 98 11/02/18 11:18 - Labs Result Diagrams: 11/02/18 06:30 11/02/18 06:30 Labs: Laboratory Results - last 24 hr 11/01/18 11/02/18 11/02/18 05:30 06:30 06:30 WBC 5.2 D RBC 3.56 Hgb 9.9 L Hct 31.3 L MCV 87.9 MCH 27.8 MCHC 31.6 RDW 15.9 H Plt Count 188 MPV 10.4 Neut % (Auto) 59.0 Lymph % (Auto) 22.8 [place] % (Auto) 9.7 H Eos % (Auto) 8.3 H Baso % (Auto) 0.2 Lymph # (Auto) 1.2 [place] # (Auto) 0.5 Eos # (Auto) 0.4 Baso # (Auto) 0.01 Absolute Neuts (auto) 3.05 Plt P2Y12 React Units Sodium 139 Potassium 4.0 Chloride 115 H Carbon Dioxide 22 Anion Gap 6 L BUN 9 Creatinine 0.7 Est GFR ( Amer) > 60 Est GFR (Non-Af Amer) > 60 Random Glucose 123 H Calcium 8.0 L Phosphorus 3.2 Magnesium 1.8 Erythropoietin 232.6 H Total Bilirubin 0.5 Direct Bilirubin 0.1 AST 20 ALT 15 Alkaline Phosphatase 46 Total Protein 4.8 L Albumin 2.5 L Globulin 2.2 Albumin/Globulin Ratio 1.1 11/02/18 13:30 WBC RBC Hgb Hct MCV MCH MCHC RDW Plt Count MPV Neut % (Auto) Lymph % (Auto) [place] % (Auto) Eos % (Auto) Baso % (Auto) Lymph # (Auto) [place] # (Auto) Eos # (Auto) Baso # (Auto) Absolute Neuts (auto) Plt P2Y12 React Units 258 Sodium Potassium Chloride Carbon Dioxide Anion Gap BUN Creatinine Est GFR ( Amer) Est GFR (Non-Af Amer) Random Glucose Calcium Phosphorus Magnesium Erythropoietin Total Bilirubin Direct Bilirubin AST ALT Alkaline Phosphatase Total Protein Albumin Globulin Albumin/Globulin Ratio Attending/Attestation - Attestation I have personally seen and examined this patient.: Yes I have fully participated in the care of the patient.: Yes I have reviewed all pertinent clinical information: Yes Notes (Text): Please see/read my dictated notes.
[2018-10-31] MEDS ORDERED: Magnesium Citrate Oral SOL (300 ml) PO ONE (23:27)
[2018-11-01] MEDS: Ergocalciferol 50,000 Intl Units Cap PO SCH
[2018-11-01] MEDS: Levalbuterol 0.63 MG/3 ML Inhal Soln UD IH SCH ×4 (01:40→21:03)
[2018-11-01] MEDS: Lactated Ringer's 1,000 ML IV SCH ×2 (04:37→22:33)
[2018-11-01] MEDS: Magnesium Sulfate 2 gm/50 ml 2 GM/50 ML BAG IVPB SCH (04:59)
[2018-11-01] MEDS ORDERED: Magnesium Sulfate 2 gm/50 ml 2 GM/50 ML BAG IVPB SCH (05:00)
[2018-11-01] MEDS: Pantoprazole 40mg/100mL NS 40 MG/100 ML BAG IVPB SCH ×3 (05:39→19:36)
[2018-11-01 06:00] LABS: BASO # 0.03 K/mm3 (0.0-2.0); BASO % 0.4 % (0.0-3.0); EOS # 0.2 (0.0-0.7); EOS % 2.9 % (1.5-5.0); LYMPH # 1.2 (1.2-3.4); LYMPH % 15.7 % (22.0-35.0); MEAN CORPUSCULAR HEMOGLOBIN 28.1 pg (25.0-35.0); MEAN CORPUSCULAR HGB CONC 32.1 g/dl (31.0-37.0); MEAN PLATELET VOLUME 10.5 fl (7.0-11.0); MONO # 0.5 (0.1-0.6); MONO % 6.3 % (1.0-6.0); RBC 2.99 10^6/uL (3.5-6.1); RED CELL DISTRIBUTION WIDTH 15.4 % (11.5-14.5); WHITE BLOOD COUNT 7.6 10^3/uL (4.5-11.0)
[2018-11-01 06:04] LABS: HEMOGLOBIN 8.4 g/dL (12.0-16.0); MEAN CELL VOLUME 87.6 fl (80.0-105.0)
[2018-11-01 06:31] LABS: TROPONIN I < 0.01 ng/mL
[2018-11-01 06:36] LABS: ALB/GLOB RATIO 1.3 (1.1-1.8); ALBUMIN 3.3 g/dL (3.0-4.8); ALT/SGPT 17 U/L (7-56); AST/SGOT 27 U/L (14-36); BILIRUBIN,DIRECT 0.2 mg/dL (0.0-0.4); BLOOD UREA NITROGEN 15 mg/dL (7-21); CALCIUM 9.4 mg/dL (8.4-10.5); GFR NON-AFRICAN AMERICAN > 60
[2018-11-01] MEDS: Arformoterol 15 mcg/2 ml Inh Sol IH SCH ×2 (07:29→21:03)
[2018-11-01] MEDS ORDERED: Insulin Detemir 100 units/ml Vial (Levemir) SC SCH (07:30)
[2018-11-01] MEDS: Insulin Lispro (HUMAlog) HIGH Coverage SC SCH ×4 (08:21→22:59)
--- NOTE | 2018-11-01 08:23 | RAD ---
Date of service: 10/31/2018 HISTORY: sob COMPARISON: 09/22/2018 FINDINGS: LUNGS: No active pulmonary disease. PLEURA: No significant pleural effusion identified, no pneumothorax apparent. CARDIOVASCULAR: No aortic atherosclerotic calcification present. Normal cardiac size. No pulmonary vascular congestion. OSSEOUS STRUCTURES: No significant abnormalities. VISUALIZED UPPER ABDOMEN: Normal. OTHER FINDINGS: None. IMPRESSION: No active disease.
--- NOTE | 2018-11-01 08:49 | CT ---
Date of service: 10/31/2018 PROCEDURE: CT Abdomen and Pelvis without intravenous contrast HISTORY: WITHOUT IV WITHOUT PO CONTRAST. No relevant history provided. COMPARISON: 09/23/2018 TECHNIQUE: Without contrast.. Contrast dose: 0 Radiation dose: Total exam DLP = 358.5 mGy-cm. This CT exam was performed using one or more of the following dose reduction techniques: Automated exposure control, adjustment of the mA and/or kV according to patient size, and/or use of iterative reconstruction technique. FINDINGS: LOWER THORAX: Unremarkable. LIVER: Unremarkable. No gross lesion or ductal dilatation. GALLBLADDER AND BILE DUCTS: Unremarkable. PANCREAS: Unremarkable. No gross lesion or ductal dilatation. SPLEEN: Unremarkable. ADRENALS: Unremarkable. No mass. KIDNEYS AND URETERS: Two mid left renal cortical cysts, 2.0 cm and 2.1 cm, respectively. VASCULATURE: Unremarkable. No aortic aneurysm. There is atherosclerotic calcification of the abdominal aorta and iliac vessels. BOWEL: Moderate retained feces. No evidence of bowel obstruction no abnormal bowel loops. APPENDIX: Not identified. No secondary findings to suggest acute appendicitis. PERITONEUM: Unremarkable. No free fluid. No free air. LYMPH NODES: Unremarkable. No enlarged lymph nodes. BLADDER: Unremarkable. REPRODUCTIVE: Status post hysterectomy BONES: No acute fracture. OTHER FINDINGS: None. IMPRESSION: Retained feces. No acute abnormality. Minor findings as above. The preliminary findings for this examination were reported by [facility] at 10:17 p.m. on 10/31/2018. There is discordance of this report with the preliminary findings. There is no evidence of gastritis or enteritis.
[2018-11-01] MEDS ORDERED: Magnesium Citrate Oral SOL (300 ml) PO ONE (09:17)
[2018-11-01] MEDS: Cholecalciferol 1,000 INTLU TAB PO SCH (09:24)
[2018-11-01] MEDS: POLYETHYLENE GLYCOL 3350 17 GM/Dose PACKET PO SCH ×2 (09:25→17:57)
--- NOTE | 2018-11-01 09:50 | HP ---
DATE OF EXAM: 10/31/2018 The patient was seen in stretcher #2 in the emergency room. The patient's chief complaint, vital signs, lab data all reviewed. The patient is a 72-year-old female who was brought to the [facility] Emergency Room [place] [facility] [place] following chief complaints of melena x3 days, chest pain x1 day. The patient's chest pain was radiating to left arm. The patient received sublingual nitroglycerin by the ambulance staff. The patient's vital signs, lab data all reviewed. The patient examined in bed #2 in the emergency room. Please refer to the detailed history, physical examination by the medical social worker. IMPRESSION: 1. Acute melena and acute blood loss anemia with severe symptomatic anemia. 2. Uncontrolled insulin-requiring diabetes mellitus with hyperglycemia. 3. Hypomagnesemia. 4. Severe iron deficiency. 5. Microscopic hematuria. 6. O+ blood type. 7. History of coronary artery disease. 8. Unstable angina. 9. History of non-ST elevation myocardial infarction status post coronary angiogram and stent placement. 10. Gastrointestinal bleeding. 11. Left renal cyst. 12. Questionable gastritis, duodenitis, enteritis with mucosal wall thickening of the gastric antrum, duodenum and the small intestine. 13. Constipation, fecal stasis and fecal impaction. 14. Dense extensive atherosclerotic vascular calcification of the abdominal aorta. 15. Status post hysterectomy. 16. Acute blood loss anemia. 17. Chronic obstructive pulmonary disease. 18. Hyperglycemia. 19. History of hyperlipidemia. 20. History of vitamin B12 deficiency. 21. Nicotine addiction and dependence. 22. Hypovitaminosis D. 23. Diabetic neuropathy. 24. Insulin-requiring diabetes mellitus. 25. Left bundle-branch block. PLAN: At this time, the patient is to be admitted to [facility] Telemetry. The patient's troponin is negative. Serial labs have been ordered. CONSULTATION: Cardiology, Gastroenterology. The patient has been ordered transfusion of PRBC. The patient had to be resumed. The patient's anticoagulation, antiplatelet therapy will be held at this time till further evaluation by Gastroenterology, Cardiology. CURRENT MEDICATION: Hydralazine 10 mg twice a day, Brovana 15 mcg every 12, Colace 100 mg three times a day, Coreg 3.125 daily, ferrous sulfate 324 three times a day, folic acid 1 mg daily. The patient's insulin has substituted to Levemir 25 units breakfast, dinner, instead of Basaglar 45 units breakfast and supper, Lipitor 40 mg daily. The patient is also given 2 doses of magnesium sulfate rider, MiraLax 17 g twice a day, Neurontin 300 twice a day, nicotine patch 21 mg daily, Protonix drip has been started at 20 mL per hour, Tylenol p.o. suppository has been ordered, vitamin D 2000 units, Xopenex nebulizers, Zetia, Zofran has been ordered. CAT scan of the abdomen, pelvis has been ordered. Repeat EKG, repeat cardiac enzymes will be ordered. The patient at present has been kept n.p.o. The patient's stool occult blood ordered. The patient will be ordered clear liquid diet. Full liquid diet will be ordered. The patient will be put on sliding scale coverage rather than a bolus or basal insulin. The patient will be started on IV Venofer. The patient will be put on sliding scale insulin coverage of Humalog, high-dose sliding scale coverage, fingerstick blood sugar a.c. and at bedtime.. The patient will be ordered fingerstick blood sugar a.c. and at bedtime. a.c. and at bedtime, IV Venofer has been ordered.. Sliding scale insulin coverage has been ordered. IV Venofer 200 mg has been ordered IV. Two units of PRBC has been ordered. The patient has been ordered CMP, LFT, magnesium phosphorus in a.m., serial troponin, CPK has been ordered. Daily EKG has been ordered for the morning. At present, the patient is seen in the emergency room. The patient's repeat EKG has been ordered. Repeat serial troponin and CPK ordered. The patient has been ordered transfusion of 2 units of PRBC today. At present, the patient's further management, Cardiology consultation, GI consultation ordered. Current medication, hydralazine 10 mg twice a day, Brovana 15 mcg every 12, Colace 100 three times a day, Coreg 3.125 daily. In addition, all the medicines will ordered. The patient is on Protonix drip. The patient will be given a half a bottle of magnesium citrate because of fecal stasis and fecal impaction and order for possible anticipation for colonoscopy or endoscopy. The patient has been ordered known pharmacological DVT prophylaxis. The patient has been ordered oxygen 2 liters. Head of the bed at 30 degrees. The patient has been ordered out of bed to chair. In addition, the patient has been explained about the details of her medical condition, diagnosis. Treatment plan was discussed and explained to the patient at length. I have discussed the patient's condition, diagnosis, need for hospitalization, need for further management was discussed and explained to the patient and the patient's son who was present at the bedside at length and all questions concerned answered. All the details was discussed and explained to the patient and the patient's son at length and all questions concerned answered to their satisfaction. At present, the patient is awaiting for a telemetry bed. The patient's further management will be dependent upon the patient's clinical condition, hemodynamic status and as per the patient response to therapeutic intervention as per the patient's diagnostic test results, as per recommendation by all the physician involved in the care of the patient. At present, the patient's overall prognosis is guarded. The patient and the family was explained about the risk of holding anticoagulation including myocardial infarction, in-stent restenosis and worsening of coronary angioplasty status, which they acknowledged understand. Please refer to the detailed history, physical examination by the medical social worker for further details. Dictated and electronically signed, not read. Edilson Reddy MD
--- NOTE | 2018-11-01 10:20 | CARD ---
APPROVED REPORT Date of service: 10/31/2018 EKG Measurement Heart [id number] <Conclusion> Normal sinus rhythm with sinus arrhythmia Left axis deviation Left bundle branch block Abnormal ECG
--- NOTE | 2018-11-01 11:39 | CON ---
DATE: 11/01/2018 GASTROENTEROLOGY CONSULTATION REQUESTING PHYSICIAN: Dr. Reddy REASON FOR CONSULT: I have been asked to see this 72-year-old female with a history of coronary artery disease, status post two coronary artery stent placements one month ago, on aspirin and Plavix, history of CVA, chronic iron-deficiency anemia, diabetes mellitus, COPD, hypertension, hyperlipidemia, who is admitted to the hospital with substernal chest pain on ambulation. She denies any abdominal pain, nausea, vomiting, rectal bleeding or melena. Routine blood work in the emergency room showed the patient to be profoundly anemic with a hemoglobin of 6.4. The patient does have a history of chronic anemia. 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 She admits to some constipation. PAST MEDICAL HISTORY: Notable for coronary artery disease with stents in the LAD and circumflex arteries placed about a month ago, type 2 diabetes mellitus, hypertension, chronic anemia, CVA, COPD, hyperlipidemia. PAST SURGICAL HISTORY: Notable for thyroid biopsy. SOCIAL HISTORY: The patient has smoked up to half pack of cigarettes daily, she stopped a month ago. She denies alcohol use. FAMILY HISTORY: Noncontributory. REVIEW OF SYSTEMS: Fourteen-point review of systems is notable for substernal chest pain on ambulation. MEDICATIONS AT HOME: Include hydralazine, MiraLax, pantoprazole, Zofran, Nicoderm patch, Xopenex, insulin, gabapentin, folic acid, Feosol, Zetia, Colace, vitamin D, Coreg, Lipitor, metformin, clopidogrel and Ecotrin. PHYSICAL EXAMINATION: GENERAL: Elderly female lying in bed, in no acute distress. VITAL SIGNS: Reveal a temperature of 98.6, blood pressure 150/70, heart rate 58. HEENT: Reveal sclerae to be white, conjunctivae pale. NECK: Supple. CHEST: Reveals lungs to be clear. HEART: Exam reveals regular rate and rhythm. ABDOMEN: Soft, nontender. No mass. EXTREMITIES: Show no edema. LABORATORY DATA: Reveal white blood cell count 7.6, hemoglobin 8.4 after 2 units of packed red blood cells. Chemistries reveal blood sugar 215. Iron saturation of 8. AST, ALT, alk phos are all normal. IMPRESSION: A 72-year-old female admitted to the hospital with chest pain, found to be profoundly anemic with a hemoglobin of 6.4. She is on aspirin and Plavix. She is known to have antral gastritis, esophagitis and a gastric arteriovenous malformation. I suspect that the anemia is from subacute chronic blood loss. There is no evidence of active gastrointestinal bleeding at this time. RECOMMENDATIONS: 1. We will transfuse another unit of packed red blood cells to hematocrit of 30%. 2. Continue IV Protonix. 3. I will start the patient on clear liquids. 4. We will schedule the patient for an endoscopy for the morning. Thank you. Max Beltrán MD
--- NOTE | 2018-11-01 11:48 | CP.PCM.PN ---
<Antonieta Goode - Last Filed: 11/01/18 11:49> Subjective - Date & Time of Evaluation Date of Evaluation: 11/01/18 Time of Evaluation: 11:46 - Subjective Subjective: PGY-[address] Reddy CP resolved. No acute complain per 12 pt ros Objective - Vital Signs/Intake and Output Vital Signs (last 24 hours): Temp Pulse Resp BP Pulse Ox 98.6 F 62 18 160/70 H 100 11/01/18 06:00 11/01/18 09:23 11/01/18 06:00 11/01/18 09:23 10/31/18 23:13 Intake and Output: 11/01/18 11/01/18 06:59 18:59 Intake Total 603 Output Total 300 Balance 303 - Medications Medications: Current Medications Acetaminophen (Tylenol 325mg Tab) 650 mg PO Q6 PRN PRN Reason: TEMP>=99.5F Acetaminophen (Tylenol 325mg Tab) 650 mg PO Q6 PRN PRN Reason: TEMP>=99.5F Acetaminophen (Tylenol 650 Mg Supp) 650 mg RC Q6H PRN PRN Reason: TEMP>=99.5F Arformoterol Tartrate (Brovana) 15 mcg IH [id number] [facility] Last Admin: 11/01/18 07:29 Dose: 15 mcg Atorvastatin Calcium (Lipitor) 40 mg PO DIN [facility] Carvedilol (Coreg) 3.125 mg PO 0800 [facility] Last Admin: 11/01/18 09:22 Dose: 3.125 mg Cholecalciferol (Vitamin D) 1,000 intlu PO DAILY [facility] Last Admin: 11/01/18 09:24 Dose: 1,000 intlu Docusate Sodium (Colace) 100 mg PO TID [facility] Last Admin: 11/01/18 09:22 Dose: 100 mg Ezetimibe (Zetia) 10 mg PO DAILY [facility] Last Admin: 11/01/18 09:23 Dose: 10 mg Ergocalciferol (Drisdol 50,000 Intl Units Cap) 1 cap PO Q7D [facility] Last Admin: 11/01/18 00:00 Dose: Not Given Ferrous Sulfate (Feosol) 324 mg PO 0800,1200,1600 [facility] Last Admin: 11/01/18 09:23 Dose: 324 mg Folic Acid (Folic Acid) 1 mg PO DAILY [facility] Last Admin: 11/01/18 09:23 Dose: 1 mg Gabapentin (Neurontin) 300 mg PO BID [facility]; Protocol Last Admin: 11/01/18 09:23 Dose: 300 mg Hydralazine HCl (Apresoline) 10 mg PO 1000,1800 [facility] Last Admin: 11/01/18 09:23 Dose: 10 mg Pantoprazole Sodium (Protonix 40mg Ivpb) 40 mg in 100 mls @ 20 mls/hr IVPB .Q5H [facility] Last Admin: 11/01/18 08:18 Dose: 20 mls/hr Iron Sucrose 200 mg/ Sodium (Chloride) 110 mls @ 110 mls/hr IVPB DAILY [facility] Stop: 11/05/18 10:59 Last Admin: 11/01/18 09:24 Dose: 110 mls/hr Lactated Ringer's (Lactated Ringer's) 1,000 mls @ 100 mls/hr IV .Q10H [facility] Last Admin: 11/01/18 04:37 Dose: 100 mls/hr Insulin Human Lispro (Humalog High) 0 units SC ACHS [facility]; Protocol Last Admin: 11/01/18 08:21 Dose: Not Given Levalbuterol HCl (Xopenex) 0.63 mg IH [id number] [facility] Last Admin: 11/01/18 07:29 Dose: 0.63 mg Nicotine (Nicoderm Cq) 1 patch TD DAILY [facility] Last Admin: 11/01/18 09:22 Dose: 1 patch Ondansetron HCl (Zofran Inj) 4 mg IVP Q4H PRN PRN Reason: Nausea/Vomiting Ondansetron HCl (Zofran Inj) 4 mg IVP Q4H PRN PRN Reason: Nausea/Vomiting Polyethylene Glycol (Miralax) 17 gm PO BID [facility] Last Admin: 11/01/18 09:25 Dose: 17 gm - Labs Labs: 11/01/18 05:30 11/01/18 05:30 PT 10.2 SECONDS (9.4-12.5) 10/31/18 19:15 INR 0.92 10/31/18 19:15 APTT 28.7 Seconds (26.9-38.3) 10/31/18 19:15 - Constitutional Appears: No Acute Distress - Head Exam Head Exam: ATRAUMATIC, NORMAL INSPECTION, NORMOCEPHALIC - Eye Exam Eye Exam: EOMI, Normal appearance, PERRL. absent: Scleral icterus Pupil Exam: NORMAL ACCOMODATION - ENT Exam ENT Exam: Mucous Membranes Moist - Neck Exam Neck Exam: Normal Inspection - Respiratory Exam Respiratory Exam: Clear to Ausculation Bilateral, NORMAL BREATHING PATTERN. absent: Decreased Breath Sounds, Rales, Rhonchi, Wheezes - Cardiovascular Exam Cardiovascular Exam: REGULAR RHYTHM, +S1, +S2. absent: Murmur - GI/Abdominal Exam GI & Abdominal Exam: Soft, Normal Bowel Sounds. absent: Guarding, Rigid - Extremities Exam Extremities Exam: Pedal Edema. absent: Calf Tenderness - Back Exam Back Exam: absent: CVA tenderness (L), CVA tenderness (R) - Neurological Exam Neurological Exam: Alert, Awake, Oriented x3 - Psychiatric Exam Psychiatric exam: Normal Affect, Normal Mood - Skin Skin Exam: Dry, Warm Assessment and Plan - Assessment and Plan (Free Text) Plan: Ms Cha, 72F, PMHx CVA, active smoker, CAD s/p stents (09/28/18), HTN/HLD, COPD, iron deficiency anemia, T2DM admitted for chest pain found to have Hb 6 and recent dark stool. GI bleed, upper vs lower Anemia, acute on chronic, s/p 2pRBC - NPO, [id number], Protonix gtt, zofran PRN - Iron PO, folic - Hb 6 --> 8.4. Retic 5% - pending decision to EGD/Colonoscopy Chest pain - trops neg x 2. No change in EKG [ ] PRU CAD with recent stents - Lipitor/Ezetimibe, Carvedilol, Vit D - hydralazine DM - ISSS, Neurontin. A1C 8.4. Diabetic education COPD - Brovana, xopenex Constipation - Colace TID, MOM x1 Tobacco abuse - nicoderm. debt counselor for cessation Consult: Card = Dr Vanessa GI = Dr Beltrán <Edilson Reddy - Last Filed: 11/02/18 19:55> Objective - Vital Signs/Intake and Output Vital Signs (last 24 hours): Temp Pulse Resp BP Pulse Ox 97.1 F L 55 L 18 150/74 98 11/02/18 12:46 11/02/18 18:06 11/02/18 12:46 11/02/18 18:06 11/02/18 11:18 Intake and Output: 11/02/18 11/03/18 18:59 06:59 Intake Total 980 Output Total 780 Balance 200 - Medications Medications: Current Medications Acetaminophen (Tylenol 325mg Tab) 650 mg PO Q6 PRN PRN Reason: TEMP>=99.5F Acetaminophen (Tylenol 325mg Tab) 650 mg PO Q6 PRN PRN Reason: TEMP>=99.5F Acetaminophen (Tylenol 650 Mg Supp) 650 mg RC Q6H PRN PRN Reason: TEMP>=99.5F Arformoterol Tartrate (Brovana) 15 mcg IH [id number] [facility] Last Admin: 11/02/18 19:31 Dose: 15 mcg Atorvastatin Calcium (Lipitor) 40 mg PO DIN [facility] Last Admin: 11/02/18 18:05 Dose: 40 mg Carvedilol (Coreg) 3.125 mg PO 0800 [facility] Last Admin: 11/02/18 09:04 Dose: 3.125 mg Cholecalciferol (Vitamin D) 1,000 intlu PO DAILY [facility] Last Admin: 11/02/18 18:09 Dose: 1,000 intlu Docusate Sodium (Colace) 100 mg PO TID [facility] Last Admin: 11/02/18 18:08 Dose: 100 mg Ezetimibe (Zetia) 10 mg PO DAILY [facility] Last Admin: 11/02/18 12:14 Dose: 10 mg Ergocalciferol (Drisdol 50,000 Intl Units Cap) 1 cap PO Q7D [facility] Last Admin: 11/02/18 12:14 Dose: 1 cap Ferrous Sulfate (Feosol) 324 mg PO 0800,1200,1600 [facility] Last Admin: 11/02/18 18:08 Dose: 324 mg Folic Acid (Folic Acid) 1 mg PO DAILY [facility] Last Admin: 11/02/18 12:14 Dose: 1 mg Gabapentin (Neurontin) 300 mg PO BID [facility]; Protocol Last Admin: 11/02/18 18:09 Dose: 300 mg Hydralazine HCl (Apresoline) 10 mg PO 1000,1800 [facility] Last Admin: 11/02/18 18:06 Dose: 10 mg Iron Sucrose 200 mg/ Sodium (Chloride) 110 mls @ 110 mls/hr IVPB DAILY [facility] Stop: 11/05/18 10:59 Last Admin: 11/02/18 12:11 Dose: 110 mls/hr Insulin Detemir (Levemir) 10 unit SC Q12 [facility] Insulin Human Lispro (Humalog High) 0 units SC ACHS [facility]; Protocol Last Admin: 11/02/18 18:12 Dose: 7 u Levalbuterol HCl (Xopenex) 0.63 mg IH [id number] [facility] Last Admin: 11/02/18 19:31 Dose: 0.63 mg Nicotine (Nicoderm Cq) 1 patch TD DAILY [facility] Last Admin: 11/02/18 09:06 Dose: 1 patch Ondansetron HCl (Zofran Inj) 4 mg IVP Q4H PRN PRN Reason: Nausea/Vomiting Pantoprazole Sodium (Protonix Ec Tab) 40 mg PO 0600 [facility] Polyethylene Glycol (Miralax) 17 gm PO BID [facility] Last Admin: 11/02/18 18:13 Dose: 17 gm - Labs Labs: 11/02/18 06:30 11/02/18 06:30 PT 10.2 SECONDS (9.4-12.5) 10/31/18 19:15 INR 0.92 10/31/18 19:15 APTT 28.7 Seconds (26.9-38.3) 10/31/18 19:15 Attending/Attestation - Attestation I have personally seen and examined this patient.: Yes I have fully participated in the care of the patient.: Yes I have reviewed all pertinent clinical information, including history, physical exam and plan: Yes Notes (Text): Please see/read my dictated notes.
--- NOTE | 2018-11-01 12:03 | CON ---
DATE: 11/01/2018 CARDIOLOGY CONSULTATION HISTORY: The patient is a 72-year-old woman, who is status post PTCA and stent of the circumflex artery and LAD with drug-eluting stents 1 month ago, who presents with chest pain and dark stools consistent with a GI bleed. She was found to have a hemoglobin of 6 and which she is currently being transfused. PAST MEDICAL HISTORY: Her past medical history also includes a long history of smoking, diabetes mellitus, she states she has stopped smoking. Her chest pain is much improved after packed red blood cells. In addition, in the past, she was found to be super reactive to Plavix with a very reactive PRU testing. REVIEW OF SYSTEMS: Fourteen-point review of systems is reviewed in detail. No additional symptoms are noted other than above. PHYSICAL EXAMINATION: VITAL SIGNS: Blood pressure is 160/70, heart rates in the 60s. NECK: Negative JVD. LUNGS: Without rales. HEART: Heart rate S1, S2. EXTREMITIES: Without edema. LABORATORY DATA: Laboratories shows EKGs with nonspecific ST-T changes. The glucose is 215, troponins are negative x2. The hemoglobin on presentation was 6.7, it is currently 8.4. The patient is still receiving blood. IMPRESSION: 1. Recurrent angina. 2. Two-vessel coronary artery disease with PTCA and stent with drug-eluting stents 1 month ago. 3. Gastrointestinal bleed. 4. Diabetes mellitus. 5. Chronic obstructive pulmonary disease. 6. History of nicotine addiction. 7. History of super reactive to Plavix. Given these findings, I agree with transfusing with packed red blood cells. We will measure her PRU to see when we can reduce the doses of Plavix, restart her on her aspirin and Plavix. GI consult has been called. Abdullahi Vanessa MD
--- NOTE | 2018-11-01 12:11 | CARD ---
APPROVED REPORT Date of service: 10/31/2018 EKG Measurement Heart [id number] 128P78 [id number] <Conclusion> Normal sinus rhythm Left axis deviation Left bundle branch block Abnormal ECG
--- NOTE | 2018-11-01 12:16 | CP.PCM.APN ---
Subjective - Date & Time of Evaluation Date of Evaluation: 11/01/18 Time of Evaluation: 10:00 - Subjective Subjective: pt seen and examined at bedside pt conversational . pt offers no complaints when questioned and states she feels much better after transfusion Review of Systems - Review of Systems All systems: reviewed and no additional remarkable complaints except Objective - Vital Signs/Intake and Output Vital Signs (last 24 hours): Temp Pulse Resp BP Pulse Ox 98.6 F 62 18 160/70 H 100 11/01/18 06:00 11/01/18 09:23 11/01/18 06:00 11/01/18 09:23 10/31/18 23:13 Intake and Output: 11/01/18 11/01/18 06:59 18:59 Intake Total 603 Output Total 300 Balance 303 - Medications Medications: Current Medications Acetaminophen (Tylenol 325mg Tab) 650 mg PO Q6 PRN PRN Reason: TEMP>=99.5F Acetaminophen (Tylenol 325mg Tab) 650 mg PO Q6 PRN PRN Reason: TEMP>=99.5F Acetaminophen (Tylenol 650 Mg Supp) 650 mg RC Q6H PRN PRN Reason: TEMP>=99.5F Arformoterol Tartrate (Brovana) 15 mcg IH [id number] [facility] Last Admin: 11/01/18 07:29 Dose: 15 mcg Atorvastatin Calcium (Lipitor) 40 mg PO DIN [facility] Carvedilol (Coreg) 3.125 mg PO 0800 [facility] Last Admin: 11/01/18 09:22 Dose: 3.125 mg Cholecalciferol (Vitamin D) 1,000 intlu PO DAILY [facility] Last Admin: 11/01/18 09:24 Dose: 1,000 intlu Docusate Sodium (Colace) 100 mg PO TID [facility] Last Admin: 11/01/18 09:22 Dose: 100 mg Ezetimibe (Zetia) 10 mg PO DAILY [facility] Last Admin: 11/01/18 09:23 Dose: 10 mg Ergocalciferol (Drisdol 50,000 Intl Units Cap) 1 cap PO Q7D [facility] Last Admin: 11/01/18 00:00 Dose: Not Given Ferrous Sulfate (Feosol) 324 mg PO 0800,1200,1600 [facility] Last Admin: 11/01/18 09:23 Dose: 324 mg Folic Acid (Folic Acid) 1 mg PO DAILY [facility] Last Admin: 11/01/18 09:23 Dose: 1 mg Gabapentin (Neurontin) 300 mg PO BID [facility]; Protocol Last Admin: 11/01/18 09:23 Dose: 300 mg Hydralazine HCl (Apresoline) 10 mg PO 1000,1800 [facility] Last Admin: 11/01/18 09:23 Dose: 10 mg Pantoprazole Sodium (Protonix 40mg Ivpb) 40 mg in 100 mls @ 20 mls/hr IVPB .Q5H [facility] Last Admin: 11/01/18 08:18 Dose: 20 mls/hr Iron Sucrose 200 mg/ Sodium (Chloride) 110 mls @ 110 mls/hr IVPB DAILY [facility] Stop: 11/05/18 10:59 Last Admin: 11/01/18 09:24 Dose: 110 mls/hr Lactated Ringer's (Lactated Ringer's) 1,000 mls @ 100 mls/hr IV .Q10H [facility] Last Admin: 11/01/18 04:37 Dose: 100 mls/hr Insulin Human Lispro (Humalog High) 0 units SC ACHS [facility]; Protocol Last Admin: 11/01/18 08:21 Dose: Not Given Levalbuterol HCl (Xopenex) 0.63 mg IH [id number] [facility] Last Admin: 11/01/18 07:29 Dose: 0.63 mg Nicotine (Nicoderm Cq) 1 patch TD DAILY [facility] Last Admin: 11/01/18 09:22 Dose: 1 patch Ondansetron HCl (Zofran Inj) 4 mg IVP Q4H PRN PRN Reason: Nausea/Vomiting Ondansetron HCl (Zofran Inj) 4 mg IVP Q4H PRN PRN Reason: Nausea/Vomiting Polyethylene Glycol (Miralax) 17 gm PO BID [facility] Last Admin: 11/01/18 09:25 Dose: 17 gm - Labs Labs: 11/01/18 05:30 11/01/18 05:30 PT 10.2 SECONDS (9.4-12.5) 10/31/18 19:15 INR 0.92 10/31/18 19:15 APTT 28.7 Seconds (26.9-38.3) 10/31/18 19:15 - Constitutional Appears: No Acute Distress - Eye Exam Eye Exam: Normal appearance - ENT Exam ENT Exam: Mucous Membranes Moist - Respiratory Exam Respiratory Exam: Decreased Breath Sounds, NORMAL BREATHING PATTERN - Cardiovascular Exam Cardiovascular Exam: REGULAR RHYTHM, +S1, +S2 - GI/Abdominal Exam GI & Abdominal Exam: Soft, Normal Bowel Sounds - Extremities Exam Extremities Exam: Normal Capillary Refill - Neurological Exam Neurological Exam: Alert, Awake, Oriented x3 - Psychiatric Exam Psychiatric exam: Normal Affect, Normal Mood - Skin Skin Exam: Dry, Intact Assessment and Plan - Assessment and Plan (Free Text) Plan: ITS Impressions Chest X-Ray 10/31/18 19:09 IMPRESSION: No active disease. Abdomen/Pelvis CT 10/31/18 19:53 IMPRESSION: Retained feces. No acute abnormality. Minor findings as above. The preliminary findings for this examination were reported by [facility] Radiology at 10:17 p.m. on 10/31/2018. There is discordance of this report with the preliminary findings. There is no evidence of gastritis or enteritis. 72 yr old AA female with pmh sig for CAD, CVA, HTN, HLD, iron deficiency anemia, DM type 2, COPD stents in LAD and circ on asa and Plavix at home, recent ex-smoker of 1/2 PPD, last tobacco use was 1 month ago who presented to the Ed with c/o chest pain with radiation to left arm. Pt was found to be acutely anemic with h/h 6.2 and 18 and is now undergoing crdilogy and GI eval and treatment #Acute anemia s/p 2 units prbc yesterday, with 1 additional unit today IV PPI therapy in place Iron studies reviewed , Iron supplementation noted Stool OB pending clear luquid diet GI consultation with DR Beltrán with plans for Endo in am per discussion with nurse #CAD with stents cardiology consult with Dr Vanessa BB, Statin therapy , ASA/PALVIX held in setting of ?GI bleed # tobacco dependence smoking cessatin enforced Nicoderm patch regimen will continue to follow #COPD Brovana therapy #fecal retention Stool softener, Miralax regimen Patient discussed with interdisciplinary team, will continue to monitor clinical status. Pily Blair BPCI/TIC - BPCIA/TIC Educated pt/family on BPCIA/CIR/Med to Bed Programs: N/A Flyers given, including [facility] Beneficiary letter: N/A Pt/family verbalized understanding & agreed to program: N/A
[2018-11-02] MEDS: Pantoprazole 40mg/100mL NS 40 MG/100 ML BAG IVPB SCH ×2 (01:25→06:03)
[2018-11-02] MEDS: Levalbuterol 0.63 MG/3 ML Inhal Soln UD IH SCH ×4 (03:00→19:31)
[2018-11-02] MEDS: Lactated Ringer's 1,000 ML IV SCH (06:04)
[2018-11-02 07:04] LABS: BASO # 0.01 K/mm3 (0.0-2.0); BASO % 0.2 % (0.0-3.0); EOS # 0.4 (0.0-0.7); EOS % 8.3 % (1.5-5.0); LYMPH # 1.2 (1.2-3.4); LYMPH % 22.8 % (22.0-35.0); MEAN CELL VOLUME 87.9 fl (80.0-105.0); MEAN CORPUSCULAR HEMOGLOBIN 27.8 pg (25.0-35.0); MEAN CORPUSCULAR HGB CONC 31.6 g/dl (31.0-37.0); MEAN PLATELET VOLUME 10.4 fl (7.0-11.0); MONO # 0.5 (0.1-0.6); MONO % 9.7 % (1.0-6.0); RBC 3.56 10^6/uL (3.5-6.1); RED CELL DISTRIBUTION WIDTH 15.9 % (11.5-14.5); WHITE BLOOD COUNT 5.2 10^3/uL (4.5-11.0)
[2018-11-02 07:13] LABS: HEMOGLOBIN 9.9 g/dL (12.0-16.0)
[2018-11-02] MEDS: Arformoterol 15 mcg/2 ml Inh Sol IH SCH ×2 (07:54→19:31)
[2018-11-02 07:57] LABS: ALB/GLOB RATIO 1.1 (1.1-1.8); ALBUMIN 2.5 g/dL (3.0-4.8); ALT/SGPT 15 U/L (7-56); AST/SGOT 20 U/L (14-36); BILIRUBIN,DIRECT 0.1 mg/dL (0.0-0.4); BLOOD UREA NITROGEN 9 mg/dL (7-21); GFR NON-AFRICAN AMERICAN > 60
--- NOTE | 2018-11-02 08:23 | PN ---
DATE: 11/01/2018 SUBJECTIVE: The patient is seen in room 269 bed two. The patient is seen lying in the bed. The patient denies anymore melena. The chest pain has also subsided. A 14-system review was done, pertinent positive and negative dictated above. PHYSICAL EXAMINATION: VITAL SIGNS: T-max 98.6. Telemetry shows sinus rhythm, sinus bradycardia, heart rate 60, 58, 64, blood pressure 150/70, respiration 18, O2 sat is 100%. HEENT: Head: Normocephalic, atraumatic. HEENT examination shows pale conjunctivae, anicteric sclerae. No oropharyngeal lesion. No neck rigidity. CHEST: Kyphosis. LUNGS: No audible crackle, rales or wheezing. CARDIOVASCULAR: S1, S2, regular rhythm. Questionable soft systolic murmur at left sternal border, right second intercostal space, left second intercostal space. ABDOMEN: Soft. Positive bowel sound. No palpable hepatosplenomegaly. GENITALIA: Female. RECTAL: Rectal examination was done by the program medical director which was positive for external hemorrhoid. No blood was noted on the rectal exam. EXTREMITIES: Shows no pitting edema, no calf tenderness, no Homans' sign. NEUROLOGIC: The patient is alert, awake, oriented x3. Is able to move upper and lower extremity without assistance. Gait examination is not tested. DIAGNOSTICS DATA: 11/01/2018: WBC 7.6, hemoglobin and hematocrit has come up to 8.4 and 26.2, platelet 205. Granulocytes 75% segs. Sodium 135, potassium 4.4, chloride 107, CO2 of 22, anion gap 11, BUN 15, creatinine 0.8, GFR greater than 60, glucose 215, calcium 9.4, phosphorus 4.4, magnesium 2.3, iron 27, iron saturation 8. LFTs are normal. Troponin is negative x2. IMPRESSION: 1. Questionable and possible angina versus anginal equivalent. 2. Acute blood loss anemia. 3. History of melena. 4. Left renal cyst. 5. Questionable gastritis, duodenitis and enteritis with submucosal wall thickening of the gastric antrum, duodenum and the entire small bowel intestinal tract. 6. Fecal retention, fecal stasis and fecal impaction. 7. Status post hysterectomy. 8. Normocytic anemia. 9. Granulocytosis. 10. Hypomagnesemia. 11. Iron-deficiency anemia. 12. Microscopic hematuria and pyuria. 13. Status post packed red blood cell transfusion x2. 14. Questionable gastritis, duodenitis, enteritis. 15. Left renal cortical cyst. 16. History of iron-deficiency anemia. 17. Insulin-requiring diabetes mellitus with hyperglycemia. 18. Left axis deviation and left bundle-branch block. 19. Hypertension. 20. Hypervitaminosis D. 21. Diabetic neuropathy. 22. History of nicotine addiction dependence. 23 History of non-ST elevation myocardial infarction, history of coronary angioplasty and stent placement. 1. Acute melena and acute blood loss anemia with severe symptomatic anemia. 2. Uncontrolled insulin-requiring diabetes mellitus with hyperglycemia. 3. Hypomagnesemia. 4. Severe iron deficiency. 5. Microscopic hematuria. 6. O+ blood type. 7. History of coronary artery disease. 8. Unstable angina. 9. History of non-ST elevation myocardial infarction status post coronary angiogram and stent placement. 10. Gastrointestinal bleeding. 11. Left renal cyst. 12. Questionable gastritis, duodenitis, enteritis with mucosal wall thickening of the gastric antrum, duodenum and the small intestine. 13. Constipation, fecal stasis and fecal impaction. 14. Dense extensive atherosclerotic vascular calcification of the abdominal aorta. 15. Status post hysterectomy. 16. Acute blood loss anemia. 17. Chronic obstructive pulmonary disease. 18. Hyperglycemia. 19. History of hyperlipidemia. 20. History of vitamin B12 deficiency. 21. Nicotine addiction and dependence. 22. Hypovitaminosis D. 23. Diabetic neuropathy. 24. Insulin-requiring diabetes mellitus. 25. Left bundle-branch block. PLAN: At this time, the patient is to be continued on telemetry pending Cardiology and Gastroenterology evaluation. The patient's target and baseline hemoglobin is around 11 g. The patient will be continued on serial labs, transfusions p.r.n., Cardiology and Gastroenterology evaluation. Current medication, hydralazine 10 mg every 12 hours, Brovana 15 mcg every 12 hours. The patient is ordered a dose of magnesium citrate x1, Colace 100 three times a day, Coreg 3.125 once a day, Drisdol 50,000 units weekly, ferrous sulfate 324 three times a day, folic acid 1 mg daily, Humalog high-dose sliding scale coverage, Venofer 200 mg IV daily, Ringer's lactate 100 mL an hour, Lipitor 40 mg daily, MiraLax 17 g twice a day, Neurontin 300 twice a day, nicotine patch 21 mg daily, Protonix drip at 20 mL an hour, Tylenol p.r.n. p.o. suppository, vitamin D3 at 1000 units daily, Xopenex nebulizers, Zetia 10 mg, Zofran IV every 4 hours. Repeat EKG ordered. The patient is on liquid diet. The patient has been ordered SCDs, non-pharmacological DVT prophylaxis, occupational therapy, physical therapy, stool occult blood ordered, results pending. The patient has been ordered if the patient is going to be needing transfusion hold IV fluid during PRBC transfusion. The patient updated about her condition, diagnosis, need for further diagnostic therapeutic intervention, need for Gastroenterology and Cardiology evaluation and intervention was discussed and explained to the patient at length. The patient has been ordered out of bed to chair. Non-pharmacological DVT prophylaxis. The patient's further management will be dependent upon the patient's clinical condition, hemodynamic status and as per the patient response to therapeutic intervention as per the patient's diagnostic test results and as per recommendation by Gastroenterology and Cardiology. Dictated and electronically signed not read. Edilson Reddy MD [email or web address]
[2018-11-02] MEDS: Insulin Lispro (HUMAlog) HIGH Coverage SC SCH ×4 (08:30→21:47)
--- NOTE | 2018-11-02 08:42 | CP.PCM.PN ---
<Antonieta Goode - Last Filed: 11/02/18 13:13> Subjective - Date & Time of Evaluation Date of Evaluation: 11/02/18 Time of Evaluation: 08:38 - Subjective Subjective: PGY-[address] Reddy No more chest pain. No acute complaint per 12 pt ROS Objective - Vital Signs/Intake and Output Vital Signs (last 24 hours): Temp Pulse Resp BP Pulse Ox 97.6 F 60 20 149/74 100 11/02/18 06:00 11/02/18 06:00 11/02/18 06:00 11/02/18 06:00 11/02/18 06:00 Intake and Output: 11/02/18 11/02/18 06:59 18:59 Intake Total 4575 Output Total 1800 Balance 2775 - Medications Medications: Current Medications Acetaminophen (Tylenol 325mg Tab) 650 mg PO Q6 PRN PRN Reason: TEMP>=99.5F Acetaminophen (Tylenol 325mg Tab) 650 mg PO Q6 PRN PRN Reason: TEMP>=99.5F Acetaminophen (Tylenol 650 Mg Supp) 650 mg RC Q6H PRN PRN Reason: TEMP>=99.5F Arformoterol Tartrate (Brovana) 15 mcg IH [id number] [facility] Last Admin: 11/02/18 07:54 Dose: 15 mcg Atorvastatin Calcium (Lipitor) 40 mg PO DIN [facility] Last Admin: 11/01/18 17:29 Dose: 40 mg Carvedilol (Coreg) 3.125 mg PO 0800 [facility] Last Admin: 11/01/18 09:22 Dose: 3.125 mg Cholecalciferol (Vitamin D) 1,000 intlu PO DAILY [facility] Last Admin: 11/01/18 09:24 Dose: 1,000 intlu Docusate Sodium (Colace) 100 mg PO TID [facility] Last Admin: 11/01/18 17:24 Dose: Not Given Ezetimibe (Zetia) 10 mg PO DAILY [facility] Last Admin: 11/01/18 09:23 Dose: 10 mg Ergocalciferol (Drisdol 50,000 Intl Units Cap) 1 cap PO Q7D [facility] Last Admin: 11/01/18 00:00 Dose: Not Given Ferrous Sulfate (Feosol) 324 mg PO 0800,1200,1600 [facility] Last Admin: 11/01/18 17:29 Dose: 324 mg Folic Acid (Folic Acid) 1 mg PO DAILY [facility] Last Admin: 11/01/18 09:23 Dose: 1 mg Gabapentin (Neurontin) 300 mg PO BID [facility]; Protocol Last Admin: 11/01/18 17:29 Dose: 300 mg Hydralazine HCl (Apresoline) 10 mg PO 1000,1800 [facility] Last Admin: 11/01/18 17:55 Dose: 10 mg Pantoprazole Sodium (Protonix 40mg Ivpb) 40 mg in 100 mls @ 20 mls/hr IVPB .Q5H [facility] Last Admin: 11/02/18 06:03 Dose: 20 mls/hr Iron Sucrose 200 mg/ Sodium (Chloride) 110 mls @ 110 mls/hr IVPB DAILY [facility] Stop: 11/05/18 10:59 Last Admin: 11/01/18 09:24 Dose: 110 mls/hr Lactated Ringer's (Lactated Ringer's) 1,000 mls @ 100 mls/hr IV .Q10H [facility] Last Admin: 11/02/18 06:04 Dose: 100 mls/hr Insulin Human Lispro (Humalog High) 0 units SC ACHS [facility]; Protocol Last Admin: 11/01/18 22:59 Dose: Not Given Levalbuterol HCl (Xopenex) 0.63 mg IH [id number] [facility] Last Admin: 11/02/18 07:53 Dose: 0.63 mg Nicotine (Nicoderm Cq) 1 patch TD DAILY [facility] Last Admin: 11/01/18 09:22 Dose: 1 patch Ondansetron HCl (Zofran Inj) 4 mg IVP Q4H PRN PRN Reason: Nausea/Vomiting Ondansetron HCl (Zofran Inj) 4 mg IVP Q4H PRN PRN Reason: Nausea/Vomiting Polyethylene Glycol (Miralax) 17 gm PO BID [facility] Last Admin: 11/01/18 17:57 Dose: Not Given - Labs Labs: 11/02/18 06:30 11/02/18 06:30 PT 10.2 SECONDS (9.4-12.5) 10/31/18 19:15 INR 0.92 10/31/18 19:15 APTT 28.7 Seconds (26.9-38.3) 10/31/18 19:15 - Constitutional Appears: No Acute Distress - Head Exam Head Exam: ATRAUMATIC, NORMAL INSPECTION, NORMOCEPHALIC - Eye Exam Eye Exam: EOMI, Normal appearance, PERRL. absent: Scleral icterus Pupil Exam: NORMAL ACCOMODATION - ENT Exam ENT Exam: Mucous Membranes Moist - Neck Exam Additional comments: supple - Respiratory Exam Respiratory Exam: Decreased Breath Sounds (b/l lung bases), Clear to Ausculation Bilateral, NORMAL BREATHING PATTERN. absent: Rales, Rhonchi, Wheezes - Cardiovascular Exam Cardiovascular Exam: REGULAR RHYTHM, +S1 - GI/Abdominal Exam GI & Abdominal Exam: Soft, Normal Bowel Sounds. absent: Tenderness - Extremities Exam Extremities Exam: Pedal Edema (slight). absent: Calf Tenderness - Back Exam Back Exam: absent: CVA tenderness (L), CVA tenderness (R) - Neurological Exam Neurological Exam: Alert, Awake, CN II-XII Intact, Oriented x3 Neuro motor strength exam: Left Upper Extremity: 5, Right Upper Extremity: 5, Left Lower Extremity: 5, Right Lower Extremity: 5 - Psychiatric Exam Psychiatric exam: Normal Affect, Normal Mood - Skin Skin Exam: Dry, Warm Assessment and Plan - Assessment and Plan (Free Text) Plan: Ms Cha, 72F, PMHx CVA, active smoker, CAD s/p stents (09/28/18), HTN/HLD, COPD, iron deficiency anemia, T2DM admitted for chest pain found to have Hb 6 and recent dark stool. GI bleed, questionable upper Anemia, acute on chronic, s/p 3pRBC. H/H stable - Protonix daily. zofran PRN - Iron PO, folic, venofar (day 10/25) - EGD (11/02) shows Erosive gastritis with Non-bleeding ulcers x 3, no stigmata of recent bleed, biopsied; Angioectasia (few), non-bleeding, in stomach and duodenal bulb - Phone call place to Dr Beltrán (11/02 1pm): Per Dr Beltrán, OK to start both ASA and plavix tomorrow [ ] Cardiology may reduce plavix dosing. [ ] PRU - Follow up with Dr Beltrán in 4 weeks. Pt had appointment with Dr Vanessa on 11/07 Chest pain - resolved - trops neg x 2. No change in EKG. CAD with recent MACIEL stents - dual antiplatelet on hold. watch for signs of new stent re-stenosis - Lipitor/Ezetimibe, Carvedilol, Vit D - hydralazine DM - ISSS, Neurontin. A1C 8.4. Diabetic education COPD - Brovana, xopenex Constipation - Colace TID, s/p MOM x1 Tobacco abuse - nicoderm. deputy chief counsel for cessation Consult: Card = Dr Vanessa GI = Dr Beltrán s/r/d/w Dr Reddy <Edilson Reddy U - Last Filed: 11/02/18 19:55> Objective - Vital Signs/Intake and Output Vital Signs (last 24 hours): Temp Pulse Resp BP Pulse Ox 97.1 F L 55 L 18 150/74 98 11/02/18 12:46 11/02/18 18:06 11/02/18 12:46 11/02/18 18:06 11/02/18 11:18 Intake and Output: 11/02/18 11/03/18 18:59 06:59 Intake Total 980 Output Total 780 Balance 200 - Medications Medications: Current Medications Acetaminophen (Tylenol 325mg Tab) 650 mg PO Q6 PRN PRN Reason: TEMP>=99.5F Acetaminophen (Tylenol 325mg Tab) 650 mg PO Q6 PRN PRN Reason: TEMP>=99.5F Acetaminophen (Tylenol 650 Mg Supp) 650 mg RC Q6H PRN PRN Reason: TEMP>=99.5F Arformoterol Tartrate (Brovana) 15 mcg IH [id number] [facility] Last Admin: 11/02/18 19:31 Dose: 15 mcg Atorvastatin Calcium (Lipitor) 40 mg PO DIN [facility] Last Admin: 11/02/18 18:05 Dose: 40 mg Carvedilol (Coreg) 3.125 mg PO 0800 [facility] Last Admin: 11/02/18 09:04 Dose: 3.125 mg Cholecalciferol (Vitamin D) 1,000 intlu PO DAILY [facility] Last Admin: 11/02/18 18:09 Dose: 1,000 intlu Docusate Sodium (Colace) 100 mg PO TID [facility] Last Admin: 11/02/18 18:08 Dose: 100 mg Ezetimibe (Zetia) 10 mg PO DAILY [facility] Last Admin: 11/02/18 12:14 Dose: 10 mg Ergocalciferol (Drisdol 50,000 Intl Units Cap) 1 cap PO Q7D [facility] Last Admin: 11/02/18 12:14 Dose: 1 cap Ferrous Sulfate (Feosol) 324 mg PO 0800,1200,1600 [facility] Last Admin: 11/02/18 18:08 Dose: 324 mg Folic Acid (Folic Acid) 1 mg PO DAILY [facility] Last Admin: 11/02/18 12:14 Dose: 1 mg Gabapentin (Neurontin) 300 mg PO BID [facility]; Protocol Last Admin: 11/02/18 18:09 Dose: 300 mg Hydralazine HCl (Apresoline) 10 mg PO 1000,1800 [facility] Last Admin: 11/02/18 18:06 Dose: 10 mg Iron Sucrose 200 mg/ Sodium (Chloride) 110 mls @ 110 mls/hr IVPB DAILY [facility] Stop: 11/05/18 10:59 Last Admin: 11/02/18 12:11 Dose: 110 mls/hr Insulin Detemir (Levemir) 10 unit SC Q12 [facility] Insulin Human Lispro (Humalog High) 0 units SC ACHS [facility]; Protocol Last Admin: 11/02/18 18:12 Dose: 7 u Levalbuterol HCl (Xopenex) 0.63 mg IH [id number] [facility] Last Admin: 11/02/18 19:31 Dose: 0.63 mg Nicotine (Nicoderm Cq) 1 patch TD DAILY [facility] Last Admin: 11/02/18 09:06 Dose: 1 patch Ondansetron HCl (Zofran Inj) 4 mg IVP Q4H PRN PRN Reason: Nausea/Vomiting Pantoprazole Sodium (Protonix Ec Tab) 40 mg PO 0600 [facility] Polyethylene Glycol (Miralax) 17 gm PO BID [facility] Last Admin: 11/02/18 18:13 Dose: 17 gm - Labs Labs: 11/02/18 06:30 11/02/18 06:30 PT 10.2 SECONDS (9.4-12.5) 10/31/18 19:15 INR 0.92 10/31/18 19:15 APTT 28.7 Seconds (26.9-38.3) 10/31/18 19:15 Attending/Attestation - Attestation I have personally seen and examined this patient.: Yes I have fully participated in the care of the patient.: Yes I have reviewed all pertinent clinical information, including history, physical exam and plan: Yes Notes (Text): Please see/read my dictated notes.
[2018-11-02] MEDS: POLYETHYLENE GLYCOL 3350 17 GM/Dose PACKET PO SCH ×2 (09:00→18:13)
--- NOTE | 2018-11-02 10:04 | CARD ---
APPROVED REPORT Date of service: 11/02/2018 EKG Measurement Heart [id number] <Conclusion> Marked sinus bradycardia Left axis deviation Left bundle branch block Abnormal ECG
[2018-11-02] MEDS ORDERED: Propofol 10 mg/ml Inj (20 ML) ONE (10:32)
[2018-11-02] MEDS ORDERED: Sodium Chloride 0.9% 1,000 ML IV SCH (11:00)
[2018-11-02] MEDS: Ergocalciferol 50,000 Intl Units Cap PO SCH (12:14)
--- NOTE | 2018-11-02 16:27 | PN ---
DATE: 11/02/2018 SUBJECTIVE: The patient is in room 269, bed 2. Overnight nurse's notes were reviewed. No adverse events were documented, reported or notified. The patient did not have anymore melena, but the patient did have a large bowel movement after the patient was given a bottle of magnesium citrate with significant amount of relief. PHYSICAL EXAMINATION: VITAL SIGNS: T-max 97.6. Telemetry shows sinus bradycardia, heart rate 52, 62, 64, blood pressure 149/74, respirations 20, O2 sat 100%. HEAD: Examination normocephalic, atraumatic. HEENT examination shows pinkish pale conjunctivae. Anicteric sclerae. No oropharyngeal lesion. No neck rigidity. CHEST: Kyphosis. LUNGS: Shows no audible crackle, rales or wheezing. CARDIOVASCULAR: Questionable soft systolic murmur left sternal border, right second intercostal space, left second intercostal space. ABDOMEN: Soft. Positive bowel sounds. No palpable hepatosplenomegaly. GENITALIA: Female. RECTAL: Examination is deferred. EXTREMITIES: Shows no pitting edema, no calf tenderness, no Homans' sign. NEUROLOGIC: The patient is alert, awake, oriented x3, is able to move upper and lower extremity without assistance. Gait examination is not tested. VASCULAR: Palpable pulses. DIAGNOSTICS: WBC 5.2, hemoglobin/hematocrit 9.9/31.3, platelet 188. Retic count 4.96. Sodium 139, potassium 4, chloride 115, CO2 of 22, BUN 9, creatinine 0.7, glucose 123, calcium 8, phosphorus 3.2, magnesium 1.8, total protein 4.8, albumin 2.5. The patient received 83 units of PRBC. IMPRESSION: 1. Acute blood loss anemia. 2. History of melena. 3. Acute blood loss anemia secondary to possible upper gastrointestinal bleeding. 4. Elevated reticulocyte count. 5. Uncontrolled insulin-requiring diabetes mellitus with hyperglycemia and elevated hemoglobin A1c. 6. Mild protein malnutrition and hypoalbuminemia. 7. Status post 3 units of PRBC. 8. History of gastritis, esophagitis and history of gastric arteriovenous malformation. 9. Constipation, fecal stasis and fecal retention. 10. Left anterior hemiblock. 11. Left bundle-branch block. 12. Questionable unstable angina. 13. History of multivessel coronary artery disease, history of recent angioplasty and stent placement. 14. History of recent non-ST elevation myocardial infarction. 1. Questionable and possible angina versus anginal equivalent. 2. Acute blood loss anemia. 3. History of melena. 4. Left renal cyst. 5. Questionable gastritis, duodenitis and enteritis with submucosal wall thickening of the gastric antrum, duodenum and the entire small bowel intestinal tract. 6. Fecal retention, fecal stasis and fecal impaction. 7. Status post hysterectomy. 8. Normocytic anemia. 9. Granulocytosis. 10. Hypomagnesemia. 11. Iron-deficiency anemia. 12. Microscopic hematuria and pyuria. 13. Status post packed red blood cell transfusion x2. 14. Questionable gastritis, duodenitis, enteritis. 15. Left renal cortical cyst. 16. History of iron-deficiency anemia. 17. Insulin-requiring diabetes mellitus with hyperglycemia. 18. Left axis deviation and left bundle-branch block. 19. Hypertension. 20. Hypervitaminosis D. 21. Diabetic neuropathy. 22. History of nicotine addiction dependence. 23 History of non-ST elevation myocardial infarction, history of coronary angioplasty and stent placement. 1. Acute melena and acute blood loss anemia with severe symptomatic anemia. 2. Uncontrolled insulin-requiring diabetes mellitus with hyperglycemia. 3. Hypomagnesemia. 4. Severe iron deficiency. 5. Microscopic hematuria. 6. O+ blood type. 7. History of coronary artery disease. 8. Unstable angina. 9. History of non-ST elevation myocardial infarction status post coronary angiogram and stent placement. 10. Gastrointestinal bleeding. 11. Left renal cyst. 12. Questionable gastritis, duodenitis, enteritis with mucosal wall thickening of the gastric antrum, duodenum and the small intestine. 13. Constipation, fecal stasis and fecal impaction. 14. Dense extensive atherosclerotic vascular calcification of the abdominal aorta. 15. Status post hysterectomy. 16. Acute blood loss anemia. 17. Chronic obstructive pulmonary disease. 18. Hyperglycemia. 19. History of hyperlipidemia. 20. History of vitamin B12 deficiency. 21. Nicotine addiction and dependence. 22. Hypovitaminosis D. 23. Diabetic neuropathy. 24. Insulin-requiring diabetes mellitus. 25. Left bundle-branch block. PLAN: At this time, the patient is awaiting for an endoscopy to be done today. The patient has received PRBC. The patient's aspirin and Plavix are on hold till cleared by GI to be resumed with Cardiology. The patient will be continued on non-pharmacological DVT prophylaxis with proton-pump inhibitor and GI prophylaxis. The patient will be continued on insulin sliding scale. The patient will be continued on all the medications as per the MAR. We will await further recommendation by GI and Cardiology and further diagnostic therapeutic intervention will be instituted and ordered depending upon above. The patient updated about her condition, diagnosis, test results, etc. at length. All questions concerned answered. Dictated and electronically signed, not read. Edilson Reddy MD MTDD
[2018-11-02] MEDS: Cholecalciferol 1,000 INTLU TAB PO SCH (18:09)
--- NOTE | 2018-11-02 20:15 | PN ---
DATE: 11/02/2018 CARDIOLOGY FOLLOWUP SUBJECTIVE: The patient is comfortable, talking on the phone without chest pain and without shortness of breath. PHYSICAL EXAMINATION: VITAL SIGNS: Blood pressure 158/73, heart rate in the 50s. NECK: Negative JVD. LUNGS: Without rales. HEART: S1, S2. EXTREMITIES: Without edema. LABORATORY DATA: Hemoglobin is 9.9 post transfusion. BUN and creatinine are unremarkable. Glucose is 123. The PRU was reported at 258, which is subtherapeutic for Plavix administration. IMPRESSION: 1. Status post gastrointestinal bleed, likely secondary to telangiectasia. 2. Stable angina post multivessel percutaneous transluminal coronary angioplasty and stent recently. 3. Anemia. 4. Hypercholesterolemia. 5. Diabetes mellitus. Given these findings, if the hemoglobin stays stable, we need to restart the patient on aspirin and Plavix as soon as possible given her recent drug-eluting stents and the risk for acute subacute stent thrombosis. Abdullahi Vanessa MD
[2018-11-02] MEDS: Insulin Detemir 100 units/ml Vial (Levemir) SC SCH (21:47)
[2018-11-03] MEDS: Levalbuterol 0.63 MG/3 ML Inhal Soln UD IH SCH ×4 (01:35→21:15)
[2018-11-03] MEDS: Pantoprazole 40 mg EC Tab PO SCH (05:29)
[2018-11-03 07:15] LABS: BASO # 0.02 K/mm3 (0.0-2.0); BASO % 0.4 % (0.0-3.0); EOS # 0.4 (0.0-0.7); HEMOGLOBIN 9.9 g/dL (12.0-16.0); LYMPH # 1.1 (1.2-3.4); LYMPH % 21.1 % (22.0-35.0); MEAN CELL VOLUME 89.3 fl (80.0-105.0); MEAN CORPUSCULAR HEMOGLOBIN 27.9 pg (25.0-35.0); MEAN CORPUSCULAR HGB CONC 31.2 g/dl (31.0-37.0); MEAN PLATELET VOLUME 10.4 fl (7.0-11.0); MONO # 0.5 (0.1-0.6); MONO % 9.8 % (1.0-6.0); RBC 3.55 10^6/uL (3.5-6.1); RED CELL DISTRIBUTION WIDTH 15.7 % (11.5-14.5); WHITE BLOOD COUNT 5.2 10^3/uL (4.5-11.0)
[2018-11-03 07:33] LABS: ALB/GLOB RATIO 1.3 (1.1-1.8); ALBUMIN 3.3 g/dL (3.0-4.8); ALT/SGPT 25 U/L (7-56); AST/SGOT 31 U/L (14-36); BILIRUBIN,DIRECT 0.1 mg/dL (0.0-0.4); BLOOD UREA NITROGEN 12 mg/dL (7-21); CALCIUM 9.1 mg/dL (8.4-10.5); GFR NON-AFRICAN AMERICAN > 60
[2018-11-03] MEDS: Arformoterol 15 mcg/2 ml Inh Sol IH SCH ×2 (08:14→21:15)
[2018-11-03] MEDS: Cholecalciferol 1,000 INTLU TAB PO SCH (09:19)
[2018-11-03] MEDS: POLYETHYLENE GLYCOL 3350 17 GM/Dose PACKET PO SCH ×2 (09:20→17:39)
[2018-11-03] MEDS: Insulin Detemir 100 units/ml Vial (Levemir) SC SCH ×2 (09:20→22:03)
[2018-11-03] MEDS: Insulin Lispro (HUMAlog) HIGH Coverage SC SCH ×4 (09:32→22:02)
--- NOTE | 2018-11-03 11:56 | CP.PCM.DIS ---
Provider - Provider Date of Admission: 10/31/18 19:59 Attending physician: Edilson Reddy MD Primary care physician: Edilson Reddy MD Consults: 10/31/18 19:47 Cardiology Consult Stat Comment: Consulting Provider: Abdullahi Vanessa Consulting Physician: Abdullahi Vanessa Reason for Consult: CAD/PCI Gastroenterology Consult Stat Comment: Consulting Provider: Max Beltrán Consulting Physician: Max Beltrán Reason for Consult: ANEMIA 10/31/18 23:30 Diabetic Education Referral DAILY Comment: DIABETIC EDUCATION Physician Instructions: DIABETIC EDUCATION Reason For Exam: [facility] [Evaluation for TRCU] DAILY Comment: TCU Physician Instructions: TCU Reason For Exam: TCU 11/01/18 23:30 Diabetic Education Referral DAILY Comment: DIABETIC EDUCATION Physician Instructions: DIABETIC EDUCATION Reason For Exam: [facility] [Evaluation for TRCU] DAILY Comment: TCU Physician Instructions: TCU Reason For Exam: TCU 11/02/18 23:30 Diabetic Education Referral DAILY Comment: DIABETIC EDUCATION Physician Instructions: DIABETIC EDUCATION Reason For Exam: [facility] [Evaluation for TRCU] DAILY Comment: TCU Physician Instructions: TCU Reason For Exam: TCU 11/03/18 23:30 Diabetic Education Referral DAILY Comment: DIABETIC EDUCATION Physician Instructions: DIABETIC EDUCATION Reason For Exam: [facility] [Evaluation for TRCU] DAILY Comment: TCU Physician Instructions: TCU Reason For Exam: TCU 11/04/18 23:30 Diabetic Education Referral DAILY Comment: DIABETIC EDUCATION Physician Instructions: DIABETIC EDUCATION Reason For Exam: [facility] [Evaluation for TRCU] DAILY Comment: TCU Physician Instructions: TCU Reason For Exam: TCU 11/05/18 23:30 Diabetic Education Referral DAILY Comment: DIABETIC EDUCATION Physician Instructions: DIABETIC EDUCATION Reason For Exam: [facility] [Evaluation for TRCU] DAILY Comment: TCU Physician Instructions: TCU Reason For Exam: TCU 11/06/18 23:30 Diabetic Education Referral DAILY Comment: DIABETIC EDUCATION Physician Instructions: DIABETIC EDUCATION Reason For Exam: [facility] [Evaluation for TRCU] DAILY Comment: TCU Physician Instructions: TCU Reason For Exam: TCU 11/07/18 23:30 Diabetic Education Referral DAILY Comment: DIABETIC EDUCATION Physician Instructions: DIABETIC EDUCATION Reason For Exam: [facility] [Evaluation for TRCU] DAILY Comment: TCU Physician Instructions: TCU Reason For Exam: TCU 11/08/18 23:30 Diabetic Education Referral DAILY Comment: DIABETIC EDUCATION Physician Instructions: DIABETIC EDUCATION Reason For Exam: [facility] [Evaluation for TRCU] DAILY Comment: TCU Physician Instructions: TCU Reason For Exam: TCU 11/09/18 23:30 Diabetic Education Referral DAILY Comment: DIABETIC EDUCATION Physician Instructions: DIABETIC EDUCATION Reason For Exam: [facility] [Evaluation for TRCU] DAILY Comment: TCU Physician Instructions: TCU Reason For Exam: TCU 11/10/18 23:30 Diabetic Education Referral DAILY Comment: DIABETIC EDUCATION Physician Instructions: DIABETIC EDUCATION Reason For Exam: [facility] [Evaluation for TRCU] DAILY Comment: TCU Physician Instructions: TCU Reason For Exam: TCU Hospital Course - Lab Results Lab Results: Most Recent Lab Values WBC 5.2 10^3/uL (4.5-11.0) 11/03/18 07:05 RBC 3.55 10^6/uL (3.5-6.1) 11/03/18 07:05 Hgb 9.9 g/dL (12.0-16.0) L 11/03/18 07:05 Hct 31.7 % (36.0-48.0) L 11/03/18 07:05 MCV 89.3 fl (80.0-105.0) 11/03/18 07:05 MCH 27.9 pg (25.0-35.0) 11/03/18 07:05 MCHC 31.2 g/dl (31.0-37.0) 11/03/18 07:05 RDW 15.7 % (11.5-14.5) H 11/03/18 07:05 Plt Count 192 10^3/uL (120.0-450.0) 11/03/18 07:05 MPV 10.4 fl (7.0-11.0) 11/03/18 07:05 Neut % (Auto) 60.7 % (50.0-68.0) 11/03/18 07:05 Lymph % (Auto) 21.1 % (22.0-35.0) L 11/03/18 07:05 [place] % (Auto) 9.8 % (1.0-6.0) H 11/03/18 07:05 Eos % (Auto) 8.0 % (1.5-5.0) H 11/03/18 07:05 Baso % (Auto) 0.4 % (0.0-3.0) 11/03/18 07:05 Lymph # (Auto) 1.1 (1.2-3.4) L 11/03/18 07:05 [place] # (Auto) 0.5 (0.1-0.6) 11/03/18 07:05 Eos # (Auto) 0.4 (0.0-0.7) 11/03/18 07:05 Baso # (Auto) 0.02 K/mm3 (0.0-2.0) 11/03/18 07:05 Absolute Neuts (auto) 3.17 (1.4-6.5) 11/03/18 07:05 Retic Count 4.96 % (0.5-1.5) H 11/01/18 05:30 PT 10.2 SECONDS (9.4-12.5) 10/31/18 19:15 INR 0.92 10/31/18 19:15 APTT 28.7 Seconds (26.9-38.3) 10/31/18 19:15 Plt P2Y12 React Units 258 PRU (194-418) 11/02/18 13:30 Sodium 139 mmol/L (132-148) 11/03/18 07:05 Potassium 4.6 mmol/L (3.6-5.0) 11/03/18 07:05 Chloride 109 mmol/L (98-107) H 11/03/18 07:05 Carbon Dioxide 24 mmol/L (21-33) 11/03/18 07:05 Anion Gap 10 (10-20) 11/03/18 07:05 BUN 12 mg/dL (7-21) 11/03/18 07:05 Creatinine 0.9 mg/dl (0.7-1.2) 11/03/18 07:05 Est GFR ( Amer) > 60 11/03/18 07:05 Est GFR (Non-Af Amer) > 60 11/03/18 07:05 Random Glucose 123 mg/dL (70-110) H 11/03/18 07:05 Calcium 9.1 mg/dL (8.4-10.5) 11/03/18 07:05 Phosphorus 3.9 mg/dL (2.5-4.5) 11/03/18 07:05 Magnesium 1.9 mg/dL (1.7-2.2) 11/03/18 07:05 Iron 27 ug/dL (45-180) L 10/31/18 21:35 TIBC 338 ug/dL (265-497) 10/31/18 21:35 % Saturation 8 % (20-55) L 10/31/18 21:35 Erythropoietin 232.6 mIU/mL (2.6-18.5) H 11/01/18 05:30 Ferritin 11.0 ng/mL 10/31/18 21:35 Total Bilirubin 0.4 mg/dL (0.2-1.3) 11/03/18 07:05 Direct Bilirubin 0.1 mg/dL (0.0-0.4) 11/03/18 07:05 AST 31 U/L (14-36) 11/03/18 07:05 ALT 25 U/L (7-56) 11/03/18 07:05 Alkaline Phosphatase 49 U/L (38-126) 11/03/18 07:05 Lactate Dehydrogenase 519 U/L (333-699) 10/31/18 19:15 Total Creatine Kinase 54 U/L (35-230) 11/01/18 05:30 Troponin I < 0.01 ng/mL 11/01/18 05:30 NT-Pro-B Natriuret Pep 425 pg/mL (0-450) 10/31/18 19:15 Total Protein 5.9 g/dL (5.8-8.3) 11/03/18 07:05 Albumin 3.3 g/dL (3.0-4.8) 11/03/18 07:05 Globulin 2.5 gm/dL 11/03/18 07:05 Albumin/Globulin Ratio 1.3 (1.1-1.8) 11/03/18 07:05 Lipase 76 U/L (23-300) 10/31/18 21:35 Urine Color Yellow (YELLOW) 10/31/18 21:00 Urine Appearance Clear (CLEAR) 10/31/18 21:00 Urine pH 6.0 (4.7-8.0) 10/31/18 21:00 Ur Specific [place] 1.015 (1.005-1.035) 10/31/18 21:00 Urine Protein Negative mg/dL (<30 mg/dL) 10/31/18 21:00 Urine Glucose (UA) >=1000 mg/dL (NEGATIVE) 10/31/18 21:00 Urine Ketones Negative mg/dL (NEGATIVE) 10/31/18 21:00 Urine Blood Trace-intact (NEGATIVE) H 10/31/18 21:00 Urine Nitrate Negative (NEGATIVE) 10/31/18 21:00 Urine Bilirubin Negative (NEGATIVE) 10/31/18 21:00 Urine Urobilinogen 0.2 E.U./dL (<1 E.U./dL) 10/31/18 21:00 Ur Leukocyte Esterase Negative Aniceto/uL (NEGATIVE) 10/31/18 21:00 Urine RBC 5 - 10 /hpf (0-2) H 10/31/18 21:00 Urine WBC 2 - 5 /hpf (0-6) 10/31/18 21:00 Ur Epithelial Cells 6 - 8 /hpf (0-5) H 10/31/18 21:00 Blood Type O POSITIVE 10/31/18 20:09 Antibody Screen Negative 10/31/18 20:09 Crossmatch See Detail 10/31/18 20:09 BBK History Checked Patient has bt 10/31/18 20:09 Discharge Exam - Head Exam Head Exam: ATRAUMATIC, NORMAL INSPECTION, NORMOCEPHALIC Discharge Plan - Discharge Medications Prescriptions: Levalbuterol [Xopenex] 0.63 mg IH [id number] 14 Days neb Arformoterol [Brovana] 15 mcg IH [id number] 14 Days neb Aspirin [Ecotrin] 81 mg PO DAILY 14 Days tabec Atorvastatin [Lipitor] 40 mg PO DIN 14 Days tab Carvedilol [Coreg] 3.125 mg PO 0800 14 Days tab Clopidogrel [Plavix] 75 mg PO DAILY 14 Days tab Docusate [Colace] 100 mg PO TID 14 Days cap Ergocalciferol [Drisdol 50,000 Intl Units Cap] 1 cap PO Q7D 14 Days cap Ezetimibe [Zetia] 10 mg PO DAILY 14 Days tab Ferrous Sulfate [Feosol] 324 mg PO 0800,1200,1600 14 Days ect Folic Acid 1 mg PO DAILY 14 Days tab Gabapentin [Neurontin] 300 mg PO BID 14 Days cap hydrALAZINE [Apresoline] 10 mg PO 1000,1800 14 Days tab Insulin Glargine,Hum.rec.anlog [Basaglar Kwikpen U-100] 50 unit SQ ACB 14 Days insuln.pen metFORMIN [glucOPHAGE] 500 mg PO ACL 14 Days tab Nicotine 21 mg/24 hr [Nicoderm Cq] 1 patch TD DAILY 14 Days patch Pantoprazole [Protonix EC Tab] 40 mg PO 0600 14 Days ect Polyethylene Glycol 3350 [Miralax] 17 gm PO BID #14 packet - Follow Up Plan Condition: FAIR Disposition: HOME/ ROUTINE Additional Instructions: MAY DISCHARGE TO TCU IF ACCEPTED AND IF PATIENT AGREES OTHER DIAMOND MAY DISCHARGE HOME WITH REFER TO HOME SERVICES AND [facility] AND HOME PT FOLLOW UP WITHIN 1 WEEK ON 11/07/2018 Referrals: Max Beltrán MD [Staff Provider] - Edilson Reddy MD [Primary Care Provider] - Abdullahi Vanessa MD [Staff Provider] -
--- NOTE | 2018-11-03 12:56 | PN ---
DATE: 11/03/2018SUBJECTIVE: The patient is lying in bed, comfortable. She denies any chest pain, rectal bleeding or melena. PHYSICAL EXAMINATION: VITAL SIGNS: Temperature 98.7, blood pressure 163/64, heart rate 60. HEENT: Feel sclerae to be white. Conjunctivae pink. NECK: Supple. CHEST: Lungs to be clear. HEART: Regular rate and rhythm. ABDOMEN: Soft, nontender. No mass. EXTREMITIES: No edema. LABORATORY DATA: White blood cell count 5.2, hemoglobin 9.9 which is stable. Chemistries reveal chloride 109, blood sugar 123. AST, ALT, alk phos were all normal. IMPRESSION: A 72-year-old female with coronary artery disease, status post coronary artery stent placement about a month ago with recurrent anemia. Endoscopy revealed erosive gastritis and multiple angioectasias in the stomach and duodenum. The patient does not appear to have any bleeding at this time. RECOMMENDATIONS: 1. Would continue PPI. 2. Can start aspirin and Plavix. 3. Would continue iron replacement and follow CBC closely as the patient is at high risk for bleeding. Max Beltrán MD
--- NOTE | 2018-11-03 15:15 | CARD ---
APPROVED REPORT Date of service: 11/03/2018 EKG Measurement Heart [id number] <Conclusion> Sinus bradycardia Left axis deviation Left bundle branch block Abnormal ECG
--- NOTE | 2018-11-03 17:50 | PN ---
DATE: 11/03/2018 CARDIOLOGY FOLLOWUP SUBJECTIVE: The patient is awake and alert without chest pain. PHYSICAL EXAMINATION VITAL SIGNS: Blood pressure 162/64, the heart rate is in the 60s. NECK: Negative JVD. LUNGS: Without rales. HEART: S1 and S2. EXTREMITIES: Without edema. LABORATORY DATA: Hemoglobin remained stable at 9.9. BUN and creatinine are unremarkable. The glucose is 123. IMPRESSION: 1. Status post gastrointestinal bleed. 2. Status post recent drug-eluting stent placed. 3. Diabetes mellitus. 4. Hypertension. 5. Anemia. Given these findings, the patient's hemoglobin is stable. We will restart her Plavix today. We will need to follow her PRU carefully to not over-treat with Plavix. Abdullahi Vanessa MD
--- NOTE | 2018-11-03 22:37 | DS ---
HISTORY OF PRESENT ILLNESS: The patient was seen in room 269, bed 2. The patient is seen lying in the bed. The patient is taking nebulizer treatment. The patient was advised to sit up and do the nebulizer treatment. The patient is alert, awake, responsive. The patient denies any melena. Denies any chest pain. Denies any shortness of breath. Denies nausea, vomiting, diarrhea. Denies rectal bleeding. The patient stated that she did not have a bowel movement since yesterday, but the day before she had a large bowel movement. REVIEW OF SYSTEMS: A 14-system review was done, pertinent positive negative dictated above. PHYSICAL EXAMINATION: VITAL SIGNS: The patient is afebrile. Telemetry shows sinus rhythm, sinus bradycardia, heart rate in high 50s to mid 60 beats per minute. Blood pressure is 128/74, 138/82, respiration 20, O2 sat 95%, 97%, 98%. HEENT: Head is normocephalic, atraumatic. HEENT examination shows pinkish conjunctivae. Anicteric sclerae. No oropharyngeal lesion. NECK: No neck rigidity. Questionable soft carotid bruit. CHEST: Kyphosis. LUNGS: Shows no audible crackle, rales or wheezing. CARDIOVASCULAR: S1, S2, regular rhythm. ABDOMEN: Soft. Positive bowel sounds. GENITALIA: Female. RECTAL: Deferred. EXTREMITIES: Shows no pitting edema, no calf tenderness, no Homans' sign. NEUROLOGICAL: The patient is alert, awake, responsive, is able to move upper and lower extremity without assistance. Cranial nerves II-XII limited. Gait examination is not tested. VASCULAR: Positive palpable pulses. DIAGNOSTIC DATA CBC shows a hemoglobin 9.9, hematocrit almost 30. Chemistry was noted. CMP and LFT was noted and reviewed from 11/03/2018. The patient's EGD examination was reviewed from yesterday. The patient is awaiting to be reevaluated by Cardiology, Gastroenterology. FINAL IMPRESSION AND DISCHARGE DIAGNOSES: 1. Acute blood loss anemia. 2. Most likely upper gastrointestinal bleeding. 3. Status post esophagogastroduodenoscopy. 4. Multiple gastric and duodenal angioectasia, nonbleeding. 5. Possible gastritis and duodenitis. 6. Hiatal hernia. 7. Multiple nonbleeding gastric and duodenal angiectasia. 8. Gastritis. 9. Questionable and possible gastric ulcer. 10. Acute blood loss anemia. 11. Uncontrolled insulin-requiring diabetes mellitus. 12. Hypertension. 13. Asymptomatic bradycardia. 14. Deconditioning. 15. Gait dysfunction. 16. History of iron deficiency and vitamin B12 deficiency anemia. 17. History of former nicotine dependence. 18. History of recent non-ST elevation myocardial infarction and history of recent angioplasty and stent placement and drug-eluting stent placement. 19. Unstable angina. 20. History of packed red blood cell transfusion. 21. Status post packed red blood cell transfusion x3. 22. Hyperlipidemia. 23. Cervical spine degenerative disk disease. 24. Lumbar and cervical spine degenerative disk disease. 25. Nicotine dependence. 1. Acute blood loss anemia. 2. History of melena. 3. Acute blood loss anemia secondary to possible upper gastrointestinal bleeding. 4. Elevated reticulocyte count. 5. Uncontrolled insulin-requiring diabetes mellitus with hyperglycemia and elevated hemoglobin A1c. 6. Mild protein malnutrition and hypoalbuminemia. 7. Status post 3 units of PRBC. 8. History of gastritis, esophagitis and history of gastric arteriovenous malformation. 9. Constipation, fecal stasis and fecal retention. 10. Left anterior hemiblock. 11. Left bundle-branch block. 12. Questionable unstable angina. 13. History of multivessel coronary artery disease, history of recent angioplasty and stent placement. 14. History of recent non-ST elevation myocardial infarction. 1. Questionable and possible angina versus anginal equivalent. 2. Acute blood loss anemia. 3. History of melena. 4. Left renal cyst. 5. Questionable gastritis, duodenitis and enteritis with submucosal wall thickening of the gastric antrum, duodenum and the entire small bowel intestinal tract. 6. Fecal retention, fecal stasis and fecal impaction. 7. Status post hysterectomy. 8. Normocytic anemia. 9. Granulocytosis. 10. Hypomagnesemia. 11. Iron-deficiency anemia. 12. Microscopic hematuria and pyuria. 13. Status post packed red blood cell transfusion x2. 14. Questionable gastritis, duodenitis, enteritis. 15. Left renal cortical cyst. 16. History of iron-deficiency anemia. 17. Insulin-requiring diabetes mellitus with hyperglycemia. 18. Left axis deviation and left bundle-branch block. 19. Hypertension. 20. Hypervitaminosis D. 21. Diabetic neuropathy. 22. History of nicotine addiction dependence. 23 History of non-ST elevation myocardial infarction, history of coronary angioplasty and stent placement. 1. Acute melena and acute blood loss anemia with severe symptomatic anemia. 2. Uncontrolled insulin-requiring diabetes mellitus with hyperglycemia. 3. Hypomagnesemia. 4. Severe iron deficiency. 5. Microscopic hematuria. 6. O+ blood type. 7. History of coronary artery disease. 8. Unstable angina. 9. History of non-ST elevation myocardial infarction status post coronary angiogram and stent placement. 10. Gastrointestinal bleeding. 11. Left renal cyst. 12. Questionable gastritis, duodenitis, enteritis with mucosal wall thickening of the gastric antrum, duodenum and the small intestine. 13. Constipation, fecal stasis and fecal impaction. 14. Dense extensive atherosclerotic vascular calcification of the abdominal aorta. 15. Status post hysterectomy. 16. Acute blood loss anemia. 17. Chronic obstructive pulmonary disease. 18. Hyperglycemia. 19. History of hyperlipidemia. 20. History of vitamin B12 deficiency. 21. Nicotine addiction and dependence. 22. Hypovitaminosis D. 23. Diabetic neuropathy. 24. Insulin-requiring diabetes mellitus. 25. Left bundle-branch block. The patient's medications from today as per the MAR, which were reviewed. PLAN: At this time, the patient is awaiting clearance by Cardiology, Gastroenterology for discharge to TCU. If accepted to TCU and if approved by the patient's insurance and if the patient agrees, otherwise the patient will be considered for discharge home with very close followup of the patient on the coming Wednesday or Wednesday. The patient will be discharged on home medications as per the ambulatory orders. In addition, the patient's Plavix and aspirin will be resumed as per the direction and advised the Cardiology and Gastroenterology. The patient is advised to resume all the other medications at home including the insulin. If the patient is discharged home, the patient is advised to follow up on 11/05/2018 or 11/07/2018. Time spent in the entire discharge process 45 minutes. Dictated and electronically signed, not read. Edilson Reddy MD [email or web address]
[2018-11-04] MEDS: Levalbuterol 0.63 MG/3 ML Inhal Soln UD IH SCH ×3 (03:00→13:51)
[2018-11-04 03:58] VITALS: RESP 20
[2018-11-04] MEDS: Pantoprazole 40 mg EC Tab PO SCH (05:23)
[2018-11-04 06:59] LABS: BASO # 0.01 K/mm3 (0.0-2.0); BASO % 0.2 % (0.0-3.0); EOS # 0.4 (0.0-0.7); EOS % 7.6 % (1.5-5.0); HEMOGLOBIN 10.3 g/dL (12.0-16.0); LYMPH # 1.3 (1.2-3.4); LYMPH % 23.2 % (22.0-35.0); MEAN CELL VOLUME 90.1 fl (80.0-105.0); MEAN CORPUSCULAR HEMOGLOBIN 27.7 pg (25.0-35.0); MEAN CORPUSCULAR HGB CONC 30.7 g/dl (31.0-37.0); MEAN PLATELET VOLUME 10.7 fl (7.0-11.0); MONO # 0.4 (0.1-0.6); MONO % 7.4 % (1.0-6.0); RBC 3.72 10^6/uL (3.5-6.1); RED CELL DISTRIBUTION WIDTH 15.7 % (11.5-14.5); WHITE BLOOD COUNT 5.4 10^3/uL (4.5-11.0)
--- NOTE | 2018-11-04 07:30 | CP.PCM.DIS ---
Provider - Provider Date of Admission: 10/31/18 19:59 Attending physician: Edilson Reddy MD Primary care physician: Edilson Reddy MD Consults: 10/31/18 19:47 Cardiology Consult Stat Comment: Consulting Provider: Abdullahi Vanessa Consulting Physician: Abdullahi Vanessa Reason for Consult: CAD/PCI Gastroenterology Consult Stat Comment: Consulting Provider: Max Beltrán Consulting Physician: Max Beltrán Reason for Consult: ANEMIA 10/31/18 23:30 Diabetic Education Referral DAILY Comment: DIABETIC EDUCATION Physician Instructions: DIABETIC EDUCATION Reason For Exam: [facility] [Evaluation for TRCU] DAILY Comment: TCU Physician Instructions: TCU Reason For Exam: TCU 11/01/18 23:30 Diabetic Education Referral DAILY Comment: DIABETIC EDUCATION Physician Instructions: DIABETIC EDUCATION Reason For Exam: [facility] [Evaluation for TRCU] DAILY Comment: TCU Physician Instructions: TCU Reason For Exam: TCU 11/02/18 23:30 Diabetic Education Referral DAILY Comment: DIABETIC EDUCATION Physician Instructions: DIABETIC EDUCATION Reason For Exam: [facility] [Evaluation for TRCU] DAILY Comment: TCU Physician Instructions: TCU Reason For Exam: TCU 11/03/18 23:30 Diabetic Education Referral DAILY Comment: DIABETIC EDUCATION Physician Instructions: DIABETIC EDUCATION Reason For Exam: [facility] [Evaluation for TRCU] DAILY Comment: TCU Physician Instructions: TCU Reason For Exam: TCU 11/04/18 23:30 Diabetic Education Referral DAILY Comment: DIABETIC EDUCATION Physician Instructions: DIABETIC EDUCATION Reason For Exam: [facility] [Evaluation for TRCU] DAILY Comment: TCU Physician Instructions: TCU Reason For Exam: TCU 11/05/18 23:30 Diabetic Education Referral DAILY Comment: DIABETIC EDUCATION Physician Instructions: DIABETIC EDUCATION Reason For Exam: [facility] [Evaluation for TRCU] DAILY Comment: TCU Physician Instructions: TCU Reason For Exam: TCU 11/06/18 23:30 Diabetic Education Referral DAILY Comment: DIABETIC EDUCATION Physician Instructions: DIABETIC EDUCATION Reason For Exam: [facility] [Evaluation for TRCU] DAILY Comment: TCU Physician Instructions: TCU Reason For Exam: TCU 11/07/18 23:30 Diabetic Education Referral DAILY Comment: DIABETIC EDUCATION Physician Instructions: DIABETIC EDUCATION Reason For Exam: [facility] [Evaluation for TRCU] DAILY Comment: TCU Physician Instructions: TCU Reason For Exam: TCU 11/08/18 23:30 Diabetic Education Referral DAILY Comment: DIABETIC EDUCATION Physician Instructions: DIABETIC EDUCATION Reason For Exam: [facility] [Evaluation for TRCU] DAILY Comment: TCU Physician Instructions: TCU Reason For Exam: TCU 11/09/18 23:30 Diabetic Education Referral DAILY Comment: DIABETIC EDUCATION Physician Instructions: DIABETIC EDUCATION Reason For Exam: [facility] [Evaluation for TRCU] DAILY Comment: TCU Physician Instructions: TCU Reason For Exam: TCU 11/10/18 23:30 Diabetic Education Referral DAILY Comment: DIABETIC EDUCATION Physician Instructions: DIABETIC EDUCATION Reason For Exam: [facility] [Evaluation for TRCU] DAILY Comment: TCU Physician Instructions: TCU Reason For Exam: TCU Time Spent in preparation of Discharge (in minutes): 30 Diagnosis - Discharge Diagnosis (1) Chest pain Status: Acute (2) GI bleed Status: Acute Hospital Course - Lab Results Lab Results: Most Recent Lab Values WBC 5.4 10^3/uL (4.5-11.0) 11/04/18 06:30 RBC 3.72 10^6/uL (3.5-6.1) 11/04/18 06:30 Hgb 10.3 g/dL (12.0-16.0) L 11/04/18 06:30 Hct 33.5 % (36.0-48.0) L 11/04/18 06:30 MCV 90.1 fl (80.0-105.0) 11/04/18 06:30 MCH 27.7 pg (25.0-35.0) 11/04/18 06:30 MCHC 30.7 g/dl (31.0-37.0) L 11/04/18 06:30 RDW 15.7 % (11.5-14.5) H 11/04/18 06:30 Plt Count 194 10^3/uL (120.0-450.0) 11/04/18 06:30 MPV 10.7 fl (7.0-11.0) 11/04/18 06:30 Neut % (Auto) 61.6 % (50.0-68.0) 11/04/18 06:30 Lymph % (Auto) 23.2 % (22.0-35.0) 11/04/18 06:30 Beckham % (Auto) 7.4 % (1.0-6.0) H 11/04/18 06:30 Eos % (Auto) 7.6 % (1.5-5.0) H 11/04/18 06:30 Baso % (Auto) 0.2 % (0.0-3.0) 11/04/18 06:30 Lymph # (Auto) 1.3 (1.2-3.4) 11/04/18 06:30 Beckham # (Auto) 0.4 (0.1-0.6) 11/04/18 06:30 Eos # (Auto) 0.4 (0.0-0.7) 11/04/18 06:30 Baso # (Auto) 0.01 K/mm3 (0.0-2.0) 11/04/18 06:30 Absolute Neuts (auto) 3.31 (1.4-6.5) 11/04/18 06:30 Retic Count 4.96 % (0.5-1.5) H 11/01/18 05:30 PT 10.2 SECONDS (9.4-12.5) 10/31/18 19:15 INR 0.92 10/31/18 19:15 APTT 28.7 Seconds (26.9-38.3) 10/31/18 19:15 Plt P2Y12 React Units 216 PRU (194-418) 11/03/18 12:05 Sodium 139 mmol/L (132-148) 11/03/18 07:05 Potassium 4.6 mmol/L (3.6-5.0) 11/03/18 07:05 Chloride 109 mmol/L (98-107) H 11/03/18 07:05 Carbon Dioxide 24 mmol/L (21-33) 11/03/18 07:05 Anion Gap 10 (10-20) 11/03/18 07:05 BUN 12 mg/dL (7-21) 11/03/18 07:05 Creatinine 0.9 mg/dl (0.7-1.2) 11/03/18 07:05 Est GFR ( Amer) > 60 11/03/18 07:05 Est GFR (Non-Af Amer) > 60 11/03/18 07:05 Random Glucose 123 mg/dL (70-110) H 11/03/18 07:05 Calcium 9.1 mg/dL (8.4-10.5) 11/03/18 07:05 Phosphorus 3.9 mg/dL (2.5-4.5) 11/03/18 07:05 Magnesium 1.9 mg/dL (1.7-2.2) 11/03/18 07:05 Iron 27 ug/dL (45-180) L 10/31/18 21:35 TIBC 338 ug/dL (265-497) 10/31/18 21:35 % Saturation 8 % (20-55) L 10/31/18 21:35 Erythropoietin 232.6 mIU/mL (2.6-18.5) H 11/01/18 05:30 Ferritin 11.0 ng/mL 10/31/18 21:35 Total Bilirubin 0.4 mg/dL (0.2-1.3) 11/03/18 07:05 Direct Bilirubin 0.1 mg/dL (0.0-0.4) 11/03/18 07:05 AST 31 U/L (14-36) 11/03/18 07:05 ALT 25 U/L (7-56) 11/03/18 07:05 Alkaline Phosphatase 49 U/L (38-126) 11/03/18 07:05 Lactate Dehydrogenase 519 U/L (333-699) 10/31/18 19:15 Total Creatine Kinase 54 U/L (35-230) 11/01/18 05:30 Troponin I < 0.01 ng/mL 11/01/18 05:30 NT-Pro-B Natriuret Pep 425 pg/mL (0-450) 10/31/18 19:15 Total Protein 5.9 g/dL (5.8-8.3) 11/03/18 07:05 Albumin 3.3 g/dL (3.0-4.8) 11/03/18 07:05 Globulin 2.5 gm/dL 11/03/18 07:05 Albumin/Globulin Ratio 1.3 (1.1-1.8) 11/03/18 07:05 Lipase 76 U/L (23-300) 10/31/18 21:35 Urine Color Yellow (YELLOW) 10/31/18 21:00 Urine Appearance Clear (CLEAR) 10/31/18 21:00 Urine pH 6.0 (4.7-8.0) 10/31/18 21:00 Ur Specific [place] 1.015 (1.005-1.035) 10/31/18 21:00 Urine Protein Negative mg/dL (<30 mg/dL) 10/31/18 21:00 Urine Glucose (UA) >=1000 mg/dL (NEGATIVE) 10/31/18 21:00 Urine Ketones Negative mg/dL (NEGATIVE) 10/31/18 21:00 Urine Blood Trace-intact (NEGATIVE) H 10/31/18 21:00 Urine Nitrate Negative (NEGATIVE) 10/31/18 21:00 Urine Bilirubin Negative (NEGATIVE) 10/31/18 21:00 Urine Urobilinogen 0.2 E.U./dL (<1 E.U./dL) 10/31/18 21:00 Ur Leukocyte Esterase Negative Aniceto/uL (NEGATIVE) 10/31/18 21:00 Urine RBC 5 - 10 /hpf (0-2) H 10/31/18 21:00 Urine WBC 2 - 5 /hpf (0-6) 10/31/18 21:00 Ur Epithelial Cells 6 - 8 /hpf (0-5) H 10/31/18 21:00 Blood Type O POSITIVE 10/31/18 20:09 Antibody Screen Negative 10/31/18 20:09 Crossmatch See Detail 10/31/18 20:09 BBK History Checked Patient has bt 10/31/18 20:09 - Hospital Course Hospital Course: PGY-[address] Reddy Ms Cha, 72F, PMHx CVA, active smoker, CAD s/p drug elutung stents (09/28/18), HTN/HLD, COPD, iron deficiency anemia, T2DM admitted for chest pain found to have Hb 6 and recent dark stool. The GI bleed is likely from upper GI source. EGD (11/02) shows Erosive gastritis with Non-bleeding ulcers x 3, no stigmata of recent bleed, biopsied; Angioectasia (few), non-bleeding, in stomach and duodenal bulb. Pt has acute on chronic anemia s/p 3p RBC. H/H is stable after EGD and today Hb is 10.3. She is started on Iron PO, folic, venofar x 4 doses. GI cleared to re-start ASA and plavix, which patient tolerated well, H/H remains stable. ACS has been ruled out: trops neg x 2. No change in EKG. She continues on Lipitor/Ezetimibe, Carvedilol, Vit D, hydralazine. 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 A1C 8.4. She received diabetic education. As for her COPD, she is on Brovana, xopenex. She is on nicoderm for tobacco abuse, got counselled for cessation. She complaints of constipation. She is on Colace TID, s/p Mg citrate. Physical therapy recommends her to rehab. Choice of rehab is pending insurance approval. If pt should go home, [facility] referral has also been made for home care and home PT. s/r/d/w Dr Reddy Discharge Exam - Head Exam Head Exam: ATRAUMATIC, NORMAL INSPECTION, NORMOCEPHALIC - Eye Exam Eye Exam: EOMI, Normal appearance, PERRL. absent: Scleral icterus Pupil Exam: NORMAL ACCOMODATION - ENT Exam ENT Exam: Mucous Membranes Moist - Neck Exam Additional comments: supple - Respiratory Exam Respiratory Exam: NORMAL BREATHING PATTERN. absent: Rhonchi, Wheezes, Respiratory Distress - Cardiovascular Exam Cardiovascular Exam: REGULAR RHYTHM, +S1, +S2 - GI/Abdominal Exam GI & Abdominal Exam: Normal Bowel Sounds, Unremarkable. absent: Soft, Tenderness - Extremities Exam Extremities exam: normal capillary refill, pedal pulses present - Back Exam Back exam: absent: CVA tenderness (L), CVA tenderness (R) - Neurological Exam Neurological exam: Alert, CN II-XII Intact, Oriented x3 - Psychiatric Exam Psychiatric exam: Normal Affect, Normal Mood - Skin Skin Exam: Dry, Warm Discharge Plan - Discharge Medications Prescriptions: Levalbuterol [Xopenex] 0.63 mg IH [id number] 14 Days neb Arformoterol [Brovana] 15 mcg IH [id number] 14 Days neb Aspirin [Ecotrin] 81 mg PO DAILY 14 Days tabec Atorvastatin [Lipitor] 40 mg PO DIN 14 Days tab Carvedilol [Coreg] 3.125 mg PO 0800 14 Days tab Clopidogrel [Plavix] 75 mg PO DAILY 14 Days tab Docusate [Colace] 100 mg PO TID 14 Days cap Ergocalciferol [Drisdol 50,000 Intl Units Cap] 1 cap PO Q7D 14 Days cap Ezetimibe [Zetia] 10 mg PO DAILY 14 Days tab Ferrous Sulfate [Feosol] 324 mg PO 0800,1200,1600 14 Days ect Folic Acid 1 mg PO DAILY 14 Days tab Gabapentin [Neurontin] 300 mg PO BID 14 Days cap hydrALAZINE [Apresoline] 10 mg PO 1000,1800 14 Days tab Insulin Glargine,Hum.rec.anlog [Basaglar Kwikpen U-100] 10 unit SQ BID #1 insuln.pen metFORMIN [glucOPHAGE] 500 mg PO ACL 14 Days tab Nicotine 21 mg/24 hr [Nicoderm Cq] 1 patch TD DAILY 14 Days patch Pantoprazole [Protonix EC Tab] 40 mg PO 0600 14 Days ect Polyethylene Glycol 3350 [Miralax] 17 gm PO BID #14 packet - Follow Up Plan Condition: FAIR Disposition: REHAB FACILITY/REHAB UNIT Additional Instructions: MAY DISCHARGE TO TCU IF ACCEPTED AND IF PATIENT AGREES OTHER DIAMOND MAY DISCHARGE HOME WITH REFER TO HOME SERVICES AND VNA AND HOME PT FOLLOW UP WITHIN 1 WEEK ON 11/07/2018 Referrals: Max Beltrán MD [Staff Provider] - Edilson Reddy MD [Primary Care Provider] - Abdullahi Vanessa MD [Staff Provider] -
[2018-11-04 07:33] LABS: ALB/GLOB RATIO 1.3 (1.1-1.8); ALBUMIN 3.3 g/dL (3.0-4.8); ALT/SGPT 19 U/L (7-56); AST/SGOT 28 U/L (14-36); BILIRUBIN,DIRECT 0.1 mg/dL (0.0-0.4); BLOOD UREA NITROGEN 14 mg/dL (7-21); CALCIUM 9.2 mg/dL (8.4-10.5); GFR NON-AFRICAN AMERICAN > 60
[2018-11-04] MEDS ORDERED: Magnesium Citrate Oral SOL (300 ml) PO ONE (07:33)
[2018-11-04 08:11] VITALS: O2SAT 98
[2018-11-04] MEDS: Arformoterol 15 mcg/2 ml Inh Sol IH SCH (08:41)
[2018-11-04] MEDS: Insulin Lispro (HUMAlog) HIGH Coverage SC SCH ×3 (08:53→18:06)
[2018-11-04] MEDS: POLYETHYLENE GLYCOL 3350 17 GM/Dose PACKET PO SCH (09:02)
[2018-11-04] MEDS: Cholecalciferol 1,000 INTLU TAB PO SCH (09:03)
[2018-11-04] MEDS: Insulin Detemir 100 units/ml Vial (Levemir) SC SCH (09:08)
[2018-11-04 12:40] VITALS: TEMP 98.3
--- NOTE | 2018-11-04 14:55 | PN ---
DATE: 11/04/2018 CARDIOLOGY FOLLOWUP SUBJECTIVE: The patient is chest pain free. There is no more GI bleeding noted. PHYSICAL EXAMINATION: VITAL SIGNS: Blood pressure 157/67, heart rates in the 60s. NECK: Negative JVD. LUNGS: Without rales. HEART: S1, S2. EXTREMITIES: Without edema. LABORATORY DATA: Hemoglobin is stable. The PRU is 216. IMPRESSION: 1. Status post gastrointestinal bleed. 2. Anemia which is now stable. 3. History of recent percutaneous transluminal coronary angioplasty and stent with drug-eluting stents. 4. History of nicotine addiction. 5. Diabetes mellitus. Given these findings, the patient is doing well on aspirin and Plavix. Awaiting transfer to TCU. We will re-measure her PRU in 2-3 days. Abdullahi Vanessa MD
[2018-11-04 18:11] VITALS: BP 176/67; PULSE 86
== END 2018-11-04 18:37 | disposition home health service (06) | DRG 378 ==
LOC: ED 18:23 → ERH 19:59 → 2RNO 23:39
PROVIDERS: ADMIT Internal Medicine; ATTEND Internal Medicine
PROC: 30233N1 Transfusion of Nonautologous Red Blood Cells into Peripheral Vein, Percutaneous Approach (ICD-10-PCS; 2018-10-31)
PROC: 0DB68ZX Excision of Stomach, Via Natural or Artificial Opening Endoscopic, Diagnostic (ICD-10-PCS; principal; 2018-11-02 10:45)
DX: K92.1 Melena (principal); D62 Acute posthemorrhagic anemia; I25.110 Atherosclerotic heart disease of native coronary artery with unstable angina pectoris; E44.1 Mild protein-calorie malnutrition; K31.819 Angiodysplasia of stomach and duodenum without bleeding; K29.60 Other gastritis without bleeding; K20.9 Esophagitis, unspecified; K31.9 Disease of stomach and duodenum, unspecified; I10 Essential (primary) hypertension; E83.42 Hypomagnesemia; E11.65 Type 2 diabetes mellitus with hyperglycemia; E11.40 Type 2 diabetes mellitus with diabetic neuropathy, unspecified; J44.9 Chronic obstructive pulmonary disease, unspecified; E55.9 Vitamin D deficiency, unspecified; D51.9 Vitamin B12 deficiency anemia, unspecified; E78.5 Hyperlipidemia, unspecified; M50.30 Other cervical disc degeneration, unspecified cervical region; I44.7 Left bundle-branch block, unspecified; N28.1 Cyst of kidney, acquired; M51.36 Other intervertebral disc degeneration, lumbar region; F17.200 Nicotine dependence, unspecified, uncomplicated; E78.00 Pure hypercholesterolemia, unspecified; R31.29 Other microscopic hematuria; R07.9 Chest pain, unspecified; I70.0 Atherosclerosis of aorta; K56.41 Fecal impaction; K64.4 Residual hemorrhoidal skin tags; Z86.73 Personal history of transient ischemic attack (TIA), and cerebral infarction without residual deficits; Z68.21 Body mass index [BMI] 21.0-21.9, adult; Z79.4 Long term (current) use of insulin; I25.2 Old myocardial infarction; Z79.82 Long term (current) use of aspirin; Z95.5 Presence of coronary angioplasty implant and graft; Z79.02 Long term (current) use of antithrombotics/antiplatelets

== ENCOUNTER 2018-11-12 13:11 | Inpatient (IN) | payer MEDICARE, OTHER | END 2018-11-15 18:29 | disposition home or self-care (01) | LOC: ED 13:11 → ERH 17:12 → 2RNO 19:43 ==

== ENCOUNTER 2018-12-21 06:47 | Inpatient (IN) | payer MEDICARE, OTHER ==
[2018-12-21 06:52] VITALS: BMI 31.2
[2018-12-21 07:38] LABS: BASO # 0.03 K/mm3 (0.0-2.0); BASO % 0.3 % (0.0-3.0); EOS # 0.1 (0.0-0.7); EOS % 0.8 % (1.5-5.0); HEMOGLOBIN 7.6 g/dL (12.0-16.0); LYMPH # 1.1 (1.2-3.4); LYMPH % 9.4 % (22.0-35.0); MEAN CELL VOLUME 90.8 fl (80.0-105.0); MEAN CORPUSCULAR HEMOGLOBIN 29.2 pg (25.0-35.0); MEAN CORPUSCULAR HGB CONC 32.2 g/dl (31.0-37.0); MEAN PLATELET VOLUME 10.9 fl (7.0-11.0); MONO # 0.3 (0.1-0.6); MONO % 2.3 % (1.0-6.0); RBC 2.6 10^6/uL (3.5-6.1); RED CELL DISTRIBUTION WIDTH 14.5 % (11.5-14.5); WHITE BLOOD COUNT 11.9 10^3/uL (4.5-11.0)
--- NOTE | 2018-12-21 07:41 | ED PDOC ---
Arrival/HPI - General Chief Complaint: Chest Pain Historian: Patient - History of Present Illness Narrative History of Present Illness (Text): 12/21/18 07:26 73 year old female, whose past medical history includes hypertension, diabetes, anemia, myocardial infarction, cardiac stents, and hyperlipidemia, who presents to the ED for chest pain since last night. patient was given Aspirin and NTG spray prior to arrival, which have momentarily improved symptoms before they worsened. Patient describes the pain as heaviness in the center of the chest, that has now started radiating to the left arm. Patient also reports the pain "feels like it goes up to her throat." Patient notes associated sweats, lightheadedness, and "feeling hot." Patient denies any fevers, chills, headache, dizziness, shortness of breath, cough, abdominal pain, nausea, vomiting, d iarrhea, back pain, neck pain, urinary/bowel changes, or any other complaint. PMD: Dr. Reddy Time/Duration: 24 hours Symptom Onset: Gradual Symptom Course: Unchanged Activities at Onset: Light Context: Home Past Medical History - Provider Review Nursing Documentation Reviewed: Yes - Infectious Disease Hx of Infectious Diseases: None - Cardiac Hx Cardiac Disorders: Yes (Recurrent angina, Two vessel coronary artery disease with PTCA and stent) Hx CA: Yes (09/2018) Hx Hypertension: Yes - Pulmonary Hx Respiratory Disorders: Yes Hx Chronic Obstructive Pulmonary Disease (COPD): Yes Other/Comment: quit smoking 09/2018 - Neurological Hx Neurological Disorder: Yes HX Cerebrovascular Accident: Yes - HEENT Hx HEENT Disorder: No - Renal Hx Renal Disorder: No Other/Comment: family history of renal disorder - Endocrine/Metabolic Hx Endocrine Disorders: Yes Hx Diabetes Mellitus Type 2: Yes - Hematological/Oncological Hx Blood Disorders: Yes Hx Blood Transfusions: Yes Hx Blood Transfusion Reaction: No - Integumentary Hx Dermatological Disorder: Yes Other/Comment: Fungus on the nails - Musculoskeletal/Rheumatological Hx Musculoskeletal Disorders: Yes Hx Falls: Yes - Gastrointestinal Hx Gastrointestinal Disorders: No - Genitourinary/Gynecological Hx Reproductive Disorders: Yes (GATO) - Psychiatric Hx Emotional Abuse: No Hx Physical Abuse: No Hx Substance Use: No - Surgical History Hx Hysterectomy: Yes Hx Tonsillectomy: No Other/Comment: colonscopy - Anesthesia Hx Anesthesia: Yes Hx Anesthesia Reactions: No Hx Malignant Hyperthermia: No - Suicidal Assessment Feels Threatened In Home Enviroment: No Family/Social History - Physician Review Nursing Documentation Reviewed: Yes Family/Social History: Unknown Family HX Smoking Status: Former Smoker Hx Alcohol Use: No Hx Substance Use: No Hx Substance Use Treatment: No Allergies/Home Meds Allergies/Adverse Reactions: Allergies No Known Allergies Allergy (Verified 12/21/18 06:53) Home Medications: Home Meds Medication Instructions Recorded Confirmed Basaglalyssa Georgeikpen U-100 45 units SQ BID 11/29/18 11/29/18 MetFORMIN [glucoPHAGE] 1,000 mg PO BID 11/29/18 11/29/18 Rosuvastatin Calcium [Crestor] 40 mg PO DAILY 11/29/18 11/29/18 hydrALAZINE [Apresoline] 10 mg PO 1000 11/29/18 11/29/18 Review of Systems - Physician Review All systems were reviewed & negative as marked: Yes - Review of Systems Constitutional: absent: Fevers Eyes: absent: Vision Changes ENT: absent: Hearing Changes Respiratory: absent: SOB, Cough Cardiovascular: Chest Pain Gastrointestinal: absent: Abdominal Pain, Nausea, Vomiting Genitourinary Female: Normal Musculoskeletal: Normal Skin: Normal Neurological: Normal. absent: Headache Endocrine: Normal Hemo/Lymphatic: Normal Psychiatric: Normal Physical Exam Vital Signs Reviewed: Yes Vital Signs Temp Pulse Resp BP Pulse Ox 12/21/18 07:14 98.1 F 91 H 18 144/63 100 Temperature: Afebrile Blood Pressure: Normal Pulse: Regular Respiratory Rate: Normal Appearance: Positive for: Well-Appearing, Non-Toxic, Uncomfortable Pain Distress: Moderate Mental Status: Positive for: Alert and Oriented X 3 - Systems Exam Head: Present: Atraumatic, Normocephalic Pupils: Present: PERRL Extroacular Muscles: Present: EOMI Conjunctiva: Present: Normal Mouth: Present: Moist Mucous Membranes Neck: Present: Normal Range of Motion Respiratory/Chest: Present: Clear to Auscultation, Good Air Exchange. No: Respiratory Distress, Accessory Muscle Use Cardiovascular: Present: Regular Rate and Rhythm, Normal S1, S2. No: Murmurs Abdomen: No: Tenderness, Distention, Peritoneal Signs Back: Present: Normal Inspection Upper Extremity: Present: Normal Inspection. No: Cyanosis, Edema Lower Extremity: Present: Normal Inspection. No: Edema Neurological: Present: GCS=15, CN II-XII Intact, Speech Normal Skin: Present: Warm, Dry, Normal Color. No: Rashes Psychiatric: Present: Alert, Oriented x 3, Normal Insight, Normal Concentration Medical Decision Making ED Course and Treatment: 12/21/18 07:44 Impression: 73 year old female who presents to the ED for chest pain. Plan: -- Labs -- Chest X-Ray -- O2 via nasal cannula -- NPO -- Urinalysis -- Reassess and disposition Prior Visits: Notes and results from previous visits were reviewed. Progress Notes: 12/21/18 07:53 Patient reports relieved pain after taking NTG. 12/21/18 08:15 Patient noted to have brown stool. Guaiac positive. Lot #[id number]. Expiration 08/08. 12/21/18 08:18 EKG: Rate: 84 BPM Rhythm: NSR Interpretation: Normal IL, Normal QT. LBBB. Comparison: Unchanged from previous, done on 11/12/18. 12/21/18 08:21 Chest X-Ray reviewed by me, negative. 12/21/18 08:[address] Reddy, who is aware and agrees with ED management plan, accepts patient under his service. Spoke to resident under Dr. Reddy's service, who is aware and agrees with plan. - RAD Interpretation Radiology Orders: 12/21/18 07:18 CHEST PORTABLE [RAD] Stat - Medication Orders Current Medication Orders: Discontinued Medications Aspirin (Aspirin) 325 mg PO STAT STA Stop: 12/21/18 07:19 - Scribe Statement The provider has reviewed the documentation as recorded by the Scot Hoff training under [facility] Provider Scribe Attestation: All medical record entries made by the Scot were at my direction and personally dictated by me. I have reviewed the chart and agree that the record accurately reflects my personal performance of the history, physical exam, medical decision making, and the department course for this patient. I have also personally directed, reviewed, and agree with the discharge instructions and disposition. Disposition/Present on Arrival - Present on Arrival Any Indicators Present on Arrival: Yes History of DVT/PE: No History of Uncontrolled Diabetes: Yes Urinary Catheter: No History of Decub. Ulcer: No History Surgical Site Infection Following: None - Disposition Have Diagnosis and Disposition been Completed?: Yes Diagnosis: Chest pain, GI bleed, Hyperglycemia, Anemia Disposition: HOSPITALIZED Disposition Time: 08:25 Patient Plan: Admission Condition: STABLE Discharge Instructions (ExitCare): Chest Pain (ED) Referrals: Edilson Reddy MD [Primary Care Provider] - Follow up with primary Forms: [employer] ([place]an)
[2018-12-21 07:55] LABS: ALB/GLOB RATIO 1.3 (1.1-1.8); ALBUMIN 3.5 g/dL (3.0-4.8); ALT/SGPT 24 U/L (7-56); AST/SGOT 21 U/L (14-36); BLOOD UREA NITROGEN 46 mg/dL (7-21); CALCIUM 9.5 mg/dL (8.4-10.5); GFR NON-AFRICAN AMERICAN > 60
[2018-12-21 07:57] LABS: B-TYPE NATRIURETIC PEPTIDE 271 pg/mL (0-450); TROPONIN I < 0.01 ng/mL
[2018-12-21] MEDS ORDERED: Sodium Chloride 0.9% 1,000 ML IV STA (08:04)
[2018-12-21 08:21] LABS: INR 1.02; PARTIAL THROMBOPLASTIN TIME 25.9 Seconds (26.9-38.3); PROTHROMBIN TIME 11.5 SECONDS (9.4-12.5)
[2018-12-21] MEDS: Magnesium Sulfate 2 gm/50 ml 2 GM/50 ML BAG IVPB SCH ×2 (09:59→13:23)
[2018-12-21] MEDS: Lactated Ringer's 1,000 ML IV SCH (10:00)
--- NOTE | 2018-12-21 10:01 | RAD ---
Date of service: 12/21/2018 HISTORY: chest pain COMPARISON: [id number]. FINDINGS: LUNGS: The lungs are well inflated and clear. PLEURA: No pleural effusions or pneumothorax. CARDIOVASCULAR: The heart is normal in size. No aortic atherosclerotic calcifications present. OSSEOUS STRUCTURES: Within normal limits for the patient's age. VISUALIZED UPPER ABDOMEN: Normal. OTHER FINDINGS: None. IMPRESSION: No active pulmonary disease.
[2018-12-21] MEDS: Nitroglycerin 2% Ointment Foilpak UD TOP SCH ×2 (10:07→16:47)
[2018-12-21] MEDS: Insulin Lispro (humaLOG) MEDIUM Coverage SC SCH ×2 (12:45→17:16)
[2018-12-21] MEDS: Levalbuterol 0.63 MG/3 ML Inhal Soln UD IH SCH ×2 (13:05→19:45)
[2018-12-21] MEDS: BASAGLAR U SQ SCH ×2 (13:12→17:13)
[2018-12-21] MEDS: Ergocalciferol 50,000 Intl Units Cap PO SCH ×2 (13:23→13:27)
[2018-12-21] MEDS: POLYETHYLENE GLYCOL 3350 17 GM/Dose PACKET PO SCH ×2 (13:27→17:16)
[2018-12-21] MEDS ORDERED: Levalbuterol 1.25 MG/3 ML Inhal Soln UD IH SCH (14:00)
--- NOTE | 2018-12-21 15:08 | CP.PCM.HP ---
History of Present Illness - History of Present Illness History of Present Illness: Medicine H/P: Yoli PGY2 Chief complaint: Chest Pain/Anemia 73 F presents with a few hours duration of vague chest pain with radiation to shoulder and fatigue. She states "I knew my blood count was low when it started," and that she has felt like this in the past when her Hgb is low. She further states that she felt overall fatigued last night and was unable to sleep. She denies any shortness of breath, hematochezia, hematuria, or hematemesis. Of note, patient was recently admitted with similar symptoms in October 2018, at which time a colonoscopy was performed which revealed a few non-bleeding angioectasias of the stomach and duodenum as well as erosive gastropathy. She was just transfused 3 weeks ago. ED work up revealed Hgb 7.6, EKG with LBBB unchanged from the past as well as negative CXR. ROS: 12 point ROS obtained and negative except as per HPI SH: Thyroid biopsy, stents in LAD and circumflex arteries MH: CAD, CVA, HTN, HLD, iron deficiency anemia, T2DM, COPD, LBBB Allergies: NKDA SHx: Previously smoked 1/2 PPD, last tobacco use was 1 month ago. denies alcohol, illicit drug use Home Meds: Reviewed, as per EMR Family History: Non-contributory PMD: Dr. Reddy Present on Admission - Present on Admission Any Indicators Present on Admission: No Past Patient History - Infectious Disease Hx of Infectious Diseases: None - Past Social History Smoking Status: Former Smoker - CARDIAC Hx Cardiac Disorders: Yes (Recurrent angina, Two vessel coronary artery disease with PTCA and stent) Hx Heart Attack: Yes (09/2018) Hx Hypertension: Yes - PULMONARY Hx Respiratory Disorders: Yes Hx Chronic Obstructive Pulmonary Disease (COPD): Yes Other/Comment: quit smoking 09/2018 - NEUROLOGICAL Hx Neurological Disorder: Yes HX Cerebrovascular Accident: Yes - HEENT Hx HEENT Problems: No - RENAL Hx Chronic Kidney Disease: No Other/Comment: family history of renal disorder - ENDOCRINE/METABOLIC Hx Endocrine Disorders: Yes Hx Diabetes Mellitus Type 2: Yes - HEMATOLOGICAL/ONCOLOGICAL Hx Blood Disorders: Yes Hx Blood Transfusions: Yes Hx Blood Transfusion Reaction: No - INTEGUMENTARY Hx Dermatological Problems: Yes Other/Comment: Fungus on the nails - MUSCULOSKELETAL/RHEUMATOLOGICAL Hx Musculoskeletal Disorders: Yes Hx Falls: Yes - GASTROINTESTINAL Hx Gastrointestinal Disorders: No - GENITOURINARY/GYNECOLOGICAL Hx Reproductive Disorders: Yes (GATO) - PSYCHIATRIC Hx Emotional Abuse: No Hx Physical Abuse: No Hx Substance Use: No - SURGICAL HISTORY Hx Hysterectomy: Yes Hx Tonsillectomy: No Other/Comment: colonscopy - ANESTHESIA Hx Anesthesia: Yes Hx Anesthesia Reactions: No Hx Malignant Hyperthermia: No Meds Allergies/Adverse Reactions: Allergies Allergy/AdvReac Type Severity Reaction Status Date / Time No Known Allergies Allergy Verified 12/21/18 06:53 Physical Exam - Constitutional Appears: Well - Head Exam Head Exam: ATRAUMATIC, NORMAL INSPECTION, NORMOCEPHALIC - Eye Exam Eye Exam: EOMI, Normal appearance, PERRL Pupil Exam: NORMAL ACCOMODATION, PERRL - ENT Exam ENT Exam: Mucous Membranes Moist, Normal Exam - Neck Exam Neck exam: Positive for: Normal Inspection - Respiratory Exam Respiratory Exam: Clear to Auscultation Bilateral, NORMAL BREATHING PATTERN - Cardiovascular Exam Cardiovascular Exam: REGULAR RHYTHM - GI/Abdominal Exam GI & Abdominal Exam: Normal Bowel Sounds, Soft. absent: Tenderness - Extremities Exam Extremities exam: Positive for: normal inspection - Back Exam Back exam: NORMAL INSPECTION - Neurological Exam Neurological exam: Alert, CN II-XII Intact, Normal Gait, Oriented x3, Reflexes Normal - Psychiatric Exam Psychiatric exam: Normal Affect, Normal Mood - Skin Skin Exam: Dry, Intact, Normal Color, Warm - Additional Findings Additional findings: Patient is very alert, oriented; appears dry on exam; No abdominal tenderness; no reproducible chest pain. 2/6 Systolic murmur Results - Vital Signs Recent Vital Signs: Last Vital Signs Temp 97.9 F 12/21/18 13:17 Pulse 72 12/21/18 13:23 Resp 16 12/21/18 13:17 BP 132/61 12/21/18 13:23 Pulse Ox 100 12/21/18 07:14 - Labs Result Diagrams: 12/21/18 06:56 12/21/18 06:56 Labs: Laboratory Results - last 24 hr 12/21/18 12/21/18 12/21/18 06:56 06:56 06:56 WBC 11.9 H D RBC 2.60 L Hgb 7.6 L D Hct 23.6 L MCV 90.8 MCH 29.2 MCHC 32.2 RDW 14.5 Plt Count 294 MPV 10.9 Neut % (Auto) 87.2 H Lymph % (Auto) 9.4 L [place] % (Auto) 2.3 Eos % (Auto) 0.8 L Baso % (Auto) 0.3 Lymph # (Auto) 1.1 L [place] # (Auto) 0.3 Eos # (Auto) 0.1 Baso # (Auto) 0.03 Absolute Neuts (auto) 10.38 H PT 11.5 INR 1.02 APTT 25.9 L Sodium 137 Potassium 4.9 Chloride 103 Carbon Dioxide 23 Anion Gap 16 BUN 46 H Creatinine 0.8 Est GFR ( Amer) > 60 Est GFR (Non-Af Amer) > 60 Random Glucose 331 H* D Calcium 9.5 Magnesium 1.6 L Total Bilirubin 0.2 AST 21 ALT 24 Alkaline Phosphatase 98 Lactate Dehydrogenase 440 Total Creatine Kinase 41 Troponin I < 0.01 NT-Pro-B Natriuret Pep 271 Total Protein 6.3 Albumin 3.5 Globulin 2.8 Albumin/Globulin Ratio 1.3 Blood Type Antibody Screen Crossmatch BBK History Checked 12/21/18 12/21/18 08:11 11:35 WBC RBC Hgb Hct MCV MCH MCHC RDW Plt Count MPV Neut % (Auto) Lymph % (Auto) [place] % (Auto) Eos % (Auto) Baso % (Auto) Lymph # (Auto) [place] # (Auto) Eos # (Auto) Baso # (Auto) Absolute Neuts (auto) PT INR APTT Sodium Potassium Chloride Carbon Dioxide Anion Gap BUN Creatinine Est GFR ( Amer) Est GFR (Non-Af Amer) Random Glucose Calcium Magnesium Total Bilirubin AST ALT Alkaline Phosphatase Lactate Dehydrogenase Total Creatine Kinase Troponin I < 0.01 NT-Pro-B Natriuret Pep Total Protein Albumin Globulin Albumin/Globulin Ratio Blood Type O POSITIVE Antibody Screen Negative Crossmatch See Detail BBK History Checked Patient has bt Assessment & Plan - Assessment and Plan (Free Text) Assessment: Patient is a 72 year old female with past medical history of CAD s/p stents, CVA, HTN, HLD, iron deficiency anemia, T2DM, COPD presenting with chief complaint of chest pain; lab values reveal acute anemia Plan: Acute Chest pain, likely 2/2 Anemia - Troponins Q6H - EKG in AM - Continue home Coreg, Hydralazine, Crestor, Zetia; Add NG patch q6SCH Acute Symptomatic anemia, possibly 2/2 bleeding AVM in RLQ - Transfuse 2 units pRBCs - Protonix 40 q12 - LR @ 100 ccs/hr - Continue home Feosol, folic acid - GI consulted. Appreciate recs (Dr. Beltrán) - PT/OT eval - NPO Hypomagnesemia - Monitor and replete HTN - Hydralazine 10 daily T2DM - Hold home Metformin - Accuchecks, RISS medium COPD - Xopenex Q6H - Brovana Q12H History of tobacco abuse - Nicotine patch PRN PPX - SCDs, protonix q12 - CHemical anticoagulation contraindicated 2/2 bleed
[2018-12-21] MEDS ORDERED: Pneumococcal 23-Valent Vaccine IM ONE (19:22)
[2018-12-21] MEDS ORDERED: Influenza Vaccine 60 mcg/0.5 mL SYR (4YR UP) IM ONE (19:22)
[2018-12-21] MEDS: Arformoterol 15 mcg/2 ml Inh Sol IH SCH (19:45)
--- NOTE | 2018-12-21 22:29 | CARD ---
APPROVED REPORT Date of service: 12/21/2018 EKG Measurement Heart [id number] <Conclusion> Normal sinus rhythm LBBB with associated STT abnormalities Abnormal ECG
[2018-12-22] MEDS: Levalbuterol 0.63 MG/3 ML Inhal Soln UD IH SCH ×4 (04:29→19:40)
[2018-12-22] MEDS ORDERED: Pantoprazole 40 mg EC Tab PO SCH (06:00)
[2018-12-22 06:25] LABS: BASO # 0.02 K/mm3 (0.0-2.0); BASO % 0.3 % (0.0-3.0); EOS # 0.4 (0.0-0.7); EOS % 5.4 % (1.5-5.0); HEMOGLOBIN 8.4 g/dL (12.0-16.0); LYMPH # 1.6 (1.2-3.4); LYMPH % 20.3 % (22.0-35.0); MEAN CELL VOLUME 88.4 fl (80.0-105.0); MEAN CORPUSCULAR HEMOGLOBIN 28.7 pg (25.0-35.0); MEAN CORPUSCULAR HGB CONC 32.4 g/dl (31.0-37.0); MEAN PLATELET VOLUME 10.4 fl (7.0-11.0); MONO # 0.5 (0.1-0.6); MONO % 6.3 % (1.0-6.0); RBC 2.93 10^6/uL (3.5-6.1); RED CELL DISTRIBUTION WIDTH 15.8 % (11.5-14.5); WHITE BLOOD COUNT 7.7 10^3/uL (4.5-11.0)
[2018-12-22 07:04] LABS: ALB/GLOB RATIO 1.2 (1.1-1.8); ALBUMIN 2.8 g/dL (3.0-4.8); ALT/SGPT 22 U/L (7-56); AST/SGOT 19 U/L (14-36); BILIRUBIN,DIRECT 0.2 mg/dL (0.0-0.4); BLOOD UREA NITROGEN 29 mg/dL (7-21); CALCIUM 8.6 mg/dL (8.4-10.5); GFR NON-AFRICAN AMERICAN > 60
[2018-12-22] MEDS: Arformoterol 15 mcg/2 ml Inh Sol IH SCH ×2 (07:30→19:41)
[2018-12-22] MEDS: Insulin Lispro (humaLOG) MEDIUM Coverage SC SCH ×3 (08:10→18:09)
--- NOTE | 2018-12-22 08:10 | PN ---
DATE: 12/22/2018 SUBJECTIVE: The patient is seen in room 261, bed 1. Overnight nurse's notes were reviewed. The patient received 2 units of PRBC without any complications. The patient tolerated 2 units of PRBC since yesterday. REVIEW OF SYSTEMS: The patient's 14-system review was positive for chest pain which is improved since the patient has been in the hospital and receiving nitro paste to the anterior chest wall. The patient does complain of some gastroesophageal reflux symptoms. The patient denies any nausea, vomiting, diarrhea, or constipation. Denies any rectal bleeding. A 14-system review was done, pertinent positive and negative dictated above. PHYSICAL EXAMINATION: VITAL SIGNS: T-max 98 degrees Fahrenheit. Telemetry shows normal sinus rhythm. Heart rate 63 to 78, blood pressure 125/56, respirations 20, O2 sat 100%. HEAD: Normocephalic, atraumatic. HEENT: Examination shows pinkish pale conjunctivae. Anicteric sclerae. No oropharyngeal lesion. No neck rigidity. CHEST: Kyphosis. LUNGS: Show no audible crackle, rales, or wheezing. ABDOMEN: Soft. Positive bowel sounds. No palpable hepatosplenomegaly. Mild epigastric tenderness noted. No rebound tenderness noted. No guarding. No rigidity. No rebound tenderness noted. CARDIOVASCULAR: S1, S2. Regular rhythm. Positive systolic murmur left sternal border, right second intercostal space, left second intercostal space. GENITALIA: Female. RECTAL: Deferred. EXTREMITIES: Shows no pitting edema. No calf tenderness. No Mahesh's signs. NEUROLOGIC: The patient is alert, awake, oriented x3. He is able to move upper and lower extremity without assistance. GAIT EXAMINATION: Not tested. MUSCULOSKELETAL: As per the body mass index. NEUROLOGIC: The patient is alert, awake, oriented x3. Cranial nerves II through XII limited. Gait examination not tested. DIAGNOSTICS: Available from 12/22/2018, WBC 7.7, hemoglobin/hematocrit 8.4/26, platelet 218. Peak troponin is 0.04 and 0.05. The patient received PRBC x2. CMP is still pending. IMPRESSION AND PLAN: 1. Unstable angina with symptomatic chest pain. 2. Questionable coronary demand ischemia. 3. Severe symptomatic anemia with symptoms of chest pain and unstable angina. 4. Left bundle-branch block. 5. Status post packed red blood cell transfusion x2. 6. Leukocytosis. 7. Acute blood loss anemia, etiology undetermined. 8. Uncontrolled insulin-requiring diabetes mellitus with hyperglycemia and elevated hemoglobin A1c. 9. Prerenal kidney injury. 10. Hypomagnesemia. 11. Left bundle-branch block. 12. History of non-ST elevation myocardial infarction, history of unstable angina, history of multivessel coronary artery disease, history of angioplasty and stent placement of the left anterior descending artery and left circumflex artery. 13. History of vitamin B12 deficiency and iron deficiency anemia. 14. History of nicotine dependence. 15. History of diabetic neuropathy. 16. History of transient ischemic infarct versus cerebral infarct. 17. Gait dysfunction. 18. Degenerative joint disease of the spine and knees and hips. 19. History of questionable gastric and duodenal ulceration versus ectasia. 20. Deconditioning. 21. Hypertension. 22. History of hyperlipidemia. 23. History of transfusion requiring anemia. Plan at this time, the patient has been ordered transfusion of two more units of PRBC today each unit over 3 hours for a target hemoglobin around 10 g. The patient has been ordered serial labs. CONSULTATION: Gastroenterology, Cardiology. The patient will be continued on GI prophylaxis with high-dose proton pump inhibitor. In addition, the patient will be continued on non-pharmacological DVT prophylaxis. The patient will be continued on bolus and basal sliding scale insulin coverage. Fingerstick blood sugar has been ordered. The patient will be continued on all the medications as per the MAR of today. The patient's antiplatelet therapy is held till further recommendation by Gastroenterology, Cardiology. The patient has been ordered out of bed to chair, physical therapy, occupational therapy, ambulation therapy, TCU evaluation, adult educator evaluation ordered. The patient updated about her condition, diagnosis, test results, need for further diagnostic therapeutic intervention, need for evaluation by Cardiology, Gastroenterology. All above discussed and explained to the patient in layman's language. All questions and concerns were answered. Dictated and electronically signed, not read. Edilson Reddy MD
[2018-12-22] MEDS: Lactated Ringer's 1,000 ML IV SCH ×3 (08:11→14:38)
[2018-12-22] MEDS: Nitroglycerin 2% Ointment Foilpak UD TOP SCH ×4 (08:13→20:55)
--- NOTE | 2018-12-22 08:58 | CON ---
DATE OF CONSULTATION: 12/21/2018 GASTROENTEROLOGY CONSULTATION REQUESTING PHYSICIAN: Dr. Reddy. REASON FOR CONSULTATION: I have been asked to see this 72-year-old female with a history of coronary artery disease, status post PTCA and stent of two artery circumflex and LAD with drug-eluting stents back in 09/2018 on aspirin and Plavix with recurrent GI bleeding since then. The patient was hospitalized in October with chest pain in the anemia. An upper endoscopy performed at that time demonstrated nonerosive gastritis as well as AVMs in the stomach and duodenum, which did not appear to be bleeding at the time of the procedure. She now comes to the hospital with substernal chest pain associated with nausea radiating to the left arm and throat. She denies any rectal bleeding, melena or abdominal pain. The patient also has a history of hypertension, diabetes mellitus, anemia, MS and hyperlipidemia. PAST MEDICAL HISTORY: As above. Again, she has a history of MS, coronary artery disease status post two drug-eluting stents in the LAD and circumflex artery, hypertension, COPD, CVA, type 2 diabetes mellitus. PAST SURGICAL HISTORY: Notable for hysterectomy and tonsillectomy. SOCIAL HISTORY: She is a former cigarette smoker. She denies alcohol use. FAMILY HISTORY: Noncontributory. REVIEW OF SYSTEMS: Fourteen-point review of systems is notable for substernal chest pain and nausea. PHYSICAL EXAMINATION: GENERAL: Well-developed female, lying in bed, in no acute distress. VITAL SIGNS: Reveal temperature of 98.8, blood pressure 135/57, heart rate of 70. HEENT: Reveals sclerae to be white. Conjunctivae pale. NECK: Supple. CHEST: Reveal lungs to be clear. HEART: Exam reveals regular rate and rhythm. ABDOMEN: Flabby, soft, nontender. No mass. EXTREMITIES: Show no edema. LABORATORY DATA: Reveals a white blood cell count of 11.9, hemoglobin 7.6. Coags are normal. Chemistries reveal BUN 46, creatinine 0.8, blood sugar 331. AST, ALT, and alk phos were all normal. IMPRESSION: A 72-year-old female with coronary artery disease with drug-eluting stents in the LAD and circumflex, on aspirin and Plavix with recurrent anemia. There is no evidence of active gastrointestinal bleeding at this time. This is probably chronic gastrointestinal blood loss. RECOMMENDATIONS: Transfuse 2 units of packed red blood cells. The patient will need an elective endoscopy and colonoscopy. Max Beltrán MD
--- NOTE | 2018-12-22 08:59 | HP ---
DATE OF EXAM: 12/21/2018 ADDENDUM TO HISTORY AND PHYSICAL EXAMINATION HISTORY OF PRESENT ILLNESS: The patient is seen in the emergency room, bed 6. The patient presented this morning with less than 24-hour complaint of midsternal chest pain since last night. Worse today. The patient also complained of weakness in the last 24 hours. The patient denies any rectal bleeding, melena or hematochezia. The patient denies any hematemesis, denies any hematuria. The patient was examined in bed 6. The patient's vital signs, diagnostic data, imaging studies, EKG all reviewed. Detailed history and physical examination as per the medical research tech. Please refer to the detailed history and physical examination. IMPRESSION AND PLAN 1. Chest pain. 2. Most likely unstable angina versus questionable coronary demand ischemia. 3. Severe symptomatic normocytic anemia. 4. Leukocytosis with granulocytosis. 5. Prerenal kidney injury. 6. Hyperglycemia with uncontrolled insulin-requiring diabetes mellitus. 7. Hypomagnesemia. 8. Fecal occult blood positive with most likely gastrointestinal bleeding, etiology undetermined. 9. Transfusion-requiring anemia. 10. History of iron-deficiency anemia and vitamin B12 deficiency. 11. History of non-ST elevation myocardial infarction, history of multivessel triple-vessel coronary artery disease, history of angioplasty and stent placement of the left circumflex and left anterior descending artery. 12. History of transient ischemic attack and cerebral infarct. 13. Insulin-requiring diabetes mellitus. 14. History of nicotine dependence in the past, history of chronic obstructive pulmonary disease, history of hyperlipidemia, hypovitaminosis D, history of iron-deficiency anemia, history of nicotine dependence, history of diabetic neuropathy. Plan at this time, the patient is admitted through the emergency room. Serial labs ordered. Cardiology, Gastroenterology consultation requested. Diabetic education consult ordered. TCU evaluation ordered. Transfusion of PRBC 2 units ordered. CURRENT MEDICATIONS: Hydralazine 10 mg daily, Basaglar 45 units twice a day, Brovana 15 mcg every 12 hours, Coreg 3.125 daily, Drisdol 50,000 units weekly, ferrous sulfate 324 mg three times a day, folic acid 1 mg daily, Humalog medium dose sliding scale coverage, Ringer's lactate 100 mL an hour, magnesium sulfate 2 g is ordered, MiraLax 17 g twice a day, Neurontin 300 mg twice a day, nicotine patch 21 mg daily, nitro paste 1 inch every 6 hours, Protonix 40 mg IV every 12 hours ordered, Crestor or equivalent has been ordered, Tylenol p.o. suppository p.r.n., Xopenex nebulizer every 6 hours, Zetia 10 mg daily, Zofran 4 mg IV every 4 hours. The patient has been ordered all the medications. The patient has been ordered GI prophylaxis and non-pharmacological DVT prophylaxis, out of bed, physical therapy, transfusion of 2 units of PRBC, stool occult blood. The patient seen and examined in bed 6 in the emergency room. The patient's further management will be dependent upon the recommendation by Gastroenterology, Cardiology. The patient's antiplatelet therapy has been stopped at this time because of guaiac-positive stool and acute blood loss anemia. Dictated and electronically signed, not read. Edilson Reddy MD
--- NOTE | 2018-12-22 09:52 | CON ---
DATE OF CONSULTATION: 12/22/2018 CARDIOLOGY CONSULTATION HISTORY: The patient is a 73-year-old woman, who presents with weakness and dizziness. She was found to have a hemoglobin of 7. The patient had atypical chest pain, which is now relieved after transfusion. PAST MEDICAL HISTORY: The patient's past medical history includes multivessel PTCA and stent with drug-eluting stents in September. She suffers from diabetes mellitus. The patient had GI bleeding in the past. The patient's chest pain is now resolved after transfusions. SOCIAL HISTORY: The patient does not smoke. REVIEW OF SYSTEMS: Reviewed in detail. No cardiac symptoms are noted. PHYSICAL EXAMINATION: VITAL SIGNS: Blood pressure 127/71, the heart rate is in the 70s. NECK: Negative JVD. LUNGS: Without rales. CARDIAC: Heart rate S1, S2. EXTREMITIES: Without edema. LABORATORY DATA: EKG shows normal sinus rhythm with IVCD. The glucose was 165. The hemoglobin was 8.4. Troponins are indeterminate. IMPRESSION: 1. Marked anemia, which may explain many of her symptoms. 2. Dizziness. 3. Atypical chest pain. 4. Doubt acute coronary syndrome. 5. History of multivessel coronary artery disease. 6. History of recurrent gastrointestinal bleed. 7. Diabetes mellitus. PLAN: Given these findings, I agree with transfusions. We will reassess once her hemoglobin is back to more acceptable rate. Abdullahi Vanessa MD
[2018-12-22] MEDS: BASAGLAR U SQ SCH ×2 (10:00→17:13)
[2018-12-22] MEDS: POLYETHYLENE GLYCOL 3350 17 GM/Dose PACKET PO SCH ×2 (10:01→18:10)
--- NOTE | 2018-12-22 10:19 | CP.PCM.APN ---
Subjective - Date & Time of Evaluation Date of Evaluation: 12/22/18 Time of Evaluation: 09:30 - Subjective Subjective: pt seen and examined at bedside, pt in NAD with blood transfusion in progress. Pt denies cp at this time recounts she had cp yesterday, states she will have colonoscopy and endo tomorrow . ROS negative at this time Review of Systems - Review of Systems All systems: reviewed and no additional remarkable complaints except Objective - Vital Signs/Intake and Output Vital Signs (last 24 hours): Temp Pulse Resp BP Pulse Ox 97.6 F 62 20 127/71 100 12/22/18 09:03 12/22/18 09:03 12/22/18 09:03 12/22/18 09:03 12/21/18 07:14 Intake and Output: 12/22/18 12/22/18 06:59 18:59 Intake Total 340 0 Output Total 800 Balance -460 0 - Medications Medications: Current Medications Acetaminophen (Tylenol 325mg Tab) 650 mg PO Q6 PRN PRN Reason: TEMP>=99.5F Acetaminophen (Tylenol 650 Mg Supp) 650 mg RC Q6H PRN PRN Reason: TEMP>=99.5F Arformoterol Tartrate (Brovana) 15 mcg IH [id number] [facility] Last Admin: 12/22/18 07:30 Dose: 15 mcg Carvedilol (Coreg) 3.125 mg PO 0800 [facility] Last Admin: 12/22/18 08:10 Dose: 3.125 mg Ezetimibe (Zetia) 10 mg PO DAILY [facility] Last Admin: 12/22/18 10:02 Dose: 10 mg Ergocalciferol (Drisdol 50,000 Intl Units Cap) 1 cap PO Q7D [facility] Last Admin: 12/21/18 13:27 Dose: Not Given Ferrous Sulfate (Feosol) 324 mg PO 0800,1200,1600 [facility] Last Admin: 12/22/18 08:10 Dose: 324 mg Folic Acid (Folic Acid) 1 mg PO DAILY [facility] Last Admin: 12/22/18 10:00 Dose: 1 mg Gabapentin (Neurontin) 300 mg PO BID [facility]; Protocol Last Admin: 12/22/18 10:01 Dose: 300 mg Hydralazine HCl (Apresoline) 10 mg PO 1000 [facility] Last Admin: 12/22/18 09:59 Dose: 10 mg Lactated Ringer's (Lactated Ringer's) 1,000 mls @ 100 mls/hr IV .Q10H [facility] Last Admin: 12/22/18 08:12 Dose: 100 mls/hr Insulin Human Lispro (Humalog Med) 0 units SC AC [facility]; Protocol Last Admin: 12/22/18 08:10 Dose: 5 units Levalbuterol HCl (Xopenex) 0.63 mg IH [id number] [facility] Last Admin: 12/22/18 07:30 Dose: 0.63 mg Nicotine (Nicoderm Cq) 1 patch TD DAILY [facility] Last Admin: 12/22/18 09:49 Dose: Not Given Nitroglycerin (Nitro-Bid 2% Oint) 1 ea TOP Q6H [facility] Last Admin: 12/22/18 09:49 Dose: Not Given Basaglar Kwikpen U- (100 (Home Med)) 45 units SQ BID [facility] Last Admin: 12/22/18 10:00 Dose: Not Given Rosuvastatin Calcium [Crestor] 40 Mg ( Home Med) 40 mg PO DAILY [facility] Last Admin: 12/22/18 10:01 Dose: Not Given Ondansetron HCl (Zofran Inj) 4 mg IVP Q4H PRN PRN Reason: Nausea/Vomiting Pantoprazole Sodium (Protonix Inj) 40 mg IVP Q12 [facility] Last Admin: 12/22/18 10:01 Dose: 40 mg Polyethylene Glycol (Miralax) 17 gm PO BID [facility] Last Admin: 12/22/18 10:01 Dose: Not Given Sodium Cl/Sod Bicarb/Potass Cl/PEG (Nulytely With Flavor Packs Sara) 4,000 ml PO ONCE ONE Stop: 12/22/18 14:01 - Labs Labs: 12/22/18 05:40 12/22/18 05:40 PT 11.5 SECONDS (9.4-12.5) 12/21/18 06:56 INR 1.02 12/21/18 06:56 APTT 25.9 Seconds (26.9-38.3) L 12/21/18 06:56 - Constitutional Appears: No Acute Distress - Head Exam Head Exam: ATRAUMATIC - Eye Exam Eye Exam: PERRL Pupil Exam: NORMAL ACCOMODATION - ENT Exam ENT Exam: Mucous Membranes Moist - Respiratory Exam Respiratory Exam: Clear to Ausculation Bilateral, NORMAL BREATHING PATTERN - Cardiovascular Exam Cardiovascular Exam: +S1, +S2 - GI/Abdominal Exam GI & Abdominal Exam: Soft, Normal Bowel Sounds - Extremities Exam Extremities Exam: Full ROM, Normal Capillary Refill - Back Exam Back Exam: NORMAL INSPECTION - Psychiatric Exam Psychiatric exam: Normal Mood - Skin Skin Exam: Dry, Intact Assessment and Plan - Assessment and Plan (Free Text) Plan: ITS Impressions Chest X-Ray 12/21/18 07:18 IMPRESSION: No active pulmonary disease. Troponin I 0.03 ng/mL D 12/22/18 05:40 73 yr old AA female with pmh sig for cad, htn, hld, stenting to LAD and circ on Plavix and aspirin therapy, Iron def anemia, COPD, DM2 , recent ex-smoker who presented with c/o vague cp with radiation to shoulder now admitted for further evaluation with GI and cardiology noted to be acutely anemic, doubtful ACS Consultation with Dr Vanessa and Dr Beltrán noted, pt for 2 units prbc pt on IV PPi of protonix All Active Problems Anemia (Acute) Chest pain (Acute) GI bleed (Acute) Hyperglycemia (Acute) plan for elective endoscopy and colonscopy in am. pt aware of plan of care will discuss with IDT in rounds BPCI/TIC - BPCIA/TIC Educated pt/family on BPCIA/CIR/Med to Bed Programs: N/A Flyers given, including [facility] Beneficiary letter: N/A Pt/family verbalized understanding & agreed to program: N/A
[2018-12-22] MEDS ORDERED: Bacitracin Ointment 30 GM TUBE TOP SCH (11:00)
[2018-12-22] MEDS: Bacitracin 500 Units/gm Oint Foilpak UD TOP SCH (12:07)
--- NOTE | 2018-12-22 13:33 | PN ---
DATE: 12/22/2018 SUBJECTIVE: The patient is lying in bed comfortable. She denies any further chest pain. She denies any shortness of breath, abdominal pain, rectal bleeding or melena. PHYSICAL EXAMINATION: VITAL SIGNS: Temperature 97.6, blood pressure 127/71, heart rate 62. HEENT: Reveal sclerae to be white. Conjunctivae pale. NECK: Supple. CHEST: Lungs are clear. HEART: Regular rate and rhythm. ABDOMEN: Soft, nontender. No mass. EXTREMITIES: No edema. LABORATORY DATA: Laboratory data reveal white blood cell count 7.7, hemoglobin 8.4. Chemistries reveal BUN 29, creatinine 0.7. IMPRESSION AND PLAN: This is a 73-year-old female with history of coronary artery disease, cerebrovascular accident, status post drug-eluting stents in the left anterior descending and circumflex artery; on aspirin and Plavix with recurrent GI bleeding, recurrent anemia requiring multiple units of packed red blood cells. I have discussed this case with Dr. Vanessa. He states that the patient is stable for endoscopy and colonoscopy. RECOMMENDATIONS: 1. Transfuse another 2 units of packed red blood cells until hematocrit of 30%. 2. We will prep the patient for colonoscopy tomorrow. I will also do an upper endoscopy. Max Beltrán MD
[2018-12-22] MEDS ORDERED: NuLYTELY (NACL/NAHCO3/KCL/PEG) 4L PO ONE (14:00)
--- NOTE | 2018-12-22 19:16 | CARD ---
APPROVED REPORT Date of service: 12/22/2018 EKG Measurement Heart [id number] <Conclusion> Normal sinus rhythm Left axis deviation Left bundle branch block Abnormal ECG
[2018-12-23] MEDS: Levalbuterol 0.63 MG/3 ML Inhal Soln UD IH SCH ×4 (01:33→21:06)
[2018-12-23] MEDS: Nitroglycerin 2% Ointment Foilpak UD TOP SCH ×4 (04:19→21:50)
[2018-12-23 06:32] LABS: BASO # 0.02 K/mm3 (0.0-2.0); BASO % 0.3 % (0.0-3.0); EOS # 0.5 (0.0-0.7); EOS % 6.9 % (1.5-5.0); LYMPH % 13.9 % (22.0-35.0); MEAN CORPUSCULAR HEMOGLOBIN 29.4 pg (25.0-35.0); MONO # 0.7 (0.1-0.6); MONO % 9.3 % (1.0-6.0); RBC 3.81 10^6/uL (3.5-6.1); RED CELL DISTRIBUTION WIDTH 15.5 % (11.5-14.5); WHITE BLOOD COUNT 7.3 10^3/uL (4.5-11.0)
[2018-12-23 06:35] LABS: HEMOGLOBIN 11.2 g/dL (12.0-16.0)
[2018-12-23 07:12] LABS: ALB/GLOB RATIO 1.2 (1.1-1.8); ALBUMIN 3.1 g/dL (3.0-4.8); ALT/SGPT 31 U/L (7-56); AST/SGOT 30 U/L (14-36); BILIRUBIN,DIRECT 0.1 mg/dL (0.0-0.4); BLOOD UREA NITROGEN 16 mg/dL (7-21); CALCIUM 8.9 mg/dL (8.4-10.5); GFR NON-AFRICAN AMERICAN > 60
[2018-12-23] MEDS: Arformoterol 15 mcg/2 ml Inh Sol IH SCH ×2 (07:17→21:07)
[2018-12-23] MEDS ORDERED: Sodium Chloride 0.9% 1,000 ML IV SCH (09:00)
[2018-12-23 09:48] VITALS: O2SAT 97
[2018-12-23] MEDS: POLYETHYLENE GLYCOL 3350 17 GM/Dose PACKET PO SCH ×2 (10:44→17:44)
[2018-12-23] MEDS: BASAGLAR U SQ SCH ×2 (10:46→17:44)
[2018-12-23] MEDS: Bacitracin 500 Units/gm Oint Foilpak UD TOP SCH (10:46)
[2018-12-23] MEDS: Insulin Lispro (humaLOG) MEDIUM Coverage SC SCH ×3 (10:47→17:43)
--- NOTE | 2018-12-23 11:37 | PN ---
DATE: 12/23/2018 SUBJECTIVE: The results of her GI workup is consistent with diffuse AVMs. However, she had multiple drug-eluting stents placed in 09/2018 which makes stopping the aspirin and Plavix, putting her at high risk for massive myocardial infarction secondary to stent thrombosis. Given these findings, we will need to develop a creative way of giving her medications. We should stop her aspirin, we will give her Plavix every other day and measure her PRU (we know that her PRU, she is a super responder to Plavix in the past) we will measure her PRU every other day. We will need to transfuse her if necessary and give her a iron supplements if necessary. We would like to keep her on some form of antiplatelet therapy for at least 6 months before we stop. Abdullahi Vanessa MD
[2018-12-24] MEDS: Levalbuterol 0.63 MG/3 ML Inhal Soln UD IH SCH ×3 (02:00→13:26)
[2018-12-24] MEDS: Nitroglycerin 2% Ointment Foilpak UD TOP SCH ×3 (03:05→14:06)
[2018-12-24 06:29] VITALS: RESP 18; TEMP 98
[2018-12-24] MEDS: Arformoterol 15 mcg/2 ml Inh Sol IH SCH (07:37)
[2018-12-24 07:56] LABS: BASO # 0.02 K/mm3 (0.0-2.0); BASO % 0.3 % (0.0-3.0); EOS # 0.4 (0.0-0.7); EOS % 5.6 % (1.5-5.0); LYMPH # 0.8 (1.2-3.4); LYMPH % 11.4 % (22.0-35.0); MEAN CORPUSCULAR HEMOGLOBIN 29.1 pg (25.0-35.0); MEAN CORPUSCULAR HGB CONC 32.3 g/dl (31.0-37.0); MEAN PLATELET VOLUME 11.1 fl (7.0-11.0); MONO # 0.8 (0.1-0.6); MONO % 10.7 % (1.0-6.0); RBC 4.12 10^6/uL (3.5-6.1); RED CELL DISTRIBUTION WIDTH 15.6 % (11.5-14.5); WHITE BLOOD COUNT 7.2 10^3/uL (4.5-11.0)
[2018-12-24 08:11] LABS: ALB/GLOB RATIO 1.3 (1.1-1.8); ALBUMIN 3.6 g/dL (3.0-4.8); ALT/SGPT 21 U/L (7-56); AST/SGOT 28 U/L (14-36); BILIRUBIN,DIRECT 0.2 mg/dL (0.0-0.4); BLOOD UREA NITROGEN 11 mg/dL (7-21); GFR NON-AFRICAN AMERICAN > 60
[2018-12-24] MEDS: Insulin Lispro (humaLOG) MEDIUM Coverage SC SCH ×2 (08:45→12:01)
[2018-12-24 08:49] VITALS: BP 164/70; PULSE 71
[2018-12-24] MEDS: Bacitracin 500 Units/gm Oint Foilpak UD TOP SCH (10:53)
[2018-12-24] MEDS: POLYETHYLENE GLYCOL 3350 17 GM/Dose PACKET PO SCH ×2 (10:55→11:10)
[2018-12-24] MEDS: BASAGLAR U SQ SCH (10:58)
--- NOTE | 2018-12-24 13:51 | PN ---
DATE: 12/24/2018 SUBJECTIVE: The patient is sitting in bed, comfortable. She denies any chest pain or shortness of breath. She denies any rectal bleeding or melena. PHYSICAL EXAMINATION: VITAL SIGNS: Revealed, temperature 98, blood pressure 164/70, and heart rate of 71. HEENT: Reveal sclerae to be white. Conjunctivae pink. NECK: Supple. CHEST: Lungs are clear. HEART: Reveals a regular rate and rhythm. ABDOMEN: Soft and nontender. No mass EXTREMITIES: Show no edema. LABORATORY DATA: Reveal hemoglobin of 12, BUN 11, creatinine 0.6, and blood sugar 204. IMPRESSION: 1. A 73-year-old female with recurrent anemia from chronic gastrointestinal blood loss from angiodysplasia throughout her stomach, duodenum, and ascending colon exacerbated by aspirin and Plavix therapy. The patient has a drug-eluting stent requiring Plavix therapy for at least 6 months. The stent was placed in 09/2018. 2. Recurrent anemia from chronic gastrointestinal blood loss. 3. Diabetes mellitus. RECOMMENDATIONS: We will resume the Plavix and give it to her everyday as per Dr. Vanessa's recommendations. She will be need to be monitored closely for signs of recurrent GI bleeding. She should get CBC every one to two weeks and may need repeated blood transfusions. Max Beltrán MD
--- NOTE | 2018-12-24 20:50 | DS ---
FINAL PROGRESS NOTE AND DISCHARGE SUMMARY HISTORY OF PRESENT ILLNESS: The patient was seen in room 261, bed 1. The patient is sitting up in the bed, having breakfast. The patient denies any overt or occult GI bleeding. REVIEW OF SYSTEMS: A 14-system review was done, pertinent positive, negative dictated above. PHYSICAL EXAMINATION: VITAL SIGNS: T-max 98.4. Telemetry shows sinus rhythm, heart rate 54, 66, and 57, blood pressure 160/72, 138/63, and 154/66, respirations 18, and O2 sat 97%. HEENT: Head is normocephalic and atraumatic. HEENT examination shows pinkish pale conjunctivae. Anicteric sclerae. No oropharyngeal lesion. NECK: No neck rigidity. CHEST: Kyphosis. LUNGS: Shows no audible crackle, rales or wheezing. CARDIOVASCULAR: S1 and S2, regular rhythm. Positive systolic murmur, left sternal border, right second intercostal space, left second intercostal space. ABDOMEN: Soft. Positive bowel sounds. No palpable hepatosplenomegaly. GENITALIA: Female. RECTAL: Deferred. EXTREMITIES: Shows no pitting edema. No calf tenderness. No Homans' sign. NEUROLOGICAL: The patient is alert, awake, and oriented x3. Cranial nerves II through XII grossly intact. Gait examination is independent, assisted with rollator. PSYCHIATRIC: Negative for anxiety or depression. Negative for auditory or visual hallucination. Negative for suicidal or homicidal ideations. DIAGNOSTIC DATA: On 12/24/2018; WBC 7.2, hemoglobin and hematocrit 12 and 37.1, and platelet 260. Sodium 137, potassium 4.8, chloride 106, CO2 of 24, anion gap 12, BUN 11, creatinine 0.6, GFR greater than 60, glucose 204, calcium 9, and magnesium 1.9. LFTs are within normal limits. Stool occult blood is positive. The patient received 4 units of PRBC. IMPRESSION AND PLAN: 1. Acute blood loss anemia secondary to possible gastrointestinal bleeding. 2. Recurrent anemia and recurrent transfusion, requiring anemia. 3. Status post colonoscopy. 4. Sigmoid and descending colon diverticulosis. 5. Ascending colon, nonbleeding angiodysplastic lesion. 6. Internal hemorrhoids. 7. Gastric body and mild inflammation. 8. Gastric body and cardia, multiple nonbleeding angiodysplastic lesion. 9. First portion of the duodenum, nonbleeding angiodysplastic lesion, multiple. 10. Hypertension. 11. Severe symptomatic anemia with symptoms of chest pain and questionable stable angina. 12. Granulocytosis. 13. Insulin-requiring diabetes mellitus with hyperglycemia. 14. Left bundle-branch block and left axis deviation. 15. History of coronary artery disease, coronary angioplasty. 16. Insulin-requiring diabetes mellitus. 17. History of constipation. 18. History of iron deficiency anemia and vitamin B12 deficiency. 19. Insulin-requiring diabetes mellitus with diabetic neuropathy. 20. Hypovitaminosis D. Plan at this time, the patient has been seen by physical therapy, their recommendation is home with PT. The patient is seen with licensed social worker, case was referred to [facility] visiting nurse. The patient was seen by Cardiology, Dr. Vanessa, recommends to stop aspirin and Plavix every other day and to measure PRU and recommending antiplatelet therapy for another six months. The patient's final discharge medications; Brovana 15 mcg every 12 hours, Coreg 3.125 daily, Plavix 75 mg every other day, Drisdol 50,000 units weekly, Zetia 10 mg daily, ferrous sulfate 324 three times a day, folic acid 1 mg daily, Neurontin 300 mg twice a day, hydralazine 10 mg daily, Basaglar KwikPen 45 units twice a day, Xopenex nebulizer 0.63 every 6 hours, metformin 1000 mg twice a day with breakfast and dinner and metformin 500 mg with lunch, Protonix 40 mg daily, MiraLax 17 g twice a day, and Crestor 40 mg daily. At present, the plan is the patient is to be discharged home after cleared by Dr. Vanessa and Dr. Beltrán. Stop aspirin, change Plavix to every other day, resume all her medications as per ambulatory orders. During this hospitalization, the patient was daily updated about her condition, diagnosis, treatment plan, management plan at length and all questions concerned were answered. Time spent in the discharge process 45 minutes. Dictated and electronically signed, not read. Edilson Reddy MD
== END 2018-12-24 15:55 | disposition home health service (06) | DRG 378 ==
LOC: ED 06:47 → ERH 08:32 → 2RNO 10:59
PROVIDERS: ADMIT Internal Medicine; ATTEND Internal Medicine
PROC: 30233N1 Transfusion of Nonautologous Red Blood Cells into Peripheral Vein, Percutaneous Approach (ICD-10-PCS; 2018-12-21)
PROC: 0DJD8ZZ Inspection of Lower Intestinal Tract, Via Natural or Artificial Opening Endoscopic (ICD-10-PCS; principal; 2018-12-23 08:00)
PROC: 0DJ08ZZ Inspection of Upper Intestinal Tract, Via Natural or Artificial Opening Endoscopic (ICD-10-PCS; 2018-12-23 08:00)
DX: K92.2 Gastrointestinal hemorrhage, unspecified (principal); D62 Acute posthemorrhagic anemia; D50.0 Iron deficiency anemia secondary to blood loss (chronic); Z79.4 Long term (current) use of insulin; Z79.84 Long term (current) use of oral hypoglycemic drugs; Z79.899 Other long term (current) drug therapy; E11.65 Type 2 diabetes mellitus with hyperglycemia; R07.9 Chest pain, unspecified; Z87.891 Personal history of nicotine dependence; I10 Essential (primary) hypertension; J44.9 Chronic obstructive pulmonary disease, unspecified; E53.8 Deficiency of other specified B group vitamins; E11.40 Type 2 diabetes mellitus with diabetic neuropathy, unspecified; M17.0 Bilateral primary osteoarthritis of knee; M47.9 Spondylosis, unspecified; I25.2 Old myocardial infarction; I44.7 Left bundle-branch block, unspecified; E78.5 Hyperlipidemia, unspecified; K31.819 Angiodysplasia of stomach and duodenum without bleeding; K55.20 Angiodysplasia of colon without hemorrhage; Z86.73 Personal history of transient ischemic attack (TIA), and cerebral infarction without residual deficits; I25.118 Atherosclerotic heart disease of native coronary artery with other forms of angina pectoris; Z95.5 Presence of coronary angioplasty implant and graft; K57.30 Diverticulosis of large intestine without perforation or abscess without bleeding; D72.829 Elevated white blood cell count, unspecified; E55.9 Vitamin D deficiency, unspecified; K64.8 Other hemorrhoids; Z90.710 Acquired absence of both cervix and uterus; T39.015A Adverse effect of aspirin, initial encounter; T45.525A Adverse effect of antithrombotic drugs, initial encounter

== ENCOUNTER 2019-01-15 10:03 | Emergency (ER) | payer MEDICARE ==
[2019-01-15 10:03] VITALS: BMI 31.2
[2019-01-15 10:15] VITALS: TEMP 97.9
--- NOTE | 2019-01-15 10:29 | ED PDOC ---
Arrival/HPI - General Chief Complaint: Weakness/Neurological Deficit Time Seen by Provider: 01/15/19 10:05 Historian: Patient - History of Present Illness Narrative History of Present Illness (Text): 01/15/19 10:28 A 73 year old female, whose past medical history includes hypertension, diabetes, anemia, myocardial infarction, cardiac stents, and hyperlipidemia, presents to the ED for lightheadedness the past 4 days. Patient reports seeing Dr. Reddy a few days ago for blood work but that she has not received the results yet. Patient notes that she almost fell while talking today and that her symptoms might be due to her anemia. Patient denies fevers, chills, headache, chest pain, shortness of breath, dyspnea on exertion, cough, abdominal pain, nausea, vomiting, diarrhea, back pain, neck pain, urinary/bowel changes, or any other complaints. PMD: Dr. Reddy Time/Duration: < week Symptom Onset: Gradual Symptom Course: Unchanged Activities at Onset: Light Context: Home Past Medical History - Provider Review Nursing Documentation Reviewed: Yes - Infectious Disease Hx of Infectious Diseases: None - Cardiac Hx Cardiac Disorders: Yes (Recurrent angina, Two vessel coronary artery disease with PTCA w stent, [place]) Hx Hypertension: Yes - Pulmonary Hx Chronic Obstructive Pulmonary Disease (COPD): Yes - Neurological HX Cerebrovascular Accident: Yes - HEENT Hx HEENT Disorder: No - Renal Hx Renal Disorder: No Other/Comment: family history of renal disorder - Endocrine/Metabolic Hx Diabetes Mellitus Type 2: Yes - Hematological/Oncological Hx Blood Disorders: Yes Hx Anemia: Yes (BLOOD TRANSFUSION) - Integumentary Hx Dermatological Disorder: Yes - Musculoskeletal/Rheumatological Hx Arthritis: Yes (DJD) - Gastrointestinal Hx Gastrointestinal Disorders: Yes (CONSTIPATION,) - Genitourinary/Gynecological Hx Genitourinary Disorders: No - Psychiatric Hx Psychophysiologic Disorder: No Hx Emotional Abuse: No Hx Physical Abuse: No Hx Substance Use: No - Surgical History Hx Hysterectomy: Yes Other/Comment: colonscopy - Anesthesia Hx Anesthesia: Yes Hx Anesthesia Reactions: No Hx Malignant Hyperthermia: No - Suicidal Assessment Feels Threatened In Home Enviroment: No Family/Social History - Physician Review Nursing Documentation Reviewed: Yes Family/Social History: Unknown Family HX Smoking Status: Former Smoker Hx Alcohol Use: No Hx Substance Use: No Hx Substance Use Treatment: No Allergies/Home Meds Allergies/Adverse Reactions: Allergies No Known Allergies Allergy (Verified 04/28/19 10:07) Home Medications: Home Meds Medication Instructions Recorded Confirmed MetFORMIN [glucoPHAGE] 1,000 mg PO BID 11/29/18 12/21/18 Rosuvastatin Calcium [Crestor] 40 mg PO DAILY 11/29/18 12/21/18 hydrALAZINE [Apresoline] 10 mg PO 1000 11/29/18 12/21/18 Insulin Glargine,Hum.rec.anlog 45 units SQ BID 12/21/18 12/21/18 [Angeles Wilson U-100] Review of Systems - Physician Review All systems were reviewed & negative as marked: Yes - Review of Systems Constitutional: absent: Fevers Eyes: absent: Vision Changes ENT: absent: Hearing Changes Respiratory: absent: SOB, Cough Cardiovascular: absent: Chest Pain Gastrointestinal: absent: Abdominal Pain, Vomiting Genitourinary Female: absent: Dysuria, Hematuria Musculoskeletal: absent: Back Pain, Neck Pain Skin: absent: Rash Neurological: Dizziness, Other (lightheadedness). absent: Headache Endocrine: absent: Diaphoresis Hemo/Lymphatic: absent: Adenopathy Psychiatric: absent: Anxiety, Depression Physical Exam Vital Signs Reviewed: Yes Vital Signs Temp Pulse Resp BP Pulse Ox 01/15/19 10:04 97.9 F 65 18 181/81 H 99 Temperature: Afebrile Blood Pressure: Hypertensive Pulse: Regular Appearance: Positive for: Well-Appearing, Non-Toxic, Comfortable Pain Distress: None Mental Status: Positive for: Alert and Oriented X 3 - Systems Exam Head: Present: Atraumatic, Normocephalic Pupils: Present: PERRL Extroacular Muscles: Present: EOMI Conjunctiva: Present: Normal Respiratory/Chest: Present: Clear to Auscultation, Good Air Exchange. No: Respiratory Distress, Accessory Muscle Use Cardiovascular: Present: Regular Rate and Rhythm, Normal S1, S2. No: Murmurs Abdomen: Present: Normal Bowel Sounds. No: Tenderness, Distention Rectal: Present: Normal Rectal Tone, Other (negative guaic.). No: Occult Blood, Rectal Tenderness, Gross Blood, Melena, Hemorrhoids Upper Extremity: Present: Normal Inspection, NORMAL PULSES, Neurovascularly Intact Lower Extremity: Present: Normal Inspection, NORMAL PULSES, Neurovascularly Intact Neurological: Present: GCS=15, CN II-XII Intact, Speech Normal, Motor Func Grossly Intact, Normal Sensory Function Skin: Present: Warm, Dry, Normal Color. No: Rashes Psychiatric: Present: Alert, Oriented x 3, Normal Insight, Normal Concentration Medical Decision Making ED Course and Treatment: 01/15/19 10:36 Impression: A 73 year old female who presents to the ED for lightheadedness for the past 4 days. Differential Diagnosis included but are not limited to: Lightheadedness r/o Anemia Plan: -- EKG -- Labs -- Chest X-Ray -- Urinalysis -- Reassess and disposition Prior Visits: Notes and results from previous visits were reviewed. Progress Notes: 01/15/19 10:54 55 bpm w/ LBBB and left axis deviation. 01/15/19 13:25 Chest X-Ray IMPRESSION: No active disease. Patient was feeling better and her hemoglobin was normal. I had her stand up and she felt great with no symptoms of lightheadedness or dizziness. She denies any weakness. I discussed the case with Dr. Reddy who knows his patient well, he agrees that if she is asymptomatic that she can go home with close f/u with him. He says that they just started her on Lyrica so that can cause her symptoms as well. She was explained this and says she's happy with her care. She is going to make sure to f/u with Dr. Reddy. I advised her to return to the ED if symptoms worsen or any other concern. - Scribe Statement The provider has reviewed the documentation as recorded by the Scot Hoff Provider Scribe Attestation: All medical record entries made by the Scot were at my direction and personally dictated by me. I have reviewed the chart and agree that the record accurately reflects my personal performance of the history, physical exam, medical decision making, and the department course for this patient. I have also personally directed, reviewed, and agree with the discharge instructions and disposition. Disposition/Present on Arrival - Present on Arrival Any Indicators Present on Arrival: No History of DVT/PE: No History of Uncontrolled Diabetes: No Urinary Catheter: No History of Decub. Ulcer: No History Surgical Site Infection Following: None - Disposition Have Diagnosis and Disposition been Completed?: Yes Diagnosis: Lightheadedness Disposition: HOME/ ROUTINE Disposition Time: 13:45 Patient Plan: Discharge Condition: IMPROVED Discharge Instructions (ExitCare): Dizziness, Nonvertigo, (DC) Additional Instructions: ABBY ESPINOSA, thank you for letting us take care of you today. Your provider was Robin Pineda DO and you were treated for Lightheadedness. The emergency medical care you received today was directed at your acute symptoms. If you were prescribed any medication, please fill it and take as directed. It may take several days for your symptoms to resolve. Return to the Emergency Department if your symptoms worsen, do not improve, or if you have any other problems. Please contact your doctor or call one of the physicians/clinics you have been referred to that are listed on the Patient Visit Information form that is included in your discharge packet. Bring any paperwork you were given at discharge with you along with any medications you are taking to your follow up visit. Our treatment cannot replace ongoing medical care by a primary care provider outside of the emergency department. Thank you for allowing the [facility] team to be part of your care today. If you had an X-Ray or CT scan: A Radiologist will review the ED reading if any change in treatment is needed we will contact you. If you had a blood, urine, or wound culture: It will take several days for the results, if any change in treatment is needed we will contact you. If you had an STI test: It will take 48 hours for the results. Please call after 1 week if you have not heard back. Referrals: Edilson Reddy MD [Primary Care Provider] - Follow up with primary Forms: [place] [employer] ([place])
[2019-01-15 11:06] LABS: BASO # 0.03 K/mm3 (0.0-2.0); BASO % 0.4 % (0.0-3.0); EOS # 0.3 (0.0-0.7); EOS % 4.2 % (1.5-5.0); HEMOGLOBIN 11.3 g/dL (12.0-16.0); LYMPH # 1.3 (1.2-3.4); LYMPH % 17.1 % (22.0-35.0); MEAN CELL VOLUME 88.2 fl (80.0-105.0); MEAN CORPUSCULAR HEMOGLOBIN 28.9 pg (25.0-35.0); MEAN CORPUSCULAR HGB CONC 32.8 g/dl (31.0-37.0); MEAN PLATELET VOLUME 10.7 fl (7.0-11.0); MONO # 0.5 (0.1-0.6); MONO % 6.2 % (1.0-6.0); RBC 3.91 10^6/uL (3.5-6.1); URINE BILIRUBIN NEGATIVE (NEGATIVE); URINE BLOOD NEGATIVE (NEGATIVE); URINE GLUCOSE (UA) 500 mg/dL (NEGATIVE); URINE LEUKOCYTE ESTERASE NEGATIVE Leu/uL (NEGATIVE); URINE PROTEIN NEGATIVE mg/dL (<30 mg/dL); URINE UROBILINOGEN 0.2 E.U./dL (<1 E.U./dL); WHITE BLOOD COUNT 7.4 10^3/uL (4.5-11.0)
[2019-01-15 11:07] LABS: URINE APPEARANCE CLEAR (CLEAR); URINE COLOR YELLOW (YELLOW)
--- NOTE | 2019-01-15 11:10 | RAD ---
Date of service: 01/15/2019 HISTORY: gi bleed COMPARISON: Chest radiograph dated 12/21/2018. TECHNIQUE: 1 view obtained. FINDINGS: LUNGS: No active pulmonary disease. PLEURA: No significant pleural effusion identified, no pneumothorax apparent. CARDIOVASCULAR: Aortic atherosclerotic calcifications. Cardiomediastinal silhouette stably prominent. OSSEOUS STRUCTURES: Unchanged. VISUALIZED UPPER ABDOMEN: Normal. OTHER FINDINGS: None. IMPRESSION: No active disease.
[2019-01-15 11:23] LABS: INR 0.9; PARTIAL THROMBOPLASTIN TIME 31.5 Seconds (26.9-38.3); PROTHROMBIN TIME 10.2 SECONDS (9.4-12.5)
[2019-01-15 11:24] LABS: ALB/GLOB RATIO 1.2 (1.1-1.8); ALT/SGPT 13 U/L (7-56); AMYLASE 88 U/L (35-125); AST/SGOT 20 U/L (14-36); BLOOD UREA NITROGEN 23 mg/dL (7-21); CALCIUM 9.8 mg/dL (8.4-10.5); GFR NON-AFRICAN AMERICAN 55; LIPASE 82 U/L (23-300)
[2019-01-15 11:28] LABS: TROPONIN I < 0.01 ng/mL
[2019-01-15] MEDS ORDERED: Insulin Regular 1 UNITS/0.01 ML ML SC STA (11:28)
[2019-01-15 12:18] VITALS: RESP 16; O2SAT 100
[2019-01-15 13:28] VITALS: BP 152/70; PULSE 65
--- NOTE | 2019-01-15 18:42 | CARD ---
APPROVED REPORT Date of service: 01/15/2019 EKG Measurement Heart [id number] <Conclusion> Poor data quality, interpretation may be adversely affected Sinus bradycardia Left axis deviation Left bundle branch block Abnormal ECG
== END 2019-01-15 13:45 | disposition home or self-care (01) ==
LOC: ED 10:03
DX: R42 Dizziness and giddiness (principal); I25.10 Atherosclerotic heart disease of native coronary artery without angina pectoris; I25.2 Old myocardial infarction; I10 Essential (primary) hypertension; E11.9 Type 2 diabetes mellitus without complications; D64.9 Anemia, unspecified; Z86.73 Personal history of transient ischemic attack (TIA), and cerebral infarction without residual deficits; Z98.61 Coronary angioplasty status; Z87.891 Personal history of nicotine dependence

== ENCOUNTER 2019-02-14 14:19 | Emergency (ER) | payer MEDICARE ==
[2019-02-14 14:33] VITALS: BMI 28.3
--- NOTE | 2019-02-14 15:14 | ED PDOC ---
Arrival/HPI <Daksha Rich - Last Filed: 02/14/19 17:28> - General Historian: Patient - History of Present Illness Narrative History of Present Illness (Text): 02/14/19 15:11 CC: lightheadedness HPI: 73 yo female w/ PMH includes hypertension, diabetes, anemia, myocardial infarction, cardiac stents, and hyperlipidemia, presents to the ED for lightheadedness. Patient states when she awoke she felt lousy and lightheaded. Of note patient had similar symptoms for which she visited about a month ago and was discharged. Patient has followed up with Dr. Reddy last week and her Hgb at that time was 10.9. Patient believes her hemoglobin is low and this is why she feels dizzy. Patient has shoulder pain with b/l upper extremity weakness 2/2 her cervical radiculopathy. However, patient states she did not take her Lyrica today because she was feeling lightheaded and did not want the side effects of Lyrica to compound it. Discussion was had with Dr. Reddy on the phone who recommended routine labs, troponin, and blood sugar control. Patient is followed extensively by pmd, Dr. Reddy. Denies fevers, chills, chest pain, sob, n/v, constipation or diarrhea, and dysuria. Admits to gait instability and lightheadedness. Time/Duration: 24 hours Symptom Onset: Sudden Symptom Course: Unchanged Quality: Aching Severity Level: 7 Activities at Onset: Rest Context: Sitting <Lindsey Emerson - Last Filed: 02/14/19 17:54> - General Chief Complaint: Dizziness/Lightheaded Time Seen by Provider: 02/14/19 14:33 Past Medical History - Provider Review Nursing Documentation Reviewed: Yes - Infectious Disease Hx of Infectious Diseases: None - Cardiac Hx Cardiac Disorders: Yes (Recurrent angina, Two vessel coronary artery disease with PTCA w stent, [place]) Hx Hypertension: Yes - Pulmonary Hx Chronic Obstructive Pulmonary Disease (COPD): Yes - Neurological HX Cerebrovascular Accident: Yes - HEENT Hx HEENT Disorder: No - Renal Hx Renal Disorder: No Other/Comment: family history of renal disorder - Endocrine/Metabolic Hx Diabetes Mellitus Type 2: Yes - Hematological/Oncological Hx Blood Disorders: Yes Hx Anemia: Yes (BLOOD TRANSFUSION) - Integumentary Hx Dermatological Disorder: Yes - Musculoskeletal/Rheumatological Hx Arthritis: Yes (DJD) - Gastrointestinal Hx Gastrointestinal Disorders: Yes (CONSTIPATION,) - Genitourinary/Gynecological Hx Genitourinary Disorders: No - Psychiatric Hx Psychophysiologic Disorder: No Hx Emotional Abuse: No Hx Physical Abuse: No Hx Substance Use: No - Surgical History Hx Hysterectomy: Yes Other/Comment: colonscopy - Anesthesia Hx Anesthesia: Yes Hx Anesthesia Reactions: No Hx Malignant Hyperthermia: No - Suicidal Assessment Feels Threatened In Home Enviroment: No <KiMadaser - Last Filed: 02/14/19 17:54> Family/Social History - Physician Review Nursing Documentation Reviewed: Yes Family/Social History: No Known Family HX Smoking Status: Former Smoker Hx Alcohol Use: No Hx Substance Use: No Hx Substance Use Treatment: No <KiMadaser - Last Filed: 02/14/19 17:54> Allergies/Home Meds <Daksha Rich - Last Filed: 02/14/19 17:28> <KiMadaser - Last Filed: 02/14/19 17:54> Allergies/Adverse Reactions: Allergies No Known Allergies Allergy (Verified 02/14/19 15:22) Home Medications: Home Meds Medication Instructions Recorded Confirmed MetFORMIN [glucoPHAGE] 1,000 mg PO BID 11/29/18 12/21/18 Rosuvastatin Calcium [Crestor] 40 mg PO DAILY 11/29/18 12/21/18 hydrALAZINE [Apresoline] 10 mg PO 1000 11/29/18 12/21/18 Insulin Glargine,Hum.rec.anlog 45 units SQ BID 12/21/18 12/21/18 [Basaglar Kwikpen U-100] Review of Systems - Review of Systems Constitutional: Normal. absent: Fatigue, Weight Change, Fevers Eyes: Normal. absent: Vision Changes, Photophobia, Eye Pain ENT: Normal. absent: Hearing Changes, Tinnitus, TMJ Pain Respiratory: Normal. absent: SOB, Cough, Sputum, Wheezing Cardiovascular: Normal. absent: Chest Pain, Palpitations, Edema Gastrointestinal: Normal. absent: Abdominal Pain, Stool Changes, Constipation, Nausea Genitourinary Female: Normal. absent: Dysuria, Frequency, Hematuria Musculoskeletal: Other (shoulder pain). absent: Normal Skin: Normal. absent: Rash, Pruritis Neurological: Other (lightheadedness). absent: Headache, Dizziness, Focal Weakness, Speech Changes Endocrine: Normal. absent: Diaphoresis, Polyuria, Polydipsia Hemo/Lymphatic: Normal. absent: Adenopathy, Easy Bleeding, Easy Bruising Psychiatric: Normal. absent: Anxiety, Depression, Suicidal Ideation <Lindsey Emerson - Last Filed: 02/14/19 17:54> Physical Exam Vital Signs Temp Pulse Resp BP Pulse Ox 02/14/19 15:22 98.6 F 56 L 16 160/74 H 100 <Daksha Rich - Last Filed: 02/14/19 17:28> Vital Signs Reviewed: Yes Temperature: Afebrile Blood Pressure: Hypertensive Pulse: Regular Respiratory Rate: Normal Appearance: Positive for: Uncomfortable Pain Distress: Mild Mental Status: Positive for: Alert and Oriented X 3 - Systems Exam Head: Present: Atraumatic, Normocephalic Pupils: Present: PERRL Extroacular Muscles: Present: EOMI Conjunctiva: Present: Normal Mouth: Present: Moist Mucous Membranes Neck: Present: Normal Range of Motion. No: Meningeal Signs, JVD Respiratory/Chest: Present: Clear to Auscultation, Good Air Exchange. No: Respiratory Distress, Accessory Muscle Use Cardiovascular: Present: Regular Rate and Rhythm, Normal S1, S2. No: Murmurs Abdomen: Present: Normal Bowel Sounds. No: Tenderness, Distention, Peritoneal Signs, Rebound, Guarding Upper Extremity: Present: Normal Inspection. No: Cyanosis, Edema Lower Extremity: Present: Normal Inspection. No: Edema Neurological: Present: GCS=15, CN II-XII Intact, Speech Normal Skin: Present: Warm, Dry, Normal Color. No: Rashes Psychiatric: Present: Alert, Oriented x 3, Normal Insight, Normal Concentration <Lindsey Emerson - Last Filed: 02/14/19 17:54> Medical Decision Making ED Course and Treatment: 02/14/19 16:05 Patient Seen with Resident: In agreement with resident note which contains more details about the patient. Patient seen and evaluated with resident. Came up with plan and treatment together. Patient reports that she had intermittent episode of lightheadedness that lasted only seconds. No syncope. EKG unchanged. Labs reviewed. CT head requested by Dr. Reddy negative. Dr. Reddy evaluated at bedside and patient cleared to follow-up in his office. <Daksha Rich - Last Filed: 02/14/19 17:28> ED Course and Treatment: 02/14/19 15:16 Impression 73 yo female w/ past medical history includes hypertension, diabetes, anemia, myocardial infarction, cardiac stents, and hyperlipidemia, presents to the ED for lightheadedness. Plan -CBC -CMP -Troponin -EKG -CT head -stool guaic -Hydralazine Prior Visits All prior documentation and lab work reviewed prior to evaluation Progress Notes pending vitals and cbc/cmp for dispo 02/14/19 16:29 CBC shows Hgb of 9.6. Dr. Reddy saw patient at bedside and requested stool guaic and CT head. BP remained elevated at 190/110. IV hydralazine 10mg was started 02/14/19 17:47 Stool Guaic was negative CT head was negative for any acute pathology Patient will be discharged w/ f/u instructions for Dr. Reddy which is in 2 days Patient amenable to this plan Re-evaluation Time: 17:47 Reassessment Condition: Re-examined, Improving,but remains with symptoms - Lab Interpretations Lab Results: 02/14/19 15:50 02/14/19 15:50 Lab Results 02/14/19 15:50: Sodium 135, Potassium 4.6, Chloride 108 H, Carbon Dioxide 21, Anion Gap 10, BUN 18, Creatinine 0.8, Est GFR ( Amer) > 60, Est GFR (Non- Af Amer) > 60, Random Glucose 158 H, Calcium 9.5, Total Bilirubin 0.2, AST 22, ALT 22, Alkaline Phosphatase 71, Troponin I < 0.01, Total Protein 6.7, Albumin 3.8, Globulin 3.0, Albumin/Globulin Ratio 1.3 02/14/19 15:50: WBC 6.2, RBC 3.34 L, Hgb 9.6 L, Hct 30.5 L, MCV 91.3 D, MCH 28.7, MCHC 31.5, RDW 15.2 H, Plt Count 256, MPV 10.5, Neut % (Auto) 64.4, Lymph % (Auto) 22.3, [place] % (Auto) 10.1 H, Eos % (Auto) 2.9, Baso % (Auto) 0.3, Lymph # (Auto) 1.4, [place] # (Auto) 0.6, Eos # (Auto) 0.2, Baso # (Auto) 0.02, Absolute Neuts (auto) 4.00 I have reviewed the lab results: Yes Interpretation: No sign. chg./baseline - RAD Interpretation Radiology Orders: Radiology Results Head CT 02/14/19 16:15 IMPRESSION: No acute intracranial abnormality. Mild chronic microangiopathic changes and mild age-related global parenchymal volume loss. Advice Line Rn: Radiologist - EKG Interpretation EKG Interpretation (Text): 02/14/19 15:48 Sinus bradycardia Left [place] Deviation Left bundle branch block Abnormal EKG HR [address] 134 Cardiology / EKG Studies 02/14/19 15:06 EKG [ELECTROCARDIOGRAM] Stat Comment: Reason For Exam: weakness Interpreted by ED Physician: Yes Type: 12 lead EKG Comparison: Similar to previous EKG - Medication Orders Current Medication Orders: 02/14/19 17:48 Hydralazine HCl (Apresoline) 10 mg IVP STAT JULIO <Lindsey Emerson - Last Filed: 02/14/19 17:54> - PA / COLLAR FOLDER OPERATOR / Resident Statement MD/ has reviewed & agrees with the documentation as recorded. MD/DO has examined the patient and agrees with the treatment plan. <Daksha Rich - Last Filed: 02/14/19 17:28> Disposition/Present on Arrival <Daksha Rich - Last Filed: 02/14/19 17:28> - Present on Arrival Any Indicators Present on Arrival: No History of DVT/PE: No History of Uncontrolled Diabetes: No Urinary Catheter: No History Surgical Site Infection Following: None - Disposition Have Diagnosis and Disposition been Completed?: Yes Disposition Time: 17:48 Patient Plan: Discharge <Lindsey Emerson - Last Filed: 02/14/19 17:54> - Disposition Diagnosis: Lightheadedness Disposition: HOME/ ROUTINE Condition: FAIR Additional Instructions: 1. Please f/u with Dr. Reddy on 02/16 for continued management and repeat CBC 2. Please return to hospital if symptoms worsen or recur. 3. Plan was discussed with patient who agrees with above. Referrals: PCP,NO [Primary Care Provider] - Follow up with primary Forms: [employer] (Gabonese)
[2019-02-14 15:27] VITALS: RESP 16; TEMP 98.6; O2SAT 100
[2019-02-14 16:00] LABS: BASO # 0.02 K/mm3 (0.0-2.0); BASO % 0.3 % (0.0-3.0); EOS # 0.2 (0.0-0.7); EOS % 2.9 % (1.5-5.0); HEMOGLOBIN 9.6 g/dL (12.0-16.0); LYMPH # 1.4 (1.2-3.4); LYMPH % 22.3 % (22.0-35.0); MEAN CELL VOLUME 91.3 fl (80.0-105.0); MEAN CORPUSCULAR HEMOGLOBIN 28.7 pg (25.0-35.0); MEAN CORPUSCULAR HGB CONC 31.5 g/dl (31.0-37.0); MEAN PLATELET VOLUME 10.5 fl (7.0-11.0); MONO # 0.6 (0.1-0.6); MONO % 10.1 % (1.0-6.0); RBC 3.34 10^6/uL (3.5-6.1); RED CELL DISTRIBUTION WIDTH 15.2 % (11.5-14.5); WHITE BLOOD COUNT 6.2 10^3/uL (4.5-11.0)
[2019-02-14 16:11] LABS: ALB/GLOB RATIO 1.3 (1.1-1.8); ALBUMIN 3.8 g/dL (3.0-4.8); ALT/SGPT 22 U/L (7-56); AST/SGOT 22 U/L (14-36); BLOOD UREA NITROGEN 18 mg/dL (7-21); CALCIUM 9.5 mg/dL (8.4-10.5); GFR NON-AFRICAN AMERICAN > 60
[2019-02-14 16:18] LABS: TROPONIN I < 0.01 ng/mL
--- NOTE | 2019-02-14 17:16 | CT ---
Date of service: 02/14/2019 PROCEDURE: CT HEAD WITHOUT CONTRAST. HISTORY: headache, requested by Dr. Reddy COMPARISON: None available. TECHNIQUE: Axial computed tomography images were obtained through the head/brain without intravenous contrast. Radiation dose: Total exam DLP = 792.37 mGy-cm. This CT exam was performed using one or more of the following dose reduction techniques: Automated exposure control, adjustment of the mA and/or kV according to patient size, and/or use of iterative reconstruction technique. FINDINGS: HEMORRHAGE: No intracranial hemorrhage. BRAIN: There are mild chronic microangiopathic changes. There is no mass, mass effect or abnormal extra-axial fluid collection. There is no territorial infarction. The midline sagittal structures are normal.There are coarse atherosclerotic calcifications in the cavernous carotid arteries. VENTRICLES: There is mild age-related global parenchymal volume loss and proportionate enlargement of the ventricles and cortical sulci. CALVARIUM: There is no calvarial fracture or extracranial soft tissue swelling. PARANASAL SINUSES: Predominantly clear. MASTOID AIR CELLS: Predominantly clear. OTHER FINDINGS: None. IMPRESSION: No acute intracranial abnormality. Mild chronic microangiopathic changes and mild age-related global parenchymal volume loss.
--- NOTE | 2019-02-14 18:11 | CARD ---
APPROVED REPORT Date of service: 02/14/2019 EKG Measurement Heart [id number] <Conclusion> Sinus bradycardia Left axis deviation Left bundle branch block Abnormal ECG
[2019-02-14 18:26] VITALS: BP 177/89; PULSE 70
== END 2019-02-14 18:25 | disposition home or self-care (01) ==
LOC: ED 14:19
DX: R42 Dizziness and giddiness (principal); I25.10 Atherosclerotic heart disease of native coronary artery without angina pectoris; I10 Essential (primary) hypertension; I25.2 Old myocardial infarction; E11.9 Type 2 diabetes mellitus without complications; E78.5 Hyperlipidemia, unspecified; D64.9 Anemia, unspecified; Z86.73 Personal history of transient ischemic attack (TIA), and cerebral infarction without residual deficits; Z95.5 Presence of coronary angioplasty implant and graft; Z87.891 Personal history of nicotine dependence
CPT/HCPCS: 70450; 80053; 84484; 85025; 93005; 96374; 99283; J0360